=== PATIENT | female | born 1975 | race Caucasian/White ===

== ENCOUNTER 2016-11-05 18:16 | Inpatient (IN) | payer MEDICAID, OTHER ==
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
[2016-11-05 19:51] LABS: Acetaminophen <10.0 ug/mL; Salicylate <1.0 mg/dL
[2016-11-05 23:57] VITALS: BMI 36.9
[2016-11-06] MEDS ORDERED: MAGNESIUM HYDROXIDE 2,400 MG/10 ML CUP PO PRN (01:25)
[2016-11-06] MEDS ORDERED: MAG HYDROX/AL HYDROX/SIMETH 30 ML CUP PO PRN (01:25)
[2016-11-06 09:41] LABS: Basophils % (A) 1 %; CH 31.1; CHCM 33.6; Eosinophils # (A) 0.2 k/uL (0-0.7); Eosinophils % (A) 3 %; HCT 39.1 % (34.0-46.0); HDW 2.81; HGB 12.9 gm/dL (11.4-16.0); Luc # (Auto) 0.29; Luc % (Auto) 4; Lymphocytes # (A) 3.2 k/uL (1.0-4.8); Lymphocytes % (A) 39 %; MCH 30.5 pg (25.0-35.0); MCHC 32.9 g/dL (31.0-37.0); MCV 92.8 fL (80.0-100.0); Mean Platelet Volume 6.7; Monocytes # (A) 0.4 k/uL (0-1.0); Monocytes % (A) 5 %; Neutrophils % (A) 50 %; RBC 4.21 m/uL (3.80-5.40); RDW 12.9 % (11.5-15.5); WBC 8.1 k/uL (3.8-10.6); WBC (Perox) 8.77
[2016-11-06 09:44] LABS: ALT 53 U/L (9-52); AST 35 U/L (14-36); Alkaline Phosphatase 73 U/L (38-126); Anion Gap 12 mmol/L; Blood Urea Nitrogen 9 mg/dL (7-17); Calcium 9.1 mg/dL (8.4-10.2); Carbon Dioxide 31 mmol/L (22-30); Chloride 103 mmol/L (98-107); Glucose 92 mg/dL (74-99); Non-African American GFR(MDRD) >60 (>60 ml/min/1.73 sqM); Potassium 4.2 mmol/L (3.5-5.1); Sodium 146 mmol/L (137-145); Total Bilirubin 0.5 mg/dL (0.2-1.3); Total Protein 7.3 g/dL (6.3-8.2)
--- NOTE | 2016-11-06 10:33 | P.HP ---
Psychiatric H&P - . History & Physical: Allergies Allergy/AdvReac Type Severity Reaction Status Date / Time niacin [From Simcor] Allergy Severe "JUDGE UP" Verified 11/06/16 00:01 peanut Allergy Severe Rash/Hives Verified 11/06/16 00:27 simvastatin [From Simcor] Allergy Severe "JUDGE UP" Verified 11/06/16 00:01 tree nut [Nut] Allergy Severe Unknown Verified 11/06/16 00:27 Vital Signs Temp 97.7 F 11/06/16 07:15 Pulse 83 11/06/16 07:15 Resp 16 11/06/16 07:15 BP 146/89 11/06/16 07:15 Pulse Ox 96 11/05/16 22:39 Intake & Output 11/05/16 11/06/16 11/06/16 18:59 06:59 18:59 Weight 91.654 kg Laboratory Last Values WBC 8.1 k/uL (3.8-10.6) 11/06/16 09:05 RBC 4.21 m/uL (3.80-5.40) 11/06/16 09:05 Hgb 12.9 gm/dL (11.4-16.0) 11/06/16 09:05 Hct 39.1 % (34.0-46.0) 11/06/16 09:05 MCV 92.8 fL (80.0-100.0) 11/06/16 09:05 MCH 30.5 pg (25.0-35.0) 11/06/16 09:05 MCHC 32.9 g/dL (31.0-37.0) 11/06/16 09:05 RDW 12.9 % (11.5-15.5) 11/06/16 09:05 Plt Count 268 k/uL (150-450) 11/06/16 09:05 Neutrophils % 50 % 11/06/16 09:05 Lymphocytes % 39 % 11/06/16 09:05 Monocytes % 5 % 11/06/16 09:05 Eosinophils % 3 % 11/06/16 09:05 Basophils % 1 % 11/06/16 09:05 Neutrophils # 4.0 k/uL (1.3-7.7) 11/06/16 09:05 Lymphocytes # 3.2 k/uL (1.0-4.8) 11/06/16 09:05 Monocytes # 0.4 k/uL (0-1.0) 11/06/16 09:05 Eosinophils # 0.2 k/uL (0-0.7) 11/06/16 09:05 Basophils # 0.0 k/uL (0-0.2) 11/06/16 09:05 Sodium 146 mmol/L (137-145) H 11/06/16 09:05 Potassium 4.2 mmol/L (3.5-5.1) 11/06/16 09:05 Chloride 103 mmol/L (98-107) 11/06/16 09:05 Carbon Dioxide 31 mmol/L (22-30) H 11/06/16 09:05 Anion Gap 12 mmol/L 11/06/16 09:05 BUN 9 mg/dL (7-17) 11/06/16 09:05 Creatinine 0.83 mg/dL (0.52-1.04) 11/06/16 09:05 Est GFR (MDRD) Af Amer >60 (>60 ml/min/1.73 sqM) 11/06/16 09:05 Est GFR (MDRD) Non-Af >60 (>60 ml/min/1.73 sqM) 11/06/16 09:05 Glucose 92 mg/dL (74-99) 11/06/16 09:05 Calcium 9.1 mg/dL (8.4-10.2) 11/06/16 09:05 Total Bilirubin 0.5 mg/dL (0.2-1.3) 11/06/16 09:05 AST 35 U/L (14-36) 11/06/16 09:05 ALT 53 U/L (9-52) H 11/06/16 09:05 Alkaline Phosphatase 73 U/L (38-126) 11/06/16 09:05 Total Protein 7.3 g/dL (6.3-8.2) 11/06/16 09:05 Albumin 4.3 g/dL (3.5-5.0) 11/06/16 09:05 TSH 4.680 mIU/L (0.465-4.680) 11/06/16 09:05 Urine HCG, Qual Not Detected (Not Detectd) 11/05/16 20:00 Salicylates <1.0 mg/dL 11/05/16 19:25 Urine Opiates Screen Not Detected (NotDetected) 11/05/16 20:00 Ur Oxycodone Screen Not Detected (NotDetected) 11/05/16 20:00 Urine Methadone Screen Not Detected (NotDetected) 11/05/16 20:00 Ur Propoxyphene Screen Not Detected (NotDetected) 11/05/16 20:00 Acetaminophen <10.0 ug/mL 11/05/16 19:25 Ur Barbiturates Screen Detected (NotDetected) H 11/05/16 20:00 U Tricyclic Antidepress Not Detected (NotDetected) 11/05/16 20:00 Ur Phencyclidine Scrn Not Detected (NotDetected) 11/05/16 20:00 Ur Amphetamines Screen Not Detected (NotDetected) 11/05/16 20:00 U Methamphetamines Scrn Not Detected (NotDetected) 11/05/16 20:00 U Benzodiazepines Scrn Not Detected (NotDetected) 11/05/16 20:00 Urine Cocaine Screen Not Detected (NotDetected) 11/05/16 20:00 U Marijuana (THC) Screen Not Detected (NotDetected) 11/05/16 20:00 11/06/16 10:29 Psychiatric admission notes. Identification data and reason for hospitalization. Amanda Mesa is a 41-year-old white female who was admitted to mental health unit following her evaluation in the emergency department where she presented with complaints of depression. The ER notes indicate that she had an argument with her 15-year-old daughter. Her daughter wants to go(? Pt.) to a facility to straighten her medications. Patient reports disability because of bipolar disorder and states that she is depressed but denies any specific suicidal thoughts or plans. History of present illness. Information obtainable from the patient is limited and quite confusing as well as patient keeps on talking about previous things that have gone bad in her life , most of them happened 10 or more years ago and claims that they still make her depressed. Patient indicates that she was diagnosed as having ADHD, bipolar disorder and PTSD. On the other hand patient states that she never seen a psychiatrist though she has been going for counseling for the past 7 years. Also indicated that she is not on any psychotropic medication and has not taken any medication for any reason for the past couple of months. On the other hand her home medication list shows that she was on Risperdal, last time field on 10/08/2016. She indicated that she was depressed and that is why she came to the hospital, and did not reveal any issues with her daughter that resulted in her coming here. Patient reported having crying spells thinking about the various relatives, particularly her grandparents and mother who had . Reports having difficulty in sleeping and that she is experiencing difficulty to manage her affairs for example paying the bills and taking care of her finances, all of which she was able to do in the past without difficulty. Past psychiatric history Reports that she was going for counseling 7 years ago and still seeing her counselor but on direct inquiry denies having been under care of a psychiatrist nor having ever seen one. However her treatment providers shows that Dr. Renetta Snow has been prescribing Risperdal for her. Never had any inpatient psychiatric treatment for patient. Substance abuse history. Patient reports that she had used street drugs and marijuana as a teenager but had quit long time ago. She is a regular smoker. Medical history. Reportedly she has history of asthma and seizure disorder though there is no evidence of her being on antiepileptic medications nor having had seizures. Patient has tubal ligation and had right foot surgery 15 years ago. Personal history. Patient is younger of 2 siblings by her biological parents, but has had stepsiblings also. She claims that she raised herself, at another point stated that her grandparents raised her. Did not reveal why her parents did not raise her, and according to her at age 15 she left home and mostly lived on the streets or with friends families. Does not give a reason why she did so. She quit school at 10th grade to take care of herself and at age 17 she became . It appears this ended up in miscarriage and though she claimed that her boyfriend did not care for her again became by him. She has a 16-year-old daughter and they both are living as sub [place] with 2 other families. Her daughter has been getting into trouble at school and was arrested for possession of paraphernalia,caught at school. Patient indicates that her daughter is quite disrespectful of her. Patient has been going for counseling for the past at least 7 years. Family history. Patient's father is alive, and has not much contact with him. Mother moved in with her brother in [place] and had 2 years ago. Grandparents possibly about 10 years ago and there is no family history of psychiatric problem as well as patient knows. ALLERGIES. Niacin. Simvastatin. Current medications. Earliest available she is on Risperdal 1 mg at bedtime, loratadine 10 mg daily, Motrin 600 mg 3 times a day when necessary, Bentyl 10 mg 3 times a day when necessary, cetirizine 10 mg daily and albuterol inhaler every 6 hours when necessary. Mental status examination. Patient is an obese built white single female, dressed in her own clothes comes readily for the evaluation. Does not show any psychomotor disturbance though she appears to be somewhat overactive. Her grooming habits appears to be moderate and patient is cooperative and speaking spontaneously regarding the circumstance of admission, though she is not able to provide a coherent history. Her attention and concentration could be aroused with difficulty but not sustained for any significant length of time on a topic. Speech is quite rapid, and her thought processes quite disturbed due to her significant tangentiality. Patient is quite animated and somewhat euphoric, though she claims she came because she was depressed. On direct inquiry patient denies having any wishes or suicidal thoughts. Also denies any hallucinatory experience or delusional ideations. Inappropriate affect. Patient is oriented to time place and person. Her remote and recent memory functions are disturbed and unable to participate in immediate recall. Patient indicated that she could not do simple arithmetic and problems and was extremely limited in her General Information. Could not name more than Obama and Hernandez as presidents in the past. Appears to be quite limited in her insight and judgment. Intelligence. Below average. Strengths. Patient has Social Security income. And seems to be physically fairly healthy. Has a place to live. Weakness. Possibly limited in intellectual faculties. Questionable history of psychiatric problem. 16-year-old daughter,who has substance abuse and behavioral problems. Formulation. 41-year-old single overweight white female with reported history of past psychiatric problem and under outpatient treatment was depressed due to her conflicts with her daughter and seeking inpatient care stating that she was depressed but not suicidal. Diagnoses. Thornton I. Rule out bipolar disorder. Rule out adjustment disorder with depression. Thornton II. Deferred Thornton III. Obesity. Thornton IV. Moderate Thornton V. 30. Treatment plans. Patient will be on a regular diet and will be on close observation for any unpredictable behavior. Medical evaluation and follow-up as needed requested. Psychosocial history to be obtained particularly regarding details of her psychiatric treatment. She is on Tylenol, Maalox, and milk of magnesia on a when necessary basis and also on albuterol inhalation 4 times a day when necessary. Patient has been complaining about 2 a week for which benzocaine Orajel 4 times a day when necessary ordered as patient seems to be having disorganized thinking and manic features Prolixin 5 mg daily and 10 mg at bedtime ordered and for her nicotine dependency Habitrol transdermal 7 mg every 24 hours also ordered. In view of likelihood of firm extrapyramidal trends Artane 2 mg daily also being started. Patient is encouraged to participate in all milieu based treatment activities and will see patient on a daily basis and reality oriented discussion and once stabilized following post hospital treatment plans in place patient will be scheduled for discharge. Prognosis. Fair with active outpatient treatment. 11/06/16 10:42 11/06/16 11:24 11/07/16 08:35 11/07/16 08:53
[2016-11-06] MEDS: ACETAMINOPHEN TAB 325 MG TAB PO PRN ×3 (10:41→22:11)
[2016-11-06] MEDS: NICOTINE 7MG/24HR PATCH TRANSDERM SCH ×2 (10:42→17:03)
[2016-11-06] MEDS: BENZOCAIN/BENZALKONM ORAL GEL 12 GM TUBE MM PRN ×2 (11:42→22:33)
[2016-11-06] MEDS ORDERED: ALBUTEROL NEBULIZED 2.5 MG/3 ML INHALATION PRN (20:13)
[2016-11-07] MEDS: ACETAMINOPHEN TAB 325 MG TAB PO PRN (03:13)
[2016-11-07] MEDS: TRIHEXYPHENIDYL 2 MG TAB PO SCH (09:13)
[2016-11-07] MEDS: NICOTINE 7MG/24HR PATCH TRANSDERM SCH (09:15)
--- NOTE | 2016-11-07 10:14 | CONS ---
DATE OF CONSULTATION: DATE OF SERVICE: 11/06/2016 REASON FOR CONSULTATION: Advice regarding bronchial asthma and multiple other medical issues requested by Psychiatry. HISTORY OF PRESENT ILLNESS: This 41-year-old woman with a past medical history of multiple medical problems including history of asthma, seizure disorder, history of ADD/ADHD, bipolar, nicotine dependence being followed by in the outpatient setting was admitted for psychiatric evaluation. There is no history of chest pain, no history of palpitation, no history of headache, loss of consciousness, nausea, vomiting, diarrhea, fever, rigors or chills. PAST MEDICAL HISTORY: History of asthma, seizure disorder, orthopedic surgery, ADD/ADHD, bipolar, nicotine dependence. Medications prior to admission include: 1. Risperdal 1 mg p.o. q.h.s. 2. Loratadine 10 mg p.o. daily. 3. Motrin 600 mg t.i.d. p.r.n. 4. Bentyl 10 mg t.i.d. p.r.n. 5. Cetirizine 10 mg daily. 6. Ventolin 2.5 q.6 p.r.n. Allergies are NIACIN, PEANUT, SIMVASTATIN, TREE NUT. FAMILY HISTORY: History of coronary artery disease, diabetes mellitus in the family. SOCIAL HISTORY: History of smoking. No history of alcohol intake. REVIEW OF SYSTEMS: ENT: No diminished hearing or vision. CARDIOVASCULAR: No angina or palpitations. RESPIRATORY: No cough or hemoptysis. GI: No nausea. : No dysuria. NERVOUS SYSTEM: As mentioned earlier. HEMATOLOGY: No history of anemia. ENDOCRINE: No history of diabetes mellitus or hypothyroidism. CONSTITUTIONAL: As mentioned earlier. DERMATOLOGY: Negative. RHEUMATOLOGY: Negative. PSYCHIATRY: As mentioned earlier. PHYSICAL EXAMINATION: The patient is alert and oriented x3. Pulse is 86, blood pressure 143/87, respirations 16, temperature 97.4, pulse ox 96% on room air. HEENT: Conjunctivae normal. NECK: No jugular venous distention. CARDIOVASCULAR: S1 and S2, muffled. RESPIRATORY: Breath sounds diminished at the bases. A few scattered rhonchi, no crackles. ABDOMEN: Soft, nontender. No mass palpable. LEGS: No edema, no swelling. NERVOUS SYSTEM: Higher function as mentioned. Cranial nerves 2 through 12 grossly intact. No facial deviation. Moves all 4 limbs. No weakness. No sensory abnormalities. LYMPHATICS: No lymphadenopathy of neck, axillae or groin. SKIN: No ulcers, rashes or bleeding. LABS: CBC within normal limits. Sodium is 146. ALT is 53. ASSESSMENT: 1. Bronchial asthma. 2. Bipolar. 3. Increased ALT. 4. Increased sodium. 5. History of asthma. 6. History of seizure disorder. 7. History of degenerative joint disease. 8. Attention deficit disorder, attention deficit hyperactivity disorder. 9. Bipolar. 10. History of nicotine dependence. 11. FULL CODE. RECOMMENDATIONS AND DISCUSSION: This 41-year-old woman who presented with multiple complex medical issues. Will recommend to continue the home medications and continue with the bronchodilators nebulizer. Otherwise, recommend close followup with primary physician in the outpatient setting. The minimal abnormalities in the labs may due to dehydration, which may be repeated later in the outpatient setting and continues to follow up with the primary physician. Will follow the patient closely. Thank you Dr. Chambers for letting us participate in the care of this patient. DORIAN
[2016-11-07] MEDS ORDERED: IBUPROFEN 400 MG TAB PO PRN (12:38)
--- NOTE | 2016-11-07 15:31 | P.PN ---
Subjective Psychiatric progress notes. Patient indicates that she is feeling fairly okay, but was not able to attend to the milieu based treatment activities as she was having a severe toothache. Hence Motrin 400 mg 3 times a day when necessary ordered. Patient is indicating that she had problem with ADHD and this had prevented her from being gainfully employed. Reports having depressive feelings but denies any suicidal thoughts. Patient was mostly staying in bed today. She has been compliant with her medications without any adverse effects. Mental status exam. Rather heavy built female dressed in her own clothes with some limitation in her grooming trends. Was staying in bed because of her to take. Patient comes readily for the evaluation and appropriately responding to questions. Her speech and thought process did not show any abnormality traits. Affect appeared to be appropriate. Denied having any suicidal thoughts. No evidence of any delusions or hallucinations continue current treatment plans. Objective - Vital Signs Vital signs: Vital Signs Temp 97.6 F 11/07/16 06:51 Pulse 72 11/07/16 06:51 Resp 14 11/07/16 06:51 BP 115/66 11/07/16 06:51 Pulse Ox 96 11/05/16 22:39 - Labs CBC & Chem 7: 11/06/16 09:05 11/06/16 09:05
[2016-11-08] MEDS: NICOTINE 7MG/24HR PATCH TRANSDERM SCH (08:41)
[2016-11-08] MEDS: TRIHEXYPHENIDYL 2 MG TAB PO SCH (08:41)
--- NOTE | 2016-11-08 16:30 | P.PN ---
Subjective Psychiatric progress notes. Mrs. Mesa, a 41-year-old heavy built white female was seen on psychiatric follow-up, and she was lying down in bed following lunch and she indicated that she overate. Patient sleeps well at night also and states that she has been participating in all treatment activities and had a family session including her boyfriend. Apparently she had met this gentleman only a week ago and states that she is taking it rather slow as well as her relationship with him. She is having problem with her 16-year-old daughter who seems to have lost patient's phone as well as others. Patient also indicates that she has reconciled with the losses of her family members and believes that they are in a better place now. Mental status. Patient is an obese built female dressed in her own clothes and comes readily for the evaluation. Does not show any psychomotor disturbance. Her speech and thought process did not show any abnormal traits. She denies having any significant depression at this time. Her thought process which was somewhat disturbed before seem to be streamlined and without any abnormality. No evidence of any delusions or hallucinations. Possibly having moderate degree of insight and judgment. Continue current treatment plan. Objective - Vital Signs Vital signs: Vital Signs Temp 98.0 F 11/08/16 06:25 Pulse 75 11/08/16 06:25 Resp 16 11/08/16 06:25 BP 161/77 11/08/16 06:25 Pulse Ox 96 11/05/16 22:39 - Labs CBC & Chem 7: 11/06/16 09:05 11/06/16 09:05
[2016-11-09 06:46] VITALS: BP 119/79; PULSE 86; RESP 18; TEMP 98.1
[2016-11-09] MEDS: NICOTINE 7MG/24HR PATCH TRANSDERM SCH (08:57)
[2016-11-09] MEDS: TRIHEXYPHENIDYL 2 MG TAB PO SCH (08:58)
--- NOTE | 2016-11-09 12:48 | P.DS ---
Providers Date of admission: 11/05/16 22:28 Attending physician: Jeanine Chambers MD Psychiatric discharge summary. Identification data and reason for hospitalization Patient is a 41-year-old single white female who was admitted to mental health unit following her evaluation in the emergency department, where she came reporting feeling depressed after having an argument with her 16-year-old daughter. Patient indicated that she is under treatment for bipolar disorder but denied having any suicidal thoughts or plans. History of present illness and mental status at the time of admission please refer to the dictated admission notes. Admitting diagnoses. [place] I. Rule out bipolar disorder. Rule out adjustment disorder with depression. [place] II. Deferred [place] III obesity. [place] IV moderate. [place] V. 30 Course during hospitalization. Patient was on a regular diet and was on close observation for any unpredictable behavior. Patient was seen on medical consultation by Dr. Boudreaux with the following assessment, history of bronchial asthma, increased ALT, history of seizure disorder, history of degenerative joint disease , and history of nicotine dependence. She was on Tylenol, Maalox, and milk of magnesia on a when necessary basis so also albuterol inhalation 4 times a day when necessary. As she had complained of toothache benzocaine Orajel was applied 4 times a day when necessary. Patient had initially evidence of disorganized thinking and possibly some manic trends and hence Prolixin 5 mg IM and 10 mg at bedtime given and nicotine dependency Habitrol transdermal 7 mg every 24 hours also ordered. For her chronic back pain she was on Motrin 400 mg 3 times a day when necessary. Patient was being seen on a daily basis, and she participated in some of the treatment activities. She showed a tendency to be withdrawn and staying in bed giving toothache as her reason. Otherwise during her stay she has not manifested any features of being depressed or having any wishes. Present family session held including her boyfriend, of only 1 week's relationship, and a friend. As patient did not show any evidence of being dangerous to self or others there was no justification for continued hospitalization and hence patient was discharged for outpatient follow -up. Mental status at the time of discharge. Patient is a heavy built 41-year-old white female admitted due to argument with her 16-year-old daughter and resulting depression but without any thoughts of harm to self. Patient is some degree withdrawn however comes readily for the evaluation, dressed in her own clothes, maintaining good eye contact, but overall an attitude of indifference. Attention and concentration intact. Answers to questions relevantly and coherently. Speech and thought process appeared to be fairly intact compared to at the time of admission. No evidence of any active psychotic symptoms at present. Adequate self-care. Appears to have moderate degree of insight and judgment. Discharge diagnoses. [place] I. Depressive disorder. Nicotine dependency. [place] II. Personality disorder NOS. [place] III. Obesity. Degenerative joint disease. History of bronchial asthma. History of seizure disorder. Increased ALT. [place] IV. Moderate. [place] V. 50 Post hospital plan. Patient will be on regular diet and has appointment at [facility] on 11/14/2016 with her family practitioner in couple of days. Her discharge medications are. Albuterol inhaler 4 times a day when necessary Orajel 4 times a day when necessary. Habitrol 7 mg transdermal every 24 hours. Artane 2 mg daily. Prolixin 10 mg at bedtime. Prognosis. Fair with ongoing treatment. Risk assessment. Patient was not taking having any depressive or psychotic symptoms did not appear to be at risk of harm to self or others. Consults: 11/06/16 01:25 Consult Physician Routine Consulting Provider: Rodriguez Boudreaux Consult Reason/Comments: H and P with medical follow up Do you want consulting provider notified?: Already Contacted Primary care physician: Tiny Cornell Patient Condition at Discharge: Stable Plan - Discharge Summary New Discharge Prescriptions: Benzocain/Benzalkonm Oral Gel [Orajel Anesthetic Max Strength] 0.5 gm MM QID PRN #1 tube PRN Reason: Mouth Sore Pain Nicotine 7Mg/24Hr Patch [Habitrol] 1 patch TRANSDERM DAILY #30 patch Trihexyphenidyl [Artane] 2 mg PO DAILY #30 tab fluPHENAZine [Prolixin] 10 mg PO HS #60 tab Discharge Medication List Albuterol Nebulized [Ventolin Nebulized] 2.5 mg INHALATION RT-Q6H PRN 11/05/16 [ History] Dicyclomine [Bentyl] 10 mg PO TID PRN 11/05/16 [History] Ibuprofen [Motrin] 600 mg PO TID PRN 11/05/16 [History] Cetirizine HCl 10 mg PO DAILY 11/06/16 [History] Loratadine 10 mg PO DAILY 11/06/16 [History] Albuterol Nebulized [Ventolin Nebulized] 2.5 mg INHALATION RT-QID PRN #0 nebu [Rx] Benzocain/Benzalkonm Oral Gel [Orajel Anesthetic Max Strength] 0.5 gm MM QID PRN #1 tube 11/09/16 [Rx] Nicotine 7Mg/24Hr Patch [Habitrol] 1 patch TRANSDERM DAILY #30 patch 11/09/16 [ Rx] Trihexyphenidyl [Artane] 2 mg PO DAILY #30 tab 11/09/16 [Rx] fluPHENAZine [Prolixin] 10 mg PO HS #60 tab 11/09/16 [Rx] Follow up Appointment(s)/Referral(s): [facility] [Outside] - 11/14/16 1:00 pm (Amanda Ramirez ) Tiny Cornell MD [Primary Care Provider] - 1-2 days Patient Instructions/Handouts: How to Stop Smoking (DC), Bipolar Disorder (DC) , Suicide Prevention for Adults (DC) Activity/Diet/Wound Care/Special Instructions: No alcohol or street drugs. Call the crisis line or your care provider if symptoms worsen. Crisis line no. . Regular diet. Activity as tolerated.
== END 2016-11-09 13:08 | disposition home or self-care (01) | DRG 881 ==
LOC: EC 18:16 → 3MHU 22:28
PROVIDERS: ADMIT Psychiatry & Neurology Psychiatry; ATTEND Psychiatry & Neurology Psychiatry
DX: F32.9 Major depressive disorder, single episode, unspecified (principal); F17.200 Nicotine dependence, unspecified, uncomplicated; M19.90 Unspecified osteoarthritis, unspecified site; J45.909 Unspecified asthma, uncomplicated; Z79.899 Other long term (current) drug therapy
CPT/HCPCS: 36415; 80053; 80306; 81025; 82075; 83520; 84443; 85025; 94640; 99285

== ENCOUNTER 2016-11-19 14:42 | Emergency (ER) | payer MEDICAID, OTHER ==
[2016-11-19 15:17] VITALS: RESP 18
--- NOTE | 2016-11-19 15:51 | XR ---
EXAMINATION TYPE: XR chest 2V DATE OF EXAM: 11/19/2016 3:26 PM COMPARISON: 10/01/2016 HISTORY: Cough for 2 weeks TECHNIQUE: Frontal and lateral views of the chest are obtained. FINDINGS: Heart and mediastinum are normal. Lungs are clear. There is a mild thoracic dextroscoliosi s. There are no hilar masses. There is no pleural effusion. Bony thorax is intact. IMPRESSION: No cardiopulmonary disease. No change.
--- NOTE | 2016-11-19 15:52 | XR ---
EXAMINATION TYPE: XR knee complete LT DATE OF EXAM: 11/19/2016 3:26 PM COMPARISON: NONE HISTORY: Cough for 2 weeks. Knee pain TECHNIQUE: 3 views FINDINGS: I see no fracture nor dislocation. Joint spaces are normal. There is no sign of knee joint effusion. IMPRESSION: Negative left knee exam.
--- NOTE | 2016-11-19 16:03 | ED ---
URI HPI - General Chief Complaint: Upper Respiratory Infection Stated Complaint: Cough Source: patient Mode of arrival: ambulatory Limitations: no limitations - History of Present Illness Initial Comments: 41-year-old female presented to the ER with complains of a cough lasting for 2 weeks. She states that she has tried lozenges and cough syrups without relief. She is concerned because she is living with a roommate. She also has had some mild upper shortness symptoms including nasal congestion, minor headache, fatigue. She is not a smoker. She also states that she has had chronic knee pain for over the last 20 years and it has been flaring currently. She has not seen her PCP for these problems recently. Patient denies severe headache, nausea, vomiting, diarrhea, abdominal pain, vision change, numbness or tingling in the extremity. MD Complaint: cough - Related Data Home Medications Medication Instructions Recorded Confirmed Albuterol Nebulized [Ventolin 2.5 mg INHALATION RT-Q6H PRN 11/05/16 11/19/16 Nebulized] Dicyclomine [Bentyl] 10 mg PO TID PRN 11/05/16 11/19/16 Ibuprofen [Motrin] 600 mg PO TID PRN 11/05/16 11/19/16 Cetirizine HCl 10 mg PO DAILY 11/06/16 11/19/16 Loratadine 10 mg PO DAILY 11/06/16 11/19/16 Fluphenazine HCl [fluPHENAZine HCL] 10 mg PO HS 11/19/16 11/19/16 Previous Rx's Medication Instructions Recorded Benzocain/Benzalkonm Oral Gel 0.5 gm MM QID PRN #1 tube 11/09/16 [Orajel Anesthetic Max Strength] Nicotine 7Mg/24Hr Patch [Habitrol] 1 patch TRANSDERM DAILY #30 patch 11/09/16 Trihexyphenidyl [Artane] 2 mg PO DAILY #30 tab 11/09/16 Albuterol Sulfate [Proair 1 puff PO Q4-6H #1 inhaler 11/19/16 Respiclick] Benzonatate [Tessalon Perles] 100 mg PO TID #30 cap 11/19/16 Allergies Allergy/AdvReac Type Severity Reaction Status Date / Time niacin [From Simcor] Allergy Severe "JUDGE UP" Verified 11/19/16 15:14 tree nut [Nut] Allergy Severe Unknown Verified 11/19/16 15:14 peanut AdvReac Severe Rash/Hives Verified 11/19/16 15:14 simvastatin [From Simcor] AdvReac Severe "JUDGE UP" Verified 11/19/16 15:14 Review of Systems ROS Statement: Those systems with pertinent positive or pertinent negative responses have been documented in the HPI. ROS Other: All systems not noted in ROS Statement are negative. Past Medical History Past Medical History: Asthma, Seizure Disorder Additional Past Medical History / Comment(s): Patient states that she is currently working with her family doctor to diagnosis if she has seizures. History of Any Multi-Drug Resistant Organisms: None Reported Past Surgical History: Orthopedic Surgery, Tubal Ligation Additional Past Surgical History / Comment(s): RIGHT FOOT SURGERY 15+ YEARS AGO Past Anesthesia/Blood Transfusion Reactions: No Reported Reaction Past Psychological History: ADD/ADHD, Bipolar Smoking Status: Current some day smoker Past Alcohol Use History: None Reported Past Drug Use History: None Reported - Past Family History Mother History Unknown: Yes Additional Family Medical History / Comment(s): Patient states that her mother is from cancer. Father Family Medical History: Coronary Artery Disease (CAD), Diabetes Mellitus Daughter(s) Family Medical History: No Reported History General Exam Limitations: no limitations General appearance: alert, in no apparent distress Head exam: Present: atraumatic, normocephalic Eye exam: Present: normal appearance, PERRL, EOMI Pupils: Present: normal accommodation ENT exam: Present: normal exam, mucous membranes moist, TM's normal bilaterally , other (Mild erythema oropharynx) Neck exam: Present: normal inspection, full ROM Respiratory exam: Present: normal lung sounds bilaterally Cardiovascular Exam: Present: regular rate, normal rhythm Extremities exam: Present: normal inspection, full ROM, tenderness (Left anterior knee), normal capillary refill, other (Left knee: Negative anterior drawer, posterior drawer, Kelley's.) Neurological exam: Present: alert, oriented X3, CN II-XII intact Psychiatric exam: Present: normal affect, normal mood Skin exam: Present: warm, dry, intact Course Vital Signs 11/19/16 11/19/16 11/19/16 14:44 15:15 16:06 Temperature 98.4 F 97.5 F L Pulse Rate 90 77 Respiratory 20 18 18 Rate Blood Pressure 139/85 115/62 O2 Sat by Pulse 98 96 Oximetry Medical Decision Making - Medical Decision Making 41-year-old female presents with multiple complaints of upper respiratory issues with cough lasting greater than 2 weeks and some chronic left knee pain. I recommended a chest x-ray for evaluation of the long-standing cough as well as in the x-ray due to left knee pain. Both x-rays were reviewed and were negative. We'll recommend an inhaler and Tessalon Perles to help so slight cough. Patient can purchase Delsym [id number] for cough suppression. Also recommended to increase fluids and get rest. It was also explained that upper respiratory viruses can last 3 weeks and cough can last longer. Encouraged her to follow up with primary care physician. X-ray was reviewed and this was negative. Due to chronic nature of this problem encouraged follow-up with primary care physician. The area was wrapped with an atif wrap for compression and she was encouraged to elevate and use ice and heat as needed. She can also take oral [id number] pain medication for control. All questions were answered and she was discharged back to the ER if worsening symptoms or concerns. - Radiology Data Radiology results: report reviewed (Chest: Normal chest x-ray with no evidence of effusion or consolidation. Left knee: Negative x-ray with no evidence of joint effusion, fracture, dislocation.) Disposition Clinical Impression: Upper respiratory infection, Left knee pain Disposition: HOME SELF-CARE Condition: Good Instructions: Upper Respiratory Infection (ED), Knee Pain (ED) Prescriptions: Albuterol Sulfate [Proair Respiclick] 1 puff PO Q4-6H #1 inhaler Benzonatate [Tessalon Perles] 100 mg PO TID #30 cap Referrals: Tiny Cornell MD [Primary Care Provider] - 1-2 days Time of Disposition: 18:00
[2016-11-19 16:07] VITALS: BP 115/62; PULSE 77; TEMP 97.5
== END 2016-11-19 16:21 | disposition home or self-care (01) ==
LOC: EC 14:42
DX: J06.9 Acute upper respiratory infection, unspecified (principal); M25.562 Pain in left knee; F31.9 Bipolar disorder, unspecified; Z79.899 Other long term (current) drug therapy; Z88.8 Allergy status to other drugs, medicaments and biological substances
CPT/HCPCS: 71020; 99283

== ENCOUNTER → 2017-03-05 | Outpatient (CLI) | payer OTHER ==
--- NOTE | 2017-03-05 08:30 | US ---
EXAMINATION TYPE: US abdomen complete DATE OF EXAM: 03/05/2017 8:07 AM COMPARISON: CT CLINICAL HISTORY: R10.11 RUQ Pain. Intermittent RUQ pain and nausea, history of cholecystectomy, obes e patient EXAM MEASUREMENTS: Liver Length: 14.4 cm Gallbladder Wall: surgically absent CBD: 0.4 cm Spleen: 10.5 cm Right Kidney: 10.5 x 4.7 x 5.2 cm Left Kidney: 11.1 x 4.7 x 4.8 cm Pancreas: visualized portions wnl, tail obscured by overlying midline bowel gas Liver: slightly heterogeneous, 3.0 x 1.6cm hyperechoic area right lobe Gallbladder: surgically absent Evidence for sonographic Le's sign: no CBD: visualized portions wnl, limited by overlying bowel gas Spleen: visualized portions wnl, limited by rib shadowing and overlying bowel gas Right Kidney: 1.2cm hypoechoic area lateral mid pole, limited by rib shadowing and overlying bowel g as Left Kidney: visualized portions wnl, superior pole partially obscured by overlying bowel gas Upper IVC: wnl Abd Aorta: visualized portions wnl, limited by overlying bowel gas The liver is heterogenous. Hypoechoic area right hepatic lobe. Previous CT suggested hemangioma. The gallbladder surgically absent. The intrahepatic portion of the IVC and proximal abdominal aorta are w ithin normal limits. Common bile duct is unremarkable. The visualized portions of the pancreas are homogenous. The spleen is unremarkable. Kidneys are symmetric and free of hydronephrosis. 1.2 cm hy poechoic lesion right kidney. IMPRESSION: 1. Mild fatty liver. 2. Probable hepatic hemangioma. 3 simple cyst right kidney.
== END | disposition home or self-care (01) ==
LOC: RADUSWWP 07:29
PROVIDERS: ATTEND Family Medicine
DX: N28.1 Cyst of kidney, acquired (principal); K76.0 Fatty (change of) liver, not elsewhere classified
CPT/HCPCS: 76700

== ENCOUNTER 2017-03-19 16:14 | Emergency (ER) | payer OTHER ==
[2017-03-19] MEDS ORDERED: SODIUM CHLORIDE 0.9% 1,000 ML IV ONE (17:02)
[2017-03-19] MEDS ORDERED: ONDANSETRON 4 MG/2 ML VIAL IVP STA (17:02)
[2017-03-19] MEDS ORDERED: KETOROLAC 30 MG/ML 1 ML VIAL IVP STA (17:02)
--- NOTE | 2017-03-19 17:05 | ED ---
General Adult HPI - General Chief complaint: Abdominal Pain Stated complaint: Abd Pain Time Seen by Provider: 03/19/17 16:38 Source: patient, RN notes reviewed, old records reviewed Mode of arrival: ambulatory - History of Present Illness Initial comments: 41-year-old female presenting for abdominal pain. Patient states that she's had persistent pain for the past several weeks. She states she's been seen in the ED recently for this. She had an ultrasound recently as well. She states she was discharged home with GI follow-up. However she states her abdominal pain continues to worsen and she has had associated nausea and vomiting. States she last threw up this morning. She denies any fevers or chills. She denies any diarrhea. She's not currently on any medications for this. She denies any chest pain or shortness breath. She denies any fevers or chills. - Related Data Home Medications Medication Instructions Recorded Confirmed Albuterol Inhaler [Ventolin Hfa 1 - 2 puff INHALATION RT-Q6H PRN 03/19/17 Inhaler] Albuterol Nebulized [Ventolin 2.5 mg INHALATION RT-Q6H PRN 03/19/17 03/19/17 Nebulized] Naproxen 500 mg PO DAILY PRN 03/19/17 03/19/17 Previous Rx's Medication Instructions Recorded HYDROcodone/APAP 5-325MG [[place] 1 tab PO Q6HR PRN #12 tab 03/19/17 5-325] Omeprazole [PriLOSEC] 20 mg PO AC-BRKFST #30 cap 03/19/17 Ondansetron Odt [Zofran Odt] 4 mg PO Q8HR PRN #12 tab 03/19/17 Sucralfate [Carafate] 1 gm PO QID #414 ml 03/19/17 Allergies Allergy/AdvReac Type Severity Reaction Status Date / Time niacin [From Simcor] Allergy Severe "JUDGE UP" Verified 03/19/17 17:43 tree nut [Nut] Allergy Severe Unknown Verified 03/19/17 17:43 peanut AdvReac Severe Rash/Hives Verified 03/19/17 17:43 simvastatin [From Simcor] AdvReac Severe "JUDGE UP" Verified 03/19/17 17:43 Review of Systems ROS Statement: Those systems with pertinent positive or pertinent negative responses have been documented in the HPI. ROS Other: All systems not noted in ROS Statement are negative. Past Medical History Past Medical History: Asthma, Seizure Disorder Additional Past Medical History / Comment(s): Patient states that she is currently working with her family doctor to diagnosis if she has seizures. History of Any Multi-Drug Resistant Organisms: None Reported Past Surgical History: Orthopedic Surgery, Tubal Ligation Additional Past Surgical History / Comment(s): RIGHT FOOT SURGERY 15+ YEARS AGO Past Anesthesia/Blood Transfusion Reactions: No Reported Reaction Past Psychological History: ADD/ADHD, Bipolar Smoking Status: Former smoker Past Alcohol Use History: None Reported Past Drug Use History: None Reported - Past Family History Mother History Unknown: Yes Additional Family Medical History / Comment(s): Patient states that her mother is from cancer. Father Family Medical History: Coronary Artery Disease (CAD), Diabetes Mellitus Daughter(s) Family Medical History: No Reported History General Exam - General Exam Comments Initial Comments: General: Awake and Alert. No acute distress. Does not appear acutely ill. Obese. Eyes: GAL[place], EOM intact. No nystagmus. No scleral icterus. HENT: Atraumatic, normocephalic. Mucous membranes moist. Trachea midline. Neck: The neck is supple, there is no tenderness or JVD. Cardiovascular: Regular rate and rhythm. No murmur, rub, or gallop is appreciated. Distal pulses intact. Respiratory: Lungs are clear to auscultation bilaterally. No wheezes, rales, rhonchi. No respiratory distress. Gastrointestinal: Soft, with right upper quadrant focal tenderness and diffuse general tenderness.. No rebound or guarding. Non-distended. No masses or organomegaly noted. No CVA tenderness. Musculoskeletal: No tenderness. Normal ROM. No gross deformity. No strength deficits. Neurological: A&Ox3. CN II-XII grossly intact, There are no obvious motor or sensory deficits. Coordination appears grossly intact. Speech is normal. Skin: Skin is warm and dry and no rashes or lesions are noted. Psychiatric: Cooperative, appropriate mood & affect, normal judgment. Course Vital Signs 03/19/17 03/19/17 03/19/17 16:30 18:11 18:38 Temperature 98.4 F 98.5 F 98.5 F Pulse Rate 77 80 80 Respiratory 18 16 16 Rate Blood Pressure 136/69 113/57 113/57 O2 Sat by Pulse 100 92 L 92 L Oximetry 03/19/17 19:07 Temperature 98 F Pulse Rate 84 Respiratory 18 Rate Blood Pressure 117/70 O2 Sat by Pulse 98 Oximetry Medical Decision Making - Medical Decision Making 41-year-old female presenting for abdominal pain. Patient with right upper quadrant and diffuse mild abdominal tenderness but no evidence of acute peritonitis. Lab work and IVF, pain, and nausea medication ordered. Previous records reviewed. Lab work was stable CBC, stable BMP. LFTs grossly unremarkable. Lipase negative. Patient reevaluated after medications, states she is feeling improved. Updated on results. Discussed recent ultrasound and no evidence of cholecystitis or cholelithiasis. Discussed other benign-appearing findings. Discussed close follow-up with PCP. Discussed concern for possible gastritis. Discussed PPI therapy. Rx for pain and nausea medications provided for symptomatic management. Patient states she has follow-up with GI on April 05, encouraged to keep this appointment or see if she can move it up. Discussed she will need an EGD for further evaluation. Also discussed talking to her PCP about possible HIDA scan for further gallbladder evaluation. Discussed concerning signs and symptoms for immediate return to the ER. Patient is agreeable with plan a discharge home. - Lab Data Result diagrams: 03/19/17 17:20 03/19/17 17:20 Lab Results 03/19/17 03/19/17 Range/Units 17:20 17:20 WBC 9.3 (3.8-10.6) k/uL RBC 3.97 (3.80-5.40) m/uL Hgb 12.2 (11.4-16.0) gm/dL Hct 36.5 (34.0-46.0) % MCV 91.8 (80.0-100.0) fL MCH 30.8 (25.0-35.0) pg MCHC 33.6 (31.0-37.0) g/dL RDW 13.4 (11.5-15.5) % Plt Count 252 (150-450) k/uL Neutrophils % 77 % Lymphocytes % 14 % Monocytes % 5 % Eosinophils % 1 % Basophils % 0 % Neutrophils # 7.1 (1.3-7.7) k/uL Lymphocytes # 1.3 (1.0-4.8) k/uL Monocytes # 0.5 (0-1.0) k/uL Eosinophils # 0.1 (0-0.7) k/uL Basophils # 0.0 (0-0.2) k/uL Sodium 142 (137-145) mmol/L Potassium 4.0 (3.5-5.1) mmol/L Chloride 106 (98-107) mmol/L Carbon Dioxide 27 (22-30) mmol/L Anion Gap 9 mmol/L BUN 10 (7-17) mg/dL Creatinine 0.62 (0.52-1.04) mg/dL Est GFR (MDRD) Af Amer >60 (>60 ml/min/1.73 sqM) Est GFR (MDRD) Non-Af >60 (>60 ml/min/1.73 sqM) Glucose 92 (74-99) mg/dL Calcium 7.8 L (8.4-10.2) mg/dL Magnesium 2.0 (1.6-2.3) mg/dL Total Bilirubin 0.5 (0.2-1.3) mg/dL AST 42 H (14-36) U/L ALT 42 (9-52) U/L Alkaline Phosphatase 74 (38-126) U/L Total Protein 6.9 (6.3-8.2) g/dL Albumin 3.9 (3.5-5.0) g/dL Lipase 123 (23-300) U/L - Radiology Data Radiology results: report reviewed Disposition Clinical Impression: Nonspecific abdominal pain, Gastritis Disposition: HOME SELF-CARE Condition: Stable Instructions: Abdominal Pain (ED), Gastritis (ED) Prescriptions: HYDROcodone/APAP 5-325MG [[place] 5-325] 1 tab PO Q6HR PRN #12 tab PRN Reason: Pain Omeprazole [PriLOSEC] 20 mg PO AC-BRKFST #30 cap Ondansetron Odt [Zofran Odt] 4 mg PO Q8HR PRN #12 tab PRN Reason: Nausea Sucralfate [Carafate] 1 gm PO QID #414 ml Referrals: Tiny Cornell MD [Primary Care Provider] - 1-2 days Time of Disposition: 18:53
[2017-03-19 17:31] LABS: Basophils % (A) 0 %; CH 30.7; CHCM 33.5; Eosinophils # (A) 0.1 k/uL (0-0.7); Eosinophils % (A) 1 %; HCT 36.5 % (34.0-46.0); HDW 2.64; HGB 12.2 gm/dL (11.4-16.0); Luc % (Auto) 2; Lymphocytes # (A) 1.3 k/uL (1.0-4.8); Lymphocytes % (A) 14 %; MCH 30.8 pg (25.0-35.0); MCHC 33.6 g/dL (31.0-37.0); MCV 91.8 fL (80.0-100.0); Mean Platelet Volume 6.9; Monocytes # (A) 0.5 k/uL (0-1.0); Monocytes % (A) 5 %; Neutrophils # (A) 7.1 k/uL (1.3-7.7); Neutrophils % (A) 77 %; RBC 3.97 m/uL (3.80-5.40); RDW 13.4 % (11.5-15.5); WBC 9.3 k/uL (3.8-10.6); WBC (Perox) 9.58
[2017-03-19 17:42] LABS: ALT 42 U/L (9-52); AST 42 U/L (14-36); Alkaline Phosphatase 74 U/L (38-126); Anion Gap 9 mmol/L; Blood Urea Nitrogen 10 mg/dL (7-17); Calcium 7.8 mg/dL (8.4-10.2); Carbon Dioxide 27 mmol/L (22-30); Chloride 106 mmol/L (98-107); Glucose 92 mg/dL (74-99); Non-African American GFR(MDRD) >60 (>60 ml/min/1.73 sqM); Sodium 142 mmol/L (137-145); Total Bilirubin 0.5 mg/dL (0.2-1.3); Total Protein 6.9 g/dL (6.3-8.2)
[2017-03-19] MEDS ORDERED: MAG HYDROX/AL HYDROX/SIMETH 30 ML CUP PO STA (17:55)
[2017-03-19] MEDS ORDERED: LIDOCAINE VISCOUS 2% 15 ML CUP MUCOUS MEM ONE (17:55)
[2017-03-19 19:08] VITALS: BP 117/70; PULSE 84; RESP 18; TEMP 98
== END 2017-03-19 19:08 | disposition home or self-care (01) ==
LOC: EC 16:14
DX: K29.70 Gastritis, unspecified, without bleeding (principal); R11.2 Nausea with vomiting, unspecified; Z87.891 Personal history of nicotine dependence; Z88.8 Allergy status to other drugs, medicaments and biological substances; Z91.018 Allergy to other foods; Z91.010 Allergy to peanuts
CPT/HCPCS: 36415; 80053; 83690; 83735; 85025; 99284; 96374; 96375; 96361 ×2; J2405; J1885

== ENCOUNTER 2017-03-31 23:51 | Emergency (ER) | payer OTHER ==
[2017-03-31 23:56] VITALS: BP 128/80; PULSE 84; RESP 18; TEMP 98
[2017-04-01] MEDS ORDERED: SODIUM CHLORIDE 0.9% 500 ML IV STA (00:08)
[2017-04-01] MEDS ORDERED: ONDANSETRON 4 MG/2 ML VIAL IVP STA (00:30)
[2017-04-01] MEDS ORDERED: KETOROLAC 30 MG/ML 1 ML VIAL IVP STA (00:30)
--- NOTE | 2017-04-01 00:35 | ED ---
Abdominal Pain HPI - General Chief Complaint: Abdominal Pain Stated Complaint: Abd Pain Time Seen by Provider: 04/01/17 00:07 Source: patient, RN notes reviewed Mode of arrival: ambulatory Limitations: no limitations - History of Present Illness Initial Comments: 41-year-old female presents emergency Department chief complaint abdominal pain. Patient states pain started earlier this evening. Patient states that she has upper abdominal pain that radiates to her lower abdomen. Denies any nausea vomiting diarrhea constipation. Denies any fevers chills. states she's had pain like this in the past which seems to come and go and has seen GI in the past for similar symptoms. Patient has no chest pain or shortness breath no as reflux at this time. - Related Data Home Medications Medication Instructions Recorded Confirmed Albuterol Inhaler [Ventolin Hfa 1 - 2 puff INHALATION RT-Q6H PRN 03/19/17 Inhaler] Albuterol Nebulized [Ventolin 2.5 mg INHALATION RT-Q6H PRN 03/19/17 03/31/17 Nebulized] Naproxen 500 mg PO DAILY PRN 03/19/17 03/31/17 Previous Rx's Medication Instructions Recorded HYDROcodone/APAP 5-325MG [[place] 1 tab PO Q6HR PRN #12 tab 03/19/17 5-325] Omeprazole [PriLOSEC] 20 mg PO AC-BRKFST #30 cap 03/19/17 Ondansetron Odt [Zofran Odt] 4 mg PO Q8HR PRN #12 tab 03/19/17 Sucralfate [Carafate] 1 gm PO QID #414 ml 03/19/17 Allergies Allergy/AdvReac Type Severity Reaction Status Date / Time niacin [From Simcor] Allergy Severe "JUDGE UP" Verified 03/31/17 23:56 tree nut [Nut] Allergy Severe Unknown Verified 03/31/17 23:56 peanut AdvReac Severe Rash/Hives Verified 03/31/17 23:56 simvastatin [From Simcor] AdvReac Severe "JUDGE UP" Verified 03/31/17 23:56 Review of Systems ROS Statement: Those systems with pertinent positive or pertinent negative responses have been documented in the HPI. ROS Other: All systems not noted in ROS Statement are negative. Past Medical History Past Medical History: Asthma, Seizure Disorder Additional Past Medical History / Comment(s): Patient states that she is currently working with her family doctor to diagnosis if she has seizures. History of Any Multi-Drug Resistant Organisms: None Reported Past Surgical History: Orthopedic Surgery, Tubal Ligation Additional Past Surgical History / Comment(s): RIGHT FOOT SURGERY 15+ YEARS AGO Past Anesthesia/Blood Transfusion Reactions: No Reported Reaction Past Psychological History: ADD/ADHD, Bipolar Smoking Status: Former smoker Past Alcohol Use History: None Reported Past Drug Use History: None Reported - Past Family History Mother History Unknown: Yes Additional Family Medical History / Comment(s): Patient states that her mother is from cancer. Father Family Medical History: Coronary Artery Disease (CAD), Diabetes Mellitus Daughter(s) Family Medical History: No Reported History General Exam Limitations: no limitations General appearance: alert, in no apparent distress Respiratory exam: Present: normal lung sounds bilaterally. Absent: respiratory distress, wheezes, rales, rhonchi, stridor Cardiovascular Exam: Present: regular rate, normal rhythm, normal heart sounds. Absent: systolic murmur, diastolic murmur, rubs, gallop, clicks GI/Abdominal exam: Present: soft, tenderness (Mild diffuse), normal bowel sounds. Absent: distended, guarding, rebound, rigid Back exam: Absent: CVA tenderness (R), CVA tenderness (L) Neurological exam: Present: alert, oriented X3, CN II-XII intact Skin exam: Present: warm, dry, intact, normal color. Absent: rash Course Vital Signs 03/31/17 23:54 Temperature 98.0 F Pulse Rate 84 Respiratory 18 Rate Blood Pressure 128/80 O2 Sat by Pulse 96 Oximetry Medical Decision Making - Medical Decision Making 41-year-old female presented emergency from for abdominal pain. Patient's lab work within normal limits. KUB does show moderate amount of stool burden. This may be leading towards her pain at this time. She has had some crampy- type pain. Patient will be discharged advised take some stool softeners or laxatives. Patient will be follow-up with primary care physician return parameters were discussed. - Lab Data Result diagrams: 04/01/17 00:30 04/01/17 00:30 Lab Results 04/01/17 04/01/17 04/01/17 Range/Units 00:30 00:30 01:00 WBC 9.5 (3.8-10.6) k/uL RBC 3.79 L (3.80-5.40) m/uL Hgb 11.6 (11.4-16.0) gm/dL Hct 33.8 L (34.0-46.0) % MCV 89.4 (80.0-100.0) fL MCH 30.7 (25.0-35.0) pg MCHC 34.4 (31.0-37.0) g/dL RDW 13.1 (11.5-15.5) % Plt Count 261 (150-450) k/uL Neutrophils % 61 % Lymphocytes % 28 % Monocytes % 5 % Eosinophils % 3 % Basophils % 0 % Neutrophils # 5.8 (1.3-7.7) k/uL Lymphocytes # 2.7 (1.0-4.8) k/uL Monocytes # 0.5 (0-1.0) k/uL Eosinophils # 0.3 (0-0.7) k/uL Basophils # 0.0 (0-0.2) k/uL Sodium 142 (137-145) mmol/L Potassium 3.9 (3.5-5.1) mmol/L Chloride 106 (98-107) mmol/L Carbon Dioxide 24 (22-30) mmol/L Anion Gap 12 mmol/L BUN 13 (7-17) mg/dL Creatinine 0.60 (0.52-1.04) mg/dL Est GFR (MDRD) Af Amer >60 (>60 ml/min/1.73 sqM) Est GFR (MDRD) Non-Af >60 (>60 ml/min/1.73 sqM) Glucose 92 (74-99) mg/dL Calcium 8.3 L (8.4-10.2) mg/dL Total Bilirubin 0.3 (0.2-1.3) mg/dL AST 34 (14-36) U/L ALT 54 H (9-52) U/L Alkaline Phosphatase 93 (38-126) U/L Total Protein 6.5 (6.3-8.2) g/dL Albumin 3.9 (3.5-5.0) g/dL Amylase 70 (30-110) U/L Lipase 259 (23-300) U/L Urine Color Colorless Urine Appearance Clear (Clear) Urine pH 7.0 (5.0-8.0) Ur Specific [place] 1.005 (1.001-1.035) Urine Protein Negative (Negative) Urine Glucose (UA) Negative (Negative) Urine Ketones Negative (Negative) Urine Blood Negative (Negative) Urine Nitrite Negative (Negative) Urine Bilirubin Negative (Negative) Urine Urobilinogen <2.0 (<2.0) mg/dL Ur Leukocyte Esterase Negative (Negative) Disposition Clinical Impression: Constipation, Abdominal pain Disposition: HOME SELF-CARE Condition: Stable Instructions: Abdominal Pain (ED) Additional Instructions: Please return to the Emergency Department if symptoms worsen or any other concerns. Referrals: Tiny Cornell MD [Primary Care Provider] - 1-2 days Time of Disposition: 01:48
[2017-04-01 00:45] LABS: Basophils % (A) 0 %; CH 30.9; CHCM 34.7; Eosinophils # (A) 0.3 k/uL (0-0.7); Eosinophils % (A) 3 %; HCT 33.8 % (34.0-46.0); HDW 3.07; HGB 11.6 gm/dL (11.4-16.0); Luc # (Auto) 0.27; Luc % (Auto) 3; Lymphocytes # (A) 2.7 k/uL (1.0-4.8); Lymphocytes % (A) 28 %; MCH 30.7 pg (25.0-35.0); MCHC 34.4 g/dL (31.0-37.0); MCV 89.4 fL (80.0-100.0); Mean Platelet Volume 7.1; Monocytes # (A) 0.5 k/uL (0-1.0); Monocytes % (A) 5 %; Neutrophils # (A) 5.8 k/uL (1.3-7.7); Neutrophils % (A) 61 %; RBC 3.79 m/uL (3.80-5.40); RDW 13.1 % (11.5-15.5); WBC 9.5 k/uL (3.8-10.6); WBC (Perox) 10.12
[2017-04-01 00:53] LABS: ALT 54 U/L (9-52); AST 34 U/L (14-36); Alkaline Phosphatase 93 U/L (38-126); Amylase 70 U/L (30-110); Anion Gap 12 mmol/L; Blood Urea Nitrogen 13 mg/dL (7-17); Calcium 8.3 mg/dL (8.4-10.2); Carbon Dioxide 24 mmol/L (22-30); Chloride 106 mmol/L (98-107); Glucose 92 mg/dL (74-99); Non-African American GFR(MDRD) >60 (>60 ml/min/1.73 sqM); Potassium 3.9 mmol/L (3.5-5.1); Sodium 142 mmol/L (137-145); Total Bilirubin 0.3 mg/dL (0.2-1.3); Total Protein 6.5 g/dL (6.3-8.2)
[2017-04-01 01:12] LABS: Appearance,Urine Clear (Clear); Bilirubin,Urine Negative (Negative); Glucose,Urine (UA) Negative (Negative); Ketones,Urine Negative (Negative); Leukocyte Esterase,Urine Negative (Negative); Nitrite,Urine Negative (Negative); Protein,Urine Negative (Negative); Specific Gravity,Urine 1.005 (1.001-1.035); UA Billing (MACRO vs. MICRO) CHEM; Urobilinogen,Urine <2.0 mg/dL (<2.0)
--- NOTE | 2017-04-01 01:48 | XR ---
EXAM: XR Abdomen, 1 View CLINICAL HISTORY: Reason: abdominal pain TECHNIQUE: Frontal upright views of the abdomen/pelvis. COMPARISON: Abdominal x-ray 12 06/14/2016. FINDINGS: Gastrointestinal tract: Nonobstructive bowel gas pattern. Organs: Cholecystectomy clips. Enlarged liver shadow. Bones/joints: Unremarkable. Other findings: New indeterminate 4 mm density/calcification projecting over the left pelvis. IMPRESSION: 1. New indeterminate 4 mm density/calcification projecting over the left pelvis. 2. Nonobstructive bowel gas pattern. 3. Cholecystectomy. 4. Enlarged liver shadow.
== END 2017-04-01 01:57 | disposition home or self-care (01) ==
LOC: EC 23:51
DX: K59.00 Constipation, unspecified (principal); R10.9 Unspecified abdominal pain; Z87.891 Personal history of nicotine dependence; Z91.010 Allergy to peanuts; Z91.018 Allergy to other foods; Z88.8 Allergy status to other drugs, medicaments and biological substances
CPT/HCPCS: 99284; 96374; 96375; 96361; 36415; 80053; 82150; 83690; 85025; 81003; 74000; J2405; J1885

== ENCOUNTER 2017-05-20 17:53 | Emergency (ER) | payer OTHER ==
[2017-05-20 18:04] VITALS: BP 126/77; PULSE 85; RESP 20; TEMP 97.6
[2017-05-20] MEDS ORDERED: IBUPROFEN 600 MG STARTER PACK 4 TAB BTL PO STA (18:19)
--- NOTE | 2017-05-20 18:35 | ED ---
General Adult HPI - General Chief complaint: Extremity Problem,Nontraumatic Stated complaint: both feet in pain Time Seen by Provider: 05/20/17 18:16 Source: patient, RN notes reviewed Mode of arrival: ambulatory Limitations: no limitations - History of Present Illness Initial comments: Patient 41-year-old female who presents emergency room today with a chief complaint of exacerbation of chronic pain to her feet bilaterally. She denies any injury or trauma. She states she has chronic pain to the feet to the ankle. She states that she does have a history of heel spur. She states she's not been taking any pain medicine over this last week and has greatly increased in pain. States she's had walk all over the place currently on her way to try to seek complications and 70 increased pain so stopped at the hospital to be seen. does have an appointment with her family doctor tomorrow. She denies any other complaints or symptoms at this time. - Related Data Home Medications Medication Instructions Recorded Confirmed Albuterol Inhaler [Ventolin Hfa 1 - 2 puff INHALATION RT-Q6H PRN 03/19/17 Inhaler] Albuterol Nebulized [Ventolin 2.5 mg INHALATION RT-Q6H PRN 03/19/17 03/31/17 Nebulized] Naproxen 500 mg PO DAILY PRN 03/19/17 03/31/17 Previous Rx's Medication Instructions Recorded HYDROcodone/APAP 5-325MG [[place] 1 tab PO Q6HR PRN #12 tab 03/19/17 5-325] Omeprazole [PriLOSEC] 20 mg PO AC-BRKFST #30 cap 03/19/17 Ondansetron Odt [Zofran Odt] 4 mg PO Q8HR PRN #12 tab 03/19/17 Sucralfate [Carafate] 1 gm PO QID #414 ml 03/19/17 Ibuprofen [Motrin] 600 mg PO Q6HR PRN #20 day 05/20/17 Allergies Allergy/AdvReac Type Severity Reaction Status Date / Time niacin [From Simcor] Allergy Severe "JUDGE UP" Verified 05/20/17 18:03 tree nut [Nut] Allergy Severe Unknown Verified 05/20/17 18:03 peanut AdvReac Severe Rash/Hives Verified 05/20/17 18:03 simvastatin [From Simcor] AdvReac Severe "JUDGE UP" Verified 05/20/17 18:03 Review of Systems ROS Statement: Those systems with pertinent positive or pertinent negative responses have been documented in the HPI. ROS Other: All systems not noted in ROS Statement are negative. Past Medical History Past Medical History: Asthma, Seizure Disorder Additional Past Medical History / Comment(s): Patient states that she is currently working with her family doctor to diagnosis if she has seizures. History of Any Multi-Drug Resistant Organisms: None Reported Past Surgical History: Orthopedic Surgery, Tubal Ligation Additional Past Surgical History / Comment(s): RIGHT FOOT SURGERY 15+ YEARS AGO Past Anesthesia/Blood Transfusion Reactions: No Reported Reaction Past Psychological History: ADD/ADHD, Bipolar Smoking Status: Former smoker Past Alcohol Use History: None Reported Past Drug Use History: None Reported - Past Family History Mother History Unknown: Yes Additional Family Medical History / Comment(s): Patient states that her mother is from cancer. Father Family Medical History: Coronary Artery Disease (CAD), Diabetes Mellitus Daughter(s) Family Medical History: No Reported History General Exam - General Exam Comments Initial Comments: General: The patient is awake and alert, in no distress, and does not appear acutely ill. Neck: The neck is supple, there is no tenderness or JVD. Cardiovascular: There is a regular rate and rhythm. No murmur, rub or gallop is appreciated. Respiratory: Lungs are clear to auscultation, respirations are non-labored, breath sounds are equal. No wheezes, stridor, rales, or rhonchi. Musculoskeletal: Full range of motion. Sensation intact. Pulses equal bilaterally 2+. Strength 4/5 due to pain. Neurological: A&O x 3. CN II-XII intact, There are no obvious motor or sensory deficits. Coordination appears grossly intact. Speech is normal. Skin: Skin is warm and dry and no rashes or lesions are noted. Psychiatric: Normal mood and affect. Limitations: no limitations Course Vital Signs 05/20/17 18:02 Temperature 97.6 F Pulse Rate 85 Respiratory 20 Rate Blood Pressure 126/77 O2 Sat by Pulse 99 Oximetry Medical Decision Making - Medical Decision Making Patient on anti-inflammatories in the emergency room Disposition Clinical Impression: Bilateral foot pain Disposition: HOME SELF-CARE Condition: Good Instructions: Arthralgia (ED) Additional Instructions: Please use medication as discussed. Please follow-up with family doctor in the next 2 days of symptoms have not improved. Please return to emergency room if the symptoms increase or worsen or for any other concerns. Prescriptions: Ibuprofen [Motrin] 600 mg PO Q6HR PRN #20 day PRN Reason: Pain Referrals: Tiny Cornell MD [Primary Care Provider] - 1-2 days Time of Disposition: 18:25
== END 2017-05-20 18:41 | disposition home or self-care (01) ==
LOC: EC 17:53
DX: G89.29 Other chronic pain (principal); M79.672 Pain in left foot; M79.671 Pain in right foot; Z88.8 Allergy status to other drugs, medicaments and biological substances; Z91.018 Allergy to other foods; Z91.010 Allergy to peanuts; Z87.891 Personal history of nicotine dependence
CPT/HCPCS: 99283

== ENCOUNTER 2017-05-24 14:22 | Emergency (ER) | payer OTHER ==
[2017-05-24] MEDS ORDERED: SODIUM CHLORIDE 0.9% 1,000 ML IV STA (14:24)
[2017-05-24 14:36] LABS: Glucose,Whole Blood 129 mg/dL (75-99)
--- NOTE | 2017-05-24 14:38 | ED ---
General Adult HPI - General Chief complaint: Syncope Stated complaint: syncope Time Seen by Provider: 05/24/17 14:24 Source: patient, EMS Mode of arrival: EMS Limitations: no limitations - Related Data Previous Rx's Medication Instructions Recorded Ibuprofen [Motrin] 600 mg PO Q6HR PRN #20 day 05/20/17 Allergies Allergy/AdvReac Type Severity Reaction Status Date / Time niacin [From Simcor] Allergy Severe "JUDGE UP" Verified 05/24/17 15:09 tree nut [Nut] Allergy Severe Unknown Verified 05/24/17 15:09 peanut AdvReac Severe Rash/Hives Verified 05/24/17 15:09 simvastatin [From Simcor] AdvReac Severe "JUDGE UP" Verified 05/24/17 15:09 Review of Systems ROS Statement: Those systems with pertinent positive or pertinent negative responses have been documented in the HPI. ROS Other: All systems not noted in ROS Statement are negative. Past Medical History Past Medical History: Asthma, Seizure Disorder Additional Past Medical History / Comment(s): Patient states that she is currently working with her family doctor to diagnosis if she has seizures. History of Any Multi-Drug Resistant Organisms: None Reported Past Surgical History: Orthopedic Surgery, Tubal Ligation Additional Past Surgical History / Comment(s): RIGHT FOOT SURGERY 15+ YEARS AGO Past Anesthesia/Blood Transfusion Reactions: No Reported Reaction Past Psychological History: ADD/ADHD, Bipolar Smoking Status: Former smoker Past Alcohol Use History: None Reported Past Drug Use History: None Reported - Past Family History Mother History Unknown: Yes Additional Family Medical History / Comment(s): Patient states that her mother is from cancer. Father Family Medical History: Coronary Artery Disease (CAD), Diabetes Mellitus Daughter(s) Family Medical History: No Reported History General Exam Limitations: no limitations Course Vital Signs 05/24/17 05/24/17 05/24/17 14:25 15:06 15:48 Temperature 98.6 F 99 F Pulse Rate 77 81 80 Respiratory 16 15 18 Rate Blood Pressure 116/52 116/70 107/61 O2 Sat by Pulse 97 95 100 Oximetry EKG Findings - EKG Comments: EKG Findings:: EKG shows normal sinus rhythm rate of 70, [place] 184, QRS 90, QTc 469 Medical Decision Making - Lab Data Result diagrams: 05/24/17 14:30 05/24/17 14:30 Lab Results 05/24/17 05/24/17 05/24/17 Range/Units 14:27 14:30 14:30 WBC 17.0 H (3.8-10.6) k/uL RBC 3.82 (3.80-5.40) m/uL Hgb 12.0 (11.4-16.0) gm/dL Hct 34.9 (34.0-46.0) % MCV 91.2 (80.0-100.0) fL MCH 31.3 (25.0-35.0) pg MCHC 34.3 (31.0-37.0) g/dL RDW 14.1 (11.5-15.5) % Plt Count 271 (150-450) k/uL Neutrophils % 85 % Lymphocytes % 11 % Monocytes % 3 % Eosinophils % 1 % Basophils % 0 % Neutrophils # 14.4 H (1.3-7.7) k/uL Lymphocytes # 1.8 (1.0-4.8) k/uL Monocytes # 0.5 (0-1.0) k/uL Eosinophils # 0.2 (0-0.7) k/uL Basophils # 0.0 (0-0.2) k/uL PT (9.0-12.0) sec INR (<1.2) APTT (22.0-30.0) sec D-Dimer (<0.60) mg/L FEU Sodium (137-145) mmol/L Potassium (3.5-5.1) mmol/L Chloride (98-107) mmol/L Carbon Dioxide (22-30) mmol/L Anion Gap mmol/L BUN (7-17) mg/dL Creatinine (0.52-1.04) mg/dL Est GFR (MDRD) Af Amer (>60 ml/min/1.73 sqM) Est GFR (MDRD) Non-Af (>60 ml/min/1.73 sqM) Glucose (74-99) mg/dL POC Glucose (mg/dL) 129 H (75-99) mg/dL POC Glu Nursing Tech ID Karel eL Calcium (8.4-10.2) mg/dL Phosphorus (2.5-4.5) mg/dL Magnesium (1.6-2.3) mg/dL Total Bilirubin (0.2-1.3) mg/dL AST (14-36) U/L ALT (9-52) U/L Alkaline Phosphatase (38-126) U/L Total Creatine Kinase 413 H (30-135) U/L CK-MB (CK-2) 4.6 H* (0.0-2.4) ng/mL CK-MB (CK-2) Rel Index 1.1 Troponin I <0.012 (0.000-0.034) ng/mL Total Protein (6.3-8.2) g/dL Albumin (3.5-5.0) g/dL 05/24/17 05/24/17 Range/Units 14:30 14:30 WBC (3.8-10.6) k/uL RBC (3.80-5.40) m/uL Hgb (11.4-16.0) gm/dL Hct (34.0-46.0) % MCV (80.0-100.0) fL MCH (25.0-35.0) pg MCHC (31.0-37.0) g/dL RDW (11.5-15.5) % Plt Count (150-450) k/uL Neutrophils % % Lymphocytes % % Monocytes % % Eosinophils % % Basophils % % Neutrophils # (1.3-7.7) k/uL Lymphocytes # (1.0-4.8) k/uL Monocytes # (0-1.0) k/uL Eosinophils # (0-0.7) k/uL Basophils # (0-0.2) k/uL PT 10.2 (9.0-12.0) sec INR 1.0 (<1.2) APTT 22.1 (22.0-30.0) sec D-Dimer 0.34 (<0.60) mg/L FEU Sodium 137 (137-145) mmol/L Potassium 3.9 (3.5-5.1) mmol/L Chloride 101 (98-107) mmol/L Carbon Dioxide 28 (22-30) mmol/L Anion Gap 8 mmol/L BUN 13 (7-17) mg/dL Creatinine 0.60 (0.52-1.04) mg/dL Est GFR (MDRD) Af Amer >60 (>60 ml/min/1.73 sqM) Est GFR (MDRD) Non-Af >60 (>60 ml/min/1.73 sqM) Glucose 118 H (74-99) mg/dL POC Glucose (mg/dL) (75-99) mg/dL POC Glu Nursing Tech ID Calcium 8.8 (8.4-10.2) mg/dL Phosphorus 4.1 (2.5-4.5) mg/dL Magnesium 1.6 (1.6-2.3) mg/dL Total Bilirubin 0.8 (0.2-1.3) mg/dL AST 31 (14-36) U/L ALT 39 (9-52) U/L Alkaline Phosphatase 72 (38-126) U/L Total Creatine Kinase (30-135) U/L CK-MB (CK-2) (0.0-2.4) ng/mL CK-MB (CK-2) Rel Index Troponin I (0.000-0.034) ng/mL Total Protein 6.8 (6.3-8.2) g/dL Albumin 4.1 (3.5-5.0) g/dL Disposition Clinical Impression: Foot pain, Bilateral foot pain Disposition: HOME SELF-CARE Condition: Good Instructions: Arthralgia (ED), Paresthesia (ED) Referrals: Tiny Cornell MD [Primary Care Provider] - 1-2 days
[2017-05-24 14:41] LABS: Basophils % (A) 0 %; CH 31.4; CHCM 34.5; Eosinophils # (A) 0.2 k/uL (0-0.7); Eosinophils % (A) 1 %; HCT 34.9 % (34.0-46.0); HDW 2.74; Luc # (Auto) 0.12; Luc % (Auto) 1; Lymphocytes # (A) 1.8 k/uL (1.0-4.8); Lymphocytes % (A) 11 %; MCH 31.3 pg (25.0-35.0); MCHC 34.3 g/dL (31.0-37.0); MCV 91.2 fL (80.0-100.0); Mean Platelet Volume 7.4; Monocytes # (A) 0.5 k/uL (0-1.0); Monocytes % (A) 3 %; Neutrophils # (A) 14.4 k/uL (1.3-7.7); Neutrophils % (A) 85 %; RBC 3.82 m/uL (3.80-5.40); RDW 14.1 % (11.5-15.5); WBC (Perox) 16.93
[2017-05-24 14:51] LABS: ALT 39 U/L (9-52); AST 31 U/L (14-36); Alkaline Phosphatase 72 U/L (38-126); Anion Gap 8 mmol/L; Blood Urea Nitrogen 13 mg/dL (7-17); Calcium 8.8 mg/dL (8.4-10.2); Carbon Dioxide 28 mmol/L (22-30); Chloride 101 mmol/L (98-107); Glucose 118 mg/dL (74-99); Magnesium 1.6 mg/dL (1.6-2.3); Non-African American GFR(MDRD) >60 (>60 ml/min/1.73 sqM); Phosphorous 4.1 mg/dL (2.5-4.5); Potassium 3.9 mmol/L (3.5-5.1); Sodium 137 mmol/L (137-145); Total Bilirubin 0.8 mg/dL (0.2-1.3); Total Protein 6.8 g/dL (6.3-8.2)
[2017-05-24 14:52] LABS: Partial Thromboplastin Time 22.1 sec (22.0-30.0); Prothrombin Time 10.2 sec (9.0-12.0)
[2017-05-24] MEDS ORDERED: MORPHINE SULFATE 4 MG/ML SYRINGE IVP STA (15:03)
[2017-05-24] MEDS ORDERED: DIAZEPAM 5 MG/ML 2 ML SYRINGE IVP STA (15:05)
[2017-05-24 15:07] VITALS: TEMP 99
[2017-05-24] MEDS ORDERED: GABAPENTIN 100 MG CAP PO STA (15:07)
[2017-05-24 15:09] LABS: Creatine Kinase 413 U/L (30-135)
[2017-05-24 15:20] LABS: Troponin I <0.012 ng/mL (0.000-0.034)
[2017-05-24 15:22] LABS: Creatine Kinase MB 4.6 ng/mL (0.0-2.4)
--- NOTE | 2017-05-24 15:34 | CT ---
EXAMINATION TYPE: CT brain wo con DATE OF EXAM: 05/24/2017 COMPARISON: NONE INDICATION: Syncope today. DLP: 906.8 mGycm, Automated exposure control for dose reduction was used. CONTRAST: None CT of the brain is performed utilizing 3 mm thick sections through the posterior fossa and 3 mm thick sections through the remaining calvarium. Study is performed within 24 hours of arrival to the hosp [facility]. No abnormal hyperdensity is present to suggest an acute intracranial hemorrhage. No mass lesion is evident. No acute infarcts are evident. Ventricles and sulci are appropriate for the patient age. Paranasal sinuses and mastoid air cells within the [id number] are clear. IMPRESSIONS: 1. Normal CT Brain
--- NOTE | 2017-05-24 15:39 | XR ---
EXAMINATION TYPE: XR foot complete bilateral DATE OF EXAM: 05/24/2017 CLINICAL HISTORY: pain TECHNIQUE: Frontal, lateral and oblique images of the right foot are obtained. COMPARISON: None. FINDINGS: There is no acute fracture/dislocation evident. The joint spaces appear within normal ferreira its. The overlying soft tissue appears unremarkable. Mild plantar calcaneal spur formation. IMPRESSION: There is no acute fracture or dislocation. ICD 10 NO FRACTURE, INITIAL EVALUATION EXAMINATION TYPE: XR foot complete bilateral DATE OF EXAM: 05/24/2017 CLINICAL HISTORY: pain TECHNIQUE: Frontal, lateral and oblique images of the left foot are obtained. COMPARISON: None. FINDINGS: There is no acute fracture/dislocation evident. The joint spaces appear within normal ferreira its. The overlying soft tissue appears unremarkable.Mild plantar calcaneal spur formation.
[2017-05-24 15:52] VITALS: BP 107/61; PULSE 80; RESP 18
== END 2017-05-24 16:09 | disposition home or self-care (01) ==
LOC: EC 14:22
DX: M79.671 Pain in right foot (principal); M79.672 Pain in left foot; R55 Syncope and collapse; Z87.891 Personal history of nicotine dependence; Z88.8 Allergy status to other drugs, medicaments and biological substances; Z91.010 Allergy to peanuts; Z91.018 Allergy to other foods
CPT/HCPCS: 99285; 96374; 96375; 96361; 36415; 93005; 85379; 80053; 82550; 82553; 83735; 84100; 84484; 85025; 85610; 85730; 73630; 70450; J2270; J3360

== ENCOUNTER 2017-06-20 12:10 | Emergency (ER) | payer OTHER ==
[2017-06-20 12:28] VITALS: RESP 18
[2017-06-20] MEDS ORDERED: SODIUM CHLORIDE 0.9% 500 ML IV STA (13:50)
[2017-06-20] MEDS ORDERED: SODIUM CHLORIDE 0.9% 1,000 ML IV STA ×2 (13:50)
--- NOTE | 2017-06-20 14:24 | ED ---
General Adult HPI - General Chief complaint: Abdominal Pain Stated complaint: Dizziness Time Seen by Provider: 06/20/17 13:17 Source: patient, RN notes reviewed, old records reviewed Mode of arrival: wheelchair Limitations: no limitations - History of Present Illness Initial comments: This is a 42-year-old female unity for evaluation. Patient presents today for evaluation regarding not feeling well. Patient states she has recurrent syncopal events. Patient does have a lot of increased stress in her life, recently lost her [employer] for foster care, patient states she's been evaluated in the past for syncope, it is her birthday today and she was going to visit her child but states passed out as she was walking out. Otherwise patient has no specific complaints this time, no chest pain or shortness with no bowel pain no change in medications - Related Data Home Medications Medication Instructions Recorded Confirmed Gabapentin [Neurontin] 100 mg PO TID 06/20/17 06/20/17 Naproxen 500 mg PO DAILY 06/20/17 06/20/17 Allergies Allergy/AdvReac Type Severity Reaction Status Date / Time niacin [From Simcor] Allergy Severe "JUDGE UP" Verified 06/20/17 13:52 tree nut [Nut] Allergy Severe Unknown Verified 06/20/17 13:52 peanut AdvReac Severe Rash/Hives Verified 06/20/17 13:52 simvastatin [From Simcor] AdvReac Severe "JUDGE UP" Verified 06/20/17 13:52 Review of Systems ROS Statement: Those systems with pertinent positive or pertinent negative responses have been documented in the HPI. ROS Other: All systems not noted in ROS Statement are negative. Past Medical History Past Medical History: Asthma, Seizure Disorder Additional Past Medical History / Comment(s): Patient states that she is currently working with her family doctor to diagnosis if she has seizures. Sycope episodes History of Any Multi-Drug Resistant Organisms: None Reported Past Surgical History: Orthopedic Surgery, Tubal Ligation Additional Past Surgical History / Comment(s): RIGHT FOOT SURGERY 15+ YEARS AGO Past Anesthesia/Blood Transfusion Reactions: No Reported Reaction Past Psychological History: ADD/ADHD, Bipolar Smoking Status: Former smoker Past Alcohol Use History: None Reported Past Drug Use History: None Reported - Past Family History Mother History Unknown: Yes Additional Family Medical History / Comment(s): Patient states that her mother is from cancer. Father Family Medical History: Coronary Artery Disease (CAD), Diabetes Mellitus Daughter(s) Family Medical History: No Reported History General Exam Limitations: no limitations General appearance: alert, in no apparent distress Head exam: Present: atraumatic, normocephalic, normal inspection Eye exam: Present: normal appearance, PERRL, EOMI. Absent: scleral icterus, conjunctival injection, periorbital swelling ENT exam: Present: normal exam, mucous membranes moist Neck exam: Present: normal inspection. Absent: tenderness, meningismus, lymphadenopathy Respiratory exam: Present: normal lung sounds bilaterally. Absent: respiratory distress, wheezes, rales, rhonchi, stridor Cardiovascular Exam: Present: regular rate, normal rhythm, normal heart sounds. Absent: systolic murmur, diastolic murmur, rubs, gallop, clicks GI/Abdominal exam: Present: soft, normal bowel sounds. Absent: distended, tenderness, guarding, rebound, rigid Extremities exam: Present: normal inspection, full ROM, normal capillary refill. Absent: tenderness, pedal edema, joint swelling, calf tenderness Back exam: Present: normal inspection Neurological exam: Present: alert, oriented X3, CN II-XII intact Psychiatric exam: Present: normal affect, normal mood Skin exam: Present: warm, dry, intact, normal color. Absent: rash Course Vital Signs 06/20/17 06/20/17 12:24 15:05 Temperature 98.2 F 98.6 F Pulse Rate 69 63 Respiratory 18 18 Rate Blood Pressure 133/73 141/69 O2 Sat by Pulse 97 98 Oximetry EKG Findings - EKG Comments: EKG Findings:: EKG shows normal sinus rhythm rate of 60, NJ 180, QRS 80, QTC 454 Medical Decision Making - Medical Decision Making 42 female to the ER arrhythmia, no significant be in ER, patient will be discharged home - Lab Data Result diagrams: 06/20/17 14:04 06/20/17 14:04 Lab Results 06/20/17 06/20/17 06/20/17 Range/Units 14:00 14:04 14:04 WBC 12.5 H (3.8-10.6) k/uL RBC 3.86 (3.80-5.40) m/uL Hgb 11.8 (11.4-16.0) gm/dL Hct 36.3 (34.0-46.0) % MCV 94.0 (80.0-100.0) fL MCH 30.5 (25.0-35.0) pg MCHC 32.4 (31.0-37.0) g/dL RDW 14.8 (11.5-15.5) % Plt Count 281 (150-450) k/uL Neutrophils % 63 % Lymphocytes % 30 % Monocytes % 4 % Eosinophils % 1 % Basophils % 0 % Neutrophils # 7.9 H (1.3-7.7) k/uL Lymphocytes # 3.7 (1.0-4.8) k/uL Monocytes # 0.5 (0-1.0) k/uL Eosinophils # 0.1 (0-0.7) k/uL Basophils # 0.1 (0-0.2) k/uL PT (9.0-12.0) sec INR (<1.2) APTT (22.0-30.0) sec D-Dimer (<0.60) mg/L FEU Sodium (137-145) mmol/L Potassium (3.5-5.1) mmol/L Chloride (98-107) mmol/L Carbon Dioxide (22-30) mmol/L Anion Gap mmol/L BUN (7-17) mg/dL Creatinine (0.52-1.04) mg/dL Est GFR (MDRD) Af Amer (>60 ml/min/1.73 sqM) Est GFR (MDRD) Non-Af (>60 ml/min/1.73 sqM) Glucose (74-99) mg/dL Calcium (8.4-10.2) mg/dL Phosphorus (2.5-4.5) mg/dL Magnesium (1.6-2.3) mg/dL Total Bilirubin (0.2-1.3) mg/dL AST (14-36) U/L ALT (9-52) U/L Alkaline Phosphatase (38-126) U/L Total Creatine Kinase 286 H (30-135) U/L CK-MB (CK-2) 3.7 H* (0.0-2.4) ng/mL CK-MB (CK-2) Rel Index 1.3 Troponin I <0.012 (0.000-0.034) ng/mL Total Protein (6.3-8.2) g/dL Albumin (3.5-5.0) g/dL Urine Color Yellow Urine Appearance Clear (Clear) Urine pH 6.5 (5.0-8.0) Ur Specific [place] 1.023 (1.001-1.035) Urine Protein Negative (Negative) Urine Glucose (UA) Negative (Negative) Urine Ketones Negative (Negative) Urine Blood Negative (Negative) Urine Nitrite Negative (Negative) Urine Bilirubin Negative (Negative) Urine Urobilinogen <2.0 (<2.0) mg/dL Ur Leukocyte Esterase Negative (Negative) 06/20/17 06/20/17 Range/Units 14:04 14:04 WBC (3.8-10.6) k/uL RBC (3.80-5.40) m/uL Hgb (11.4-16.0) gm/dL Hct (34.0-46.0) % MCV (80.0-100.0) fL MCH (25.0-35.0) pg MCHC (31.0-37.0) g/dL RDW (11.5-15.5) % Plt Count (150-450) k/uL Neutrophils % % Lymphocytes % % Monocytes % % Eosinophils % % Basophils % % Neutrophils # (1.3-7.7) k/uL Lymphocytes # (1.0-4.8) k/uL Monocytes # (0-1.0) k/uL Eosinophils # (0-0.7) k/uL Basophils # (0-0.2) k/uL PT 9.9 (9.0-12.0) sec INR 1.0 (<1.2) APTT 25.2 (22.0-30.0) sec D-Dimer 0.35 (<0.60) mg/L FEU Sodium 144 (137-145) mmol/L Potassium 4.3 (3.5-5.1) mmol/L Chloride 109 H (98-107) mmol/L Carbon Dioxide 26 (22-30) mmol/L Anion Gap 9 mmol/L BUN 14 (7-17) mg/dL Creatinine 0.60 (0.52-1.04) mg/dL Est GFR (MDRD) Af Amer >60 (>60 ml/min/1.73 sqM) Est GFR (MDRD) Non-Af >60 (>60 ml/min/1.73 sqM) Glucose 85 (74-99) mg/dL Calcium 8.9 (8.4-10.2) mg/dL Phosphorus 3.3 (2.5-4.5) mg/dL Magnesium 2.2 (1.6-2.3) mg/dL Total Bilirubin 0.3 (0.2-1.3) mg/dL AST 28 (14-36) U/L ALT 51 (9-52) U/L Alkaline Phosphatase 75 (38-126) U/L Total Creatine Kinase (30-135) U/L CK-MB (CK-2) (0.0-2.4) ng/mL CK-MB (CK-2) Rel Index Troponin I (0.000-0.034) ng/mL Total Protein 7.0 (6.3-8.2) g/dL Albumin 4.2 (3.5-5.0) g/dL Urine Color Urine Appearance (Clear) Urine pH (5.0-8.0) Ur Specific [place] (1.001-1.035) Urine Protein (Negative) Urine Glucose (UA) (Negative) Urine Ketones (Negative) Urine Blood (Negative) Urine Nitrite (Negative) Urine Bilirubin (Negative) Urine Urobilinogen (<2.0) mg/dL Ur Leukocyte Esterase (Negative) Disposition Clinical Impression: Bipolar 1 disorder, depressed, Syncope, Near syncope Disposition: HOME SELF-CARE Condition: Good Instructions: Syncope (ED) Referrals: Tiny Cornell MD [Primary Care Provider] - 1-2 days
[2017-06-20 14:25] LABS: Basophils # (A) 0.1 k/uL (0-0.2); Basophils % (A) 0 %; CH 31.4; CHCM 33.5; Eosinophils # (A) 0.1 k/uL (0-0.7); Eosinophils % (A) 1 %; HCT 36.3 % (34.0-46.0); HDW 2.65; HGB 11.8 gm/dL (11.4-16.0); Luc # (Auto) 0.27; Luc % (Auto) 2; Lymphocytes # (A) 3.7 k/uL (1.0-4.8); Lymphocytes % (A) 30 %; MCH 30.5 pg (25.0-35.0); MCHC 32.4 g/dL (31.0-37.0); Mean Platelet Volume 7.6; Monocytes # (A) 0.5 k/uL (0-1.0); Monocytes % (A) 4 %; Neutrophils # (A) 7.9 k/uL (1.3-7.7); Neutrophils % (A) 63 %; RBC 3.86 m/uL (3.80-5.40); RDW 14.8 % (11.5-15.5); WBC 12.5 k/uL (3.8-10.6); WBC (Perox) 12.68
[2017-06-20 14:27] LABS: Appearance,Urine Clear (Clear); Bilirubin,Urine Negative (Negative); Glucose,Urine (UA) Negative (Negative); Ketones,Urine Negative (Negative); Leukocyte Esterase,Urine Negative (Negative); Nitrite,Urine Negative (Negative); PH, Urine 6.5 (5.0-8.0); Protein,Urine Negative (Negative); Specific Gravity,Urine 1.023 (1.001-1.035); UA Billing (MACRO vs. MICRO) CHEM; Urobilinogen,Urine <2.0 mg/dL (<2.0)
[2017-06-20 14:36] LABS: ALT 51 U/L (9-52); AST 28 U/L (14-36); Alkaline Phosphatase 75 U/L (38-126); Anion Gap 9 mmol/L; Blood Urea Nitrogen 14 mg/dL (7-17); Calcium 8.9 mg/dL (8.4-10.2); Carbon Dioxide 26 mmol/L (22-30); Chloride 109 mmol/L (98-107); Glucose 85 mg/dL (74-99); Magnesium 2.2 mg/dL (1.6-2.3); Non-African American GFR(MDRD) >60 (>60 ml/min/1.73 sqM); Partial Thromboplastin Time 25.2 sec (22.0-30.0); Phosphorous 3.3 mg/dL (2.5-4.5); Potassium 4.3 mmol/L (3.5-5.1); Prothrombin Time 9.9 sec (9.0-12.0); Sodium 144 mmol/L (137-145); Total Bilirubin 0.3 mg/dL (0.2-1.3)
[2017-06-20 14:46] LABS: Creatine Kinase 286 U/L (30-135)
[2017-06-20 14:58] LABS: Troponin I <0.012 ng/mL (0.000-0.034)
[2017-06-20 15:04] LABS: Creatine Kinase MB 3.7 ng/mL (0.0-2.4)
[2017-06-20 15:06] VITALS: BP 141/69; PULSE 63; TEMP 98.6
== END 2017-06-20 15:29 | disposition home or self-care (01) ==
LOC: EC 12:10
DX: R55 Syncope and collapse (principal); F31.9 Bipolar disorder, unspecified; Z87.891 Personal history of nicotine dependence; Z79.1 Long term (current) use of non-steroidal anti-inflammatories (NSAID); Z79.899 Other long term (current) drug therapy; Z88.8 Allergy status to other drugs, medicaments and biological substances; Z91.010 Allergy to peanuts; Z91.018 Allergy to other foods
CPT/HCPCS: 36415; 80053; 81003; 82550; 82553; 83735; 84100; 84484; 85025; 85379; 85610; 85730; 93005; 96360; 99284

== ENCOUNTER 2017-07-01 11:02 | Emergency (ER) | payer OTHER ==
[2017-07-01 11:08] VITALS: BP 124/84; PULSE 91; RESP 18; TEMP 97.3
--- NOTE | 2017-07-01 11:34 | ED ---
General Adult HPI - General Chief complaint: Vaginal Bleeding Stated complaint: vaginal bleeding Time Seen by Provider: 07/01/17 11:13 Source: patient, RN notes reviewed, old records reviewed Mode of arrival: ambulatory Limitations: no limitations - History of Present Illness Initial comments: This is a 42-year-old female VNA for evaluation. Patient is here for evaluation of mild anxiety. Multiple apical complaints. Patient's mainly concerned about abnormal periods. Patient states she's had abnormal periods since age of 14. Patient's concerns of continued heavy periods at this point. She cannot get in to see her doctor until Sunday and cannot stop thinking about last night into today. Patient currently passing mild blood clots but that is not abnormal for her. She denies any pain. No any blood thinners. Has no prior history of bleeding issues or disease. Patient does follow-up reviewed Pap smears and has never had an abnormal Pap. Patient denies feelings of lightheadedness dizziness or weakness - Related Data Home Medications Medication Instructions Recorded Confirmed Gabapentin [Neurontin] 100 mg PO TID 06/20/17 06/20/17 Naproxen 500 mg PO DAILY 06/20/17 06/20/17 Allergies Allergy/AdvReac Type Severity Reaction Status Date / Time niacin [From Simcor] Allergy Severe "JUDGE UP" Verified 07/01/17 11:08 tree nut [Nut] Allergy Severe Unknown Verified 07/01/17 11:08 peanut AdvReac Severe Rash/Hives Verified 07/01/17 11:08 simvastatin [From Simcor] AdvReac Severe "JUDGE UP" Verified 07/01/17 11:08 Review of Systems ROS Statement: Those systems with pertinent positive or pertinent negative responses have been documented in the HPI. ROS Other: All systems not noted in ROS Statement are negative. Past Medical History Past Medical History: Asthma, Memory Impairment, Seizure Disorder Additional Past Medical History / Comment(s): Patient states that she is currently working with her family doctor to diagnosis if she has seizures. Syncope episodes, mood disorder History of Any Multi-Drug Resistant Organisms: None Reported Past Surgical History: Section, Cholecystectomy, Orthopedic Surgery, Tubal Ligation Additional Past Surgical History / Comment(s): knee, RIGHT FOOT SURGERY 15+ YEARS AGO Past Anesthesia/Blood Transfusion Reactions: No Reported Reaction Past Psychological History: ADD/ADHD, Bipolar, Depression Smoking Status: Former smoker Past Alcohol Use History: None Reported Past Drug Use History: None Reported - Past Family History Mother History Unknown: Yes Additional Family Medical History / Comment(s): Patient states that her mother is from cancer. Father Family Medical History: Coronary Artery Disease (CAD), Diabetes Mellitus Daughter(s) Family Medical History: No Reported History General Exam Limitations: no limitations General appearance: alert, in no apparent distress Head exam: Present: atraumatic, normocephalic, normal inspection Eye exam: Present: normal appearance, PERRL, EOMI. Absent: scleral icterus, conjunctival injection, periorbital swelling ENT exam: Present: normal exam, mucous membranes moist Neck exam: Present: normal inspection. Absent: tenderness, meningismus, lymphadenopathy Respiratory exam: Present: normal lung sounds bilaterally. Absent: respiratory distress, wheezes, rales, rhonchi, stridor Cardiovascular Exam: Present: regular rate, normal rhythm, normal heart sounds. Absent: systolic murmur, diastolic murmur, rubs, gallop, clicks GI/Abdominal exam: Present: soft, normal bowel sounds. Absent: distended, tenderness, guarding, rebound, rigid Extremities exam: Present: normal inspection, full ROM, normal capillary refill. Absent: tenderness, pedal edema, joint swelling, calf tenderness Back exam: Present: normal inspection Neurological exam: Present: alert, oriented X3, CN II-XII intact Psychiatric exam: Present: normal affect, normal mood Skin exam: Present: warm, dry, intact, normal color. Absent: rash Course Vital Signs 07/01/17 11:03 Temperature 97.3 F L Pulse Rate 91 Respiratory 18 Rate Blood Pressure 124/84 O2 Sat by Pulse 99 Oximetry - Reevaluation(s) Reevaluation #1: 07/01/17 11:33 Discussed at length patient had dysmenorrhea and metromenorrhagia, patient is understanding questions are answered. Will follow-up with family doctor Medical Decision Making - Medical Decision Making 5-year-old female year with abdominal vaginal bleeding. Patient will follow up with primary care for further evaluation and management of dysfunctional uterine bleeding Disposition Clinical Impression: Menorrhagia, Menometrorrhagia, Bipolar 1 disorder, depressed, Dysfunctional uterine bleeding Disposition: HOME SELF-CARE Condition: Good Instructions: Dysfunctional Uterine Bleeding (ED) Referrals: Tiny Cornell MD [Primary Care Provider] - 1-2 days
== END 2017-07-01 11:49 | disposition home or self-care (01) ==
LOC: EC 11:02
DX: N92.1 Excessive and frequent menstruation with irregular cycle (principal); F31.9 Bipolar disorder, unspecified; Z87.891 Personal history of nicotine dependence; Z91.010 Allergy to peanuts; Z91.018 Allergy to other foods; Z79.1 Long term (current) use of non-steroidal anti-inflammatories (NSAID); Z88.8 Allergy status to other drugs, medicaments and biological substances; Z79.899 Other long term (current) drug therapy
CPT/HCPCS: 99284

== ENCOUNTER 2018-09-14 10:31 | Emergency (ER) | payer OTHER ==
[2018-09-14] MEDS ORDERED: SODIUM CHLORIDE 0.9% 1,000 ML IV STA (10:53)
[2018-09-14] MEDS ORDERED: IPRATROPIUM-ALBUTEROL 3 ML NEB INHALATION STA (10:55)
--- NOTE | 2018-09-14 11:22 | ED ---
General Adult HPI - General Chief complaint: Shortness of Breath Stated complaint: RADHA Time Seen by Provider: 09/14/18 10:36 Source: patient, RN notes reviewed Mode of arrival: EMS Limitations: no limitations - History of Present Illness Initial comments: Patient's a 43-year-old female presented to the emergency room today by EMS, with chief complaint of cough congestion over the last 2 weeks. She does admit that symptoms started with a sore throat 2 weeks ago. States they have been increasing. She states she has positive sputum production. Patient does admit to increased congestion she's been trying [id number] medications with little relief the symptoms. She states seems to be increasing. She states she does feel more congested and having difficulty breathing due to mucus. Patient denies any recorded temperatures. She does admit to chest pain. She denies any bites or symptoms. Patient denies any recent fever, chills, back pain, abdominal pain, nausea or vomiting, numbness or tingling, dysuria or hematuria, constipation or diarrhea, headaches or visual changes, or any other complaints. - Related Data Home Medications Medication Instructions Recorded Confirmed Gabapentin [Neurontin] 100 mg PO TID 06/20/17 06/20/17 Naproxen 500 mg PO DAILY 06/20/17 06/20/17 Previous Rx's Medication Instructions Recorded Benzonatate [Tessalon Perles] 100 mg PO TID PRN #20 capsule 09/14/18 methylPREDNISolone Dose Pack 4 mg PO DIRECTED #21 package 09/14/18 [Medrol Dose Pack] Allergies Allergy/AdvReac Type Severity Reaction Status Date / Time niacin [From Simcor] Allergy Severe "JUDGE UP" Verified 07/01/17 11:08 tree nut [Nut] Allergy Severe Unknown Verified 07/01/17 11:08 peanut AdvReac Severe Rash/Hives Verified 07/01/17 11:08 simvastatin [From Simcor] AdvReac Severe "JUDGE UP" Verified 07/01/17 11:08 Review of Systems ROS Statement: Those systems with pertinent positive or pertinent negative responses have been documented in the HPI. ROS Other: All systems not noted in ROS Statement are negative. Past Medical History Past Medical History: Asthma, Hypertension, Memory Impairment, Seizure Disorder Additional Past Medical History / Comment(s): Patient states that she is currently working with her family doctor to diagnosis if she has seizures. Syncope episodes, mood disorder History of Any Multi-Drug Resistant Organisms: None Reported Past Surgical History: Section, Cholecystectomy, Orthopedic Surgery, Tubal Ligation Additional Past Surgical History / Comment(s): knee, RIGHT FOOT SURGERY 15+ YEARS AGO Past Anesthesia/Blood Transfusion Reactions: No Reported Reaction Past Psychological History: ADD/ADHD, Bipolar, Depression Smoking Status: Current some day smoker Past Alcohol Use History: None Reported Past Drug Use History: None Reported - Past Family History Mother History Unknown: Yes Additional Family Medical History / Comment(s): Patient states that her mother is from cancer. Father Family Medical History: Coronary Artery Disease (CAD), Diabetes Mellitus Daughter(s) Family Medical History: No Reported History General Exam - General Exam Comments Initial Comments: General: The patient is awake and alert, in no distress, and does not appear acutely ill. Eye: Pupils are equal, round and reactive to light. Extra-ocular movements are intact. No nystagmus. There is normal conjunctiva bilaterally. No signs of icterus. Ears, nose, mouth and throat: There are moist mucous membranes and no oral lesions. Neck: The neck is supple, there is no tenderness or JVD. Cardiovascular: There is a regular rate and rhythm. No murmur, rub or gallop is appreciated. Respiratory: Lungs are clear to auscultation, respirations are non-labored, breath sounds are equal. No wheezes, stridor, rales, or rhonchi. Gastrointestinal: Soft, non-distended, non-tender abdomen without masses or organomegaly noted. There is no rebound or guarding present. No CVA tenderness. Musculoskeletal: Normal ROM, no tenderness. Sensation intact. Strength 5/5. Pulses equal bilaterally 2+. Neurological: A&O x 3. CN II-XII intact, There are no obvious motor or sensory deficits. Coordination appears grossly intact. Speech is normal. Skin: Skin is warm and dry and no rashes or lesions are noted. Psychiatric: Cooperative, appropriate mood & affect, normal judgment. Limitations: no limitations Course Vital Signs 09/14/18 09/14/18 09/14/18 10:39 11:15 11:30 Temperature 98.3 F Pulse Rate 93 81 Respiratory 16 42 H Rate Blood Pressure 161/90 O2 Sat by Pulse 99 99 99 Oximetry 09/14/18 09/14/18 09/14/18 11:42 11:50 12:00 Temperature Pulse Rate 79 85 84 Respiratory Rate Blood Pressure 139/87 O2 Sat by Pulse 98 Oximetry 09/14/18 09/14/18 12:30 13:00 Temperature Pulse Rate 80 Respiratory 51 H Rate Blood Pressure 128/99 132/122 O2 Sat by Pulse 99 Oximetry EKG Findings - EKG Comments: EKG Findings:: EKG performed at 1110: Shows normal sinus rhythm with prolonged QT. 84 bpm. WI interval 182. QRS 84. QT/QTc is 414/489. Compared previous EKG on 06/20/2017. Medical Decision Making - Medical Decision Making X-rays reviewed are negative for any acute abnormality. EKG shows no acute changes. Patient does have cough congestion over the past 2 weeks. No sign of pneumonia on x-ray. Labs reviewed negative. Negative d-dimer. Patient's will be treated for a bronchitis placed on steroids, cough medication. Advised follow-up family doctor return if symptoms increase or worsen. - Lab Data Result diagrams: 09/14/18 11:26 09/14/18 11:26 Lab Results 09/14/18 09/14/18 09/14/18 Range/Units 11:26 11:26 11:26 WBC 8.8 (3.8-10.6) k/uL RBC 3.94 (3.80-5.40) m/uL Hgb 12.2 (11.4-16.0) gm/dL Hct 36.8 (34.0-46.0) % MCV 93.4 (80.0-100.0) fL MCH 30.9 (25.0-35.0) pg MCHC 33.1 (31.0-37.0) g/dL RDW 12.9 (11.5-15.5) % Plt Count 296 (150-450) k/uL Neutrophils % 72 % Lymphocytes % 20 % Monocytes % 3 % Eosinophils % 2 % Basophils % 0 % Neutrophils # 6.4 (1.3-7.7) k/uL Lymphocytes # 1.8 (1.0-4.8) k/uL Monocytes # 0.3 (0-1.0) k/uL Eosinophils # 0.2 (0-0.7) k/uL Basophils # 0.0 (0-0.2) k/uL PT (9.0-12.0) sec INR (<1.2) APTT (22.0-30.0) sec D-Dimer (<0.60) mg/L FEU Sodium 140 (137-145) mmol/L Potassium 4.1 (3.5-5.1) mmol/L Chloride 107 (98-107) mmol/L Carbon Dioxide 29 (22-30) mmol/L Anion Gap 4 mmol/L BUN 10 (7-17) mg/dL Creatinine 0.56 (0.52-1.04) mg/dL Est GFR (CKD-EPI)AfAm >90 (>60 ml/min/1.73 sqM) Est GFR (CKD-EPI)NonAf >90 (>60 ml/min/1.73 sqM) Glucose 103 H (74-99) mg/dL Calcium 8.4 (8.4-10.2) mg/dL Total Bilirubin 0.2 (0.2-1.3) mg/dL AST 22 (14-36) U/L ALT 31 (9-52) U/L Alkaline Phosphatase 78 (38-126) U/L Total Creatine Kinase 167 H (30-135) U/L CK-MB (CK-2) 1.7 (0.0-2.4) ng/mL CK-MB (CK-2) Rel Index 1.0 Troponin I <0.012 (0.000-0.034) ng/mL Total Protein 6.1 L (6.3-8.2) g/dL Albumin 3.4 L (3.5-5.0) g/dL 09/14/18 09/14/18 Range/Units 11:26 11:26 WBC (3.8-10.6) k/uL RBC (3.80-5.40) m/uL Hgb (11.4-16.0) gm/dL Hct (34.0-46.0) % MCV (80.0-100.0) fL MCH (25.0-35.0) pg MCHC (31.0-37.0) g/dL RDW (11.5-15.5) % Plt Count (150-450) k/uL Neutrophils % % Lymphocytes % % Monocytes % % Eosinophils % % Basophils % % Neutrophils # (1.3-7.7) k/uL Lymphocytes # (1.0-4.8) k/uL Monocytes # (0-1.0) k/uL Eosinophils # (0-0.7) k/uL Basophils # (0-0.2) k/uL PT 9.4 (9.0-12.0) sec INR 0.9 (<1.2) APTT 25.5 (22.0-30.0) sec D-Dimer 0.38 (<0.60) mg/L FEU Sodium (137-145) mmol/L Potassium (3.5-5.1) mmol/L Chloride (98-107) mmol/L Carbon Dioxide (22-30) mmol/L Anion Gap mmol/L BUN (7-17) mg/dL Creatinine (0.52-1.04) mg/dL Est GFR (CKD-EPI)AfAm (>60 ml/min/1.73 sqM) Est GFR (CKD-EPI)NonAf (>60 ml/min/1.73 sqM) Glucose (74-99) mg/dL Calcium (8.4-10.2) mg/dL Total Bilirubin (0.2-1.3) mg/dL AST (14-36) U/L ALT (9-52) U/L Alkaline Phosphatase (38-126) U/L Total Creatine Kinase (30-135) U/L CK-MB (CK-2) (0.0-2.4) ng/mL CK-MB (CK-2) Rel Index Troponin I (0.000-0.034) ng/mL Total Protein (6.3-8.2) g/dL Albumin (3.5-5.0) g/dL Disposition Clinical Impression: Acute bronchitis Disposition: HOME SELF-CARE Condition: Good Instructions: Acute Bronchitis (ED) Additional Instructions: Please use medication as discussed. Please follow-up with family doctor in the next 2 days of symptoms have not improved. Please return to emergency room if the symptoms increase or worsen or for any other concerns. Prescriptions: Benzonatate [Tessalon Perles] 100 mg PO TID PRN #20 capsule PRN Reason: Cough methylPREDNISolone Dose Pack [Medrol Dose Pack] 4 mg PO DIRECTED #21 package Is patient prescribed a controlled substance at d/c from ED?: No Referrals: Tiny Cornell MD [Primary Care Provider] - 1-2 days Time of Disposition: 13:52
[2018-09-14 11:38] LABS: Basophils % (A) 0 %; Eosinophils # (A) 0.2 k/uL (0-0.7); Eosinophils % (A) 2 %; HCT 36.8 % (34.0-46.0); HGB 12.2 gm/dL (11.4-16.0); Lymphocytes # (A) 1.8 k/uL (1.0-4.8); Lymphocytes % (A) 20 %; MCH 30.9 pg (25.0-35.0); MCHC 33.1 g/dL (31.0-37.0); MCV 93.4 fL (80.0-100.0); Mean Platelet Volume 6.5; Monocytes # (A) 0.3 k/uL (0-1.0); Monocytes % (A) 3 %; Neutrophils # (A) 6.4 k/uL (1.3-7.7); Neutrophils % (A) 72 %; Platelet Count 296 k/uL (150-450); RBC 3.94 m/uL (3.80-5.40); RDW 12.9 % (11.5-15.5); WBC 8.8 k/uL (3.8-10.6)
[2018-09-14 11:46] LABS: ALT 31 U/L (9-52); AST 22 U/L (14-36); Albumin 3.4 g/dL (3.5-5.0); Alkaline Phosphatase 78 U/L (38-126); Anion Gap 4 mmol/L; Blood Urea Nitrogen 10 mg/dL (7-17); Calcium 8.4 mg/dL (8.4-10.2); Carbon Dioxide 29 mmol/L (22-30); Chloride 107 mmol/L (98-107); Glucose 103 mg/dL (74-99); Potassium 4.1 mmol/L (3.5-5.1); Sodium 140 mmol/L (137-145); Total Bilirubin 0.2 mg/dL (0.2-1.3); Total Protein 6.1 g/dL (6.3-8.2)
[2018-09-14 11:47] LABS: INR 0.9 (<1.2); Partial Thromboplastin Time 25.5 sec (22.0-30.0); Prothrombin Time 9.4 sec (9.0-12.0)
[2018-09-14 12:00] LABS: Creatine Kinase 167 U/L (30-135)
[2018-09-14 12:14] LABS: Creatine Kinase MB 1.7 ng/mL (0.0-2.4); Troponin I <0.012 ng/mL (0.000-0.034)
--- NOTE | 2018-09-14 13:00 | XR ---
EXAMINATION TYPE: XR chest 2V DATE OF EXAM: 09/14/2018 HISTORY: difficulty breathing. REFERENCE: Previous study dated 01/21/2017. FINDINGS: The lungs are clear. Pleural spaces are clear. The heart is not enlarged. IMPRESSION: NO ACTIVE INTRATHORACIC DISEASE.
[2018-09-14 14:09] VITALS: BP 115/86; PULSE 75; RESP 18; TEMP 98.2
== END 2018-09-14 14:07 | disposition home or self-care (01) ==
LOC: EC 10:31
DX: J20.9 Acute bronchitis, unspecified (principal); G40.909 Epilepsy, unspecified, not intractable, without status epilepticus; F31.9 Bipolar disorder, unspecified; F17.200 Nicotine dependence, unspecified, uncomplicated; Z79.899 Other long term (current) drug therapy; Z88.8 Allergy status to other drugs, medicaments and biological substances; Z91.010 Allergy to peanuts; Z91.018 Allergy to other foods
CPT/HCPCS: 36415; 71046; 80053; 82550; 82553; 84484; 85025; 85379; 85610; 85730; 93005; 94640; 96360; 96361; 99285

== ENCOUNTER 2019-03-13 10:50 | Emergency (ER) | payer OTHER ==
[2019-03-13 10:55] VITALS: TEMP 98.2
[2019-03-13] MEDS ORDERED: SODIUM CHLORIDE 0.9% 1,000 ML IV ONE (11:18)
[2019-03-13] MEDS ORDERED: KETOROLAC 30 MG/ML 1 ML VIAL IVP STA (11:18)
--- NOTE | 2019-03-13 11:22 | ED ---
Female Urogenital HPI - General Chief complaint: Vaginal Bleeding Stated complaint: Vaginal Bleeding Time Seen by Provider: 03/13/19 10:57 Source: patient Mode of arrival: ambulatory - History of Present Illness Initial comments: 43-year-old female patient presents to the emergency department today for evaluation of vaginal bleeding. Patient states her period started 2 weeks ago and has not stopped. Patient states she has been changing her pad every 2-3 hours. Patient states she is passing clots the size of golf balls. Patient states she is having some cramping when she passes a clot but minimal pain otherwise. Patient states she has been feeling weak and dizzy with this. Patient states her periods are usually irregular but has never been this long, states he usually last around 7 days. She denies any use of anticoagulant or antiplatelet medications. Patient states her last gynecologic exam was "a few years ago". Patient states that she has had abnormal cells in the past. Patient denies any recent rash, fever, chills, shortness, chest pain, nausea, vomiting, diarrhea, constipation, back pain, numbness, tingling, dizziness, weakness, hematuria, dysuria, urinary urgency, urinary frequency, headache, visual changes, or any other complaints. - Related Data Home Medications Medication Instructions Recorded Confirmed Latuda (Unknown Dose) 1 tab PO DAILY 03/13/19 03/13/19 Allergies Allergy/AdvReac Type Severity Reaction Status Date / Time niacin [From Simcor] Allergy Severe "JUDGE UP" Verified 03/13/19 11:05 tree nut [Nut] Allergy Severe Unknown Verified 03/13/19 11:05 peanut AdvReac Severe Rash/Hives Verified 03/13/19 11:05 simvastatin [From Simcor] AdvReac Severe "JUDGE UP" Verified 03/13/19 11:05 Review of Systems ROS Statement: Those systems with pertinent positive or pertinent negative responses have been documented in the HPI. ROS Other: All systems not noted in ROS Statement are negative. Past Medical History Past Medical History: Asthma, Hypertension, Memory Impairment, Seizure Disorder Additional Past Medical History / Comment(s): Patient states that she is currently working with her family doctor to diagnosis if she has seizures. Syncope episodes, mood disorder History of Any Multi-Drug Resistant Organisms: None Reported Past Surgical History: Section, Cholecystectomy, Orthopedic Surgery, Tubal Ligation Additional Past Surgical History / Comment(s): knee, RIGHT FOOT SURGERY 15+ YEARS AGO Past Anesthesia/Blood Transfusion Reactions: No Reported Reaction Past Psychological History: ADD/ADHD, Bipolar, Depression Smoking Status: Never smoker Past Alcohol Use History: None Reported Past Drug Use History: None Reported - Past Family History Mother History Unknown: Yes Additional Family Medical History / Comment(s): Patient states that her mother is from cancer. Father Family Medical History: Coronary Artery Disease (CAD), Diabetes Mellitus Daughter(s) Family Medical History: No Reported History General Exam General appearance: alert, in no apparent distress, other (Well-developed, well- nourished female patient in no acute distress. Vital signs upon presentation are temperature 98.2F, pulse 77, respirations 18, blood pressure 152/92, pulse ox 98% on room air.) Eye exam: Present: normal appearance, PERRL, EOMI. Absent: scleral icterus, conjunctival injection, periorbital swelling ENT exam: Present: normal exam, normal oropharynx, mucous membranes moist Respiratory exam: Present: normal lung sounds bilaterally. Absent: respiratory distress, wheezes, rales, rhonchi, stridor Cardiovascular Exam: Present: regular rate, normal rhythm, normal heart sounds. Absent: systolic murmur, diastolic murmur, rubs, gallop, clicks GI/Abdominal exam: Present: soft, normal bowel sounds. Absent: distended, tenderness, guarding, rebound, rigid External exam: Present: normal external exam Speculum exam: Present: vaginal bleeding (Mild, dark red), other (No mass). Absent: cervical discharge By manual exam: Present: normal by manual exam Neurological exam: Present: alert, oriented X3, CN II-XII intact Psychiatric exam: Present: normal affect, normal mood Skin exam: Present: warm, dry, intact, normal color. Absent: rash Course Vital Signs 03/13/19 03/13/19 03/13/19 10:51 13:48 14:00 Temperature 98.2 F Pulse Rate 77 81 82 Respiratory 18 16 18 Rate Blood Pressure 152/92 134/89 136/75 O2 Sat by Pulse 98 97 96 Oximetry Medical Decision Making - Medical Decision Making 43-year-old female patient presents to emergency department today for evaluation of vaginal bleeding 2 weeks. Patient states her period is usually irregular and she felt this was her normal period. Patient states she's been changing her pad every 2-3 hours. States she is passing clots. Physical examination reveals a soft nontender abdomen. Pelvic exam was performed and showed minimal dark red vaginal bleeding, no presence of clots. No abnormalities noted. Ultrasound was obtained and showed no acute findings. I did discuss findings and results with the patient. She is instructed to follow-up with gynecology for further evaluation. Return parameters were discussed in detail. She verbalizes understanding and agrees with this plan. - Lab Data Result diagrams: 03/13/19 11:30 03/13/19 11:30 Lab Results 03/13/19 03/13/19 03/13/19 Range/Units 11:30 11:30 11:30 WBC 6.8 (3.8-10.6) k/uL RBC 3.68 L (3.80-5.40) m/uL Hgb 11.3 L (11.4-16.0) gm/dL Hct 34.6 (34.0-46.0) % MCV 93.9 (80.0-100.0) fL MCH 30.6 (25.0-35.0) pg MCHC 32.6 (31.0-37.0) g/dL RDW 13.8 (11.5-15.5) % Plt Count 290 (150-450) k/uL Neutrophils % 64 % Lymphocytes % 27 % Monocytes % 4 % Eosinophils % 1 % Basophils % 0 % Neutrophils # 4.4 (1.3-7.7) k/uL Lymphocytes # 1.8 (1.0-4.8) k/uL Monocytes # 0.3 (0-1.0) k/uL Eosinophils # 0.1 (0-0.7) k/uL Basophils # 0.0 (0-0.2) k/uL PT 9.9 (9.0-12.0) sec INR 0.9 (<1.2) APTT 26.3 (22.0-30.0) sec Sodium 139 (137-145) mmol/L Potassium 4.2 (3.5-5.1) mmol/L Chloride 103 (98-107) mmol/L Carbon Dioxide 31 H (22-30) mmol/L Anion Gap 5 mmol/L BUN 11 (7-17) mg/dL Creatinine 0.55 (0.52-1.04) mg/dL Est GFR (CKD-EPI)AfAm >90 (>60 ml/min/1.73 sqM) Est GFR (CKD-EPI)NonAf >90 (>60 ml/min/1.73 sqM) Glucose 86 (74-99) mg/dL Calcium 8.6 (8.4-10.2) mg/dL Total Bilirubin 0.5 (0.2-1.3) mg/dL AST 32 (14-36) U/L ALT 38 (9-52) U/L Alkaline Phosphatase 60 (38-126) U/L Total Protein 6.9 (6.3-8.2) g/dL Albumin 4.2 (3.5-5.0) g/dL Urine Color Urine Appearance (Clear) Urine pH (5.0-8.0) Ur Specific [place] (1.001-1.035) Urine Protein (Negative) Urine Glucose (UA) (Negative) Urine Ketones (Negative) Urine Blood (Negative) Urine Nitrite (Negative) Urine Bilirubin (Negative) Urine Urobilinogen (<2.0) mg/dL Ur Leukocyte Esterase (Negative) Urine RBC (0-5) /hpf Urine WBC (0-5) /hpf Ur Squamous Epith Cells (0-4) /hpf Urine HCG, Qual (Not Detectd) 03/13/19 03/13/19 Range/Units 11:30 11:30 WBC (3.8-10.6) k/uL RBC (3.80-5.40) m/uL Hgb (11.4-16.0) gm/dL Hct (34.0-46.0) % MCV (80.0-100.0) fL MCH (25.0-35.0) pg MCHC (31.0-37.0) g/dL RDW (11.5-15.5) % Plt Count (150-450) k/uL Neutrophils % % Lymphocytes % % Monocytes % % Eosinophils % % Basophils % % Neutrophils # (1.3-7.7) k/uL Lymphocytes # (1.0-4.8) k/uL Monocytes # (0-1.0) k/uL Eosinophils # (0-0.7) k/uL Basophils # (0-0.2) k/uL PT (9.0-12.0) sec INR (<1.2) APTT (22.0-30.0) sec Sodium (137-145) mmol/L Potassium (3.5-5.1) mmol/L Chloride (98-107) mmol/L Carbon Dioxide (22-30) mmol/L Anion Gap mmol/L BUN (7-17) mg/dL Creatinine (0.52-1.04) mg/dL Est GFR (CKD-EPI)AfAm (>60 ml/min/1.73 sqM) Est GFR (CKD-EPI)NonAf (>60 ml/min/1.73 sqM) Glucose (74-99) mg/dL Calcium (8.4-10.2) mg/dL Total Bilirubin (0.2-1.3) mg/dL AST (14-36) U/L ALT (9-52) U/L Alkaline Phosphatase (38-126) U/L Total Protein (6.3-8.2) g/dL Albumin (3.5-5.0) g/dL Urine Color Yellow Urine Appearance Clear (Clear) Urine pH 7.5 (5.0-8.0) Ur Specific [place] 1.022 (1.001-1.035) Urine Protein Trace H (Negative) Urine Glucose (UA) Negative (Negative) Urine Ketones Negative (Negative) Urine Blood Moderate H (Negative) Urine Nitrite Negative (Negative) Urine Bilirubin Negative (Negative) Urine Urobilinogen <2.0 (<2.0) mg/dL Ur Leukocyte Esterase Negative (Negative) Urine RBC >182 H (0-5) /hpf Urine WBC 1 (0-5) /hpf Ur Squamous Epith Cells 5 H (0-4) /hpf Urine HCG, Qual Not Detected (Not Detectd) - Radiology Data Radiology results: report reviewed Pelvic ultrasound was obtained. Report is reviewed in its entirety. Impression by Dr. Gutierrez shows suboptimal study without suspicious pelvic mass identified to account for patient's symptoms of pain for Disposition Clinical Impression: Dysfunctional uterine bleeding Disposition: HOME SELF-CARE Condition: Good Instructions (If sedation given, give patient instructions): Dysfunctional Uterine Bleeding (ED) Additional Instructions: Increase fluids. Follow-up with a sewing machine adjuster for further evaluation as soon as possible. Return to the emergency department immediately for any new, worsening, or concerning symptoms. Is patient prescribed a controlled substance at d/c from ED?: No Referrals: Tiny Cornell MD [Primary Care Provider] - 1-2 days Delbert Peterson MD [STAFF PHYSICIAN] - 1-2 days Time of Disposition: 13:29
[2019-03-13 11:55] LABS: Basophils % (A) 0 %; Eosinophils # (A) 0.1 k/uL (0-0.7); Eosinophils % (A) 1 %; HCT 34.6 % (34.0-46.0); HGB 11.3 gm/dL (11.4-16.0); Lymphocytes # (A) 1.8 k/uL (1.0-4.8); Lymphocytes % (A) 27 %; MCH 30.6 pg (25.0-35.0); MCHC 32.6 g/dL (31.0-37.0); MCV 93.9 fL (80.0-100.0); Mean Platelet Volume 7.3; Monocytes # (A) 0.3 k/uL (0-1.0); Monocytes % (A) 4 %; Neutrophils # (A) 4.4 k/uL (1.3-7.7); Neutrophils % (A) 64 %; Platelet Count 290 k/uL (150-450); RBC 3.68 m/uL (3.80-5.40); RDW 13.8 % (11.5-15.5); WBC 6.8 k/uL (3.8-10.6)
[2019-03-13 12:07] LABS: ALT 38 U/L (9-52); AST 32 U/L (14-36); Albumin 4.2 g/dL (3.5-5.0); Alkaline Phosphatase 60 U/L (38-126); Anion Gap 5 mmol/L; Blood Urea Nitrogen 11 mg/dL (7-17); Calcium 8.6 mg/dL (8.4-10.2); Carbon Dioxide 31 mmol/L (22-30); Chloride 103 mmol/L (98-107); Glucose 86 mg/dL (74-99); Potassium 4.2 mmol/L (3.5-5.1); Sodium 139 mmol/L (137-145); Total Bilirubin 0.5 mg/dL (0.2-1.3); Total Protein 6.9 g/dL (6.3-8.2)
[2019-03-13 12:12] LABS: INR 0.9 (<1.2); Partial Thromboplastin Time 26.3 sec (22.0-30.0); Prothrombin Time 9.9 sec (9.0-12.0)
[2019-03-13 12:51] LABS: Appearance,Urine Clear (Clear); Bilirubin,Urine Negative (Negative); Blood,Urine Moderate (Negative); Color,Urine Yellow; Glucose,Urine (UA) Negative (Negative); Ketones,Urine Negative (Negative); Leukocyte Esterase,Urine Negative (Negative); Nitrite,Urine Negative (Negative); PH, Urine 7.5 (5.0-8.0); Protein,Urine Trace (Negative); RBC,Urine >182 /hpf (0-5); Specific Gravity,Urine 1.022 (1.001-1.035); Squamous Epithelial Cell,Urine 5 /hpf (0-4); Urobilinogen,Urine <2.0 mg/dL (<2.0); WBC,Urine 1 /hpf (0-5)
--- NOTE | 2019-03-13 13:18 | US ---
EXAMINATION TYPE: US pelvis complete transvag DATE OF EXAM: 03/13/2019 COMPARISON: CT CLINICAL HISTORY: pain. Pelvic pain x 2 weeks. Vaginal bleeding for 9 days. . . TECHNIQUE: Transvaginal (TV) and Transabdominal (TA) . Date of LMP: 03/05/2019 EXAM MEASUREMENTS: Uterus: 9.6 x 6.9 x 5.5 cm Endometrial Stripe: Not clearly visualized Right Ovary: Not seen Left Ovary: Not seen * Limited due to body habitus. Bladder not fully distended for supplemental transabdominal imaging. 1. Uterus: Anteverted Anechoic area seen in cervix measurin.8 x 0.8 x 0.8 cm. Shadowing seen. Limited. 2. Endometrium: Limited 3. Right Ovary: Not seen 4. Left Ovary: Not seen 5. Bilateral Adnexa: Appears wnl 6. Posterior cul-de-sac: Appears wnl Some nabothian cysts are seen in the cervix. Suboptimal study due to poor distended bladder significa nt shadowing over the uterus. No free fluid in pelvic cul-de-sac. IMPRESSION: Suboptimal study without suspicious pelvic mass identified to account for patient's sympt oms of pain.
[2019-03-13 14:37] VITALS: BP 136/75; PULSE 82; RESP 18
== END 2019-03-13 14:30 | disposition home or self-care (01) ==
LOC: EC 10:50
DX: N93.8 Other specified abnormal uterine and vaginal bleeding (principal); F31.9 Bipolar disorder, unspecified; Z98.51 Tubal ligation status; Z90.49 Acquired absence of other specified parts of digestive tract; Z79.899 Other long term (current) drug therapy; Z88.8 Allergy status to other drugs, medicaments and biological substances; Z91.018 Allergy to other foods; Z91.010 Allergy to peanuts
CPT/HCPCS: 36415; 80053; 85025; 85610; 85730; 81001; 81025; 76856; 76830; 99284; 96374; 96361; J1885

== ENCOUNTER 2019-04-12 15:35 | Emergency (ER) | payer OTHER ==
[2019-04-12] MEDS ORDERED: methylPREDNISolone SOD SUCCI 125 MG/2 ML VIAL IM ONE (16:01)
[2019-04-12] MEDS ORDERED: ALBUTEROL NEBULIZED 2.5 MG/3 ML INHALATION STA (16:01)
[2019-04-12] MEDS ORDERED: ONDANSETRON 4 MG ODT STARTER PACK 2 TAB BTL PO STA (16:02)
--- NOTE | 2019-04-12 16:08 | ED ---
General Adult HPI - General Chief complaint: ENT Stated complaint: Sore throat Time Seen by Provider: 04/12/19 15:41 Source: patient, RN notes reviewed, old records reviewed Mode of arrival: ambulatory Limitations: no limitations - History of Present Illness Initial comments: Patient is a 43-year-old female presents presented today with cough sore throat. She states she's been having vomiting to due to severe coughing. Patient states she has had no change in urination or bowel habits. She reports she's been having symptoms for 3 days. She is a nonsmoker. History of asthma. She reports she is using her inhaler occasionally but not recently has past couple days. - Related Data Home Medications Medication Instructions Recorded Confirmed Latuda (Unknown Dose) 1 tab PO DAILY 03/13/19 03/13/19 Previous Rx's Medication Instructions Recorded Albuterol Inhaler [Ventolin Hfa 1 - 2 puff INHALATION RT-Q6H PRN 04/12/19 Inhaler] #1 inhaler Azithromycin [Zithromax Z-pack] 0 mg PO DIRECTED #6 tab 04/12/19 Promethazine/Dextromethorphan 5 ml PO QID #120 ml 04/12/19 [Phenergan DM Syrup] methylPREDNISolone Dose Pack 4 mg PO DIRECTED #21 package 04/12/19 [Medrol Dose Pack] Allergies Allergy/AdvReac Type Severity Reaction Status Date / Time niacin [From Simcor] Allergy Severe "JUDGE UP" Verified 04/12/19 15:40 tree nut [Nut] Allergy Severe Unknown Verified 04/12/19 15:40 peanut AdvReac Severe Rash/Hives Verified 04/12/19 15:40 simvastatin [From Simcor] AdvReac Severe "JUDGE UP" Verified 04/12/19 15:40 Review of Systems ROS Statement: Those systems with pertinent positive or pertinent negative responses have been documented in the HPI. ROS Other: All systems not noted in ROS Statement are negative. Past Medical History Past Medical History: Asthma, Hypertension, Memory Impairment, Seizure Disorder Additional Past Medical History / Comment(s): Patient states that she is cur rently working with her family doctor to diagnosis if she has seizures. Syncope episodes, mood disorder History of Any Multi-Drug Resistant Organisms: None Reported Past Surgical History: Section, Cholecystectomy, Orthopedic Surgery, Tubal Ligation Additional Past Surgical History / Comment(s): knee, RIGHT FOOT SURGERY 15+ YEARS AGO Past Anesthesia/Blood Transfusion Reactions: No Reported Reaction Past Psychological History: ADD/ADHD, Bipolar, Depression Smoking Status: Never smoker Past Alcohol Use History: None Reported Past Drug Use History: None Reported - Past Family History Mother History Unknown: Yes Additional Family Medical History / Comment(s): Patient states that her mother is from cancer. Father Family Medical History: Coronary Artery Disease (CAD), Diabetes Mellitus Daughter(s) Family Medical History: No Reported History General Exam - General Exam Comments Initial Comments: 3-year-old female. Alert and oriented 3. No distress. Limitations: no limitations General appearance: alert, in no apparent distress Head exam: Present: atraumatic, normocephalic, normal inspection Eye exam: Present: normal appearance, PERRL, EOMI. Absent: scleral icterus, conjunctival injection, periorbital swelling ENT exam: Present: normal exam, mucous membranes moist Neck exam: Present: normal inspection. Absent: tenderness, meningismus, lymphadenopathy Respiratory exam: Present: wheezes. Absent: normal lung sounds bilaterally, respiratory distress, rales, rhonchi, stridor Cardiovascular Exam: Present: regular rate, normal rhythm, normal heart sounds. Absent: systolic murmur, diastolic murmur, rubs, gallop, clicks GI/Abdominal exam: Present: soft, normal bowel sounds. Absent: distended, tenderness, guarding, rebound, rigid Neurological exam: Present: alert, oriented X3, CN II-XII intact Psychiatric exam: Present: normal affect, normal mood Skin exam: Present: warm, dry, intact, normal color. Absent: rash Course Vital Signs 04/12/19 04/12/19 04/12/19 15:38 16:12 16:19 Temperature 98.7 F Pulse Rate 91 101 H 100 Respiratory 16 16 16 Rate Blood Pressure 122/82 O2 Sat by Pulse 97 Oximetry Medical Decision Making - Medical Decision Making 43-year-old female presents emergency department today for evaluation with complaints of cough, sore throat, hips of vomiting past 3 days. Patient is up-to-date on childhood vaccines. Slightly erythematous oropharynx. No significant exudate. Minimal wheezing on exam. Given a liter of treatment. Chest x-ray is negative for any acute process. Patient likely has bronchitis. We'll discharge Patient with steroids, syrup and inhaler. Discussed follow-up with PCP. - Radiology Data Radiology results: report reviewed Chest x-ray is negative for any acute cardiac pulmonary disease. Normal heart. No changes. Disposition Clinical Impression: Bronchitis, Nausea & vomiting Disposition: HOME SELF-CARE Condition: Good Instructions (If sedation given, give patient instructions): Acute Bronchitis (ED) Additional Instructions: As take medications as prescribed. Follow-up with PCP. Return to emergency department if any alarming signs or symptoms occur. Prescriptions: methylPREDNISolone Dose Pack [Medrol Dose Pack] 4 mg PO DIRECTED #21 package Promethazine/Dextromethorphan [Phenergan DM Syrup] 5 ml PO QID #120 ml Albuterol Inhaler [Ventolin Hfa Inhaler] 1 - 2 puff INHALATION RT-Q6H PRN #1 inhaler PRN Reason: Shortness Of Breath Azithromycin [Zithromax Z-pack] 0 mg PO DIRECTED #6 tab Is patient prescribed a controlled substance at d/c from ED?: No Referrals: Tiny Cornell MD [Primary Care Provider] - 1-2 days Time of Disposition: 17:20
--- NOTE | 2019-04-12 16:51 | XR ---
EXAMINATION TYPE: XR chest 2V DATE OF EXAM: 04/12/2019 COMPARISON: 09/14/2018 HISTORY: Cough and sore throat TECHNIQUE: Frontal and lateral views of the chest are obtained. FINDINGS: Heart and mediastinum are normal. Lungs are clear. Costophrenic angles are clear. There is no pleural effusion. Bony thorax is intact. IMPRESSION: No active cardiopulmonary disease. Normal heart. No change.
[2019-04-12 17:33] VITALS: BP 125/98; PULSE 86; RESP 18; TEMP 98.1
== END 2019-04-12 17:25 | disposition home or self-care (01) ==
LOC: EC 15:35
DX: J40 Bronchitis, not specified as acute or chronic (principal); R11.2 Nausea with vomiting, unspecified; F31.9 Bipolar disorder, unspecified; Z79.899 Other long term (current) drug therapy; Z88.8 Allergy status to other drugs, medicaments and biological substances; Z91.010 Allergy to peanuts; Z91.018 Allergy to other foods
CPT/HCPCS: 99284 ×2; 96372 ×2; 94640; 71046; J2930; S0119; 99283

== ENCOUNTER 2019-11-27 17:03 | Emergency (ER) | payer OTHER ==
--- NOTE | 2019-11-27 17:41 | ED ---
General Adult HPI - General Chief complaint: Psychiatric Symptoms Stated complaint: Mental health Time Seen by Provider: 11/27/19 17:22 Source: patient, RN notes reviewed, old records reviewed Mode of arrival: ambulatory Limitations: no limitations - History of Present Illness Initial comments: This is a 44-year-old female DF for psychiatric evaluation. Patient presents with severe depression unable to deal with the stresses of life. No drugs or call. Patient is currently homeless, recently disowned by family members, no prior admission for psychiatric evaluation does not take any psychiatric medications. No other complaints no medical history complaining some right foot pain secondary to foot sprain. -: days(s) Radiation: non-radiation Severity scale (1-10): 3 Quality: aching Consistency: constant Improves with: none Worsens with: none Associated Symptoms: denies other symptoms Treatments Prior to Arrival: none - Related Data Home Medications Medication Instructions Recorded Confirmed Latuda (Unknown Dose) 1 tab PO DAILY 03/13/19 03/13/19 Previous Rx's Medication Instructions Recorded Albuterol Inhaler [Ventolin Hfa 1 - 2 puff INHALATION RT-Q6H PRN 04/12/19 Inhaler] #1 inhaler Azithromycin [Zithromax Z-pack] 0 mg PO DIRECTED #6 tab 04/12/19 Promethazine/Dextromethorphan 5 ml PO QID #120 ml 04/12/19 [Phenergan DM Syrup] methylPREDNISolone Dose Pack 4 mg PO DIRECTED #21 package 04/12/19 [Medrol Dose Pack] Allergies Allergy/AdvReac Type Severity Reaction Status Date / Time niacin [From Simcor] Allergy Severe "JUDGE UP" Verified 04/12/19 15:40 tree nut [Nut] Allergy Severe Unknown Verified 04/12/19 15:40 peanut AdvReac Severe Rash/Hives Verified 04/12/19 15:40 simvastatin [From Simcor] AdvReac Severe "JUDGE UP" Verified 04/12/19 15:40 Review of Systems ROS Statement: Those systems with pertinent positive or pertinent negative responses have been documented in the HPI. ROS Other: All systems not noted in ROS Statement are negative. Past Medical History Past Medical History: Asthma, Hypertension, Memory Impairment, Seizure Disorder Additional Past Medical History / Comment(s): Patient states that she is currently working with her family doctor to diagnosis if she has seizures. Syncope episodes, mood disorder History of Any Multi-Drug Resistant Organisms: None Reported Past Surgical History: Section, Cholecystectomy, Orthopedic Surgery, Tubal Ligation Additional Past Surgical History / Comment(s): knee, RIGHT FOOT SURGERY 15+ YEARS AGO Past Anesthesia/Blood Transfusion Reactions: No Reported Reaction Past Psychological History: ADD/ADHD, Bipolar, Depression Smoking Status: Never smoker Past Alcohol Use History: None Reported Past Drug Use History: None Reported - Past Family History Mother History Unknown: Yes Additional Family Medical History / Comment(s): Patient states that her mother is from cancer. Father Family Medical History: Coronary Artery Disease (CAD), Diabetes Mellitus Daughter(s) Family Medical History: No Reported History General Exam Limitations: no limitations General appearance: alert, in no apparent distress Head exam: Present: atraumatic, normocephalic, normal inspection Eye exam: Present: normal appearance, PERRL, EOMI. Absent: scleral icterus, conjunctival injection, periorbital swelling ENT exam: Present: normal exam, mucous membranes moist Neck exam: Present: normal inspection. Absent: tenderness, meningismus, lymphadenopathy Respiratory exam: Present: normal lung sounds bilaterally. Absent: respiratory distress, wheezes, rales, rhonchi, stridor Cardiovascular Exam: Present: regular rate, normal rhythm, normal heart sounds. Absent: systolic murmur, diastolic murmur, rubs, gallop, clicks GI/Abdominal exam: Present: soft, normal bowel sounds. Absent: distended, tenderness, guarding, rebound, rigid Extremities exam: Present: normal inspection, full ROM, normal capillary refill. Absent: tenderness, pedal edema, joint swelling, calf tenderness Back exam: Present: normal inspection Neurological exam: Present: alert, oriented X3, CN II-XII intact Psychiatric exam: Present: normal affect, normal mood Skin exam: Present: warm, dry, intact, normal color. Absent: rash Course Vital Signs 11/27/19 17:16 Temperature 98.0 F Pulse Rate 80 Respiratory 17 Rate Blood Pressure 131/84 O2 Sat by Pulse 98 Oximetry - Reevaluation(s) Reevaluation #1: 11/27/19 18:39 medically clear for psychiatric evaluation Medical Decision Making - Medical Decision Making 44 female fpr evaluation for depression and psychiatric illines, patient seen and evaluated by psychiatric. Disposition Clinical Impression: Depression, Acute anxiety Disposition: HOME SELF-CARE Condition: Fair Is patient prescribed a controlled substance at d/c from ED?: No Referrals: Tiny Cornell MD [Primary Care Provider] - 1-2 days
[2019-11-27 20:07] VITALS: BP 130/74; PULSE 75; RESP 18; TEMP 98
== END 2019-11-27 20:07 | disposition home or self-care (01) ==
LOC: EC 17:03
DX: F31.9 Bipolar disorder, unspecified (principal); F41.9 Anxiety disorder, unspecified; I10 Essential (primary) hypertension; Z79.899 Other long term (current) drug therapy; Z88.8 Allergy status to other drugs, medicaments and biological substances; Z91.010 Allergy to peanuts; Z91.018 Allergy to other foods
CPT/HCPCS: 82075; 99284

== ENCOUNTER 2019-12-25 09:58 | Emergency (ER) | payer OTHER ==
[2019-12-25 10:09] VITALS: BP 150/93; PULSE 87; RESP 18; TEMP 97.7
[2019-12-25] MEDS ORDERED: ACET/COD 300 MG/30 MG STARTER PACK 6 TAB BTL PO STA (11:16)
--- NOTE | 2019-12-25 11:25 | XR ---
Right ankle HISTORY: Right ankle pain, history multiple injuries 3 views of the right ankle Bone mineralization, joint spaces and alignment are maintained. Mild soft tissue swelling suspected. There is a plantar calcaneal spur. IMPRESSION: No fracture or dislocation. Ankle MRI may be of benefit.
--- NOTE | 2019-12-25 11:29 | ED ---
Lower Extremity Injury HPI - General Chief Complaint: Extremity Injury, Lower Stated Complaint: ankle pain Time Seen by Provider: 12/25/19 10:50 Source: patient Mode of arrival: ambulatory - History of Present Illness Initial Comments: 44-year-old female presented for right ankle nancy x 1 day. Patient states that she twisted her ankle inward yesterday. She states she has had previous right ankle sprains as well as plantar fasciitis of the right foot. Patient denies any injury to head neck or back left leg near her hips bilaterally. Patient denies any other areas of complaints. Patient denies a numbness tingling coolness pallor of the extremity. Denies any dislocation. Patient is no other complains upon arrival she appears well signs of acute distress. patient ambul atory. - Related Data Home Medications Medication Instructions Recorded Confirmed Latuda (Unknown Dose) 1 tab PO DAILY 03/13/19 03/13/19 Previous Rx's Medication Instructions Recorded Albuterol Inhaler [Ventolin Hfa 1 - 2 puff INHALATION RT-Q6H PRN 04/12/19 Inhaler] #1 inhaler Azithromycin [Zithromax Z-pack] 0 mg PO DIRECTED #6 tab 04/12/19 Promethazine/Dextromethorphan 5 ml PO QID #120 ml 04/12/19 [Phenergan DM Syrup] methylPREDNISolone Dose Pack 4 mg PO DIRECTED #21 package 04/12/19 [Medrol Dose Pack] Allergies Allergy/AdvReac Type Severity Reaction Status Date / Time niacin [From Simcor] Allergy Severe "JUDGE UP" Verified 12/25/19 10:09 tree nut [Nut] Allergy Severe Unknown Verified 12/25/19 10:09 peanut AdvReac Severe Rash/Hives Verified 12/25/19 10:09 simvastatin [From Simcor] AdvReac Severe "JUDGE UP" Verified 12/25/19 10:09 Review of Systems ROS Statement: Those systems with pertinent positive or pertinent negative responses have been documented in the HPI. ROS Other: All systems not noted in ROS Statement are negative. Past Medical History Past Medical History: Asthma, Hypertension, Memory Impairment, Seizure Disorder Additional Past Medical History / Comment(s): Patient states that she is currently working with her family doctor to diagnosis if she has seizures. Syncope episodes, mood disorder History of Any Multi-Drug Resistant Organisms: None Reported Past Surgical History: Section, Cholecystectomy, Orthopedic Surgery, Tubal Ligation Additional Past Surgical History / Comment(s): knee, RIGHT FOOT SURGERY 15+ YEARS AGO Past Anesthesia/Blood Transfusion Reactions: No Reported Reaction Past Psychological History: ADD/ADHD, Bipolar, Depression Smoking Status: Never smoker Past Alcohol Use History: None Reported Past Drug Use History: None Reported - Past Family History Mother History Unknown: Yes Additional Family Medical History / Comment(s): Patient states that her mother is from cancer. Father Family Medical History: Coronary Artery Disease (CAD), Diabetes Mellitus Daughter(s) Family Medical History: No Reported History General Exam - General Exam Comments Initial Comments: General: The patient is awake and alert, in no distress, and does not appear acutely ill. Eye: Pupils are equal, round and reactive to light, extra-ocular movements are intact. No nystagmus. There is normal conjunctiva bilaterally. No signs of icterus. Cardiovascular: There is a regular rate and rhythm. No murmur, rub or gallop is appreciated. Respiratory: Lungs are clear to auscultation, respirations are non-labored, breath sounds are equal. No wheezes, stridor, rales, or rhonchi. Musculoskeletal: There is mild soft tissue swelling noted of the right ankle comparison the left. Patient has no evidence of ecchymosis. Full range of motion with full strength of the ankles bilaterally no tenderness with range motion of the knees or hips bilaterally negative logroll. Patient is tenderness over the lateral malleolus and the anterior aspect of the right ankle joint. Otherwise no other areas of point localized tothe lower extremity bilaterally. Patient is +2 dorsalis pedis pulses equal in comparison bilaterally with warm soft compressible compartments. Neurological: A&O x 3. CN II-XII intact grossly, There are no obvious motor or sensory deficits. Coordination appears grossly intact. Speech is normal. Skin: Skin is warm and dry and no rashes or lesions are noted. Psychiatric: Cooperative, appropriate mood & affect, normal judgment. Course Vital Signs 12/25/19 10:05 Temperature 97.7 F Pulse Rate 87 Respiratory 18 Rate Blood Pressure 150/93 O2 Sat by Pulse 97 Oximetry Medical Decision Making - Medical Decision Making 44-year-old female presenting today for chief complaint of right ankle pain after injury. No osseous injury on imaging studies. Suspect right ankle sprain. Patient is placed in a ankle splint and given orthopedic surgery follow-up. Patient was neurovascularly intact both prior to and after splint placement. Patient denies other complaints or areas of injury. Patient is discharged appearing well Disposition Clinical Impression: Ankle sprain, Right ankle pain, Right ankle injury Disposition: HOME SELF-CARE Condition: Good Instructions (If sedation given, give patient instructions): Ankle Sprain (ED), R.I.C.E. Treatment (ED) Additional Instructions: Please use medication as discussed. Please follow-up with family doctor in the next 2 days, and Dr. Cerna as discussed. Please return to emergency room if the symptoms increase or worsen or for any other concerns. Is patient prescribed a controlled substance at d/c from ED?: No Referrals: Tiny Cornell MD [Primary Care Provider] - 1-2 days Jefry Cerna MD [Medical Doctor] - 1-2 days Time of Disposition: 11:29
== END 2019-12-25 11:48 | disposition home or self-care (01) ==
LOC: EC 09:58
DX: S93.401A Sprain of unspecified ligament of right ankle, initial encounter (principal); F31.9 Bipolar disorder, unspecified; Z88.1 Allergy status to other antibiotic agents; Z88.8 Allergy status to other drugs, medicaments and biological substances; Z91.010 Allergy to peanuts; Z91.018 Allergy to other foods; Z79.899 Other long term (current) drug therapy; Z87.828 Personal history of other (healed) physical injury and trauma; Z98.890 Other specified postprocedural states; X50.1XXA Overexertion from prolonged static or awkward postures, initial encounter
CPT/HCPCS: 73610; 99283; 29515; L4350

== ENCOUNTER 2019-12-25 20:01 | Emergency (ER) | payer OTHER ==
--- NOTE | 2019-12-25 20:54 | ED ---
Chest Pain HPI - General Chief Complaint: Chest Pain Stated Complaint: Chest Pain Time Seen by Provider: 12/25/19 20:37 Source: patient, RN notes reviewed, old records reviewed Mode of arrival: ambulatory Limitations: no limitations - History of Present Illness Initial Comments: This is a 44-year-old female DF patient has a for evaluation regards to chest pain left-sided chest pain as well as ankle pain which is here for yesterday. No shortness of breath no change in symptoms of the ankle no repeat injury. Patient has no fevers no cough or congestion no recent travel history or sick contacts. No prior history of chest pain no history of heart disease MD Complaint: chest pain -: days(s) Onset: during rest, during exertion Pain Location: substernal, left chest Pain Radiation: LUE Severity: mild Severity scale (1-10): 3 Quality: aching Consistency: constant Improves With: nothing Worsens With: nothing Context: recent illness Other Symptoms: cough - Related Data Home Medications Medication Instructions Recorded Confirmed Latuda (Unknown Dose) 1 tab PO DAILY 03/13/19 03/13/19 Previous Rx's Medication Instructions Recorded Albuterol Inhaler [Ventolin Hfa 1 - 2 puff INHALATION RT-Q6H PRN 04/12/19 Inhaler] #1 inhaler Azithromycin [Zithromax Z-pack] 0 mg PO DIRECTED #6 tab 04/12/19 Promethazine/Dextromethorphan 5 ml PO QID #120 ml 04/12/19 [Phenergan DM Syrup] methylPREDNISolone Dose Pack 4 mg PO DIRECTED #21 package 04/12/19 [Medrol Dose Pack] Allergies Allergy/AdvReac Type Severity Reaction Status Date / Time niacin [From Simcor] Allergy Severe "JUDGE UP" Verified 12/25/19 20:17 tree nut [Nut] Allergy Severe Unknown Verified 12/25/19 20:17 peanut AdvReac Severe Rash/Hives Verified 12/25/19 20:17 simvastatin [From Simcor] AdvReac Severe "JUDGE UP" Verified 12/25/19 20:17 Review of Systems ROS Statement: Those systems with pertinent positive or pertinent negative responses have been documented in the HPI. ROS Other: All systems not noted in ROS Statement are negative. EKG Findings - EKG Comments: EKG Findings:: EKG shows sinus a rate of 77, CT 182, QRS 92, QTC 450 Past Medical History Past Medical History: Asthma, Hypertension, Memory Impairment, Seizure Disorder Additional Past Medical History / Comment(s): Patient states that she is currently working with her family doctor to diagnosis if she has seizures. Syncope episodes, mood disorder History of Any Multi-Drug Resistant Organisms: None Reported Past Surgical History: Section, Cholecystectomy, Orthopedic Surgery, Tubal Ligation Additional Past Surgical History / Comment(s): knee, RIGHT FOOT SURGERY 15+ YEARS AGO Past Anesthesia/Blood Transfusion Reactions: No Reported Reaction Past Psychological History: ADD/ADHD, Bipolar, Depression Smoking Status: Never smoker Past Alcohol Use History: None Reported Past Drug Use History: None Reported - Past Family History Mother History Unknown: Yes Additional Family Medical History / Comment(s): Patient states that her mother is from cancer. Father Family Medical History: Coronary Artery Disease (CAD), Diabetes Mellitus Daughter(s) Family Medical History: No Reported History General Exam Limitations: no limitations General appearance: alert, in no apparent distress Head exam: Present: atraumatic, normocephalic, normal inspection Eye exam: Present: normal appearance, PERRL, EOMI. Absent: scleral icterus, conjunctival injection, periorbital swelling ENT exam: Present: normal exam, mucous membranes moist Neck exam: Present: normal inspection. Absent: tenderness, meningismus, lymphadenopathy Respiratory exam: Present: normal lung sounds bilaterally. Absent: respiratory distress, wheezes, rales, rhonchi, stridor Cardiovascular Exam: Present: regular rate, normal rhythm, normal heart sounds. Absent: systolic murmur, diastolic murmur, rubs, gallop, clicks GI/Abdominal exam: Present: soft, normal bowel sounds. Absent: distended, tenderness, guarding, rebound, rigid Extremities exam: Present: normal inspection, full ROM, normal capillary refill. Absent: tenderness, pedal edema, joint swelling, calf tenderness Back exam: Present: normal inspection Neurological exam: Present: alert, oriented X3, CN II-XII intact Psychiatric exam: Present: normal affect, normal mood Skin exam: Present: warm, dry, intact, normal color. Absent: rash Course Vital Signs 12/25/19 12/25/19 20:17 23:03 Temperature 98.5 F Pulse Rate 83 86 Respiratory 18 16 Rate Blood Pressure 138/81 124/86 O2 Sat by Pulse 98 100 Oximetry - Reevaluation(s) Reevaluation #1: 12/25/19 21:53 Medical record is reviewed Reevaluation #2: 12/25/19 23:16 Patient has no current chest pain Chest Pain MDM - MDM 44 female here with nonspecific chest pain labwork is normal here in the ER x- ray negative patient can be discharged home Disposition Clinical Impression: Atypical chest pain Disposition: HOME SELF-CARE Condition: Good Instructions (If sedation given, give patient instructions): Chest Pain (ED) Is patient prescribed a controlled substance at d/c from ED?: No Referrals: Tiny Cornell MD [Primary Care Provider] - 1-2 days
[2019-12-25 21:34] LABS: ALT 19 U/L (4-34); AST 26 U/L (14-36); African American GFR (CKD) >90 (>60 ml/min/1.73 sqM); Albumin 4.1 g/dL (3.5-5.0); Alkaline Phosphatase 75 U/L (38-126); Anion Gap 7 mmol/L; Basophils % (A) 0 %; Blood Urea Nitrogen 16 mg/dL (7-17); Calcium 8.9 mg/dL (8.4-10.2); Carbon Dioxide 27 mmol/L (22-30); Chloride 104 mmol/L (98-107); Eosinophils # (A) 0.3 k/uL (0-0.7); Eosinophils % (A) 3 %; Glucose 96 mg/dL (74-99); HCT 35.4 % (34.0-46.0); HGB 12.1 gm/dL (11.4-16.0); Lymphocytes # (A) 2.8 k/uL (1.0-4.8); Lymphocytes % (A) 27 %; MCH 31.6 pg (25.0-35.0); MCHC 34.3 g/dL (31.0-37.0); MCV 92.2 fL (80.0-100.0); Mean Platelet Volume 7.4; Monocytes # (A) 0.4 k/uL (0-1.0); Monocytes % (A) 4 %; Neutrophils # (A) 6.5 k/uL (1.3-7.7); Neutrophils % (A) 64 %; Non-African American GFR(CKD) >90 (>60 ml/min/1.73 sqM); Platelet Count 313 k/uL (150-450); Potassium 3.7 mmol/L (3.5-5.1); RBC 3.84 m/uL (3.80-5.40); RDW 12.4 % (11.5-15.5); Sodium 138 mmol/L (137-145); Total Bilirubin 0.4 mg/dL (0.2-1.3); Total Protein 6.8 g/dL (6.3-8.2); WBC 10.2 k/uL (3.8-10.6)
--- NOTE | 2019-12-25 21:53 | XR ---
EXAMINATION: XR chest 2V DATE AND TIME: 12/25/2019 9:29 PM CLINICAL INDICATION: PHH; Chest Pain TECHNIQUE: Departmental protocol COMPARISON: 04/12/2019 FINDINGS: The lungs are clear. The pleural spaces are negative. The cardiac silhouette is not enlarged. The remainder of the mediastinal silhouette is unremarkable. The skeletal structures and soft tissues are negative for acute findings. IMPRESSION: NO ACUTE PROCESS.
[2019-12-25 21:54] LABS: D-Dimer 0.41 mg/L FEU (<0.60); INR 0.9 (<1.2); Partial Thromboplastin Time 22.4 sec (22.0-30.0); Prothrombin Time 9.6 sec (9.0-12.0)
[2019-12-25 23:39] VITALS: BP 139/84; PULSE 21; RESP 19; TEMP 98.4
== END 2019-12-25 23:40 | disposition home or self-care (01) ==
LOC: EC 20:01
DX: R07.89 Other chest pain (principal); R05 Cough; M79.602 Pain in left arm; F31.9 Bipolar disorder, unspecified; Z88.1 Allergy status to other antibiotic agents; Z88.8 Allergy status to other drugs, medicaments and biological substances; Z91.010 Allergy to peanuts; Z91.018 Allergy to other foods; Z79.899 Other long term (current) drug therapy; Z82.49 Family history of ischemic heart disease and other diseases of the circulatory system
CPT/HCPCS: 36415; 71046; 80053; 83690; 83735; 83880; 84484; 85025; 85379; 85610; 85730; 99285

== ENCOUNTER 2020-02-25 10:01 | Observation (INO) | payer OTHER ==
[2020-02-25] MEDS ORDERED: ASPIRIN 81 MG PO STA (10:08)
[2020-02-25] MEDS ORDERED: NITROGLYCERIN OINT 1 INCH/GM PACKET TOPICAL STA (10:08)
--- NOTE | 2020-02-25 10:12 | ED ---
General Adult HPI - General Stated complaint: Chest pain Time Seen by Provider: 02/25/20 10:04 Source: patient, RN notes reviewed Limitations: no limitations - History of Present Illness Initial comments: Patient is a pleasant 44-year-old female presenting to the emergency department complaints of chest discomfort. Onset of symptoms was around 5 days ago. Symptoms have been waxing and waning but became worse overall. Discomfort is currently 3/10. Discomfort is mid to left chest, above the breast. Discomfort feels somewhat sharp at this time. There is mild associated dyspnea however this is somewhat chronic associate with her asthma. Mild nausea. No diaphoresis. Patient has had similar symptoms previously with negative workup. No leg pain or leg swelling. No cough or fever. - Related Data Home Medications Medication Instructions Recorded Confirmed Latuda (Unknown Dose) 1 tab PO DAILY 03/13/19 03/13/19 Previous Rx's Medication Instructions Recorded Albuterol Inhaler (Bulk) [Ventolin 1 - 2 puff INHALATION RT-Q6H PRN 04/12/19 Hfa Inhaler (Bulk)] #1 inhaler Azithromycin [Zithromax Z-pack] 0 mg PO DIRECTED #6 tab 04/12/19 Promethazine/Dextromethorphan 5 ml PO QID #120 ml 04/12/19 [Phenergan DM Syrup] methylPREDNISolone Dose Pack 4 mg PO DIRECTED #21 package 04/12/19 [Medrol Dose Pack] Allergies Allergy/AdvReac Type Severity Reaction Status Date / Time niacin [From Simcor] Allergy Severe "JUDGE UP" Verified 12/25/19 20:17 tree nut [Nut] Allergy Severe Unknown Verified 12/25/19 20:17 peanut AdvReac Severe Rash/Hives Verified 12/25/19 20:17 simvastatin [From Simcor] AdvReac Severe "JUDGE UP" Verified 12/25/19 20:17 Review of Systems ROS Statement: Those systems with pertinent positive or pertinent negative responses have been documented in the HPI. ROS Other: All systems not noted in ROS Statement are negative. Constitutional: Denies: fever Eyes: Denies: eye pain ENT: Denies: ear pain Respiratory: Reports: as per HPI. Denies: cough Cardiovascular: Reports: chest pain Endocrine: Denies: fatigue Gastrointestinal: Denies: abdominal pain Genitourinary: Denies: dysuria Musculoskeletal: Denies: back pain Skin: Denies: rash Neurological: Denies: weakness Past Medical History Past Medical History: Asthma, Hypertension, Memory Impairment, Seizure Disorder Additional Past Medical History / Comment(s): Patient states that she is currently working with her family doctor to diagnosis if she has seizures. Syncope episodes, mood disorder History of Any Multi-Drug Resistant Organisms: None Reported Past Surgical History: Section, Cholecystectomy, Orthopedic Surgery, Tubal Ligation Additional Past Surgical History / Comment(s): knee, RIGHT FOOT SURGERY 15+ YEARS AGO Past Anesthesia/Blood Transfusion Reactions: No Reported Reaction Past Psychological History: ADD/ADHD, Bipolar, Depression Smoking Status: Never smoker Past Alcohol Use History: None Reported Past Drug Use History: None Reported - Past Family History Mother History Unknown: Yes Additional Family Medical History / Comment(s): Patient states that her mother is from cancer. Father Family Medical History: Coronary Artery Disease (CAD), Diabetes Mellitus Daughter(s) Family Medical History: No Reported History General Exam Limitations: no limitations General appearance: alert, in no apparent distress Head exam: Present: normocephalic Eye exam: Present: normal appearance, PERRL ENT exam: Present: normal oropharynx Neck exam: Present: normal inspection Respiratory exam: Present: normal lung sounds bilaterally. Absent: chest wall tenderness Cardiovascular Exam: Present: regular rate, normal rhythm Expanded Peripheral pulses: 2+: Radial (R), Radial (L), Posterior Tibialis (R), Posterior Tibialis (L), Dorsalis Pedis (R), Dorsalis Pedis (L) GI/Abdominal exam: Present: soft. Absent: tenderness Extremities exam: Present: normal inspection. Absent: pedal edema, calf tenderness Neurological exam: Present: alert Psychiatric exam: Present: normal affect, normal mood Skin exam: Present: normal color Course Vital Signs 02/25/20 10:05 Temperature 98.1 F Pulse Rate 105 H Respiratory 16 Rate Blood Pressure 152/104 O2 Sat by Pulse 96 Oximetry EKG Findings - EKG Comments: EKG Findings:: Sinus rhythm at 99. PA 184. QRS 70. QT 356. QTc 456. Normal axis. Normal QRS. No acute ST change. Medical Decision Making - Medical Decision Making Patient reevaluated and still having some mild symptoms. Patient updated on results and plan. Dr. Boudreaux has been paged for admission, covering for Dr. Vasquez. - Lab Data Result diagrams: 02/25/20 10:12 02/25/20 10:12 Lab Results 02/25/20 02/25/20 02/25/20 Range/Units 10:12 10:12 10:12 WBC 9.9 (3.8-10.6) k/uL RBC 4.08 (3.80-5.40) m/uL Hgb 12.5 (11.4-16.0) gm/dL Hct 37.0 (34.0-46.0) % MCV 90.7 (80.0-100.0) fL MCH 30.5 (25.0-35.0) pg MCHC 33.6 (31.0-37.0) g/dL RDW 12.6 (11.5-15.5) % Plt Count 355 (150-450) k/uL Neutrophils % 67 % Lymphocytes % 25 % Monocytes % 4 % Eosinophils % 2 % Basophils % 0 % Neutrophils # 6.6 (1.3-7.7) k/uL Lymphocytes # 2.5 (1.0-4.8) k/uL Monocytes # 0.4 (0-1.0) k/uL Eosinophils # 0.2 (0-0.7) k/uL Basophils # 0.0 (0-0.2) k/uL PT 9.5 (9.0-12.0) sec INR 0.9 (<1.2) APTT 24.5 (22.0-30.0) sec D-Dimer 0.54 (<0.60) mg/L FEU Sodium 140 (137-145) mmol/L Potassium 4.2 (3.5-5.1) mmol/L Chloride 105 (98-107) mmol/L Carbon Dioxide 25 (22-30) mmol/L Anion Gap 10 mmol/L BUN 18 H (7-17) mg/dL Creatinine 0.70 (0.52-1.04) mg/dL Est GFR (CKD-EPI)AfAm >90 (>60 ml/min/1.73 sqM) Est GFR (CKD-EPI)NonAf >90 (>60 ml/min/1.73 sqM) Glucose 101 H (74-99) mg/dL Calcium 9.0 (8.4-10.2) mg/dL Magnesium 2.2 (1.6-2.3) mg/dL Total Bilirubin 0.4 (0.2-1.3) mg/dL AST 36 (14-36) U/L ALT 34 (4-34) U/L Alkaline Phosphatase 79 (38-126) U/L Troponin I (0.000-0.034) ng/mL Total Protein 7.4 (6.3-8.2) g/dL Albumin 4.2 (3.5-5.0) g/dL Coronavirus (PCR) (Not Detectd) 02/25/20 02/25/20 Range/Units 10:12 10:12 WBC (3.8-10.6) k/uL RBC (3.80-5.40) m/uL Hgb (11.4-16.0) gm/dL Hct (34.0-46.0) % MCV (80.0-100.0) fL MCH (25.0-35.0) pg MCHC (31.0-37.0) g/dL RDW (11.5-15.5) % Plt Count (150-450) k/uL Neutrophils % % Lymphocytes % % Monocytes % % Eosinophils % % Basophils % % Neutrophils # (1.3-7.7) k/uL Lymphocytes # (1.0-4.8) k/uL Monocytes # (0-1.0) k/uL Eosinophils # (0-0.7) k/uL Basophils # (0-0.2) k/uL PT (9.0-12.0) sec INR (<1.2) APTT (22.0-30.0) sec D-Dimer (<0.60) mg/L FEU Sodium (137-145) mmol/L Potassium (3.5-5.1) mmol/L Chloride (98-107) mmol/L Carbon Dioxide (22-30) mmol/L Anion Gap mmol/L BUN (7-17) mg/dL Creatinine (0.52-1.04) mg/dL Est GFR (CKD-EPI)AfAm (>60 ml/min/1.73 sqM) Est GFR (CKD-EPI)NonAf (>60 ml/min/1.73 sqM) Glucose (74-99) mg/dL Calcium (8.4-10.2) mg/dL Magnesium (1.6-2.3) mg/dL Total Bilirubin (0.2-1.3) mg/dL AST (14-36) U/L ALT (4-34) U/L Alkaline Phosphatase (38-126) U/L Troponin I <0.012 (0.000-0.034) ng/mL Total Protein (6.3-8.2) g/dL Albumin (3.5-5.0) g/dL Coronavirus (PCR) Not Detected (Not Detectd) - Radiology Data Radiology results: image reviewed (Chest x-ray shows no acute process) Disposition Clinical Impression: Chest pain Disposition: ADMITTED IP TO THIS HOSP Is patient prescribed a controlled substance at d/c from ED?: No Referrals: Tiny Cornell MD [Primary Care Provider] - 1-2 days Decision Time: 11:15
[2020-02-25 10:26] LABS: Basophils % (A) 0 %; Eosinophils # (A) 0.2 k/uL (0-0.7); Eosinophils % (A) 2 %; HGB 12.5 gm/dL (11.4-16.0); Lymphocytes # (A) 2.5 k/uL (1.0-4.8); Lymphocytes % (A) 25 %; MCH 30.5 pg (25.0-35.0); MCHC 33.6 g/dL (31.0-37.0); MCV 90.7 fL (80.0-100.0); Mean Platelet Volume 7.3; Monocytes # (A) 0.4 k/uL (0-1.0); Monocytes % (A) 4 %; Neutrophils # (A) 6.6 k/uL (1.3-7.7); Neutrophils % (A) 67 %; Platelet Count 355 k/uL (150-450); RBC 4.08 m/uL (3.80-5.40); RDW 12.6 % (11.5-15.5); WBC 9.9 k/uL (3.8-10.6)
--- NOTE | 2020-02-25 10:34 | XR ---
EXAMINATION TYPE: XR chest 2V DATE OF EXAM: 02/25/2020 COMPARISON: 12/25/2019 HISTORY: Chest pain TECHNIQUE: Frontal and lateral views of the chest are obtained. FINDINGS: There is no focal air space opacity, pleural effusion, or pneumothorax seen. The cardiac silhouette size is within normal limits. The osseous structures are intact. Very mild dextroscolios is of the thoracic spine. IMPRESSION: No acute cardiopulmonary process.
[2020-02-25 10:38] LABS: D-Dimer 0.54 mg/L FEU (<0.60); INR 0.9 (<1.2); Partial Thromboplastin Time 24.5 sec (22.0-30.0); Prothrombin Time 9.5 sec (9.0-12.0)
[2020-02-25 10:40] LABS: ALT 34 U/L (4-34); AST 36 U/L (14-36); African American GFR (CKD) >90 (>60 ml/min/1.73 sqM); Albumin 4.2 g/dL (3.5-5.0); Alkaline Phosphatase 79 U/L (38-126); Anion Gap 10 mmol/L; Blood Urea Nitrogen 18 mg/dL (7-17); Carbon Dioxide 25 mmol/L (22-30); Chloride 105 mmol/L (98-107); Glucose 101 mg/dL (74-99); Magnesium 2.2 mg/dL (1.6-2.3); Non-African American GFR(CKD) >90 (>60 ml/min/1.73 sqM); Potassium 4.2 mmol/L (3.5-5.1); Sodium 140 mmol/L (137-145); Total Bilirubin 0.4 mg/dL (0.2-1.3); Total Protein 7.4 g/dL (6.3-8.2)
[2020-02-25] MEDS ORDERED: NITROGLYCERIN SL TABS 0.4 MG TAB SUBLINGUAL PRN (11:15)
[2020-02-25] MEDS: NITROGLYCERIN OINT 1 INCH/GM PACKET TOPICAL SCH ×2 (16:17→18:29)
--- NOTE | 2020-02-25 23:14 | P.HPIM ---
History of Present Illness H&P Date: 02/25/20 Chief Complaint: Chest pain Patient is a 44-year-old female with a history of asthma, hypertension, seizure disorder, memory impairment, ADD/ADHD, bipolar/depression and no prior history of smoking came to ER with complaints of chest discomfort for the past 5 days. Patient says that she developed chest pain mainly retrosternal region and towards the left side of the chest which has been on and off for the past 5 days. Patient felt like sharp tearing pain associated with mild shortness of breath. No nausea vomiting or diaphoresis. Denied any radiation to the left ar m or into the back. No complaints of fever or chills. Denied any cough or sputum production. No leg swelling. Denied any palpitations. EKG showed normal sinus rhythm. Chest x-ray showed no acute cardiopulmonary process. Troponin 1 negative. D-dimer is not elevated. Other laboratory data within normal limits. Review of Systems Constitutional: Patient denies any fever or chills . No generalized weakness or weight loss. Abdomen: Patient denied nausea vomiting and diarrhea and abdominal pain. Cardiovascular: Patient does have chest pain with minimal short of breath no palpitations. Respiratory: patient denied any cough is from production. No shortness of breath Neurologic: Patient denied any numbness or tingling headache. Musculoskeletal: Patient denies any complaints of joint swelling or deformity. Skin: Negative Psychiatric: Negative Endocrine: No heat or cold intolerance. No recent weight gain. Genitourinary: No dysuria or hematuria. All other 14 point ROS negative except the above Past Medical History Past Medical History: Asthma, Hypertension, Memory Impairment, Seizure Disorder Additional Past Medical History / Comment(s): Patient states that she is currently working with her family doctor to diagnosis if she has seizures. Syncope episodes, mood disorder History of Any Multi-Drug Resistant Organisms: None Reported Past Surgical History: Section, Cholecystectomy, Orthopedic Surgery, Tubal Ligation Additional Past Surgical History / Comment(s): knee, RIGHT FOOT SURGERY 15+ YEARS AGO Past Anesthesia/Blood Transfusion Reactions: No Reported Reaction Past Psychological History: ADD/ADHD, Bipolar, Depression Smoking Status: Never smoker Past Alcohol Use History: None Reported Past Drug Use History: None Reported - Past Family History Mother History Unknown: Yes Additional Family Medical History / Comment(s): Patient states that her mother is from cancer. Father Family Medical History: Coronary Artery Disease (CAD), Diabetes Mellitus Daughter(s) Family Medical History: No Reported History Medications and Allergies Home Medications Medication Instructions Recorded Confirmed Type medroxyPROGESTERone [Depo-Provera] 150 mg IM Q84D 02/25/20 02/25/20 History Allergies Allergy/AdvReac Type Severity Reaction Status Date / Time niacin [From Simcor] Allergy Severe "JUDGE UP" Verified 02/25/20 11:18 tree nut [Nut] Allergy Severe Unknown Verified 02/25/20 11:18 peanut AdvReac Severe Rash/Hives Verified 02/25/20 11:18 simvastatin [From Simcor] AdvReac Severe "JUDGE UP" Verified 02/25/20 11:18 Physical Exam Vitals: Vital Signs Temp Pulse Resp BP Pulse Ox 02/25/20 13:50 98.1 F 82 18 135/95 98 02/25/20 11:13 96 16 146/102 99 02/25/20 10:05 98.1 F 105 H 16 152/104 96 Intake and Output 02/24/20 02/25/20 02/25/20 22:59 06:59 14:59 Other: Weight 89.811 kg PHYSICAL EXAMINATION: Patient is lying in the bed comfortably, no acute distress, awake alert and oriented.. HEENT: Normocephalic. Neck is supple. Pupils reactive. Nostrils clear. Oral cavity is moist. Ears reveal no drainage. Neck reveals no JVD, carotid bruits, or thyromegaly. CHEST EXAMINATION: Trachea is central. Symmetrical expansion. Mild expiratory wheeze. Otherwise Lung martínez clear to auscultation and percussion. CARDIAC: Normal S1, S2 with no gallops. No murmurs ABDOMEN: Soft. Bowel sounds normal. No organomegaly. No abdominal bruits. Extremities: reveal no edema. No clubbing or cyanosis Neurologically awake, alert, oriented x3 with well-coordinated movements. No focal deficits noted Skin: No rash or skin lesions. Psychiatric: Coperative. Nonsuicidal Musculoskeletal: No joint swelling or deformity. Normal range of motion. Results CBC & Chem 7: 02/25/20 10:12 02/25/20 10:12 Labs: Abnormal Lab Results - Last 24 Hours (Table) 02/25/20 Range/Units 10:12 BUN 18 H (7-17) mg/dL Glucose 101 H (74-99) mg/dL Thrombosis Risk Factor Assmnt - DVT/VTE Prophylaxis DVT/VTE Prophylaxis: Pharmacologic Prophylaxis ordered Assessment and Plan Assessment: Atypical chest pain. Ruled out ACS. Asthma without exacerbation Hypertension controlled Memory impairment History of seizure disorder ADD/ADHD Bipolar disorder No previous history of smoking DVT prophylaxis Morbid obesity with BMI 36.2 Plan: Patient will be continued on telemetry monitoring. Serial EKGs and troponins. Continue with breathing treatments and home medications. Follow up closely and further recommendations based on the clinical course. Cardiology was consulted. Time with Patient: Greater than 30
[2020-02-26] MEDS: NITROGLYCERIN OINT 1 INCH/GM PACKET TOPICAL SCH ×3 (00:01→12:00)
[2020-02-26 04:26] LABS: Cholesterol 185 mg/dL (<200); HDL Cholesterol 38 mg/dL (40-60); LDL Cholesterol,Calculated 127 mg/dL (0-99); Triglycerides 98 mg/dL (<150)
[2020-02-26] MEDS ORDERED: ASPIRIN 325 MG TAB PO SCH (09:00)
--- NOTE | 2020-02-26 09:00 | P.CRDCN ---
History of Present Illness Consult date: 02/26/20 Consult reason: chest pain Chief complaint: Chest pain History of present illness: This is a 44-year-old female with history of mild hypertension, asthma, ADHD, bipolar depression, no history of smoking, presented to the hospital with symptoms of chest pain which she states have been going off and on for the past 6 days or so. Initially the pain started in the center of her chest, she describes it as a sharp stabbing discomfort, and she noticed it over on the right side of her chest and subsequently when she felt that on the left side of her chest she decided to come to the emergency room for further ev aluation and treatment. Patient does state that the pain worsens with deep breathing. Her EKG on presentation here showed a normal sinus rhythm with no acute changes. Chest x-ray did not reveal any acute abnormality. White blood cell count 9.9, hemoglobin 12.5, hematocrit 37, platelet count 355. D-dimer 0.5. Sodium 140, potassium 4.2, chloride 105, CO2 25, BUN 18, creatinine 0.7. Troponins were negative 3. Cholesterol 185, LDL 127, HDL 38, triglycerides 98. At the time of my examination this morning, patient complains of a headache which she states is somewhat chronic, she denies any chest discomfort. Blood pressure 114/70 with a heart rate of 90, afebrile. Past Medical History Past Medical History: Asthma, Hypertension, Memory Impairment, Seizure Disorder Additional Past Medical History / Comment(s): Patient states that she is currently working with her family doctor to diagnosis if she has seizures. Syncope episodes, mood disorder History of Any Multi-Drug Resistant Organisms: None Reported Past Surgical History: Section, Cholecystectomy, Orthopedic Surgery, Tubal Ligation Additional Past Surgical History / Comment(s): knee, RIGHT FOOT SURGERY 15+ YEARS AGO Past Anesthesia/Blood Transfusion Reactions: No Reported Reaction Past Psychological History: ADD/ADHD, Bipolar, Depression Smoking Status: Never smoker Past Alcohol Use History: None Reported Past Drug Use History: None Reported - Past Family History Mother History Unknown: Yes Additional Family Medical History / Comment(s): Patient states that her mother is from cancer. Father Family Medical History: Coronary Artery Disease (CAD), Diabetes Mellitus Daughter(s) Family Medical History: No Reported History Medications and Allergies Home Medications Medication Instructions Recorded Confirmed Type medroxyPROGESTERone [Depo-Provera] 150 mg IM Q84D 02/25/20 02/25/20 History Allergies Allergy/AdvReac Type Severity Reaction Status Date / Time niacin [From Simcor] Allergy Severe "JUDGE UP" Verified 02/25/20 11:18 tree nut [Nut] Allergy Severe Unknown Verified 02/25/20 11:18 peanut AdvReac Severe Rash/Hives Verified 02/25/20 11:18 simvastatin [From Simcor] AdvReac Severe "JUDGE UP" Verified 02/25/20 11:18 Physical Exam Vitals: Vital Signs Temp Pulse Pulse Resp BP BP Pulse Ox 02/26/20 04:00 98.8 F 93 18 113/76 97 02/26/20 00:00 98.1 F 93 18 114/56 95 02/25/20 20:00 98.5 F 92 18 119/60 97 02/25/20 15:45 98.1 F 98 18 129/72 97 02/25/20 14:45 98.2 F 95 16 123/85 98 02/25/20 13:50 98.1 F 82 18 135/95 98 02/25/20 11:13 96 16 146/102 99 02/25/20 10:05 98.1 F 105 H 16 152/104 96 Intake and Output 02/25/20 02/26/20 02/26/20 22:59 06:59 14:59 Intake Total 630 Balance 630 Intake: Oral 630 Other: Voiding Method Toilet Toilet # Voids 2 2 Weight 88.5 kg PHYSICAL EXAMINATION: GENERAL: 44-year-old female in no acute distress at the time of my examination HEENT: Head is atraumatic, normocephalic. Pupils equal, round. Sclera anicteric. Conjunctiva are clear. Mucous membranes of the mouth are moist. Neck is supple. There is no elevated jugular venous pressure. No carotid bruit is heard. HEART EXAMINATION: Heart S1, S2 normal. No murmur or gallop heard. CHEST EXAMINATION: Lungs are clear to auscultation and precussion. Positive chest wall pain and tenderness noted on deep breathing . ABDOMEN: Soft, nontender. Bowel sounds are heard. No organomegaly noted. EXTREMITIES: 2+ peripheral pulses with no evidence of peripheral edema and no calf tenderness noted. NEUROLOGIC patient is awake, alert and oriented 3 . . Results 02/25/20 10:12 02/25/20 10:12 Cardiac Enzymes 02/25/20 02/25/20 02/25/20 Range/Units 10:12 10:12 16:01 AST 36 (14-36) U/L Troponin I <0.012 <0.012 (0.000-0.034) ng/mL 02/25/20 Range/Units 22:38 AST (14-36) U/L Troponin I <0.012 (0.000-0.034) ng/mL Coagulation 02/25/20 Range/Units 10:12 PT 9.5 (9.0-12.0) sec APTT 24.5 (22.0-30.0) sec Lipids 02/25/20 Range/Units 10:12 Triglycerides 98 (<150) mg/dL Cholesterol 185 (<200) mg/dL HDL Cholesterol 38 L (40-60) mg/dL CBC 02/25/20 Range/Units 10:12 WBC 9.9 (3.8-10.6) k/uL RBC 4.08 (3.80-5.40) m/uL Hgb 12.5 (11.4-16.0) gm/dL Hct 37.0 (34.0-46.0) % Plt Count 355 (150-450) k/uL Comprehensive Metabolic Panel 02/25/20 Range/Units 10:12 Sodium 140 (137-145) mmol/L Potassium 4.2 (3.5-5.1) mmol/L Chloride 105 (98-107) mmol/L Carbon Dioxide 25 (22-30) mmol/L BUN 18 H (7-17) mg/dL Creatinine 0.70 (0.52-1.04) mg/dL Glucose 101 H (74-99) mg/dL Calcium 9.0 (8.4-10.2) mg/dL AST 36 (14-36) U/L ALT 34 (4-34) U/L Alkaline Phosphatase 79 (38-126) U/L Total Protein 7.4 (6.3-8.2) g/dL Albumin 4.2 (3.5-5.0) g/dL Current Medications Generic Name Dose Route Start Last Admin Trade Name Freq PRN Reason Stop Dose Admin Aspirin 325 mg 02/26/20 09:00 Aspirin PO DAILY RAMBO Nitroglycerin 0.4 mg 02/25/20 11:15 Nitrostat SUBLINGUAL Q5M PRN Chest Pain Nitroglycerin 1 inch 02/25/20 14:00 02/26/20 06:07 Nitro-Bid Oint TOPICAL 1 inch Q6HR RAMBO Administration Intake and Output 02/25/20 02/26/20 02/26/20 22:59 06:59 14:59 Intake Total 630 Balance 630 Intake: Oral 630 Other: Voiding Method Toilet Toilet # Voids 2 2 Weight 88.5 kg 02/25/20 10:12 02/25/20 10:12 EKG Interpretations (text) EKG shows a normal sinus rhythm with no acute changes. Assessment and Plan Plan: Assessment and plan #1 chest pain, atypical for acute coronary syndrome. Troponins negative 3. EKG shows normal sinus rhythm with no acute changes. #2 asthma #3 bipolar disorder #4 ADHD #5 history of intermittent headaches Plan We will obtain an echo cardiac gram with Doppler study. Patient has also been recommended to undergo stress echocardiographic study. If these tests are norm al then from cardiology's perspective the patient may be discharged home. Further recommendations to follow. DNP note has been reviewed, I agree with a documented findings and plan of care. Patient was seen and examined.
[2020-02-26 10:12] VITALS: RESP 16
--- NOTE | 2020-02-26 11:13 | ECHOF ---
Referral Reason:chest pain MEASUREMENTS -------- HEIGHT: 157.5 cm WEIGHT: 88.5 kg BP: 113/76 RVIDd: 2.6 cm (< 3.3) IVSd: 1.1 cm (0.6 - 1.1) LVIDd: 5.1 cm (3.9 - 5.3) LVPWd: 1.0 cm (0.6 - 1.1) IVSs: 1.6 cm LVIDs: 3.3 cm LVPWs: 1.5 cm LA Diam: 3.0 cm (2.7 - 3.8) LAESV Index (A-L): 22.39 ml/m Ao Diam: 3.5 cm (2.0 - 3.7) AV Cusp: 2.3 cm (1.5 - 2.6) MV EXCURSION: 19.436 mm (> 18.000) MV EF SLOPE: 141 mm/s (70 - 150) EPSS: 0.3 cm MV E Murray: 0.93 m/s MV DecT: 159 ms MV A Murray: 0.92 m/s MV E/A Ratio: 1.01 FINDINGS -------- Sinus rhythm. This was a technically good study. The left ventricular size is normal. There is borderline concentric left ventricular hypertrophy. Overall left ventricular systolic function is normal with, an EF between 60 - 65 %. The right ventricle is normal in size. Normal LA size by volume 22+/-6 ml/m2. The right atrium is normal in size. Interatrial and interventricular septum intact. The aortic valve is trileaflet and appears structurally normal. The mitral valve is normal. The tricuspid valve appears structurally normal. Trace/mild (physiologic) pulmonic regurgitation. The aortic root size is normal. Normal inferior vena cava with normal inspiratory collapse consistent with estimated right atrial pre ssure of 5 mmHg. There is no pericardial effusion. CONCLUSIONS -------- 1. Sinus rhythm. 2. This was a technically good study. 3. The left ventricular size is normal. 4. There is borderline concentric left ventricular hypertrophy. 5. Overall left ventricular systolic function is normal with, an EF between 60 - 65 %. 6. The right ventricle is normal in size. 7. Normal LA size by volume 22+/-6 ml/m2. 8. The right atrium is normal in size. 9. Interatrial and interventricular septum intact. 10. The aortic valve is trileaflet and appears structurally normal. 11. The mitral valve is normal. 12. The tricuspid valve appears structurally normal. 13. Trace/mild (physiologic) pulmonic regurgitation. 14. The aortic root size is normal. 15. Normal inferior vena cava with normal inspiratory collapse consistent with estimated right atrial pressure of 5 mmHg. 16. There is no pericardial effusion. ORNAMENT MAKER HAND: Lisa Ureña RDCS
--- NOTE | 2020-02-26 12:27 | ECHOS ---
STRESS ECHOCARDIOGRAM INDICATIONS: Chest pain. MEDICATIONS: Depo shot BASELINE HEART RATE: 93 BASELINE BLOOD PRESSURE: 136/58 MAXIMUM HEART RATE: 155 MAXIMUM BLOOD PRESSURE: 192/75 85% MPHR: 150 100% MPHR: 177 METS: 6.5 MAXIMUM STAGE REACHED: @@ TOTAL EXERCISE TIME: 5:30 CLINICAL INFORMATION: Baseline EKG shows sinus rhythm, normal axis, normal intervals. Patient exercised on Mauro protocol for a total of 5:30 minutes achieving 6.5 METS, 85% of predicted maximal heart rate without chest pain or diagnostic ST-segment depression. Baseline echo shows normal left ventricular size, wall motion and systolic function. Postexercise there is normal hyperdynamic response of myocardium noted. CONCLUSIONS: 1. Limited exercise tolerance. 2. Negative stress test by EKG criteria. 3. Negative stress echo. MMODL / IJN: [id number] /
[2020-02-26 15:25] VITALS: BP 114/60; PULSE 96; TEMP 97.6
--- NOTE | 2020-02-27 08:47 | P.DS ---
Providers Date of admission: 02/25/20 11:15 Expected date of discharge: 02/26/20 Attending physician: Rodriguez Boudreaux Consults: 02/25/20 11:15 Consult Physician Urgent Consulting Provider: Colt Law Consult Reason/Comments: cp Do you want consulting provider notified?: Yes Primary care physician: Tiny Cornell [facility] Course: Final diagnosis Atypical chest pain. Ruled out ACS. Asthma without exacerbation Hypertension controlled Memory impairment History of seizure disorder ADD/ADHD Bipolar disorder No previous history of smoking DVT prophylaxis Morbid obesity with BMI 36.2 Discharge disposition Patient is being discharged in a stable condition with guarded prognosis to home and will follow-up with Dr. Cornell upon discharge. Total time taken is 35 minutes. History of present illness This is a 44-year-old female who was recently admitted with chest discomfort that had been ongoing for 5 days and was being closely monitored. Patient was describing the pain as mainly retrosternal and towards the left side of the chest which was intermittent and felt sharp tearing-like pains with mild shortness of breath. Patient does have history of asthma although takes medications for this. Patient's EKG showed normal sinus rhythm and chest x-ray was negative for any cardiopulmonary process. Patient underwent echo and stress test which were negative and echo was reported overall left ventricular systolic function is normal with an EF between 60 and 65%. Serial troponins were negative. Cardiology evaluated the patient recommended outpatient follow up as needed and patient will follow-up with her primary care provider upon discharge. Currently no reports of chest pain or palpitations. Patient has some mild intermittent shortness of breath and states due to her asthma with no exacerbation at this time. Patient states that she is tried multiple medications including inhalers with no relief and states nothing works for this. Discussed with the patient if this continues she should follow up with pulmonary for additional testing and pulmonary function testing in the outpatient setting. Patient verbalized understanding. Patient will be [facility] today. On exam vital signs are stable. Temp is 97.6F, pulse is 96, respirations are 16, blood pressure is 114/60, oxygen saturation is 96% on room air. Cardio S1, S2 are present. Respiratory shows diminished breath sounds bilaterally with no wheezing or rhonchi noted. Abdomen is soft, obese, nontender. Nervous system shows no focal deficits. Please refer to medication reconciliation sheet for a list of medications. Patient Condition at Discharge: Stable Plan - Discharge Summary Discharge Rx Participant: Yes New Discharge Prescriptions: Continue medroxyPROGESTERone [Depo-Provera] 150 mg IM Q84D Discharge Medication List medroxyPROGESTERone [Depo-Provera] 150 mg IM Q84D 02/25/20 [History] Follow up Appointment(s)/Referral(s): Tiny Cornell MD [Primary Care Provider] - 1-2 days Patient Instructions/Handouts: Chest Pain (ED) Activity/Diet/Wound Care/Special Instructions: Activity Limited until follow-up Follow-up with primary care provider upon discharge Continue current diet If asthma persists consider following up with business employment specialist in the outpatient setting and discuss with her primary care provider Discharge Disposition: HOME SELF-CARE
== END 2020-02-26 16:05 | disposition home or self-care (01) ==
LOC: EC 10:01 → 3SCARD 11:15
PROVIDERS: ADMIT Hospitalist; ATTEND Hospitalist
DX: R07.89 Other chest pain (principal); J45.909 Unspecified asthma, uncomplicated; R51 Headache; R11.0 Nausea; I10 Essential (primary) hypertension; F90.9 Attention-deficit hyperactivity disorder, unspecified type; F31.9 Bipolar disorder, unspecified; F39 Unspecified mood [affective] disorder; E66.01 Morbid (severe) obesity due to excess calories; Z68.36 Body mass index [BMI] 36.0-36.9, adult; Z86.69 Personal history of other diseases of the nervous system and sense organs; R41.3 Other amnesia; Z90.49 Acquired absence of other specified parts of digestive tract; Z88.8 Allergy status to other drugs, medicaments and biological substances; Z91.018 Allergy to other foods; Z91.010 Allergy to peanuts; Z79.899 Other long term (current) drug therapy; Z79.3 Long term (current) use of hormonal contraceptives; Z80.9 Family history of malignant neoplasm, unspecified; Z82.49 Family history of ischemic heart disease and other diseases of the circulatory system; Z83.3 Family history of diabetes mellitus; Z03.818 Encounter for observation for suspected exposure to other biological agents ruled out
CPT/HCPCS: 93005 ×2; 99285; 36415; 93351; 85379; 80061; 80053; 83735; 84484; 85025; 85610; 85730; 87635; 71046; G0378 ×2; 93306

== ENCOUNTER 2020-04-01 15:25 | Emergency (ER) | payer OTHER ==
[2020-04-01 15:38] VITALS: RESP 18
--- NOTE | 2020-04-01 16:18 | ED ---
Lower Extremity Injury HPI - General Chief Complaint: Extremity Injury, Lower Stated Complaint: leg & foot swelling Time Seen by Provider: 04/01/20 15:41 Source: patient Mode of arrival: ambulatory Limitations: no limitations - History of Present Illness Initial Comments: 44-year-old female patient presents to the emergency department today for evaluation of right ankle pain and swelling. Patient states that she has had previous sprains in injuries to this ankle. States for the last 3 days the ankle has been swollen and painful. States hurts worse to walk with it. She denies any known injury but states it's possible she twisted it while walking. She denies any other injuries. Denies numbness or tingling to the foot. States she has been taking ibuprofen intermittently for pain control doesn't seem to help much. Denies any fever or chills. Denies any redness to the ankle. Patient denies any headache, neck pain, back pain, chest pain, shortness of breath, dizziness, weakness, abdominal pain, nausea, vomiting, or difficulties with bowel movements or urination. - Related Data Home Medications Medication Instructions Recorded Confirmed medroxyPROGESTERone [Depo-Provera] 150 mg IM Q84D 02/25/20 02/25/20 Allergies Allergy/AdvReac Type Severity Reaction Status Date / Time niacin [From Simcor] Allergy Severe "JUDGE UP" Verified 04/01/20 15:37 tree nut [Nut] Allergy Severe Unknown Verified 04/01/20 15:37 peanut AdvReac Severe Rash/Hives Verified 04/01/20 15:37 simvastatin [From Simcor] AdvReac Severe "JUDGE UP" Verified 04/01/20 15:37 Review of Systems ROS Statement: Those systems with pertinent positive or pertinent negative responses have been documented in the HPI. ROS Other: All systems not noted in ROS Statement are negative. Past Medical History Past Medical History: Asthma, Hypertension, Memory Impairment, Seizure Disorder Additional Past Medical History / Comment(s): Patient states that she is currently working with her family doctor to diagnosis if she has seizures. Syncope episodes, mood disorder History of Any Multi-Drug Resistant Organisms: None Reported Past Surgical History: Section, Cholecystectomy, Orthopedic Surgery, Tubal Ligation Additional Past Surgical History / Comment(s): knee, RIGHT FOOT SURGERY 15+ YEARS AGO Past Anesthesia/Blood Transfusion Reactions: No Reported Reaction Past Psychological History: ADD/ADHD, Bipolar, Depression, PTSD Smoking Status: Never smoker Past Alcohol Use History: None Reported Past Drug Use History: None Reported - Past Family History Mother History Unknown: Yes Additional Family Medical History / Comment(s): Patient states that her mother is from cancer. Father Family Medical History: Coronary Artery Disease (CAD), Diabetes Mellitus Daughter(s) Family Medical History: No Reported History General Exam Limitations: no limitations General appearance: alert, in no apparent distress, other (This is a well- developed, well-nourished adult female patient in no acute distress. Vital signs upon presentation are temperature 99.5F, pulse 110, respirations 18, blood pressure 137/77, pulse ox 97% on room air.) ENT exam: Present: normal exam, normal oropharynx, mucous membranes moist Respiratory exam: Present: normal lung sounds bilaterally. Absent: respiratory distress, wheezes, rales, rhonchi, stridor Cardiovascular Exam: Present: regular rate, normal rhythm, normal heart sounds. Absent: systolic murmur, diastolic murmur, rubs, gallop, clicks Extremities exam: Present: full ROM, tenderness (Surrounding the right ankle), normal capillary refill, other (There is swelling of the right ankle and the right foot. Skin is otherwise pink, warm, dry. Cap refills less than 3 seconds. Pedal and posttibial pulses 2+ and equal bilaterally.). Absent: normal inspection, pedal edema, joint swelling, calf tenderness Neurological exam: Present: alert, oriented X3, CN II-XII intact Psychiatric exam: Present: normal affect, normal mood Skin exam: Present: warm, dry, intact, normal color. Absent: rash Course Vital Signs 04/01/20 04/01/20 15:33 18:16 Temperature 99.5 F 98.4 F Pulse Rate 110 H 97 Respiratory 18 18 Rate Blood Pressure 137/77 142/78 O2 Sat by Pulse 97 97 Oximetry Medical Decision Making - Medical Decision Making 44-year-old female patient presents to the emergency department today for evaluation of right ankle pain and swelling. Patient does not recall an injury. Physical examination did reveal tenderness surrounding the ankle. No erythema, no warmth. She is afebrile with normal vital signs. Neurovascular status is intact. We did obtain an x-ray which showed no acute osseous abnormalities. Since was no injury we did also obtain a ultrasound to rule out DVT which was negative. Patient was placed in an ankle stirrup splint. She'll Be Instructed to Follow-Up with the Primary Care Physician for Recheck in 1-2 Days. Return Parameters Were Discussed in Detail. She Verbalizes Understanding and Agrees with This Plan. - Radiology Data Radiology results: report reviewed, image reviewed X-ray of the right ankle is obtained. Report is reviewed in its entirety. Impression by Dr. Johnson shows some circumferential soft tissue swelling. No acute osseous abnormalities seen. Ultrasound of the right lower extremity was obtained. Report was reviewed in its entirety. Impression by Dr. Martins shows no evidence of DVT in the right leg. Disposition Clinical Impression: Right ankle sprain Disposition: HOME SELF-CARE Condition: Good Instructions (If sedation given, give patient instructions): Ankle Sprain (ED) Additional Instructions: Keep splint in place. Apply ice. Follow-up with the primary care physician for recheck in 1-2 days. Return to the emergency department immediately for any new, worsening, or concerning symptoms. Is patient prescribed a controlled substance at d/c from ED?: No Referrals: Tiny Cornell MD [Primary Care Provider] - 1-2 days Time of Disposition: 18:07
--- NOTE | 2020-04-01 16:54 | XR ---
EXAMINATION TYPE: XR ankle complete RT DATE OF EXAM: 04/01/2020 COMPARISON: NONE HISTORY: 44-year-old female swelling and pain TECHNIQUE: 3 views FINDINGS: Generalized soft tissue swelling. Talar dome is intact. Ankle mortise congruent. No acute f racture, subluxation, dislocation seen. IMPRESSION: Some circumferential soft tissue swelling. No acute osseous abnormality seen.
--- NOTE | 2020-04-01 17:54 | US ---
EXAMINATION TYPE: US venous doppler duplex LE RT DATE OF EXAM: 04/01/2020 5:47 PM COMPARISON: NONE CLINICAL HISTORY: Right leg swelling/pain. Right leg pain and swelling x 3 days. No hx of DVT. Hx rig ht foot surgery. Patient does not take blood thinners. SIDE PERFORMED: Right TECHNIQUE: The lower extremity deep venous system is examined utilizing real time linear array sonog anastacio with graded compression, doppler sonography and color-flow sonography. VESSELS IMAGED: Common Femoral Vein Deep Femoral Vein Greater Saphenous Vein * Femoral Vein Popliteal Vein Small Saphenous Vein * Proximal Calf Veins (* superficial vessels) Right Leg: No evidence of DVT in veins imaged at this time from prox calf veins to CFV/GSV. EIV not visualized due to body habitus. Right calf edema seen. Duplicate femoral vein seen. IMPRESSION: No evidence of deep vein thrombosis in the right leg.
[2020-04-01 18:17] VITALS: BP 142/78; PULSE 97; TEMP 98.4
== END 2020-04-01 18:17 | disposition home or self-care (01) ==
LOC: EC 15:25
DX: S93.401A Sprain of unspecified ligament of right ankle, initial encounter (principal); Z79.3 Long term (current) use of hormonal contraceptives; Z88.1 Allergy status to other antibiotic agents; Z91.010 Allergy to peanuts; Z88.8 Allergy status to other drugs, medicaments and biological substances; Z98.890 Other specified postprocedural states; X58.XXXA Exposure to other specified factors, initial encounter
CPT/HCPCS: 29515; 99284

== ENCOUNTER 2020-07-18 19:41 | Emergency (ER) | payer OTHER ==
[2020-07-18 19:54] VITALS: BP 132/93; RESP 16; TEMP 98.8
[2020-07-18] MEDS ORDERED: SODIUM CHLORIDE 0.9% 500 ML 500 ML IV STA (20:01)
[2020-07-18 20:25] LABS: Basophils % (A) 0 %; Eosinophils # (A) 0.2 k/uL (0-0.7); Eosinophils % (A) 2 %; HCT 39.6 % (34.0-46.0); HGB 12.9 gm/dL (11.4-16.0); Lymphocytes # (A) 1.6 k/uL (1.0-4.8); Lymphocytes % (A) 13 %; MCH 29.1 pg (25.0-35.0); MCHC 32.5 g/dL (31.0-37.0); MCV 89.6 fL (80.0-100.0); Mean Platelet Volume 7.5; Monocytes # (A) 0.5 k/uL (0-1.0); Monocytes % (A) 4 %; Neutrophils # (A) 9.9 k/uL (1.3-7.7); Neutrophils % (A) 80 %; Platelet Count 305 k/uL (150-450); RBC 4.41 m/uL (3.80-5.40); RDW 13.8 % (11.5-15.5); WBC 12.4 k/uL (3.8-10.6)
[2020-07-18 20:29] LABS: Appearance,Urine Cloudy (Clear); Bacteria,Urine Many /hpf; Bilirubin,Urine Negative (Negative); Blood,Urine Negative (Negative); Budding Yeast,Urine Few /hpf; Calcium Oxalate Crystals,Urine Occasional /hpf; Color,Urine Dark Yellow; Glucose,Urine (UA) Negative (Negative); Ketones,Urine Negative (Negative); Leukocyte Esterase,Urine Small (Negative); Mucus,Urine Moderate /hpf; Nitrite,Urine Negative (Negative); Protein,Urine Trace (Negative); RBC,Urine 4 /hpf (0-5); Specific Gravity,Urine 1.024 (1.001-1.035); Squamous Epithelial Cell,Urine 23 /hpf (0-4); WBC,Urine 6 /hpf (0-5)
[2020-07-18 20:33] LABS: Albumin 4.4 g/dL (3.5-5.0); Calcium 8.7 mg/dL (8.4-10.2); Potassium 4.8 mmol/L (3.5-5.1); Total Bilirubin 0.7 mg/dL (0.2-1.3); Total Protein 7.3 g/dL (6.3-8.2)
--- NOTE | 2020-07-18 20:49 | XR ---
EXAMINATION TYPE: XR KUB DATE OF EXAM: 07/18/2020 COMPARISON: NONE HISTORY: Abdominal pain TECHNIQUE: 2 views upright FINDINGS: There is no sign of intestinal obstruction or pneumoperitoneum. Fecal pattern is normal. Th ere are clips from cholecystectomy. IMPRESSION: Nonacute abdomen.
--- NOTE | 2020-07-18 21:15 | US ---
EXAMINATION TYPE: US abdomen limited DATE OF EXAM: 07/18/2020 COMPARISON: NONE CLINICAL HISTORY: RUQ pain. abd pain, h/o pancreatitis, cholecystectomy EXAM MEASUREMENTS: Liver Length: 17.4 cm Gallbladder Wall: Surgically absent CBD: 0.5 cm Right Kidney: 10.3 x 4.6 x 4.7 cm Pancreas: wnl Liver: very difficult to penetrate due to bowel gas, habitus and possible fatty infiltrate Gallbladder: Surgically absent Evidence for sonographic Le's sign: no CBD: wnl Right Kidney: wnl IMPRESSION: Cholecystectomy. No dilated ducts. No focal liver defect.
[2020-07-18] MEDS ORDERED: PANTOPRAZOLE 40 MG/10 ML VIAL IVP STA (21:19)
--- NOTE | 2020-07-18 21:21 | ED ---
Abdominal Pain HPI - General Chief Complaint: Abdominal Pain Stated Complaint: abd pain Time Seen by Provider: 07/18/20 19:44 Source: patient, EMS Mode of arrival: EMS Limitations: no limitations - History of Present Illness Initial Comments: 45-year-old feel present for upper abdominal pain she states she truly has had this upper abdominal pain for 4 years she states has been increasing for the past 23 days occurs about one hour after eating. She states is in the upper abdomen. She denies any bloody or dark tarry stools denies fevers denies lower abdominal pain denies chest pain shortness approach L or arm pain. Patient denies additional complaints she appears well nontoxic on arrival in no acute distress. - Related Data Home Medications Medication Instructions Recorded Confirmed medroxyPROGESTERone [Depo-Provera] 150 mg IM Q84D 02/25/20 02/25/20 Previous Rx's Medication Instructions Recorded Pantoprazole Sodium [Protonix] 40 mg PO DAILY 7 Days #7 tablet. 07/18/20 Allergies Allergy/AdvReac Type Severity Reaction Status Date / Time niacin [From Simcor] Allergy Severe "JUDGE UP" Verified 04/01/20 15:37 tree nut [Nut] Allergy Severe Unknown Verified 04/01/20 15:37 peanut AdvReac Severe Rash/Hives Verified 04/01/20 15:37 simvastatin [From Simcor] AdvReac Severe "JUDGE UP" Verified 04/01/20 15:37 Review of Systems ROS Statement: Those systems with pertinent positive or pertinent negative responses have been documented in the HPI. ROS Other: All systems not noted in ROS Statement are negative. Past Medical History Past Medical History: Asthma, Hypertension, Memory Impairment, Seizure Disorder Additional Past Medical History / Comment(s): Patient states that she is currently working with her family doctor to diagnosis if she has seizures. Syncope episodes, mood disorder History of Any Multi-Drug Resistant Organisms: None Reported Past Surgical History: Section, Cholecystectomy, Orthopedic Surgery, Tubal Ligation Additional Past Surgical History / Comment(s): knee, RIGHT FOOT SURGERY 15+ YEA RS AGO Past Anesthesia/Blood Transfusion Reactions: No Reported Reaction Past Psychological History: ADD/ADHD, Bipolar, Depression, PTSD Smoking Status: Never smoker Past Alcohol Use History: None Reported Past Drug Use History: None Reported - Past Family History Mother History Unknown: Yes Additional Family Medical History / Comment(s): Patient states that her mother is from cancer. Father Family Medical History: Coronary Artery Disease (CAD), Diabetes Mellitus Daughter(s) Family Medical History: No Reported History General Exam - General Exam Comments Initial Comments: General: The patient is awake and alert, in no distress Eye: +3 mm pupils are equal, round and reactive to light, extra-ocular movements are intact. No nystagmus. There is normal conjunctiva bilaterally. No signs of icterus. Ears, nose, mouth and throat: There are moist mucous membranes and no oral lesions. Neck: The neck is supple, there is no tenderness or JVD. Cardiovascular: There is a regular rate and rhythm. No murmur, rub or gallop is appreciated. Respiratory: Lungs are clear to auscultation, respirations are non-labored, christin ath sounds are equal. No wheezes, stridor, rales, or rhonchi. Gastrointestinal: Soft, non-distended, mild epigastric tenderness to palpation of the abdomen, abdomen without masses or organomegaly noted. There is no rebound or guarding present. Musculoskeletal: Normal ROM, no tenderness. Strength 5/5. Sensation intact. Radial pulses equal bilaterally 2+. Neurological: A&O x 3. CN II-XII intact grossly, There are no obvious motor or sensory deficits. Coordination appears grossly intact. Speech is normal. Skin: Skin is warm and dry and no rashes or lesions are noted. Psychiatric: Cooperative, appropriate mood & affect, normal judgment. Limitations: no limitations Course Vital Signs 07/18/20 07/18/20 19:48 21:39 Temperature 98.8 F Pulse Rate 100 101 H Respiratory 16 16 Rate Blood Pressure 132/93 132/93 O2 Sat by Pulse 95 95 Oximetry Medical Decision Making - Medical Decision Making KUB WNL. US (-). Patient appears in no distress. ongoing x 4 years. no chest pain. occurs 1 hour after eating concern for peptic ulcer. Patient will be given protonix discharged on protonix and is to f/u with GI, recommend EGD or return for worsening tenderness or new symptoms.Patient is agreeable to this care plan and discharge at this time. Discussed risk of bleeding/perforation. - Lab Data Result diagrams: 07/18/20 20:15 07/18/20 20:15 Lab Results 07/18/20 07/18/20 07/18/20 Range/Units 20:15 20:15 20:15 WBC 12.4 H (3.8-10.6) k/uL RBC 4.41 (3.80-5.40) m/uL Hgb 12.9 (11.4-16.0) gm/dL Hct 39.6 (34.0-46.0) % MCV 89.6 (80.0-100.0) fL MCH 29.1 (25.0-35.0) pg MCHC 32.5 (31.0-37.0) g/dL RDW 13.8 (11.5-15.5) % Plt Count 305 (150-450) k/uL Neutrophils % 80 % Lymphocytes % 13 % Monocytes % 4 % Eosinophils % 2 % Basophils % 0 % Neutrophils # 9.9 H (1.3-7.7) k/uL Lymphocytes # 1.6 (1.0-4.8) k/uL Monocytes # 0.5 (0-1.0) k/uL Eosinophils # 0.2 (0-0.7) k/uL Basophils # 0.0 (0-0.2) k/uL Sodium 141 (137-145) mmol/L Potassium 4.8 (3.5-5.1) mmol/L Chloride 109 H (98-107) mmol/L Carbon Dioxide 22 (22-30) mmol/L Anion Gap 10 mmol/L BUN 10 (7-17) mg/dL Creatinine 0.94 (0.52-1.04) mg/dL Est GFR (CKD-EPI)AfAm 86 (>60 ml/min/1.73 sqM) Est GFR (CKD-EPI)NonAf 74 (>60 ml/min/1.73 sqM) Glucose 108 H (74-99) mg/dL Calcium 8.7 (8.4-10.2) mg/dL Total Bilirubin 0.7 (0.2-1.3) mg/dL AST 49 H (14-36) U/L ALT 54 H (4-34) U/L Alkaline Phosphatase 64 (38-126) U/L Total Protein 7.3 (6.3-8.2) g/dL Albumin 4.4 (3.5-5.0) g/dL Amylase 72 (30-110) U/L Lipase 171 (23-300) U/L Urine Color Dark Yellow Urine Appearance Cloudy H (Clear) Urine pH 6.0 (5.0-8.0) Ur Specific [place] 1.024 (1.001-1.035) Urine Protein Trace H (Negative) Urine Glucose (UA) Negative (Negative) Urine Ketones Negative (Negative) Urine Blood Negative (Negative) Urine Nitrite Negative (Negative) Urine Bilirubin Negative (Negative) Urine Urobilinogen 8.0 (<2.0) mg/dL Ur Leukocyte Esterase Small H (Negative) Urine RBC 4 (0-5) /hpf Urine WBC 6 H (0-5) /hpf Ur Squamous Epith Cells 23 H (0-4) /hpf Calcium Oxalate Crystal Occasional H (None) /hpf Urine Bacteria Many H (None) /hpf Urine Mucus Moderate H (None) /hpf Urine Yeast (Budding) Few H (None) /hpf Disposition Clinical Impression: Upper abdominal pain Disposition: HOME SELF-CARE Condition: Good Instructions (If sedation given, give patient instructions): Peptic Ulcer (ED) Additional Instructions: Please use medication as discussed. Please follow-up with family doctor in the next 2 days, recommend GI follow-up. Please return to emergency room if the symptoms increase or worsen or for any other concerns. Prescriptions: Pantoprazole Sodium [Protonix] 40 mg PO DAILY 7 Days #7 tablet.dr Is patient prescribed a controlled substance at d/c from ED?: No Referrals: Tiny Cornell MD [Primary Care Provider] - 1-2 days Abhijeet Zamorano MD [STAFF PHYSICIAN] - 1-2 days Time of Disposition: 21:21
[2020-07-18 21:40] VITALS: PULSE 101
== END 2020-07-18 21:30 | disposition home or self-care (01) ==
LOC: EC 19:41
DX: R10.10 Upper abdominal pain, unspecified (principal); Z88.8 Allergy status to other drugs, medicaments and biological substances; Z91.010 Allergy to peanuts; Z91.018 Allergy to other foods; Z90.49 Acquired absence of other specified parts of digestive tract
CPT/HCPCS: 36415; 80053; 82150; 83690; 85025; 81001; 74018; 76705; 99284; 96374; 96361; C9113

== ENCOUNTER 2020-07-26 22:16 | Emergency (ER) | payer OTHER ==
[2020-07-26 22:30] VITALS: RESP 18
[2020-07-26] MEDS ORDERED: SODIUM CHLORIDE 0.9% 1,000 ML IV STA (22:54)
[2020-07-27 00:08] LABS: Basophils % (A) 0 %; Eosinophils # (A) 0.3 k/uL (0-0.7); Eosinophils % (A) 2 %; HGB 12.1 gm/dL (11.4-16.0); Lymphocytes # (A) 2.3 k/uL (1.0-4.8); Lymphocytes % (A) 19 %; MCH 29.9 pg (25.0-35.0); MCHC 33.5 g/dL (31.0-37.0); Mean Platelet Volume 7.9; Monocytes # (A) 0.5 k/uL (0-1.0); Monocytes % (A) 4 %; Neutrophils % (A) 73 %; Platelet Count 300 k/uL (150-450); RBC 4.05 m/uL (3.80-5.40); RDW 14.1 % (11.5-15.5); WBC 12.2 k/uL (3.8-10.6)
[2020-07-27 00:09] LABS: ALT 69 U/L (4-34); AST 69 U/L (14-36); African American GFR (CKD) >90 (>60 ml/min/1.73 sqM); Albumin 4.2 g/dL (3.5-5.0); Alkaline Phosphatase 59 U/L (38-126); Anion Gap 8 mmol/L; Blood Urea Nitrogen 10 mg/dL (7-17); Calcium 8.8 mg/dL (8.4-10.2); Carbon Dioxide 26 mmol/L (22-30); Chloride 104 mmol/L (98-107); Glucose 119 mg/dL (74-99); Non-African American GFR(CKD) 82 (>60 ml/min/1.73 sqM); Sodium 138 mmol/L (137-145); Total Bilirubin 0.7 mg/dL (0.2-1.3); Total Protein 6.9 g/dL (6.3-8.2)
[2020-07-27 00:14] LABS: Appearance,Urine Cloudy (Clear); Bacteria,Urine Few /hpf; Bilirubin,Urine Negative (Negative); Blood,Urine Moderate (Negative); Calcium Oxalate Crystals,Urine Few /hpf; Color,Urine Yellow; Glucose,Urine (UA) Negative (Negative); Ketones,Urine Trace (Negative); Leukocyte Esterase,Urine Moderate (Negative); Mucus,Urine Many /hpf; Nitrite,Urine Negative (Negative); Protein,Urine 1+ (Negative); RBC,Urine 10 /hpf (0-5); Specific Gravity,Urine 1.032 (1.001-1.035); Squamous Epithelial Cell,Urine 9 /hpf (0-4); WBC,Urine 20 /hpf (0-5)
--- NOTE | 2020-07-27 00:20 | ED ---
General Adult HPI - General Chief complaint: Abdominal Pain Stated complaint: abd pain Time Seen by Provider: 07/26/20 23:09 Source: patient, EMS, RN notes reviewed, old records reviewed Mode of arrival: ambulatory Limitations: no limitations - History of Present Illness Initial comments: 45-year-old female patient presented to ED for evaluation of abdominal pain. Patient reports that she has been having abdominal pain in the upper quadrant of her abdomen for the last 3 weeks. Describes as a burning pains has right upper quadrant epigastric left upper quadrant. Patient was that she was on Protonix which has helped a little bit however the pain is persistent. Reports nausea without emesis. Patient reports that she has had multiple evaluations for this including ultrasound and x-rays but has never had a computed tomography scan. Denies any other acute complaints at this time. Systemic: Pt denies fatigue, fever/chills, rash. Pt denies weakness, night sweats, weight loss. Neuro: Pt denies headache, visual disturbances, syncope or pre-syncope. HEENT: Pt denies ocular discharge or irritation, otalgia, rhinorrhea, pharyngitis or notable lymphadenopathy. Cardiopulmonary: Pt denies chest pain, SOB, heart palpitations, dyspnea on exertion. Abdominal/GI: Pt denies diarrhea. : Pt denies dysuria, burning w/ urination, frequency/urgency. Denies new onset urinary or bowel incontinence. MSK: Pt denies myalgia, loss of strength or function in extremities. Neuro: Pt denies new onset weakness, paresthesias. - Related Data Home Medications Medication Instructions Recorded Confirmed medroxyPROGESTERone [Depo-Provera] 150 mg IM Q84D 02/25/20 02/25/20 Previous Rx's Medication Instructions Recorded Pantoprazole Sodium [Protonix] 40 mg PO DAILY 7 Days #7 tablet. 07/18/20 Allergies Allergy/AdvReac Type Severity Reaction Status Date / Time niacin [From Simcor] Allergy Severe "JUDGE UP" Verified 04/01/20 15:37 tree nut [Nut] Allergy Severe Unknown Verified 04/01/20 15:37 peanut AdvReac Severe Rash/Hives Verified 04/01/20 15:37 simvastatin [From Simcor] AdvReac Severe "JUDGE UP" Verified 04/01/20 15:37 Review of Systems ROS Statement: Those systems with pertinent positive or pertinent negative responses have been documented in the HPI. ROS Other: All systems not noted in ROS Statement are negative. Past Medical History Past Medical History: Asthma, Hypertension, Memory Impairment, Seizure Disorder Additional Past Medical History / Comment(s): Patient states that she is currently working with her family doctor to diagnosis if she has seizures. Sync ope episodes, mood disorder History of Any Multi-Drug Resistant Organisms: None Reported Past Surgical History: Section, Cholecystectomy, Orthopedic Surgery, Tubal Ligation Additional Past Surgical History / Comment(s): knee, RIGHT FOOT SURGERY 15+ YEARS AGO Past Anesthesia/Blood Transfusion Reactions: No Reported Reaction Past Psychological History: ADD/ADHD, Bipolar, Depression, PTSD Smoking Status: Never smoker Past Alcohol Use History: None Reported Past Drug Use History: None Reported - Past Family History Mother History Unknown: Yes Additional Family Medical History / Comment(s): Patient states that her mother is from cancer. Father Family Medical History: Coronary Artery Disease (CAD), Diabetes Mellitus Daughter(s) Family Medical History: No Reported History General Exam - General Exam Comments Initial Comments: Constitutional: NAD, AOX3, Pt has pleasant affect. HEENT: NC/AT, trachea midline, neck supple, no lymphadenopathy. Posterior pharynx non erythematous, without exudates. External ears appear normal, without discharge. Mucous membranes moist. Eyes PERRLA, EOM intact. There is no scleral icterus. No pallor noted. Cardiopulmonary: RRR, no murmurs, rubs or gallops, no JVD noted. Lungs CTAB in anterior and posterior martínez. No peripheral edema. Abdominal exam: Abdomen soft and non-distended. Abdomen mildly tender to palpation in LUQ, RUQ, epigastric region. Bowel sounds active in LLQ. No hepatosplenomegaly. No ecchymosis Neuro: CN II-XII grossly intact. No nuchal rigidity. No raccon eyes, no jackson sign, no hemotympanum. No cervical spinal tenderness. MSK: Full active ROM in upper and lower extremities, 5/5 stregnth. Limitations: no limitations Course Vital Signs 07/26/20 22:25 Temperature 98.5 F Pulse Rate 104 H Respiratory 18 Rate Blood Pressure 140/107 O2 Sat by Pulse 96 Oximetry Medical Decision Making - Medical Decision Making 45 old female patient to emergency department for evaluation of abdominal pain. Patient vital signs are stable, afebrile. Physical exam displayed mild leukocytosis at 12.2. AST ALT mildly elevated. Troponin negative. UA does display some signs of potential infection. Patient initiated on antibiotics. CT abdomen and pelvis displayed no signs acute abdomen pelvis mild L4-L5 spinal listhesis of moderately severe lumbar spinal stenosis.EKG performed at negative for acute ischemia. She'll be discharged with outpatient primary care follow-up as well as follow-up. Will be last CT the Protonix. Case discussed with Dr. Clemons. - Lab Data Result diagrams: 07/27/20 23:52 07/26/20 23:35 Lab Results 07/26/20 07/26/20 07/26/20 Range/Units 23:35 23:35 23:35 WBC (3.8-10.6) k/uL RBC (3.80-5.40) m/uL Hgb (11.4-16.0) gm/dL Hct (34.0-46.0) % MCV (80.0-100.0) fL MCH (25.0-35.0) pg MCHC (31.0-37.0) g/dL RDW (11.5-15.5) % Plt Count (150-450) k/uL Neutrophils % % Lymphocytes % % Monocytes % % Eosinophils % % Basophils % % Neutrophils # (1.3-7.7) k/uL Lymphocytes # (1.0-4.8) k/uL Monocytes # (0-1.0) k/uL Eosinophils # (0-0.7) k/uL Basophils # (0-0.2) k/uL Sodium 138 (137-145) mmol/L Potassium 4.0 (3.5-5.1) mmol/L Chloride 104 (98-107) mmol/L Carbon Dioxide 26 (22-30) mmol/L Anion Gap 8 mmol/L BUN 10 (7-17) mg/dL Creatinine 0.87 (0.52-1.04) mg/dL Est GFR (CKD-EPI)AfAm >90 (>60 ml/min/1.73 sqM) Est GFR (CKD-EPI)NonAf 82 (>60 ml/min/1.73 sqM) Glucose 119 H (74-99) mg/dL Plasma Lactic Acid Eduardo (0.7-2.0) mmol/L Calcium 8.8 (8.4-10.2) mg/dL Total Bilirubin 0.7 (0.2-1.3) mg/dL AST 69 H (14-36) U/L ALT 69 H (4-34) U/L Alkaline Phosphatase 59 (38-126) U/L Troponin I (0.000-0.034) ng/mL Total Protein 6.9 (6.3-8.2) g/dL Albumin 4.2 (3.5-5.0) g/dL Lipase 191 (23-300) U/L Urine Color Yellow Urine Appearance Cloudy H (Clear) Urine pH 6.0 (5.0-8.0) Ur Specific [place] 1.032 (1.001-1.035) Urine Protein 1+ H (Negative) Urine Glucose (UA) Negative (Negative) Urine Ketones Trace H (Negative) Urine Blood Moderate H (Negative) Urine Nitrite Negative (Negative) Urine Bilirubin Negative (Negative) Urine Urobilinogen 6.0 (<2.0) mg/dL Ur Leukocyte Esterase Moderate H (Negative) Urine RBC 10 H (0-5) /hpf Urine WBC 20 H (0-5) /hpf Urine WBC Clumps Few H (None) /hpf Ur Squamous Epith Cells 9 H (0-4) /hpf Calcium Oxalate Crystal Few H (None) /hpf Urine Bacteria Few H (None) /hpf Urine Mucus Many H (None) /hpf Urine HCG, Qual Not Detected (Not Detectd) 07/26/20 07/26/20 07/27/20 Range/Units 23:35 23:35 23:52 WBC 12.2 H (3.8-10.6) k/uL RBC 4.05 (3.80-5.40) m/uL Hgb 12.1 (11.4-16.0) gm/dL Hct 36.0 (34.0-46.0) % MCV 89.0 (80.0-100.0) fL MCH 29.9 (25.0-35.0) pg MCHC 33.5 (31.0-37.0) g/dL RDW 14.1 (11.5-15.5) % Plt Count 300 (150-450) k/uL Neutrophils % 73 % Lymphocytes % 19 % Monocytes % 4 % Eosinophils % 2 % Basophils % 0 % Neutrophils # 9.0 H (1.3-7.7) k/uL Lymphocytes # 2.3 (1.0-4.8) k/uL Monocytes # 0.5 (0-1.0) k/uL Eosinophils # 0.3 (0-0.7) k/uL Basophils # 0.0 (0-0.2) k/uL Sodium (137-145) mmol/L Potassium (3.5-5.1) mmol/L Chloride (98-107) mmol/L Carbon Dioxide (22-30) mmol/L Anion Gap mmol/L BUN (7-17) mg/dL Creatinine (0.52-1.04) mg/dL Est GFR (CKD-EPI)AfAm (>60 ml/min/1.73 sqM) Est GFR (CKD-EPI)NonAf (>60 ml/min/1.73 sqM) Glucose (74-99) mg/dL Plasma Lactic Acid Eduardo 0.9 (0.7-2.0) mmol/L Calcium (8.4-10.2) mg/dL Total Bilirubin (0.2-1.3) mg/dL AST (14-36) U/L ALT (4-34) U/L Alkaline Phosphatase (38-126) U/L Troponin I <0.012 (0.000-0.034) ng/mL Total Protein (6.3-8.2) g/dL Albumin (3.5-5.0) g/dL Lipase (23-300) U/L Urine Color Urine Appearance (Clear) Urine pH (5.0-8.0) Ur Specific [place] (1.001-1.035) Urine Protein (Negative) Urine Glucose (UA) (Negative) Urine Ketones (Negative) Urine Blood (Negative) Urine Nitrite (Negative) Urine Bilirubin (Negative) Urine Urobilinogen (<2.0) mg/dL Ur Leukocyte Esterase (Negative) Urine RBC (0-5) /hpf Urine WBC (0-5) /hpf Urine WBC Clumps (None) /hpf Ur Squamous Epith Cells (0-4) /hpf Calcium Oxalate Crystal (None) /hpf Urine Bacteria (None) /hpf Urine Mucus (None) /hpf Urine HCG, Qual (Not Detectd) - EKG Data -: EKG Interpreted by Me (and Dr. Clemons ) EKG Comments: Ventricular rate 98, [place] inerval 190, QRS 76, QT/QTC 356 is 454. Normal sinus rhythm, septal infarct indeterminate. Abnormal EKG. No concern for acute ischemia at this time. Disposition Clinical Impression: Abdominal pain Disposition: HOME SELF-CARE Condition: Stable Instructions (If sedation given, give patient instructions): Abdominal Pain (ED) Additional Instructions: Follow-up with primary care provider and GI tomorrow. Continue take Protonix. Continue dietary modifications. Return to ER with any worsening symptoms. Is patient prescribed a controlled substance at d/c from ED?: No Referrals: Tiny Cornell MD [Primary Care Provider] - 1-2 days Abhijeet Zamorano MD [STAFF PHYSICIAN] - 1-2 days
--- NOTE | 2020-07-27 00:59 | CT ---
EXAMINATION TYPE: CT abdomen pelvis w con DATE OF EXAM: 07/27/2020 COMPARISON: 10/22/2016 HISTORY: ABD PAIN WITH BURNING SENSATION [id number] CT DLP: 2300.4 mGycm Automated exposure control for dose reduction was used. CONTRAST: Performed with IV Contrast, patient injected with 100 mL of Isovue 300. Images were obtained from the diaphragm to the floor the pelvis with IV contrast. Lung bases are clear. There is no pleural effusion. Heart size is normal. There is no pericardial eff usion. There is 2 cm hypodensity in the anterior right lobe of the liver that could be a hemangioma. The bile ducts are not dilated. There are clips from cholecystectomy. Spleen stomach pancreas appear normal. There is no adrenal mass. Kidneys show satisfactory contrast opacification. There is no hydronephrosi s. There are bilateral renal cortical cysts that measure up to 2.2 cm. The ureters are not dilated. T here is no retroperitoneal adenopathy. Appendix is posterior and appears normal. The bladder distends smoothly. Uterus is anteverted. There is no inguinal hernia. There is no free fluid in the pelvis. T here is no sign of a pelvic mass. There is a few millimeter anterior subluxation of L4 in relation L5 . There is no spondylolysis. There is moderate spinal stenosis at L4-5. There is no lumbar compressio n fracture. The bony pelvis is intact. The hip joints are intact. There is no mesenteric edema. There is no ascites or free air. There is no bowel obstruction. IMPRESSION: Hypodense lesion in the liver is probably a hemangioma and unchanged compared to old exam. Normal jeannie endix. Small renal cortical cysts. No sign of acute abdomen and pelvis. Mild L4-5 spondylolisthesis with moderately severe lumbar spinal stenosis. This appears worse than ol d CT scan.
[2020-07-27 01:27] VITALS: BP 115/75; PULSE 87; TEMP 98.1
== END 2020-07-27 01:33 | disposition home or self-care (01) ==
LOC: EC 22:16
DX: M48.061 Spinal stenosis, lumbar region without neurogenic claudication (principal); M43.16 Spondylolisthesis, lumbar region; R10.13 Epigastric pain; R10.11 Right upper quadrant pain; R10.12 Left upper quadrant pain; N39.0 Urinary tract infection, site not specified; R74.0 Nonspecific elevation of levels of transaminase and lactic acid dehydrogenase [LDH]; D72.829 Elevated white blood cell count, unspecified; Z79.890 Hormone replacement therapy; Z88.8 Allergy status to other drugs, medicaments and biological substances; Z91.018 Allergy to other foods; Z91.010 Allergy to peanuts; Z90.49 Acquired absence of other specified parts of digestive tract; Z98.51 Tubal ligation status
CPT/HCPCS: 36415 ×2; 93005; 80053; 83605; 83690; 84484; 85025; 81001; 81025; 74177; 99285; 96365; 96361; J0696; Q9967

== ENCOUNTER 2020-08-01 14:15 | Emergency (ER) | payer OTHER ==
[2020-08-01] MEDS ORDERED: ONDANSETRON 4 MG/2 ML VIAL IVP STA (14:35)
[2020-08-01] MEDS ORDERED: SODIUM CHLORIDE 0.9% 500 ML 500 ML IV STA (14:35)
[2020-08-01] MEDS ORDERED: SODIUM CHLORIDE 0.9% 1,000 ML IV STA (14:35)
[2020-08-01 15:09] LABS: Basophils % (A) 0 %; Eosinophils # (A) 0.2 k/uL (0-0.7); Eosinophils % (A) 1 %; HCT 40.5 % (34.0-46.0); HGB 13.6 gm/dL (11.4-16.0); Lymphocytes # (A) 2.5 k/uL (1.0-4.8); Lymphocytes % (A) 20 %; MCH 29.8 pg (25.0-35.0); MCHC 33.5 g/dL (31.0-37.0); Mean Platelet Volume 7.3; Monocytes # (A) 0.6 k/uL (0-1.0); Monocytes % (A) 5 %; Neutrophils # (A) 9.4 k/uL (1.3-7.7); Neutrophils % (A) 73 %; Platelet Count 337 k/uL (150-450); RBC 4.56 m/uL (3.80-5.40); RDW 14.1 % (11.5-15.5); WBC 12.9 k/uL (3.8-10.6)
[2020-08-01 15:21] LABS: ALT 45 U/L (4-34); AST 43 U/L (14-36); African American GFR (CKD) >90 (>60 ml/min/1.73 sqM); Albumin 4.5 g/dL (3.5-5.0); Alkaline Phosphatase 60 U/L (38-126); Amylase 51 U/L (30-110); Anion Gap 6 mmol/L; Blood Urea Nitrogen 8 mg/dL (7-17); Carbon Dioxide 25 mmol/L (22-30); Chloride 106 mmol/L (98-107); Glucose 108 mg/dL (74-99); Lipase 166 U/L (23-300); Non-African American GFR(CKD) 85 (>60 ml/min/1.73 sqM); Potassium 3.8 mmol/L (3.5-5.1); Sodium 137 mmol/L (137-145); Total Bilirubin 0.8 mg/dL (0.2-1.3); Total Protein 7.3 g/dL (6.3-8.2)
--- NOTE | 2020-08-01 16:57 | CT ---
EXAMINATION TYPE: CT abdomen pelvis w con DATE OF EXAM: 08/01/2020 COMPARISON: 07/27/2020 HISTORY: diffuse nonlocalized pain CT DLP: 2383.8 mGycm Automated exposure control for dose reduction was used. CONTRAST: Performed with IV Contrast, patient injected with 100 mL of Isovue 300. Lung bases are clear. There is no pleural effusion. Heart size is normal. There is no pericardial eff usion. There is 2 cm hypodense area in the anterior right lobe of the liver that is probably a tiffany ioma. This appears to have some delayed enhancement. There are clips from cholecystectomy. Spleen is intact. Stomach is intact. There is no pancreatic mass. There is no adrenal mass. Kidneys show satisfactory contrast opacification. There is no hydronephrosi s. There are bilateral renal cortical cysts. There is 2.5 cm cyst medial left kidney. There is no hyd ronephrosis. Delayed images show normal renal excretion. Ureters are not dilated. There is no retrope ritoneal adenopathy. Bladder distends smoothly. There is no inguinal hernia. There is no free fluid i n the pelvis. Uterus is anteverted. There is no pelvic mass. There is no free fluid in the pelvis. Lumbar vertebra have fairly normal alignment. There is a few millimeter anterior subluxation of L4 in relation L5. There is L4-5 bony spinal stenosis. Bony pelvis is intact. Hip joints are intact. There is no lumbar compression fracture. There is no mesenteric edema. There is no ascites or free air. There is no bowel obstruction. Appendi x is small and appears normal. There is broad-based umbilical hernia that contains fat. IMPRESSION: No sign of acute abdomen and pelvis. Hemangioma in the right lobe of the liver. There is moderate L4-5 bony spinal stenosis. Normal appendix. No significant change compared to recent exam.
--- NOTE | 2020-08-01 17:06 | ED ---
Abdominal Pain HPI - General Chief Complaint: Abdominal Pain Stated Complaint: abd pain Time Seen by Provider: 08/01/20 14:33 Source: EMS Mode of arrival: EMS Limitations: no limitations - History of Present Illness Initial Comments: 45-year-old female presenting today for chief complaint of abdominal pain she states has been ongoing for months and only has been able to figure out what's going on she states she has had multiple imaging studies she states that she is upcoming appointment GI this week. Patient states she has had chronic diarrhea. She denies any loose watery stools are foul-smelling she states is just runny. Patient denies a bloody or melanotic stools denied hematemesis. Eyes nausea vomiting denies any chest pain shortness of breath patient denies any fevers patient is no additional complaints - Related Data Home Medications Medication Instructions Recorded Confirmed medroxyPROGESTERone [Depo-Provera] 150 mg IM Q84D 02/25/20 02/25/20 Previous Rx's Medication Instructions Recorded Pantoprazole Sodium [Protonix] 40 mg PO DAILY 7 Days #7 tablet. 07/18/20 Cephalexin [Keflex] 500 mg PO Q12HR 10 Days #20 cap 07/27/20 Allergies Allergy/AdvReac Type Severity Reaction Status Date / Time niacin [From Simcor] Allergy Severe "JUDGE UP" Verified 04/01/20 15:37 tree nut [Nut] Allergy Severe Unknown Verified 04/01/20 15:37 peanut AdvReac Severe Rash/Hives Verified 04/01/20 15:37 simvastatin [From Simcor] AdvReac Severe "JUDGE UP" Verified 04/01/20 15:37 Review of Systems ROS Statement: Those systems with pertinent positive or pertinent negative responses have been documented in the HPI. ROS Other: All systems not noted in ROS Statement are negative. Past Medical History Past Medical History: Asthma, Hypertension, Memory Impairment, Seizure Disorder Additional Past Medical History / Comment(s): Patient states that she is currently working with her family doctor to diagnosis if she has seizures. Syncope episodes, mood disorder History of Any Multi-Drug Resistant Organisms: None Reported Past Surgical History: Section, Cholecystectomy, Orthopedic Surgery, Tubal Ligation Additional Past Surgical History / Comment(s): knee, RIGHT FOOT SURGERY 15+ YEARS AGO Past Anesthesia/Blood Transfusion Reactions: No Reported Reaction Past Psychological History: ADD/ADHD, Bipolar, Depression, PTSD Smoking Status: Never smoker Past Alcohol Use History: None Reported Past Drug Use History: None Reported - Past Family History Mother History Unknown: Yes Additional Family Medical History / Comment(s): Patient states that her mother is from cancer. Father Family Medical History: Coronary Artery Disease (CAD), Diabetes Mellitus Daughter(s) Family Medical History: No Reported History General Exam - General Exam Comments Initial Comments: General: The patient is awake and alert, in no distress Eye: +3 mm pupils are equal, round and reactive to light, extra-ocular movements are intact. No nystagmus. There is normal conjunctiva bilaterally. No signs of icterus. Cardiovascular: There is a regular rate and rhythm. No murmur, rub or gallop is appreciated. Respiratory: Lungs are clear to auscultation, respirations are non-labored, breath sounds are equal. No wheezes, stridor, rales, or rhonchi. Gastrointestinal: Soft, non-distended, diffuse abdominal tenderness to palpation of the abdomen, abdomen without masses or organomegaly noted. There is no rebound or guarding present. (-) murphys s ign Musculoskeletal: Normal ROM, no tenderness. Strength 5/5. Sensation intact. Radial pulses equal bilaterally 2+. Neurological: A&O x 3. CN II-XII intact grossly, There are no obvious motor or sensory deficits. Coordination appears grossly intact. Speech is normal. Skin: Skin is warm and dry and no rashes or lesions are noted. Psychiatric: Cooperative, appropriate mood & affect, normal judgment. Limitations: no limitations Course Vital Signs 08/01/20 08/01/20 08/01/20 14:29 15:33 16:33 Temperature 98.6 F Pulse Rate 116 H 90 92 Respiratory 19 20 20 Rate Blood Pressure 136/89 114/84 114/79 O2 Sat by Pulse 97 96 96 Oximetry 08/01/20 08/01/20 17:00 17:40 Temperature 98.3 F Pulse Rate 92 89 Respiratory 20 18 Rate Blood Pressure 110/84 124/97 O2 Sat by Pulse 96 97 Oximetry Medical Decision Making - Medical Decision Making Leukocytosis unable to give us a stool sample did not have diarrhea in the ER she denies any nausea vomiting. Patient's abdominal pain was vague negative Le sign no right upper quadrant tenderness. CT no acute findings. No pneumoperitoneum. Patient will be discharged with GI follow-up as she has a scheduled appointment this week. I recommend patient providing stool sample to her primary care provider or at the GI appointment patient verbalized understanding was discharged appearing well. Discussed case with Dr. Bacon - Lab Data Result diagrams: 08/01/20 14:50 08/01/20 14:50 Lab Results 08/01/20 08/01/20 08/01/20 Range/Units 14:50 14:50 17:13 WBC 12.9 H (3.8-10.6) k/uL RBC 4.56 (3.80-5.40) m/uL Hgb 13.6 (11.4-16.0) gm/dL Hct 40.5 (34.0-46.0) % MCV 89.0 (80.0-100.0) fL MCH 29.8 (25.0-35.0) pg MCHC 33.5 (31.0-37.0) g/dL RDW 14.1 (11.5-15.5) % Plt Count 337 (150-450) k/uL Neutrophils % 73 % Lymphocytes % 20 % Monocytes % 5 % Eosinophils % 1 % Basophils % 0 % Neutrophils # 9.4 H (1.3-7.7) k/uL Lymphocytes # 2.5 (1.0-4.8) k/uL Monocytes # 0.6 (0-1.0) k/uL Eosinophils # 0.2 (0-0.7) k/uL Basophils # 0.0 (0-0.2) k/uL Sodium 137 (137-145) mmol/L Potassium 3.8 (3.5-5.1) mmol/L Chloride 106 (98-107) mmol/L Carbon Dioxide 25 (22-30) mmol/L Anion Gap 6 mmol/L BUN 8 (7-17) mg/dL Creatinine 0.84 (0.52-1.04) mg/dL Est GFR (CKD-EPI)AfAm >90 (>60 ml/min/1.73 sqM) Est GFR (CKD-EPI)NonAf 85 (>60 ml/min/1.73 sqM) Glucose 108 H (74-99) mg/dL Calcium 9.0 (8.4-10.2) mg/dL Total Bilirubin 0.8 (0.2-1.3) mg/dL AST 43 H (14-36) U/L ALT 45 H (4-34) U/L Alkaline Phosphatase 60 (38-126) U/L Total Protein 7.3 (6.3-8.2) g/dL Albumin 4.5 (3.5-5.0) g/dL Amylase 51 (30-110) U/L Lipase 166 (23-300) U/L Urine Color Light Yellow Urine Appearance Clear (Clear) Urine pH 7.5 (5.0-8.0) Ur Specific [place] >1.050 H (1.001-1.035) Urine Protein Trace H (Negative) Urine Glucose (UA) Negative (Negative) Urine Ketones Negative (Negative) Urine Blood Trace H (Negative) Urine Nitrite Negative (Negative) Urine Bilirubin Negative (Negative) Urine Urobilinogen <2.0 (<2.0) mg/dL Ur Leukocyte Esterase Small H (Negative) Urine RBC 3 (0-5) /hpf Urine WBC 1 (0-5) /hpf Ur Squamous Epith Cells 5 H (0-4) /hpf Disposition Clinical Impression: Chronic abdominal pain, Diarrhea, Liver hemangioma Disposition: HOME SELF-CARE Condition: Good Instructions (If sedation given, give patient instructions): Abdominal Pain (ED) Additional Instructions: Please use medication as discussed. Please follow-up with family doctor in the next 2 days of symptoms have not improved. Please return to emergency room if the symptoms increase or worsen or for any other concerns. Is patient prescribed a controlled substance at d/c from ED?: No Referrals: Tiny Cornell MD [Primary Care Provider] - 1-2 days Bridget Villaseñor MD [STAFF PHYSICIAN] - 1-2 days Time of Disposition: 17:13
[2020-08-01 17:28] LABS: Appearance,Urine Clear (Clear); Bilirubin,Urine Negative (Negative); Blood,Urine Trace (Negative); Color,Urine Light Yellow; Glucose,Urine (UA) Negative (Negative); Ketones,Urine Negative (Negative); Leukocyte Esterase,Urine Small (Negative); Nitrite,Urine Negative (Negative); PH, Urine 7.5 (5.0-8.0); Protein,Urine Trace (Negative); RBC,Urine 3 /hpf (0-5); Specific Gravity,Urine >1.050 (1.001-1.035); Squamous Epithelial Cell,Urine 5 /hpf (0-4); Urobilinogen,Urine <2.0 mg/dL (<2.0); WBC,Urine 1 /hpf (0-5)
[2020-08-01 17:41] VITALS: BP 124/97; PULSE 89; RESP 18; TEMP 98.3
== END 2020-08-01 17:42 | disposition home or self-care (01) ==
LOC: EC 14:15
DX: D18.03 Hemangioma of intra-abdominal structures (principal); G89.29 Other chronic pain; R10.9 Unspecified abdominal pain; D72.829 Elevated white blood cell count, unspecified; R19.7 Diarrhea, unspecified; Z79.3 Long term (current) use of hormonal contraceptives; Z88.1 Allergy status to other antibiotic agents; Z91.018 Allergy to other foods; Z88.8 Allergy status to other drugs, medicaments and biological substances; Z90.49 Acquired absence of other specified parts of digestive tract; Z98.51 Tubal ligation status
CPT/HCPCS: 99284; 96374; 96361 ×2; 36415; 80053; 82150; 83690; 85025; 81001; 74177; J2405; Q9967

== ENCOUNTER 2020-08-29 17:03 | Emergency (ER) | payer OTHER ==
[2020-08-29 17:10] VITALS: RESP 18
--- NOTE | 2020-08-29 17:15 | ED ---
General Adult HPI - General Chief complaint: Abdominal Pain Stated complaint: Abd Pain Time Seen by Provider: 08/29/20 17:12 Source: patient, EMS, RN notes reviewed Mode of arrival: EMS Limitations: no limitations - History of Present Illness Initial comments: 45-year-old female presents to the emergency room for a chief complaint of chronic abdominal pain. Patient reports she has had abdominal pain for 3 years on and off. States she has seen her primary care and GI specialists several times. She reports that she was told she has IBS. Patient states that today she was having diarrhea and vomiting. Patient reports that she vomited once. Patient has had diarrhea for months now. She denies fevers or chills. She reports that she was going to wait until Sunday to follow-up with her doctor but her wanted her to be evaluated she came to the ER. She denies fevers or chills.Patient has no other complaints at this time including shortness of breath, chest pain, nausea or vomiting, headache, or visual changes. - Related Data Home Medications Medication Instructions Recorded Confirmed medroxyPROGESTERone [Depo-Provera] 150 mg IM Q84D 02/25/20 02/25/20 Previous Rx's Medication Instructions Recorded Pantoprazole Sodium [Protonix] 40 mg PO DAILY 7 Days #7 tablet. 07/18/20 Cephalexin [Keflex] 500 mg PO Q12HR 10 Days #20 cap 07/27/20 Allergies Allergy/AdvReac Type Severity Reaction Status Date / Time niacin [From Simcor] Allergy Severe "JUDGE UP" Verified 08/29/20 17:10 tree nut [Nut] Allergy Severe Unknown Verified 08/29/20 17:10 peanut AdvReac Severe Rash/Hives Verified 08/29/20 17:10 simvastatin [From Simcor] AdvReac Severe "JUDGE UP" Verified 08/29/20 17:10 Review of Systems ROS Statement: Those systems with pertinent positive or pertinent negative responses have been documented in the HPI. ROS Other: All systems not noted in ROS Statement are negative. Past Medical History Past Medical History: Asthma, Hypertension, Memory Impairment, Seizure Disorder Additional Past Medical History / Comment(s): mood disorder, IBS History of Any Multi-Drug Resistant Organisms: None Reported Past Surgical History: Section, Cholecystectomy, Orthopedic Surgery, Tubal Ligation Additional Past Surgical History / Comment(s): knee, RIGHT FOOT SURGERY 15+ YEARS AGO Past Anesthesia/Blood Transfusion Reactions: No Reported Reaction Past Psychological History: ADD/ADHD, Bipolar, Depression, PTSD Smoking Status: Never smoker Past Alcohol Use History: None Reported Past Drug Use History: None Reported - Past Family History Mother History Unknown: Yes Additional Family Medical History / Comment(s): Patient states that her mother is from cancer. Father Family Medical History: Coronary Artery Disease (CAD), Diabetes Mellitus Daughter(s) Family Medical History: No Reported History General Exam Limitations: no limitations General appearance: alert, in no apparent distress Head exam: Present: atraumatic, normocephalic, normal inspection Eye exam: Present: normal appearance, PERRL, EOMI. Absent: scleral icterus, conjunctival injection, periorbital swelling ENT exam: Present: normal exam, mucous membranes moist Neck exam: Present: normal inspection, full ROM. Absent: tenderness, meningismus, lymphadenopathy Respiratory exam: Present: normal lung sounds bilaterally. Absent: respiratory distress, wheezes, rales, rhonchi, stridor Cardiovascular Exam: Present: regular rate, normal rhythm, normal heart sounds. Absent: systolic murmur, diastolic murmur, rubs, gallop, clicks GI/Abdominal exam: Present: soft, tenderness (Minimal generalized nonspecific abdominal tenderness.), normal bowel sounds. Absent: distended, guarding, rebound, rigid Course Vital Signs 08/29/20 08/29/20 17:06 18:19 Temperature 97.8 F Pulse Rate 105 H 95 Respiratory 18 18 Rate Blood Pressure 173/110 158/102 O2 Sat by Pulse 97 100 Oximetry Medical Decision Making - Medical Decision Making Patient had 2 CAT scans with contrast in July about one month ago. This showed a hypodense lesion of the liver which is probably a hemangioma. Patient does have mild spondylolisthesis with spinal stenosis patient also had an ultrasound of the right upper quadrant which showed a cholecystectomy without dilated ducts. CBD was within normal limits. Vitals are stable. . Patient reports that the symptoms have been ongoing for 3 years. She has seen the GI specialists several times and diagnosed with IBS. Minimal abdominal tenderness noted on exam. CBC is unremarkable. CMP does show mild hyperglycemia. Patient will follow up for this for a fasting glucose as she does not have a history of diabetes. Urinalysis does show 13 white blood cells however this is contaminated with squamous cells. Patient does not have any urinary symptoms. Urine culture pending at this time. At this time patient is feeling better after Toradol. Repeat abdominal exam revealed a nontender abdomen. Soft, nondistended. Recommended that patient follow up with her GI doctor tomorrow and she is agreeable to this. if she has any worsening symptoms she will return to the emergency room. - Lab Data Result diagrams: 08/29/20 17:36 08/29/20 17:38 Lab Results 08/29/20 08/29/20 08/29/20 Range/Units 16:24 16:24 17:36 WBC 9.2 (3.8-10.6) k/uL RBC 4.24 (3.80-5.40) m/uL Hgb 13.0 (11.4-16.0) gm/dL Hct 39.2 (34.0-46.0) % MCV 92.6 (80.0-100.0) fL MCH 30.6 (25.0-35.0) pg MCHC 33.1 (31.0-37.0) g/dL RDW 13.3 (11.5-15.5) % Plt Count 268 (150-450) k/uL Neutrophils % 75 % Lymphocytes % 18 % Monocytes % 4 % Eosinophils % 1 % Basophils % 0 % Neutrophils # 6.9 (1.3-7.7) k/uL Lymphocytes # 1.6 (1.0-4.8) k/uL Monocytes # 0.4 (0-1.0) k/uL Eosinophils # 0.1 (0-0.7) k/uL Basophils # 0.0 (0-0.2) k/uL Sodium (137-145) mmol/L Potassium (3.5-5.1) mmol/L Chloride (98-107) mmol/L Carbon Dioxide (22-30) mmol/L Anion Gap mmol/L BUN (7-17) mg/dL Creatinine (0.52-1.04) mg/dL Est GFR (CKD-EPI)AfAm (>60 ml/min/1.73 sqM) Est GFR (CKD-EPI)NonAf (>60 ml/min/1.73 sqM) Glucose (74-99) mg/dL Calcium (8.4-10.2) mg/dL Total Bilirubin (0.2-1.3) mg/dL AST (14-36) U/L ALT (4-34) U/L Alkaline Phosphatase (38-126) U/L Total Protein (6.3-8.2) g/dL Albumin (3.5-5.0) g/dL Amylase (30-110) U/L Lipase (23-300) U/L Urine Color Yellow Urine Appearance Cloudy H (Clear) Urine pH 7.0 (5.0-8.0) Ur Specific [place] 1.017 (1.001-1.035) Urine Protein Negative (Negative) Urine Glucose (UA) Negative (Negative) Urine Ketones Negative (Negative) Urine Blood Small H (Negative) Urine Nitrite Negative (Negative) Urine Bilirubin Negative (Negative) Urine Urobilinogen 3.0 (<2.0) mg/dL Ur Leukocyte Esterase Small H (Negative) Urine RBC 5 (0-5) /hpf Urine WBC 13 H (0-5) /hpf Ur Squamous Epith Cells 16 H (0-4) /hpf Amorphous Sediment Rare H (None) /hpf Urine Bacteria Rare H (None) /hpf Urine Mucus Moderate H (None) /hpf Urine HCG, Qual Not Detected (Not Detectd) 08/29/20 Range/Units 17:38 WBC (3.8-10.6) k/uL RBC (3.80-5.40) m/uL Hgb (11.4-16.0) gm/dL Hct (34.0-46.0) % MCV (80.0-100.0) fL MCH (25.0-35.0) pg MCHC (31.0-37.0) g/dL RDW (11.5-15.5) % Plt Count (150-450) k/uL Neutrophils % % Lymphocytes % % Monocytes % % Eosinophils % % Basophils % % Neutrophils # (1.3-7.7) k/uL Lymphocytes # (1.0-4.8) k/uL Monocytes # (0-1.0) k/uL Eosinophils # (0-0.7) k/uL Basophils # (0-0.2) k/uL Sodium 140 (137-145) mmol/L Potassium 3.7 (3.5-5.1) mmol/L Chloride 108 H (98-107) mmol/L Carbon Dioxide 25 (22-30) mmol/L Anion Gap 7 mmol/L BUN 6 L (7-17) mg/dL Creatinine 0.68 (0.52-1.04) mg/dL Est GFR (CKD-EPI)AfAm >90 (>60 ml/min/1.73 sqM) Est GFR (CKD-EPI)NonAf >90 (>60 ml/min/1.73 sqM) Glucose 178 H (74-99) mg/dL Calcium 8.1 L (8.4-10.2) mg/dL Total Bilirubin 0.6 (0.2-1.3) mg/dL AST 33 (14-36) U/L ALT 34 (4-34) U/L Alkaline Phosphatase 59 (38-126) U/L Total Protein 6.6 (6.3-8.2) g/dL Albumin 3.9 (3.5-5.0) g/dL Amylase 44 (30-110) U/L Lipase 112 (23-300) U/L Urine Color Urine Appearance (Clear) Urine pH (5.0-8.0) Ur Specific [place] (1.001-1.035) Urine Protein (Negative) Urine Glucose (UA) (Negative) Urine Ketones (Negative) Urine Blood (Negative) Urine Nitrite (Negative) Urine Bilirubin (Negative) Urine Urobilinogen (<2.0) mg/dL Ur Leukocyte Esterase (Negative) Urine RBC (0-5) /hpf Urine WBC (0-5) /hpf Ur Squamous Epith Cells (0-4) /hpf Amorphous Sediment (None) /hpf Urine Bacteria (None) /hpf Urine Mucus (None) /hpf Urine HCG, Qual (Not Detectd) Disposition Clinical Impression: Abdominal pain Disposition: HOME SELF-CARE Condition: Good Instructions (If sedation given, give patient instructions): Abdominal Pain (ED) Additional Instructions: Please follow-up with your GI doctor and primary care by calling tomorrow for an appointment. If you have any worsening symptoms or fevers prior to that time return to the emergency room. Is patient prescribed a controlled substance at d/c from ED?: No Referrals: Tiny Cornell MD [Primary Care Provider] - 1-2 days Bridget Villaseñor MD [STAFF PHYSICIAN] - 1-2 days Time of Disposition: 19:00
[2020-08-29] MEDS ORDERED: ONDANSETRON 4 MG/2 ML VIAL IVP STA (17:30)
[2020-08-29] MEDS ORDERED: SODIUM CHLORIDE 0.9% 1,000 ML IV STA (17:30)
[2020-08-29] MEDS ORDERED: KETOROLAC 15 MG/ML 1 ML VIAL IVP STA (17:30)
[2020-08-29 17:57] LABS: Basophils % (A) 0 %; Eosinophils # (A) 0.1 k/uL (0-0.7); Eosinophils % (A) 1 %; HCT 39.2 % (34.0-46.0); Lymphocytes # (A) 1.6 k/uL (1.0-4.8); Lymphocytes % (A) 18 %; MCH 30.6 pg (25.0-35.0); MCHC 33.1 g/dL (31.0-37.0); MCV 92.6 fL (80.0-100.0); Mean Platelet Volume 7.2; Monocytes # (A) 0.4 k/uL (0-1.0); Monocytes % (A) 4 %; Neutrophils # (A) 6.9 k/uL (1.3-7.7); Neutrophils % (A) 75 %; Platelet Count 268 k/uL (150-450); RBC 4.24 m/uL (3.80-5.40); RDW 13.3 % (11.5-15.5); WBC 9.2 k/uL (3.8-10.6)
[2020-08-29 18:00] LABS: Potassium 3.7 mmol/L (3.5-5.1)
[2020-08-29 18:01] LABS: ALT 34 U/L (4-34); AST 33 U/L (14-36); African American GFR (CKD) >90 (>60 ml/min/1.73 sqM); Albumin 3.9 g/dL (3.5-5.0); Alkaline Phosphatase 59 U/L (38-126); Amylase 44 U/L (30-110); Anion Gap 7 mmol/L; Blood Urea Nitrogen 6 mg/dL (7-17); Calcium 8.1 mg/dL (8.4-10.2); Carbon Dioxide 25 mmol/L (22-30); Chloride 108 mmol/L (98-107); Glucose 178 mg/dL (74-99); Non-African American GFR(CKD) >90 (>60 ml/min/1.73 sqM); Sodium 140 mmol/L (137-145); Total Bilirubin 0.6 mg/dL (0.2-1.3); Total Protein 6.6 g/dL (6.3-8.2)
[2020-08-29 18:36] LABS: Amorphous Sediment,Urine Rare /hpf; Appearance,Urine Cloudy (Clear); Bacteria,Urine Rare /hpf; Bilirubin,Urine Negative (Negative); Blood,Urine Small (Negative); Color,Urine Yellow; Glucose,Urine (UA) Negative (Negative); Ketones,Urine Negative (Negative); Leukocyte Esterase,Urine Small (Negative); Mucus,Urine Moderate /hpf; Nitrite,Urine Negative (Negative); Protein,Urine Negative (Negative); RBC,Urine 5 /hpf (0-5); Specific Gravity,Urine 1.017 (1.001-1.035); Squamous Epithelial Cell,Urine 16 /hpf (0-4); WBC,Urine 13 /hpf (0-5)
[2020-08-29 19:07] VITALS: BP 142/89; PULSE 92; TEMP 98
== END 2020-08-29 19:03 | disposition home or self-care (01) ==
LOC: EC 17:03
DX: R10.9 Unspecified abdominal pain (principal); G89.29 Other chronic pain; R19.7 Diarrhea, unspecified; R11.10 Vomiting, unspecified; I10 Essential (primary) hypertension; Z88.8 Allergy status to other drugs, medicaments and biological substances; Z91.010 Allergy to peanuts; Z91.018 Allergy to other foods; Z90.49 Acquired absence of other specified parts of digestive tract
CPT/HCPCS: 36415; 80053; 82150; 83690; 85025; 81001; 81025; 87086; 99284; 96374; 96375; 96361; J2405; J1885

== ENCOUNTER 2020-09-25 10:58 | Emergency (ER) | payer OTHER ==
[2020-09-25 11:19] VITALS: TEMP 98.4
[2020-09-25] MEDS ORDERED: METOCLOPRAMIDE 5 MG/ML 2 ML VIAL IM STA (11:44)
[2020-09-25] MEDS ORDERED: HYDROmorphone 1 MG/ML 1 ML SYRINGE IM STA (11:44)
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
[2020-09-25 12:44] VITALS: BP 120/74; PULSE 83; RESP 16
== END 2020-09-25 12:44 | disposition home or self-care (01) ==
LOC: EC 10:58
DX: R51.9 Headache, unspecified (principal); R11.0 Nausea; I10 Essential (primary) hypertension; J45.909 Unspecified asthma, uncomplicated; G40.909 Epilepsy, unspecified, not intractable, without status epilepticus; Z79.899 Other long term (current) drug therapy; Z88.8 Allergy status to other drugs, medicaments and biological substances; Z91.030 Bee allergy status; Z91.010 Allergy to peanuts
CPT/HCPCS: 99284; 96372 ×2; J2765; J1170

== ENCOUNTER → 2020-10-12 | Outpatient (CLI) | payer OTHER ==
--- NOTE | 2020-10-12 13:50 | MM ---
Reason for exam: screening (asymptomatic). Baseline mammogram. Physical Findings: Nurse did not find any significant physical abnormalities on exam. MG Screening Mammo w CAD Bilateral CC and MLO view(s) were taken. There are scattered fibroglandular densities. There is no discrete abnormality. These results were verbally communicated with the patient and result sheet given to the patient on 10/12/20. ASSESSMENT: Negative, BI-RAD 1 RECOMMENDATION: Routine screening mammogram of both breasts in 1 year.
== END | disposition home or self-care (01) ==
LOC: RADMAMWWP 13:02
PROVIDERS: ATTEND Family Medicine
DX: Z12.31 Encounter for screening mammogram for malignant neoplasm of breast (principal)
CPT/HCPCS: 77067

== ENCOUNTER 2020-10-28 15:02 | Emergency (ER) | payer OTHER ==
[2020-10-28] MEDS ORDERED: SODIUM CHLORIDE 0.9% 1,000 ML IV STA (15:16)
--- NOTE | 2020-10-28 15:17 | ED ---
General Adult HPI - General Stated complaint: ABD pain Time Seen by Provider: 10/28/20 15:09 - History of Present Illness Initial comments: 45-year-old male presenting to the emergency department with a chief complaint of abdominal pain. Patient states she has been dealing with abdominal pain for the past several years. Patient reports she has been evaluated multiple times at emergency department with no significant findings. 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 Patient states she was prescribed medication but she is unable to afford the medication due to insurance and financial reasons. Patient states now she continues to have lower abdominal pain along with nausea and multiple episodes of nonbilious and nonbloody vomiting. She reports that she has some diarrhea today and noticed some blood. States it is not typical for her to have hematochezia or melena. Denies history of fibroids. Denies chest pain or shortness of breath. Patient has history of cholecystectomy. - Related Data Home Medications Medication Instructions Recorded Confirmed medroxyPROGESTERone [Depo-Provera] 150 mg IM Q84D 02/25/20 10/28/20 Loperamide [Imodium] 4 mg PO QID PRN 09/25/20 10/28/20 Previous Rx's Medication Instructions Recorded Ondansetron Odt [Zofran Odt] 4 mg PO Q8HR PRN #14 tab 10/28/20 Allergies Allergy/AdvReac Type Severity Reaction Status Date / Time niacin [From Simcor] Allergy Severe "JUDGE UP" Verified 10/28/20 17:45 tree nut [Nut] Allergy Severe Unknown Verified 10/28/20 17:45 peanut AdvReac Severe Rash/Hives Verified 10/28/20 17:45 simvastatin [From Simcor] AdvReac Severe "JUDGE UP" Verified 10/28/20 17:45 Review of Systems ROS Statement: Those systems with pertinent positive or pertinent negative responses have been documented in the HPI. ROS Other: All systems not noted in ROS Statement are negative. Past Medical History Past Medical History: Asthma, Hypertension, Memory Impairment, Seizure Disorder Additional Past Medical History / Comment(s): mood disorder, IBS, TBI History of Any Multi-Drug Resistant Organisms: None Reported Past Surgical History: Section, Cholecystectomy, Orthopedic Surgery, Tubal Ligation Additional Past Surgical History / Comment(s): knee, RIGHT FOOT SURGERY 15+ YEARS AGO Past Anesthesia/Blood Transfusion Reactions: No Reported Reaction Past Psychological History: ADD/ADHD, Bipolar, Depression, PTSD Smoking Status: Never smoker Past Alcohol Use History: None Reported Past Drug Use History: None Reported - Past Family History Mother History Unknown: Yes Additional Family Medical History / Comment(s): Patient states that her mother is from cancer. Father Family Medical History: Coronary Artery Disease (CAD), Diabetes Mellitus Daughter(s) Family Medical History: No Reported History General Exam Limitations: no limitations General appearance: alert, in no apparent distress, obese Head exam: Present: atraumatic, normocephalic, normal inspection Eye exam: Present: normal appearance, PERRL, EOMI Pupils: Present: normal accommodation ENT exam: Present: normal exam, normal oropharynx, mucous membranes moist, TM's normal bilaterally, normal external ear exam Neck exam: Present: normal inspection, full ROM. Absent: tenderness Respiratory exam: Present: normal lung sounds bilaterally. Absent: respiratory distress, wheezes, rales Cardiovascular Exam: Present: regular rate, normal rhythm, normal heart sounds. Absent: systolic murmur, diastolic murmur GI/Abdominal exam: Present: soft, tenderness (Nonlocalized Lower abdominal tenderness). Absent: distended, guarding, rebound, rigid Rectal exam: Present: normal inspection, normal rectal tone. Absent: black stool, bloody stool, hemorrhoids Extremities exam: Present: normal inspection, full ROM, normal capillary refill, other (+2 dorsalis pedis and posterior tibials bilaterally.). Absent: tenderness, pedal edema, joint swelling, calf tenderness Back exam: Present: normal inspection, full ROM. Absent: tenderness, CVA tenderness (R), CVA tenderness (L), muscle spasm, paraspinal tenderness, vertebral tenderness Neurological exam: Present: alert, oriented X3 Psychiatric exam: Present: normal affect, normal mood. Absent: depressed, agitated Skin exam: Present: warm, dry, intact, normal color Course Vital Signs 10/28/20 10/28/20 10/28/20 15:22 17:16 19:10 Temperature 98.0 F 98.3 F Pulse Rate 95 82 82 Respiratory 18 18 18 Rate Blood Pressure 183/112 156/97 149/89 O2 Sat by Pulse 98 98 97 Oximetry - Reevaluation(s) Reevaluation #1: 10/29/20 14:18 Medical records reviewed Medical Decision Making - Medical Decision Making 45-year-old female presenting to emergency Department with a chief complaint abdominal pain. On physical examination, patient has diffuse lower abdominal pain. Patient had 2 CTs of the abdomen and pelvis performed 2 months ago with no definitive findings. CBC and CMP is unremarkable. Patient did complain of having some hematochezia. Rectal examination was unremarkable. Stool occult was negative. No signs of anemia. Patient was given IV fluids, analgesia and antiemetics. Patient was not able to give a urine sample. On reevaluation, patient reports improving the symptoms and would like to be discharged home. KUB was obtained showing no acute findings with some moderate stool. Strict return parameters were thoroughly discussed with patient was understanding and agreeable. Discharged with Tylenol 3 and Zofran. Case discussed with physician. - Lab Data Result diagrams: 10/28/20 16:07 10/28/20 16:07 Lab Results 10/28/20 10/28/20 10/28/20 Range/Units 16:07 16:07 16:07 WBC 11.0 H (3.8-10.6) k/uL RBC 4.21 (3.80-5.40) m/uL Hgb 13.1 (11.4-16.0) gm/dL Hct 37.7 (34.0-46.0) % MCV 89.4 (80.0-100.0) fL MCH 31.2 (25.0-35.0) pg MCHC 34.8 (31.0-37.0) g/dL RDW 12.8 (11.5-15.5) % Plt Count 306 (150-450) k/uL MPV 6.9 Neutrophils % 71 % Lymphocytes % 21 % Monocytes % 4 % Eosinophils % 1 % Basophils % 1 % Neutrophils # 7.7 (1.3-7.7) k/uL Lymphocytes # 2.3 (1.0-4.8) k/uL Monocytes # 0.5 (0-1.0) k/uL Eosinophils # 0.1 (0-0.7) k/uL Basophils # 0.1 (0-0.2) k/uL Sodium 138 (137-145) mmol/L Potassium 3.8 (3.5-5.1) mmol/L Chloride 105 (98-107) mmol/L Carbon Dioxide 24 (22-30) mmol/L Anion Gap 9 mmol/L BUN 12 (7-17) mg/dL Creatinine 0.74 (0.52-1.04) mg/dL Est GFR (CKD-EPI)AfAm >90 (>60 ml/min/1.73 sqM) Est GFR (CKD-EPI)NonAf >90 (>60 ml/min/1.73 sqM) Glucose 128 H (74-99) mg/dL Calcium 9.2 (8.4-10.2) mg/dL Total Bilirubin 0.8 (0.2-1.3) mg/dL AST 34 (14-36) U/L ALT 31 (4-34) U/L Alkaline Phosphatase 74 (38-126) U/L Total Protein 7.4 (6.3-8.2) g/dL Albumin 4.4 (3.5-5.0) g/dL Lipase 119 (23-300) U/L Stool Occult Blood Negative (Negative) Disposition Clinical Impression: Abdominal pain Disposition: HOME SELF-CARE Condition: Stable Instructions (If sedation given, give patient instructions): Abdominal Pain (ED) Additional Instructions: Follow-up with your GI specialist. Return to emergency department if symptoms worsen. Prescriptions: Ondansetron Odt [Zofran Odt] 4 mg PO Q8HR PRN #14 tab PRN Reason: Nausea Is patient prescribed a controlled substance at d/c from ED?: No Referrals: Tiny Cornell MD [Primary Care Provider] - 1-2 days Time of Disposition: 18:19
[2020-10-28 15:26] VITALS: RESP 18
[2020-10-28] MEDS ORDERED: ONDANSETRON 4 MG/2 ML VIAL IVP STA (15:26)
[2020-10-28 16:11] LABS: Basophils # (A) 0.1 k/uL (0-0.2); Basophils % (A) 1 %; Eosinophils # (A) 0.1 k/uL (0-0.7); Eosinophils % (A) 1 %; HCT 37.7 % (34.0-46.0); HGB 13.1 gm/dL (11.4-16.0); Lymphocytes # (A) 2.3 k/uL (1.0-4.8); Lymphocytes % (A) 21 %; MCH 31.2 pg (25.0-35.0); MCHC 34.8 g/dL (31.0-37.0); MCV 89.4 fL (80.0-100.0); Mean Platelet Volume 6.9; Monocytes # (A) 0.5 k/uL (0-1.0); Monocytes % (A) 4 %; Neutrophils # (A) 7.7 k/uL (1.3-7.7); Neutrophils % (A) 71 %; Platelet Count 306 k/uL (150-450); RBC 4.21 m/uL (3.80-5.40); RDW 12.8 % (11.5-15.5)
[2020-10-28 16:20] LABS: ALT 31 U/L (4-34); AST 34 U/L (14-36); African American GFR (CKD) >90 (>60 ml/min/1.73 sqM); Albumin 4.4 g/dL (3.5-5.0); Alkaline Phosphatase 74 U/L (38-126); Anion Gap 9 mmol/L; Blood Urea Nitrogen 12 mg/dL (7-17); Calcium 9.2 mg/dL (8.4-10.2); Carbon Dioxide 24 mmol/L (22-30); Chloride 105 mmol/L (98-107); Glucose 128 mg/dL (74-99); Lipase 119 U/L (23-300); Non-African American GFR(CKD) >90 (>60 ml/min/1.73 sqM); Potassium 3.8 mmol/L (3.5-5.1); Sodium 138 mmol/L (137-145); Total Bilirubin 0.8 mg/dL (0.2-1.3); Total Protein 7.4 g/dL (6.3-8.2)
[2020-10-28] MEDS ORDERED: HYDROmorphone 1 MG/ML 1 ML SYRINGE IVP STA (16:28)
[2020-10-28 17:17] VITALS: PULSE 82
--- NOTE | 2020-10-28 18:11 | XR ---
EXAM: XR Abdomen, 1 View CLINICAL HISTORY: ITS.REASON XR Reason: lower abd pain TECHNIQUE: Frontal supine view of the abdomen/pelvis. COMPARISON: None FINDINGS: Hardware: None. Abdomen: Nonobstructive bowel gas pattern. Moderate amount of stool. No free air. Cholecystectomy clips in the right upper quadrant. Bones: Normal. Soft tissues: Normal. Lower chest: Left lower lung opacity. IMPRESSION: Nonobstructive bowel gas pattern. Moderate amount of stool.
[2020-10-28] MEDS ORDERED: ACET/COD 300 MG/30 MG STARTER PACK 6 TAB BTL PO STA (18:19)
[2020-10-28 19:11] VITALS: BP 149/89; TEMP 98.3
== END 2020-10-28 19:10 | disposition home or self-care (01) ==
LOC: EC 15:02
DX: R10.30 Lower abdominal pain, unspecified (principal); K92.1 Melena; R11.2 Nausea with vomiting, unspecified; Z88.1 Allergy status to other antibiotic agents; Z91.010 Allergy to peanuts; Z88.8 Allergy status to other drugs, medicaments and biological substances; Z79.3 Long term (current) use of hormonal contraceptives; Z79.899 Other long term (current) drug therapy; Z90.49 Acquired absence of other specified parts of digestive tract; Z98.51 Tubal ligation status
CPT/HCPCS: 36415; 80053; 83690; 85025; 82272; 74018; 99284; 96374; 96375; 96361; J2405; J1170

== ENCOUNTER 2020-11-06 06:40 | Inpatient (IN) | payer MEDICAID, OTHER ==
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
[2020-11-06 09:20] LABS: Amphetamine Screen,Urine Not Detected (NotDetected); Barbiturate Screen,Urine Not Detected (NotDetected); Benzodiazepines Screen,Urine Not Detected (NotDetected); Cocaine Screen,Urine Not Detected (NotDetected); Methadone Screen, Urine Not Detected (NotDetected); Opiate Screen,Urine Not Detected (NotDetected); Oxycodone Screen, Urine Not Detected (NotDetected); Phencyclidine Screen,Urine Not Detected (NotDetected); Tricyclic Antidepressant,Urine Not Detected (NotDetected); Urn Cannabinoid Scrn Not Detected (NotDetected)
[2020-11-06] MEDS ORDERED: MAGNESIUM HYDROXIDE 2,400 MG/10 ML CUP PO PRN (09:54)
[2020-11-06] MEDS ORDERED: LORazepam 1 MG TAB PO PRN (09:54)
[2020-11-06] MEDS ORDERED: LOPERAMIDE 2 MG CAP PO PRN (09:57)
[2020-11-06] MEDS ORDERED: HALOPERIDOL LACTATE 5 MG/ML 1 ML VIAL IM PRN (11:25)
[2020-11-06] MEDS ORDERED: LORazepam 2 MG/ML INJ IM PRN (11:25)
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
--- NOTE | 2020-11-06 19:58 | P.MDCNMH ---
History of Present Illness H&P Date: 11/06/20 Chief Complaint: Severe depression Patient is a 45-year-old female with a known history of hypertension, asthma, seizure disorder and mood disorder, IBS and history of traumatic brain injury and bipolar disorder PTSD presents to ER due to depression and suicidal ideation. Patient was sent out of her boyfriend's house today and she felt suicidal and thought of jumping from the top of the bridge. Patient felt very depressed and presents to ER. Patient states that she has been having issues with sucrose digestion and other medical problems. Patient follows with renal social worker and following strict dietary recommendations. Patient states that she is upset with her medical condition and other issues and became very depressed. Otherwise denied any complaints of abdominal pain. No nausea vomiting or diarrhea. No dysuria or hematuria. No cough is productive. No fever no chills. Denies any recent illnesses. Patient is currently homeless and was staying at her boyfriend's house. Review of Systems Constitutional: Patient denies any fever or chills . No generalized weakness or weight loss. Abdomen: Patient denied nausea vomiting and diarrhea and abdominal pain. Cardiovascular: Patient denies any chest pain or short of breath no palpitations. Respiratory: patient denied any cough or sputum production. No shortness of breath Neurologic: Patient denied any numbness or tingling headache. Musculoskeletal: Patient denies any complaints of joint swelling or deformity. Skin: Negative Psychiatric:Depression. No suicidal ideation currently. Endocrine: No heat or cold intolerance. No recent weight gain. Genitourinary: No dysuria or hematuria. All other 14 point ROS negative except the above Past Medical History Past Medical History: Asthma, Hypertension, Memory Impairment, Seizure Disorder Additional Past Medical History / Comment(s): mood disorder, IBS, TBI History of Any Multi-Drug Resistant Organisms: None Reported Past Surgical History: Section, Cholecystectomy, Orthopedic Surgery, Tubal Ligation Additional Past Surgical History / Comment(s): knee, RIGHT FOOT SURGERY 15+ YEARS AGO Past Anesthesia/Blood Transfusion Reactions: No Reported Reaction Past Psychological History: ADD/ADHD, Bipolar, Depression, PTSD Smoking Status: Never smoker Past Alcohol Use History: None Reported Past Drug Use History: None Reported - Past Family History Mother History Unknown: Yes Additional Family Medical History / Comment(s): Patient states that her mother is from cancer. Father Family Medical History: Coronary Artery Disease (CAD), Diabetes Mellitus Daughter(s) Family Medical History: No Reported History Medications and Allergies Home Medications Medication Instructions Recorded Confirmed Type medroxyPROGESTERone [Depo-Provera] 150 mg IM Q84D 02/25/20 11/06/20 History Loperamide [Imodium] 2 mg PO QID PRN 09/25/20 11/06/20 History Allergies Allergy/AdvReac Type Severity Reaction Status Date / Time niacin [From Simcor] Allergy Severe "JUDGE UP" Verified 11/06/20 10:21 tree nut [Nut] Allergy Severe Unknown Verified 11/06/20 10:21 peanut AdvReac Severe Rash/Hives Verified 11/06/20 10:21 simvastatin [From Simcor] AdvReac Severe "JUDGE UP" Verified 11/06/20 10:21 Physical Exam Vitals: Vital Signs Temp Pulse Pulse Resp BP BP Pulse Ox 11/06/20 10:18 97.9 F 101 H 18 118/71 100 11/06/20 09:53 97 16 106/70 96 11/06/20 06:40 98 F 102 H 18 181/86 94 L Intake and Output 11/05/20 11/06/20 11/06/20 22:59 06:59 14:59 Other: Weight 102.058 kg 107.955 kg PHYSICAL EXAMINATION: Patient is lying in the bed comfortably, no acute distress, awake alert and oriented.. HEENT: Normocephalic. Neck is supple. Pupils reactive. Nostrils clear. Oral cavity is moist. Ears reveal no drainage. Neck reveals no JVD, carotid bruits, or thyromegaly. CHEST EXAMINATION: Trachea is central. Symmetrical expansion. Lung martínez clear to auscultation and percussion. CARDIAC: Normal S1, S2 with no gallops. No murmurs ABDOMEN: Soft. Bowel sounds normal. No organomegaly. No abdominal bruits. Extremities: reveal no edema. No clubbing or cyanosis Neurologically awake, alert, oriented x3 with well-coordinated movements. No focal deficits noted Skin: No rash or skin lesions. Psychiatric: Coperative. Nonsuicidal Musculoskeletal: No joint swelling or deformity. Normal range of motion. Cranial Nerve Examination - Cranial Nerves Cranial Nerve I- Olfactory: Intact Cranial Nerve II- Optic: Intact Cranial Nerve III- Oculomotor: Intact Cranial Nerve IV- Trochlear: Intact Cranial Nerve V- Trigeminal: Intact Cranial Nerve - Abducens: Intact Cranial Nerve VII- Facial: Intact Cranial Nerve VIII- Auditory: Intact Cranial Nerve IX- Glossopharyngeal: Intact Cranial Nerve X- Vagus: Intact Cranial Nerve XI- Accessory: Intact Cranial Nerve XII- Hypoglossal: Intact Assessment and Plan Assessment: Severe depression with suicidal ideation Hypertension currently not on any medications and blood pressure is not elevated. Irritable bowel syndrome History of traumatic brain injury Mood disorder Asthma not in exacerbation ADD/ADHD, bipolar, depression and PTSD Morbid obesity with BMI 43.5 DVT prophylaxis with early ambulation Plan: Patient will be continued on current psychiatric medications and management. Blood pressure is not elevated currently does not need any medications. No recent seizures. Continue with her dietary restrictions and follow-up closely. Further recommendations based on the clinical course. Follow-up CBC and CMP and TSH levels. Thank you for your consult.
[2020-11-07 08:23] LABS: Basophils # (A) 0.1 k/uL (0-0.2); Basophils % (A) 1 %; Eosinophils # (A) 0.3 k/uL (0-0.7); Eosinophils % (A) 3 %; HCT 39.2 % (34.0-46.0); Lymphocytes # (A) 2.7 k/uL (1.0-4.8); Lymphocytes % (A) 26 %; MCH 30.5 pg (25.0-35.0); MCHC 33.3 g/dL (31.0-37.0); MCV 91.6 fL (80.0-100.0); Mean Platelet Volume 6.7; Monocytes # (A) 0.5 k/uL (0-1.0); Monocytes % (A) 4 %; Neutrophils # (A) 6.7 k/uL (1.3-7.7); Neutrophils % (A) 65 %; Platelet Count 348 k/uL (150-450); RBC 4.28 m/uL (3.80-5.40); RDW 12.6 % (11.5-15.5); WBC 10.3 k/uL (3.8-10.6)
[2020-11-07 08:41] LABS: ALT 29 U/L (4-34); AST 25 U/L (14-36); African American GFR (CKD) >90 (>60 ml/min/1.73 sqM); Albumin 4.2 g/dL (3.5-5.0); Alkaline Phosphatase 59 U/L (38-126); Anion Gap 6 mmol/L; Blood Urea Nitrogen 9 mg/dL (7-17); Calcium 9.1 mg/dL (8.4-10.2); Carbon Dioxide 31 mmol/L (22-30); Chloride 104 mmol/L (98-107); Cholesterol 188 mg/dL (<200); Glucose 106 mg/dL (74-99); HDL Cholesterol 30 mg/dL (40-60); LDL Cholesterol,Calculated 120 mg/dL (0-99); Non-African American GFR(CKD) 87 (>60 ml/min/1.73 sqM); Potassium 4.5 mmol/L (3.5-5.1); Sodium 141 mmol/L (137-145); Total Bilirubin 0.7 mg/dL (0.2-1.3); Total Protein 7.1 g/dL (6.3-8.2); Triglycerides 191 mg/dL (<150)
[2020-11-07] MEDS: ACETAMINOPHEN TAB 325 MG TAB PO PRN ×2 (09:45→20:35)
[2020-11-07 14:23] LABS: Hemoglobin A1C 5.9 % (4.0-6.0)
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
--- NOTE | 2020-11-08 12:13 | P.PN ---
Progress Note - Text Progress Note Date: 11/08/20 Interval History: Patient was seen wandering the hallways and was directable and agreeable to garrick wallace with assembly instructions writer in the office. Patient was describing the events that occurred prior to her coming to the hospital. She states that today she is feeling a little bit better however admitted to ongoing depression and anxiety. She states that she does have PTSD and has been having nightmares at times however did not want to share much about the trauma. She was attempting to cooperate during the interview. She was agreeable to start medications today including Zoloft and trazodone. Side effects and benefits were discussed with patient and she agreed. She states that she only slept approximately 3-4 hours last night. She states that she is trying to go to groups and work on her coping skills. She claims that she is still having minor suicidal thoughts however no intent or plan today. At this time patient denies any homical ideations, intent or plan. Patient denies any auditory, visual hallucinations and denies any paranoia or delusions. Mental Status Exam: General Appearance: [Patient appears to be obese, stated age is alert, directable, and cooperative.] Has short hair. Fair hygiene and grooming. Behavior: [Patient is calmly seated without any agitated behavior.] Attempts to cooperate. Speech: Patient's speech is fluent and nonpressured. Mood/Affect: Mood is depressed and anxious, improving mildly, affect is congruent and constricted. Suicidality/Homicidality: Patient denies having any homicidal ideation intent or plan. She is admitting to ongoing suicidal thoughts however they have been mildly improving no intent or plan today. Perceptions: Patient denies any visual hallucinations [and denies any auditory hallucinations] Though content/process: [There is no evidence of any delusional thought content and thought process is goal oriented for the most part however rambles at times. Focused on her symptoms and her circumstances.] Memory and concentration: AOX3, grossly intact for the purposes of this session Judgment and insight: Improving mildly Assessment Major depressive disorder History of PTSD r/o developmental disability Plan: -Patient continues to meet criteria for inpatient psychiatric admission for symptom stabilization and safety. Patient has signed [adult voluntary form and] medication consent and was placed in patient's chart. -Medications: Patient was agreeable to start Zoloft 25 mg daily today for mood/anxiety. Patient is agreeable to start trazodone 25 mg daily at bedtime for insomnia/mood. -When necessary Ativan and Haldol for agitation/aggression. -NRT -not needed as patient does not smoke. -SW on board for discharge planning. Encouraged the patient to participate in milieu. Likely discharge in 2-3 days.
[2020-11-08] MEDS ORDERED: SERTRALINE 50 MG TAB PO SCH (12:15)
[2020-11-08] MEDS: SERTRALINE 25 MG TAB PO SCH (12:19)
[2020-11-08] MEDS: MAG HYDROX/AL HYDROX/SIMETH 30 ML CUP PO PRN (13:40)
[2020-11-08] MEDS: traZODone HCL 50 MG TAB PO SCH (22:18)
[2020-11-09] MEDS: SERTRALINE 25 MG TAB PO SCH (08:08)
[2020-11-09] MEDS: MAG HYDROX/AL HYDROX/SIMETH 30 ML CUP PO PRN (08:57)
--- NOTE | 2020-11-09 09:45 | P.PN ---
Progress Note - Text Progress Note Date: 11/09/20 Interval History: Patient was seen lying in her bed today and was directable and agreeable to garrick wallace with typewriters functional tester in the office. Patient was doing a crossword puzzle and appeared to have a improvement in her affect. She states that she has taken 2 doses of the Zoloft so far and feels that it has been helping her with her anxiety and also her mood. She continues to state that she does still have thoughts of suicide during the day and has been attempting to use her coping skills and has been trying to go to groups as much as she can. She claims that she will be homeless once she leaves the unit and was asking about different housing options. She claims that she was able to sleep fairly last night however did not take her trazodone. She states that she will be taking her trazodone tonight. At this time patient denies any homical ideations, intent or plan. Patient denies any auditory, visual hallucinations and denies any paranoia or delusions. Mental Status Exam: General Appearance: Patient appears to be obese, stated age is alert, directable, and attempts to be cooperative. Has short hair. Fair hygiene and grooming. Behavior: Patient is calmly seated without any agitated behavior. Attempts to be cooperate. Speech: Patient's speech is fluent and nonpressured. Mood/Affect: Mood is depressed and anxious, improving mildly, affect is congruent and constricted. Suicidality/Homicidality: Patient denies having any homicidal ideation intent or plan. She is admitting to ongoing suicidal thoughts however they have been mildly improving no intent or plan today. Perceptions: Patient denies any visual hallucinations and denies any auditory hallucinations Though content/process: There is no evidence of any delusional thought content and thought process is goal oriented. Focused on her symptoms and her circumstances. Memory and concentration: AOX3, grossly intact for the purposes of this session Judgment and insight: Improving mildly Assessment Major depressive disorder History of PTSD r/o developmental disability Plan: -Patient continues to meet criteria for inpatient psychiatric admission for symptom stabilization and safety. Patient has signed adult voluntary form and medication consent and was placed in patient's chart. -Medications: Increased Zoloft 50 mg daily today for mood/anxiety. Continue with trazodone 25 mg daily at bedtime for insomnia/mood. -When necessary Ativan and Haldol for agitation/aggression. -NRT -not needed as patient does not smoke. -SW on board for discharge planning. Encouraged the patient to participate in milieu. Likely discharge tomorrow. Patient is interested in possibly going to [facility].
[2020-11-09] MEDS: ACETAMINOPHEN TAB 325 MG TAB PO PRN (16:29)
[2020-11-09] MEDS: traZODone HCL 50 MG TAB PO SCH (20:47)
[2020-11-10] MEDS: SERTRALINE 50 MG TAB PO SCH (08:09)
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
[2020-11-10] MEDS: MAG HYDROX/AL HYDROX/SIMETH 30 ML CUP PO PRN (20:32)
[2020-11-10] MEDS: traZODone HCL 50 MG TAB PO SCH (22:23)
[2020-11-11] MEDS: SERTRALINE 50 MG TAB PO SCH (08:16)
[2020-11-11] MEDS: MAG HYDROX/AL HYDROX/SIMETH 30 ML CUP PO PRN ×3 (08:17→21:25)
[2020-11-11 12:34] LABS: Appearance,Urine Cloudy (Clear); Bacteria,Urine Rare /hpf; Bilirubin,Urine Negative (Negative); Blood,Urine Moderate (Negative); Color,Urine Yellow; Glucose,Urine (UA) Negative (Negative); Hyaline Casts,Urine 2 /lpf (0-2); Ketones,Urine Negative (Negative); Leukocyte Esterase,Urine Large (Negative); Mucus,Urine Moderate /hpf; Nitrite,Urine Negative (Negative); PH, Urine 6.5 (5.0-8.0); Protein,Urine 1+ (Negative); RBC,Urine 3 /hpf (0-5); Squamous Epithelial Cell,Urine 43 /hpf (0-4); Urobilinogen,Urine <2.0 mg/dL (<2.0); WBC,Urine 17 /hpf (0-5)
[2020-11-11] MEDS ORDERED: SERTRALINE 50 MG TAB PO ONE (16:15)
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
[2020-11-11] MEDS: traZODone HCL 50 MG TAB PO SCH (21:24)
[2020-11-12 06:16] VITALS: BP 130/73; PULSE 77; RESP 16; TEMP 97.4
[2020-11-12] MEDS: MAG HYDROX/AL HYDROX/SIMETH 30 ML CUP PO PRN ×2 (08:33→12:22)
[2020-11-12] MEDS ORDERED: SERTRALINE 100 MG TAB PO SCH (09:00)
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
== END 2020-11-12 13:02 | disposition home or self-care (01) | DRG 882 ==
LOC: EC 06:40 → 3MHU 09:44
PROVIDERS: ADMIT Psychiatry & Neurology Psychiatry; ATTEND Psychiatry & Neurology Psychiatry
DX: F43.25 Adjustment disorder with mixed disturbance of emotions and conduct (principal); R45.851 Suicidal ideations; F31.9 Bipolar disorder, unspecified; F43.10 Post-traumatic stress disorder, unspecified; G40.909 Epilepsy, unspecified, not intractable, without status epilepticus; I10 Essential (primary) hypertension; J45.909 Unspecified asthma, uncomplicated; Z59.0 Homelessness; Z79.899 Other long term (current) drug therapy; Z82.49 Family history of ischemic heart disease and other diseases of the circulatory system; Z83.3 Family history of diabetes mellitus; S06.9X0S Unspecified intracranial injury without loss of consciousness, sequela
CPT/HCPCS: 80053; 80061; 80306; 81001; 81025; 82075; 83036; 84443; 85025; 87635; 99285

== ENCOUNTER 2020-12-04 07:42 | Emergency (ER) | payer OTHER ==
[2020-12-04 07:59] VITALS: RESP 16
[2020-12-04] MEDS ORDERED: ORPHENADRINE 30 MG/ML 2 ML VIAL IVP STA (08:23)
[2020-12-04] MEDS ORDERED: KETOROLAC 15 MG/ML 1 ML VIAL IVP STA (08:23)
[2020-12-04] MEDS ORDERED: SODIUM CHLORIDE 0.9% 1,000 ML IV STA (08:24)
[2020-12-04] MEDS ORDERED: SODIUM CHLORIDE 0.9% 500 ML 500 ML IV STA (08:24)
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
[2020-12-04 08:37] LABS: Basophils # (A) 0.1 k/uL (0-0.2); Basophils % (A) 1 %; Eosinophils # (A) 0.2 k/uL (0-0.7); Eosinophils % (A) 2 %; HCT 39.9 % (34.0-46.0); HGB 13.7 gm/dL (11.4-16.0); Lymphocytes # (A) 2.1 k/uL (1.0-4.8); Lymphocytes % (A) 20 %; MCHC 34.3 g/dL (31.0-37.0); MCV 90.2 fL (80.0-100.0); Monocytes # (A) 0.4 k/uL (0-1.0); Monocytes % (A) 4 %; Neutrophils # (A) 7.5 k/uL (1.3-7.7); Neutrophils % (A) 72 %; Platelet Count 303 k/uL (150-450); RBC 4.43 m/uL (3.80-5.40); RDW 13.1 % (11.5-15.5); WBC 10.5 k/uL (3.8-10.6)
[2020-12-04 08:42] LABS: ALT 32 U/L (4-34); AST 31 U/L (14-36); African American GFR (CKD) >90 (>60 ml/min/1.73 sqM); Albumin 4.8 g/dL (3.5-5.0); Alkaline Phosphatase 78 U/L (38-126); Anion Gap 9 mmol/L; Blood Urea Nitrogen 16 mg/dL (7-17); Calcium 9.8 mg/dL (8.4-10.2); Carbon Dioxide 27 mmol/L (22-30); Chloride 102 mmol/L (98-107); Glucose 121 mg/dL (74-99); Magnesium 1.9 mg/dL (1.6-2.3); Non-African American GFR(CKD) >90 (>60 ml/min/1.73 sqM); Potassium 4.1 mmol/L (3.5-5.1); Sodium 138 mmol/L (137-145); Total Bilirubin 0.7 mg/dL (0.2-1.3)
[2020-12-04 08:59] LABS: Appearance,Urine Cloudy (Clear); Bilirubin,Urine Negative (Negative); Blood,Urine Small (Negative); Color,Urine Yellow; Glucose,Urine (UA) Negative (Negative); Hyaline Casts,Urine 1 /lpf (0-2); Ketones,Urine Negative (Negative); Leukocyte Esterase,Urine Negative (Negative); Mucus,Urine Many /hpf; Nitrite,Urine Negative (Negative); Protein,Urine Trace (Negative); RBC,Urine 2 /hpf (0-5); Specific Gravity,Urine 1.026 (1.001-1.035); Squamous Epithelial Cell,Urine 38 /hpf (0-4); Urobilinogen,Urine <2.0 mg/dL (<2.0); WBC,Urine 3 /hpf (0-5)
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
--- NOTE | 2020-12-04 09:13 | XR ---
EXAMINATION TYPE: XR chest 2V DATE OF EXAM: 12/04/2020 COMPARISON: 02/25/2020 INDICATION: Chills TECHNIQUE: Frontal and lateral views of the chest are obtained. FINDINGS: The heart size is normal. The pulmonary vasculature is normal. The lungs are clear. IMPRESSION: 1. No acute pulmonary process.
[2020-12-04 09:45] VITALS: TEMP 98.6
[2020-12-04] MEDS ORDERED: HYDROmorphone 1 MG/ML 1 ML SYRINGE IVP STA (10:01)
[2020-12-04 10:50] VITALS: BP 150/72; PULSE 78
== END 2020-12-04 10:50 | disposition home or self-care (01) ==
LOC: EC 07:42
DX: R51.9 Headache, unspecified (principal); M79.18 Myalgia, other site; F32.9 Major depressive disorder, single episode, unspecified; Z79.3 Long term (current) use of hormonal contraceptives; Z87.820 Personal history of traumatic brain injury; Z88.8 Allergy status to other drugs, medicaments and biological substances; Z91.018 Allergy to other foods; Z91.010 Allergy to peanuts
CPT/HCPCS: 36415; 93005; 80053; 83735; 85025; 81001; 71046; 70450; 99285; 96374; 96375; 96361 ×2; J2360; J1885

== ENCOUNTER 2021-01-01 13:10 | Inpatient (IN) | payer MEDICAID, OTHER ==
[2021-01-01 14:01] LABS: Amphetamine Screen,Urine Not Detected (NotDetected); Barbiturate Screen,Urine Not Detected (NotDetected); Benzodiazepines Screen,Urine Not Detected (NotDetected); Cocaine Screen,Urine Not Detected (NotDetected); Methadone Screen, Urine Not Detected (NotDetected); Opiate Screen,Urine Not Detected (NotDetected); Oxycodone Screen, Urine Not Detected (NotDetected); Phencyclidine Screen,Urine Not Detected (NotDetected); Tricyclic Antidepressant,Urine Not Detected (NotDetected); Urn Cannabinoid Scrn Not Detected (NotDetected)
--- NOTE | 2021-01-01 15:18 | ED ---
Psych HPI - General Chief Complaint: Psychiatric Symptoms Stated Complaint: Mental Health Time Seen by Provider: 01/01/21 13:14 Source: patient Mode of arrival: EMS - History of Present Illness Initial Comments: 45-year-old female past history of mood disorder, TBI, hypertension who presents emergency Department with reported suicidal ideations. Patient was found walking on the street by the police department. States that she had just broken up with her boyfriend because she found out that he was cheating on her. She was very distraught therefore packed up all of her stuff and left. Patient states that she is feeling suicidal and hopeless. Has plans of jumping into the river to hurt herself she states that she can't swim. Denies attempting any harm today. She denies any homicidal ideations. No drug or alcohol use. No concern for . She has been taking her Zoloft as directed without improvement in her symptoms. She has been hospitalized twice before for similar symptoms. No other alleviating, precipitating modifying factors - Related Data Home Medications Medication Instructions Recorded Confirmed medroxyPROGESTERone [Depo-Provera] 150 mg IM Q84D 02/25/20 12/04/20 traZODone HCL [Desyrel] 25 mg PO HS PRN 12/04/20 12/04/20 Previous Rx's Medication Instructions Recorded Sertraline [Zoloft] 100 mg PO DAILY #30 tab 11/12/20 Cyclobenzaprine [Flexeril] 10 mg PO TID #14 tab 12/04/20 Ibuprofen 800 mg PO Q6HR PRN #20 tablet 12/04/20 Allergies Allergy/AdvReac Type Severity Reaction Status Date / Time niacin [From Simcor] Allergy Severe "JUDGE UP" Verified 01/01/21 13:20 tree nut [Nut] Allergy Severe Unknown Verified 01/01/21 13:20 peanut AdvReac Severe Rash/Hives Verified 01/01/21 17:16 simvastatin [From Simcor] AdvReac Severe "JUDGE UP" Verified 01/01/21 13:20 Review of Systems ROS Statement: Those systems with pertinent positive or pertinent negative responses have been documented in the HPI. ROS Other: All systems not noted in ROS Statement are negative. Past Medical History Past Medical History: Asthma, Hypertension, Memory Impairment, Seizure Disorder Additional Past Medical History / Comment(s): mood disorder, IBS, TBI History of Any Multi-Drug Resistant Organisms: None Reported Past Surgical History: Section, Cholecystectomy, Orthopedic Surgery, Tubal Ligation Additional Past Surgical History / Comment(s): knee, RIGHT FOOT SURGERY 15+ YEARS AGO Past Anesthesia/Blood Transfusion Reactions: No Reported Reaction Past Psychological History: ADD/ADHD, Bipolar, Depression, PTSD Smoking Status: Never smoker Past Alcohol Use History: None Reported Past Drug Use History: None Reported - Past Family History Mother History Unknown: Yes Additional Family Medical History / Comment(s): Patient states that her mother is from cancer. Father Family Medical History: Coronary Artery Disease (CAD), Diabetes Mellitus Daughter(s) Family Medical History: No Reported History General Exam Limitations: no limitations General appearance: alert, in no apparent distress Head exam: Present: atraumatic, normocephalic, normal inspection Eye exam: Present: normal appearance, PERRL, EOMI. Absent: scleral icterus, conjunctival injection, periorbital swelling ENT exam: Present: normal exam, mucous membranes moist Neck exam: Present: normal inspection. Absent: tenderness, meningismus, lymphadenopathy Respiratory exam: Present: normal lung sounds bilaterally. Absent: respiratory distress, wheezes, rales, rhonchi, stridor Cardiovascular Exam: Present: regular rate, normal rhythm, normal heart sounds. Absent: systolic murmur, diastolic murmur, rubs, gallop, clicks GI/Abdominal exam: Present: soft, normal bowel sounds. Absent: distended, tenderness, guarding, rebound, rigid Extremities exam: Present: normal inspection, full ROM, normal capillary refill. Absent: tenderness, pedal edema, joint swelling, calf tenderness Back exam: Present: normal inspection Neurological exam: Present: alert, oriented X3, CN II-XII intact Psychiatric exam: Present: depressed, anxious, suicidal ideation Skin exam: Present: warm, dry, intact, normal color. Absent: rash Course Vital Signs 01/01/21 01/01/21 01/01/21 13:15 15:30 16:54 Temperature 98.4 F 97.9 F Pulse Rate 79 70 99 Respiratory 18 18 20 Rate Blood Pressure 172/99 168/70 134/88 O2 Sat by Pulse 94 L 95 96 Oximetry Medical Decision Making - Medical Decision Making Upon arrival patient was placed into room 9. A thorough history and physical exam was performed. The patient does provide a urine sample. EPS does evaluate the patient. Patient will be voluntarily admitted. She remained in stable condition awaiting a bed - Lab Data Result diagrams: 01/02/21 07:40 01/02/21 07:40 Lab Results 01/01/21 01/01/21 01/01/21 Range/Units 13:29 13:29 15:41 Urine HCG, Qual Not Detected (Not Detectd) Urine Opiates Screen Not Detected (NotDetected) Ur Oxycodone Screen Not Detected (NotDetected) Urine Methadone Screen Not Detected (NotDetected) Ur Propoxyphene Screen Not Detected (NotDetected) Ur Barbiturates Screen Not Detected (NotDetected) U Tricyclic Antidepress Not Detected (NotDetected) Ur Phencyclidine Scrn Not Detected (NotDetected) Ur Amphetamines Screen Not Detected (NotDetected) U Methamphetamines Scrn Not Detected (NotDetected) U Benzodiazepines Scrn Not Detected (NotDetected) Urine Cocaine Screen Not Detected (NotDetected) U Marijuana (THC) Screen Not Detected (NotDetected) Coronavirus (PCR) Not Detected (Not Detectd) Disposition Clinical Impression: Suicidal ideation, Depression Disposition: TRANSFER TO PSYCH HOSP/UNIT Condition: Stable Is patient prescribed a controlled substance at d/c from ED?: No
[2021-01-01] MEDS ORDERED: OLANZapine 2.5 MG TAB PO ONE (16:00)
[2021-01-01] MEDS ORDERED: FLUoxetine HCL 20 MG CAP PO ONE (16:00)
[2021-01-01] MEDS ORDERED: LORazepam 1 MG TAB PO PRN (16:46)
[2021-01-01] MEDS ORDERED: ACETAMINOPHEN TAB 325 MG TAB PO PRN (16:46)
[2021-01-01] MEDS ORDERED: MAGNESIUM HYDROXIDE 2,400 MG/10 ML CUP PO PRN (16:46)
[2021-01-01] MEDS ORDERED: LORazepam 2 MG/ML INJ IM PRN (16:50)
[2021-01-01] MEDS ORDERED: HALOPERIDOL LACTATE 5 MG/ML 1 ML VIAL IM PRN (16:51)
[2021-01-01] MEDS ORDERED: haloperidoL 5 MG TAB PO PRN (16:53)
[2021-01-01] MEDS ORDERED: OLANZapine 7.5 MG TAB PO SCH (21:00)
[2021-01-02 08:02] LABS: Basophils % (A) 0 %; Eosinophils # (A) 0.3 k/uL (0-0.7); Eosinophils % (A) 3 %; HCT 39.1 % (34.0-46.0); HGB 13.4 gm/dL (11.4-16.0); Lymphocytes % (A) 32 %; MCHC 34.2 g/dL (31.0-37.0); MCV 90.7 fL (80.0-100.0); Monocytes # (A) 0.4 k/uL (0-1.0); Monocytes % (A) 5 %; Neutrophils # (A) 5.4 k/uL (1.3-7.7); Neutrophils % (A) 59 %; Platelet Count 289 k/uL (150-450); RBC 4.31 m/uL (3.80-5.40); RDW 13.3 % (11.5-15.5); WBC 9.3 k/uL (3.8-10.6)
[2021-01-02 08:14] LABS: ALT 39 U/L (4-34); AST 35 U/L (14-36); African American GFR (CKD) >90 (>60 ml/min/1.73 sqM); Albumin 4.2 g/dL (3.5-5.0); Alkaline Phosphatase 63 U/L (38-126); Anion Gap 9 mmol/L; Blood Urea Nitrogen 10 mg/dL (7-17); Calcium 8.9 mg/dL (8.4-10.2); Carbon Dioxide 29 mmol/L (22-30); Chloride 102 mmol/L (98-107); Cholesterol 189 mg/dL (<200); Glucose 114 mg/dL (74-99); HDL Cholesterol 35 mg/dL (40-60); LDL Cholesterol,Calculated 117 mg/dL (0-99); Non-African American GFR(CKD) >90 (>60 ml/min/1.73 sqM); Potassium 4.1 mmol/L (3.5-5.1); Sodium 140 mmol/L (137-145); Total Bilirubin 0.8 mg/dL (0.2-1.3); Total Protein 7.1 g/dL (6.3-8.2); Triglycerides 185 mg/dL (<150)
[2021-01-02] MEDS ORDERED: NICOTINE 14MG/24HR PATCH TRANSDERM SCH (09:00)
[2021-01-02] MEDS: MAG HYDROX/AL HYDROX/SIMETH 30 ML CUP PO PRN ×3 (09:19→21:32)
[2021-01-02] MEDS: SERTRALINE 100 MG TAB PO SCH (09:58)
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
[2021-01-02 13:49] LABS: Hemoglobin A1C 5.7 % (4.0-6.0)
--- NOTE | 2021-01-02 19:09 | P.CONS ---
History of Present Illness - History of Present Illness With past medical history of asthma, hypertension, seizure disorder, irritable bowel syndrome and traumatic brain injury. She has psych history of bipolar depression and PTSD. She was admitted to the mental health unit with signs symptoms of major depression and PTSD. Medical consult has been requested for routine medical management Patient seen with the bedside nurse in a private room. Patient states that she has chest pain on and off for many years now and is related to stress and began with her PTSD, she is complaining of from headache at time related to her traum atic brain injury. She treats her asthma with metered dose inhaler, she doesn't follow up with toolsmith and currently she is breathing quietly normal with no signs of asthma and lung exam is benign. She denies coughing. No change in urine or bowel habits. No fever. Occasional she has some bowel symptoms and pain is related to her IBS She denies smoking, alcohol or illicit drugs. I offered for the patient to do serial troponins test, she declined stating that she has depot injection, risks and benefits were explained Past Medical History Past Medical History: Asthma, Hypertension, Memory Impairment, Seizure Disorder Additional Past Medical History / Comment(s): mood disorder, IBS, TBI History of Any Multi-Drug Resistant Organisms: None Reported Past Surgical History: Section, Cholecystectomy, Orthopedic Surgery, Tubal Ligation Additional Past Surgical History / Comment(s): knee, RIGHT FOOT SURGERY 15+ YEARS AGO Past Anesthesia/Blood Transfusion Reactions: No Reported Reaction Smoking Status: Never smoker - Past Family History Mother History Unknown: Yes Additional Family Medical History / Comment(s): Patient states that her mother is from cancer. Father Family Medical History: Coronary Artery Disease (CAD), Diabetes Mellitus Daughter(s) Family Medical History: No Reported History Medications and Allergies Home Medications Medication Instructions Recorded Confirmed Type medroxyPROGESTERone [Depo-Provera] 150 mg IM Q84D 02/25/20 12/04/20 History Sertraline [Zoloft] 100 mg PO DAILY #30 tab 11/12/20 12/04/20 Rx Cyclobenzaprine [Flexeril] 10 mg PO TID #14 tab 12/04/20 Rx Ibuprofen 800 mg PO Q6HR PRN #20 tablet 12/04/20 Rx traZODone HCL [Desyrel] 25 mg PO HS PRN 12/04/20 12/04/20 History Allergies Allergy/AdvReac Type Severity Reaction Status Date / Time niacin [From Simcor] Allergy Severe "JUDGE UP" Verified 01/01/21 13:20 tree nut [Nut] Allergy Severe Unknown Verified 01/01/21 13:20 peanut AdvReac Severe Rash/Hives Verified 01/01/21 17:16 simvastatin [From Simcor] AdvReac Severe "JUDGE UP" Verified 01/01/21 13:20 Physical Exam Vitals: Vital Signs Temp Pulse Pulse Resp BP BP Pulse Ox 01/01/21 17:23 97.8 F 110 H 16 130/93 96 01/01/21 16:54 97.9 F 99 20 134/88 96 01/01/21 15:30 70 18 168/70 95 Intake and Output 01/01/21 01/02/21 01/02/21 22:59 06:59 14:59 Other: Weight 105.687 kg Results CBC & Chem 7: 01/02/21 07:40 01/02/21 07:40 Labs: Abnormal Lab Results - Last 24 Hours (Table) 01/02/21 Range/Units 07:40 Glucose 114 H (74-99) mg/dL ALT 39 H (4-34) U/L Triglycerides 185 H (<150) mg/dL LDL Cholesterol, Calc 117 H (0-99) mg/dL HDL Cholesterol 35 L (40-60) mg/dL TSH 5.290 H (0.465-4.680) mIU/L Assessment and Plan Assessment: Depression and other psychiatric illnesses, management as per psych primary team -Hypertension, continue same medication -History of traumatic brain injury with occasional headache. Continue same management -History of asthma, not in active tissue continue with MDI as needed -Obesity -Irritable bowel syndrome -Questionable history of seizure: Nonicteric not to be on seizure medication kunal william is mobile and low risk for DVT We recommend patient follow up with her PCP Dr. allison/Nellie Huang in 1 week after discharge and patient was instructed with the same Thank you for consulting us, we will see the patient on as-needed basis. Please feel free to contact us for any further questions
[2021-01-02] MEDS: traZODone HCL 50 MG TAB PO SCH (21:32)
[2021-01-03] MEDS: SERTRALINE 100 MG TAB PO SCH (08:05)
[2021-01-03] MEDS: MAG HYDROX/AL HYDROX/SIMETH 30 ML CUP PO PRN (08:06)
--- NOTE | 2021-01-03 09:47 | P.PN ---
Progress Note - Text Progress Note Date: 01/03/21 Interval History: Patient was seen lying in bed and was directable and agreeable to speak with odell robison in the office. Patient signed AMA form yesterday as she was upset that to her roommates were complaining about her snoring and she also states that she has been feeling and doing better while on the unit. She states that "I needed to get away from everybody". She claims that her mood and anxiety have been gradually improving on the medications. She states that she would like to go to [facility] for a "fresh start". She states that she has been sleeping fairly well at night however when asked how long she is sleeping she states 2-3 hours. Patient wants to stay on the same dose of trazodone at this time. She claims that she's been eating her meals and showering. She also states that she has been going to groups and finding it helpful. At this time patient denies any suicidal or homical ideations, intent or plan. Patient denies any auditory, visual hallucinations and denies any paranoia or delusions. Patient denies any side effects from the medications and has been compliant with meds. Mental Status Exam: General Appearance: Patient appears to be overweight, short hair, stated age is alert, directable, and attempts to cooperate. Appears to be less anxious and depressed. Patient appears to have improving hygiene and grooming. Behavior: Patient is seated without any agitated behavior. Attempts to be cooperative. Speech: Patient's speech is fluent and nonpressured. Fairly talkative. Mood/Affect: Patient reports their mood is improving mildly, affect is congruent Suicidality/Homicidality: Patient denies having any homicidal ideation intent or plan. Denies any suicidal ideations intent or plan Perceptions: Patient denies any visual hallucinations and denies any auditory hallucinations Though content/process: Rambles, tangential/circumstantial. Logical. Focused on her stressors and discharge. Denies any paranoia. 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 Patient has initially signed adult voluntary form and medication consent and was placed in patient's chart. Patient also has signed AMA form on 01/02/2021 -Medications: Continue with Zoloft 100mg daily for mood/anxiety, Trazodone 25mg qhs for mood/insomnia -When necessary Ativan and Haldol for agitation/aggression. -NRT - not needed as patient does not smoke -SW on board for discharge planning. Encouraged the patient to participate in milieu. Patient is currently homeless, she will likely either go to residential vs. friends house. likely d/c in 1-2 days
[2021-01-03] MEDS ORDERED: INFLUENZA VACCINE (6 MOS+) 60 MCG/0.5 ML SYRINGE IM ONE (09:51)
[2021-01-03 16:44] LABS: Appearance,Urine Cloudy (Clear); Bacteria,Urine Rare /hpf; Bilirubin,Urine Negative (Negative); Blood,Urine Negative (Negative); Color,Urine Yellow; Glucose,Urine (UA) Negative (Negative); Ketones,Urine Negative (Negative); Leukocyte Esterase,Urine Trace (Negative); Mucus,Urine Occasional /hpf; Nitrite,Urine Negative (Negative); PH, Urine 6.5 (5.0-8.0); Protein,Urine Negative (Negative); RBC,Urine 2 /hpf (0-5); Specific Gravity,Urine 1.022 (1.001-1.035); Squamous Epithelial Cell,Urine 15 /hpf (0-4); Urobilinogen,Urine <2.0 mg/dL (<2.0); WBC,Urine 3 /hpf (0-5)
[2021-01-03] MEDS: traZODone HCL 50 MG TAB PO SCH (20:25)
[2021-01-04 00:53] LABS: Urine Alcohol Negative (Negative); Urine Barbiturate Negative (Negative); Urine Cocaine Negative (Negative); Urine Methadone Negative (Negative); Urine Opiates Negative (Negative); Urine Phencyclidine Negative (Negative)
[2021-01-04] MEDS: SERTRALINE 100 MG TAB PO SCH (08:16)
[2021-01-04] MEDS: MAG HYDROX/AL HYDROX/SIMETH 30 ML CUP PO PRN ×3 (08:16→20:41)
--- NOTE | 2021-01-04 09:33 | P.PN ---
Progress Note - Text Progress Note Date: 01/04/21 Interval History: Patient was seen lying in bed and was directable and agreeable to speak with odell robison in the office. Patient appears to have mild improvement in her hygiene and grooming today. She states that she had mild upset stomach this morning and need to lay down again after breakfast. She claims that she usually has "stomach issues in the morning". She claims that her mood has been gradually improving along with her anxiety. She continues to be somatically preoccupied at times. She spoke about possibly either going to the residential or her friends house upon discharge. She continues to state that she wants to go to [facility] and is going to be buying her train ticket soon. She offered no overnight complaints states that she slept fairly. Patient wants to stay on the same dose of trazodone at this time. She claims that she's been eating her meals and showering. She also states that she has been going to groups and finding it helpful. At this time patient denies any suicidal or homical ideations, intent or plan. Patient denies any auditory, visual hallucinations and denies any paranoia or delusions. Patient denies any side effects from the medications and has been compliant with meds. Mental Status Exam: General Appearance: Patient appears to be overweight, short hair, stated age is alert, directable, and attempts to cooperate. Appears to be less anxious and depressed today. Patient appears to have improving hygiene and grooming. Behavior: Patient is seated without any agitated behavior. Attempts to be cooperative. Speech: Patient's speech is fluent and nonpressured. Mood/Affect: Patient reports their mood is improving mildly, affect is congruent Suicidality/Homicidality: Patient denies having any homicidal ideation intent or plan. Denies any suicidal ideations intent or plan Perceptions: Patient denies any visual hallucinations and denies any auditory hallucinations Though content/process: Rambles. Logical. Focused on her stressors. Denies any paranoia. 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 Patient has initially signed adult voluntary form and medication consent and was placed in patient's chart. Patient also has signed AMA form on 01/02/2021 -Medications: Continue with Zoloft 100mg daily for mood/anxiety, Trazodone 25mg qhs for mood/insomnia -When necessary Ativan and Haldol for agitation/aggression. -NRT - not needed as patient does not smoke -SW on board for discharge planning. Encouraged the patient to participate in milieu. Patient is currently homeless, she will likely either go to residential vs. friends house. likely d/c tomorrow.
[2021-01-04] MEDS: traZODone HCL 50 MG TAB PO SCH (20:40)
[2021-01-05 07:08] VITALS: BP 117/62; PULSE 61; RESP 16; TEMP 98.1
[2021-01-05] MEDS: SERTRALINE 100 MG TAB PO SCH (08:11)
[2021-01-05] MEDS: MAG HYDROX/AL HYDROX/SIMETH 30 ML CUP PO PRN (08:55)
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
== END 2021-01-05 10:11 | disposition home or self-care (01) | DRG 885 ==
LOC: EC 13:10 → 3MHU 16:42
PROVIDERS: ADMIT Psychiatry & Neurology Psychiatry; ATTEND Psychiatry & Neurology Psychiatry
DX: F33.2 Major depressive disorder, recurrent severe without psychotic features (principal); Z68.41 Body mass index [BMI] 40.0-44.9, adult; R45.851 Suicidal ideations; E66.9 Obesity, unspecified; F43.10 Post-traumatic stress disorder, unspecified; F60.89 Other specific personality disorders; G40.909 Epilepsy, unspecified, not intractable, without status epilepticus; G47.00 Insomnia, unspecified; I10 Essential (primary) hypertension; J45.909 Unspecified asthma, uncomplicated; K58.9 Irritable bowel syndrome, unspecified; Z87.820 Personal history of traumatic brain injury; Z20.822 Contact with and (suspected) exposure to COVID-19; Z90.49 Acquired absence of other specified parts of digestive tract; G44.89 Other headache syndrome; Z79.899 Other long term (current) drug therapy; Z82.49 Family history of ischemic heart disease and other diseases of the circulatory system; Z83.3 Family history of diabetes mellitus; Z91.83 Wandering in diseases classified elsewhere; Z98.51 Tubal ligation status
CPT/HCPCS: 80053; 80061; 80306; 81001; 81025; 82075; 83036; 84443; 85025; 87635; 90686; 99285

== ENCOUNTER 2021-01-20 09:28 | Emergency (ER) | payer OTHER ==
[2021-01-20 09:39] VITALS: BP 141/78; PULSE 105; RESP 18; TEMP 98.1
--- NOTE | 2021-01-20 10:41 | XR ---
EXAMINATION TYPE: XR ankle complete RT DATE OF EXAM: 01/20/2021 COMPARISON: None HISTORY: Twisted ankle TECHNIQUE: 3 view right ankle FINDINGS: No acute fracture or dislocation is evident. The ankle mortise is intact. Soft tissues appe ar unremarkable. Follow up exams can be performed 7-10 days in acute trauma for continued pain. IMPRESSION: 1. Normal three-view right ankle
--- NOTE | 2021-01-20 10:45 | ED ---
General Adult HPI - General Chief complaint: Extremity Injury, Lower Stated complaint: right ankle pain Time Seen by Provider: 01/20/21 09:35 Source: patient, RN notes reviewed, old records reviewed Mode of arrival: ambulatory Limitations: no limitations - History of Present Illness Initial comments: This 45-year-old female presents emergency Department complaining of right lateral ankle pain. Patient states she twisted yesterday while cleaning dishes. Patient states she is a little bit of swelling in the area. Patient denies any upper leg pain. Patient denies any foot pain. - Related Data Home Medications Medication Instructions Recorded Confirmed medroxyPROGESTERone [Depo-Provera] 150 mg IM Q84D 02/25/20 01/20/21 Previous Rx's Medication Instructions Recorded Acetaminophen Tab [Tylenol] 650 mg PO Q4HR PRN tab 01/05/21 Sertraline [Zoloft] 100 mg PO DAILY 30 Days tab 01/05/21 traZODone HCL [Desyrel] 25 mg PO HS 30 Days tab 01/05/21 Allergies Allergy/AdvReac Type Severity Reaction Status Date / Time niacin [From Simcor] Allergy Severe "JUDGE UP" Verified 01/20/21 09:39 tree nut [Nut] Allergy Severe Unknown Verified 01/20/21 09:39 peanut AdvReac Severe Rash/Hives Verified 01/20/21 09:39 simvastatin [From Simcor] AdvReac Severe "JUDGE UP" Verified 01/20/21 09:39 Review of Systems ROS Statement: Those systems with pertinent positive or pertinent negative responses have been documented in the HPI. ROS Other: All systems not noted in ROS Statement are negative. Past Medical History Past Medical History: Asthma, Hypertension, Memory Impairment, Seizure Disorder Additional Past Medical History / Comment(s): mood disorder, IBS, TBI History of Any Multi-Drug Resistant Organisms: None Reported Past Surgical History: Section, Cholecystectomy, Orthopedic Surgery, Tubal Ligation Additional Past Surgical History / Comment(s): knee, RIGHT FOOT SURGERY 15+ YEARS AGO Past Anesthesia/Blood Transfusion Reactions: No Reported Reaction Past Psychological History: ADD/ADHD, Bipolar, Depression, PTSD Smoking Status: Never smoker Past Alcohol Use History: None Reported Past Drug Use History: None Reported - Past Family History Mother History Unknown: Yes Additional Family Medical History / Comment(s): Patient states that her mother is from cancer. Father Family Medical History: Coronary Artery Disease (CAD), Diabetes Mellitus Daughter(s) Family Medical History: No Reported History General Exam - General Exam Comments Initial Comments: GENERAL Patient is well-developed and well-nourished. Patient is in mild distress. EYES Patient's pupils are equal and round. Extraocular motion is intact SKIN Unremarkable NEURO The patient is alert and oriented 3 PYSCH Patient has normal interpersonal interactions. MUSCULOSKELETAL Patient has some tenderness over the lateral malleolus and there is some minimal swelling. Limitations: no limitations Course Vital Signs 01/20/21 09:36 Temperature 98.1 F Pulse Rate 105 H Respiratory 18 Rate Blood Pressure 141/78 O2 Sat by Pulse 95 Oximetry Disposition Clinical Impression: Ankle sprain Disposition: HOME SELF-CARE Condition: Good Instructions (If sedation given, give patient instructions): Ankle Sprain (ED) Is patient prescribed a controlled substance at d/c from ED?: No Referrals: Tiny Cornell MD [Primary Care Provider] - 1-2 days Time of Disposition: 10:45
== END 2021-01-20 10:58 | disposition home or self-care (01) ==
LOC: EC 09:28
DX: S93.401A Sprain of unspecified ligament of right ankle, initial encounter (principal); J45.909 Unspecified asthma, uncomplicated; F32.9 Major depressive disorder, single episode, unspecified; Z90.49 Acquired absence of other specified parts of digestive tract; Z98.51 Tubal ligation status; X50.1XXA Overexertion from prolonged static or awkward postures, initial encounter
CPT/HCPCS: 99283

== ENCOUNTER 2021-05-14 06:56 | Emergency (ER) | payer OTHER ==
[2021-05-14 06:59] VITALS: TEMP 98.6
[2021-05-14] MEDS ORDERED: ONDANSETRON 4 MG/2 ML VIAL IVP STA (07:11)
[2021-05-14] MEDS ORDERED: MORPHINE SULFATE 2 MG/ML SYRINGE IVP STA (07:11)
[2021-05-14] MEDS ORDERED: SODIUM CHLORIDE 0.9% 1,000 ML IV STA (07:11)
--- NOTE | 2021-05-14 07:26 | ED ---
General Adult HPI - General Chief complaint: Vaginal Bleeding Stated complaint: Vaginal Bleeding Time Seen by Provider: 05/14/21 07:01 Source: patient Mode of arrival: ambulatory - History of Present Illness Initial comments: 45 year-old female patient presents to the emergency department for evaluation of abdominal pain. Patient states she has had the pain on and off for the last two weeks. States it starts in the upper abdomen and radiates to the left flank and the left lower quadrant. Denies any nausea or vomiting. Denies any fever or chills. Denies hematuria, dysuria, urinary urgency, and urinary frequency. Denies constipation or diarrhea. States she did try to get a sooner appointment with her GI specialist but they couldn't get her in. She states she is on the Depo shot for heavy periods, states she has had some spotting recently which is unusual. She has been taking it for the last week. She has had cholecystectomy and in the past. Patient denies any recent rash, cough, shortness of breath, chest pain, back pain, numbness, tingling, dizziness, weakness, headache, visual changes, or any other complaints. - Related Data Home Medications Medication Instructions Recorded Confirmed medroxyPROGESTERone [Depo-Provera] 150 mg IM Q84D 02/25/20 01/20/21 Previous Rx's Medication Instructions Recorded Acetaminophen Tab [Tylenol] 650 mg PO Q4HR PRN tab 01/05/21 Sertraline [Zoloft] 100 mg PO DAILY 30 Days tab 01/05/21 traZODone HCL [Desyrel] 25 mg PO HS 30 Days tab 01/05/21 Allergies Allergy/AdvReac Type Severity Reaction Status Date / Time niacin [From Simcor] Allergy Severe "JUDGE UP" Verified 05/14/21 07:00 tree nut [Nut] Allergy Severe Unknown Verified 05/14/21 07:00 peanut AdvReac Severe Rash/Hives Verified 05/14/21 07:00 simvastatin [From Simcor] AdvReac Severe "JUDGE UP" Verified 05/14/21 07:00 Review of Systems ROS Statement: Those systems with pertinent positive or pertinent negative responses have been documented in the HPI. ROS Other: All systems not noted in ROS Statement are negative. Past Medical History Past Medical History: Asthma, Hypertension, Memory Impairment, Seizure Disorder Additional Past Medical History / Comment(s): mood disorder, IBS, TBI History of Any Multi-Drug Resistant Organisms: None Reported Past Surgical History: Section, Cholecystectomy, Orthopedic Surgery, Tubal Ligation Additional Past Surgical History / Comment(s): knee, RIGHT FOOT SURGERY 15+ YEARS AGO Past Anesthesia/Blood Transfusion Reactions: No Reported Reaction Past Psychological History: ADD/ADHD, Bipolar, Depression, PTSD Smoking Status: Never smoker Past Alcohol Use History: None Reported Past Drug Use History: None Reported - Past Family History Mother History Unknown: Yes Additional Family Medical History / Comment(s): Patient states that her mother is from cancer. Father Family Medical History: Coronary Artery Disease (CAD), Diabetes Mellitus Daughter(s) Family Medical History: No Reported History General Exam General appearance: alert, in no apparent distress, other (Physical well- developed, well-nourished adult female patient in no acute distress. Vital signs upon presentation are temperature 98.6F, pulse 110, respirations 17, blood pressure 162/99, pulse ox 97% on room air.) Eye exam: Present: normal appearance, PERRL, EOMI. Absent: scleral icterus, conjunctival injection, periorbital swelling ENT exam: Present: normal exam, normal oropharynx, mucous membranes moist Respiratory exam: Present: normal lung sounds bilaterally. Absent: respiratory distress, wheezes, rales, rhonchi, stridor Cardiovascular Exam: Present: regular rate, normal rhythm, normal heart sounds. Absent: systolic murmur, diastolic murmur, rubs, gallop, clicks GI/Abdominal exam: Present: soft, tenderness (Midepigastric, LLQ), normal bowel sounds. Absent: distended, guarding, rebound, rigid Back exam: Present: normal inspection. Absent: CVA tenderness (R), CVA tenderness (L) Neurological exam: Present: alert, oriented X3, CN II-XII intact Psychiatric exam: Present: normal affect, normal mood Skin exam: Present: warm, dry, intact, normal color. Absent: rash Course Vital Signs 05/14/21 05/14/21 05/14/21 06:57 08:20 09:16 Temperature 98.6 F Pulse Rate 110 H 100 92 Respiratory 17 18 18 Rate Blood Pressure 162/99 175/100 152/96 O2 Sat by Pulse 97 97 98 Oximetry Medical Decision Making - Medical Decision Making 45 year-old female patient presents to the emergency department for evaluation of upper abdominal pain. Also concerned with vaginal spotting. Physical exam reveals generalized tenderness. Labs show mildly elevated white blood cell count. Mildly elevated Lipase at 322. Urinalysis has presence of blood, no clear evidence for infection. CT abd/pelvis negative. Labs discussed with the patient. She'll be discharged to follow-up with the primary care physician for recheck in 1-2 days. Does have an appointment with gastroenterology on the . Return parameters were discussed in detail. She verbalizes understanding and agrees with this plan. - Lab Data Result diagrams: 05/14/21 07:17 07 07:17 Lab Results 05/14/21 05/14/21 05/14/21 Range/Units 07:17 07:17 07:17 WBC 11.2 H (3.8-10.6) k/uL RBC 4.15 (3.80-5.40) m/uL Hgb 12.6 (11.4-16.0) gm/dL Hct 36.4 (34.0-46.0) % MCV 87.7 (80.0-100.0) fL MCH 30.4 (25.0-35.0) pg MCHC 34.7 (31.0-37.0) g/dL RDW 12.8 (11.5-15.5) % Plt Count 305 (150-450) k/uL MPV 6.9 Neutrophils % 67 % Lymphocytes % 24 % Monocytes % 5 % Eosinophils % 2 % Basophils % 0 % Neutrophils # 7.5 (1.3-7.7) k/uL Lymphocytes # 2.7 (1.0-4.8) k/uL Monocytes # 0.5 (0-1.0) k/uL Eosinophils # 0.2 (0-0.7) k/uL Basophils # 0.1 (0-0.2) k/uL Sodium (137-145) mmol/L Potassium (3.5-5.1) mmol/L Chloride (98-107) mmol/L Carbon Dioxide (22-30) mmol/L Anion Gap mmol/L BUN (7-17) mg/dL Creatinine (0.52-1.04) mg/dL Est GFR (CKD-EPI)AfAm (>60 ml/min/1.73 sqM) Est GFR (CKD-EPI)NonAf (>60 ml/min/1.73 sqM) Glucose (74-99) mg/dL Plasma Lactic Acid Eduardo (0.7-2.0) mmol/L Calcium (8.4-10.2) mg/dL Total Bilirubin (0.2-1.3) mg/dL AST (14-36) U/L ALT (4-34) U/L Alkaline Phosphatase (38-126) U/L Total Protein (6.3-8.2) g/dL Albumin (3.5-5.0) g/dL Lipase (23-300) U/L Urine Color Yellow Urine Appearance Clear (Clear) Urine pH 6.0 (5.0-8.0) Ur Specific Sycamore >1.050 H (1.001-1.035) Urine Protein Trace H (Negative) Urine Glucose (UA) Negative (Negative) Urine Ketones Negative (Negative) Urine Blood Large H (Negative) Urine Nitrite Negative (Negative) Urine Bilirubin Negative (Negative) Urine Urobilinogen <2.0 (<2.0) mg/dL Ur Leukocyte Esterase Negative (Negative) Urine RBC >182 H (0-5) /hpf Urine WBC 12 H (0-5) /hpf Ur Squamous Epith Cells 14 H (0-4) /hpf Urine Mucus Rare H (None) /hpf Urine HCG, Qual Not Detected (Not Detectd) 05/14/21 05/14/21 Range/Units 07:17 07:17 WBC (3.8-10.6) k/uL RBC (3.80-5.40) m/uL Hgb (11.4-16.0) gm/dL Hct (34.0-46.0) % MCV (80.0-100.0) fL MCH (25.0-35.0) pg MCHC (31.0-37.0) g/dL RDW (11.5-15.5) % Plt Count (150-450) k/uL MPV Neutrophils % % Lymphocytes % % Monocytes % % Eosinophils % % Basophils % % Neutrophils # (1.3-7.7) k/uL Lymphocytes # (1.0-4.8) k/uL Monocytes # (0-1.0) k/uL Eosinophils # (0-0.7) k/uL Basophils # (0-0.2) k/uL Sodium 138 (137-145) mmol/L Potassium 3.9 (3.5-5.1) mmol/L Chloride 103 (98-107) mmol/L Carbon Dioxide 27 (22-30) mmol/L Anion Gap 8 mmol/L BUN 14 (7-17) mg/dL Creatinine 0.61 (0.52-1.04) mg/dL Est GFR (CKD-EPI)AfAm >90 (>60 ml/min/1.73 sqM) Est GFR (CKD-EPI)NonAf >90 (>60 ml/min/1.73 sqM) Glucose 151 H (74-99) mg/dL Plasma Lactic Acid Eduardo 1.0 (0.7-2.0) mmol/L Calcium 9.6 (8.4-10.2) mg/dL Total Bilirubin 0.4 (0.2-1.3) mg/dL AST 28 (14-36) U/L ALT 23 (4-34) U/L Alkaline Phosphatase 86 (38-126) U/L Total Protein 6.9 (6.3-8.2) g/dL Albumin 4.2 (3.5-5.0) g/dL Lipase 322 H (23-300) U/L Urine Color Urine Appearance (Clear) Urine pH (5.0-8.0) Ur Specific Sycamore (1.001-1.035) Urine Protein (Negative) Urine Glucose (UA) (Negative) Urine Ketones (Negative) Urine Blood (Negative) Urine Nitrite (Negative) Urine Bilirubin (Negative) Urine Urobilinogen (<2.0) mg/dL Ur Leukocyte Esterase (Negative) Urine RBC (0-5) /hpf Urine WBC (0-5) /hpf Ur Squamous Epith Cells (0-4) /hpf Urine Mucus (None) /hpf Urine HCG, Qual (Not Detectd) - Radiology Data Radiology results: report reviewed, image reviewed CT abdomen pelvis shows NO CT evidence of acute abdominal or pelvic process. Disposition Clinical Impression: Abdominal pain Disposition: HOME SELF-CARE Condition: Good Instructions (If sedation given, give patient instructions): Abdominal Pain (ED) Additional Instructions: Follow-up with the GI specialist for further evaluation as soon as possible. During her visit with them know you had elevated Lipase in the ER. Continue clear liquids and bland diet. Follow-up with the primary care physician for r echeck in 1-2 days. Return for any new, worsening, or concerning symptoms. Is patient prescribed a controlled substance at d/c from ED?: No Referrals: Tiny Cornell MD [Primary Care Provider] - 1-2 days Time of Disposition: 09:40
[2021-05-14 07:59] LABS: Basophils # (A) 0.1 k/uL (0-0.2); Basophils % (A) 0 %; Eosinophils # (A) 0.2 k/uL (0-0.7); Eosinophils % (A) 2 %; HCT 36.4 % (34.0-46.0); HGB 12.6 gm/dL (11.4-16.0); Lymphocytes # (A) 2.7 k/uL (1.0-4.8); Lymphocytes % (A) 24 %; MCH 30.4 pg (25.0-35.0); MCHC 34.7 g/dL (31.0-37.0); MCV 87.7 fL (80.0-100.0); Mean Platelet Volume 6.9; Monocytes # (A) 0.5 k/uL (0-1.0); Monocytes % (A) 5 %; Neutrophils # (A) 7.5 k/uL (1.3-7.7); Neutrophils % (A) 67 %; Platelet Count 305 k/uL (150-450); RBC 4.15 m/uL (3.80-5.40); RDW 12.8 % (11.5-15.5); WBC 11.2 k/uL (3.8-10.6)
[2021-05-14 08:09] LABS: ALT 23 U/L (4-34); AST 28 U/L (14-36); African American GFR (CKD) >90 (>60 ml/min/1.73 sqM); Albumin 4.2 g/dL (3.5-5.0); Alkaline Phosphatase 86 U/L (38-126); Anion Gap 8 mmol/L; Blood Urea Nitrogen 14 mg/dL (7-17); Calcium 9.6 mg/dL (8.4-10.2); Carbon Dioxide 27 mmol/L (22-30); Chloride 103 mmol/L (98-107); Glucose 151 mg/dL (74-99); Lipase 322 U/L (23-300); Non-African American GFR(CKD) >90 (>60 ml/min/1.73 sqM); Potassium 3.9 mmol/L (3.5-5.1); Sodium 138 mmol/L (137-145); Total Bilirubin 0.4 mg/dL (0.2-1.3); Total Protein 6.9 g/dL (6.3-8.2)
[2021-05-14 08:22] VITALS: RESP 18
[2021-05-14 09:08] LABS: Appearance,Urine Clear (Clear); Bilirubin,Urine Negative (Negative); Blood,Urine Large (Negative); Color,Urine Yellow; Glucose,Urine (UA) Negative (Negative); Ketones,Urine Negative (Negative); Leukocyte Esterase,Urine Negative (Negative); Mucus,Urine Rare /hpf; Nitrite,Urine Negative (Negative); Protein,Urine Trace (Negative); RBC,Urine >182 /hpf (0-5); Squamous Epithelial Cell,Urine 14 /hpf (0-4); Urobilinogen,Urine <2.0 mg/dL (<2.0); WBC,Urine 12 /hpf (0-5)
[2021-05-14 09:09] LABS: Specific Gravity,Urine >1.050 (1.001-1.035)
--- NOTE | 2021-05-14 09:16 | CT ---
EXAMINATION TYPE: CT abdomen pelvis w con DATE OF EXAM: 05/14/2021 HISTORY: vaginal bleeding, lt side lump in abd CT DLP: 2359.3mGycm Automated Exposure Control for Dose Reduction was Utilized. CONTRAST: CT scan of the abdomen and pelvis is performed with IV Contrast, patient injected with 100 mL of Isov ue 300. COMPARISON: 08/01/2020 FINDINGS: LUNG BASES: No significant abnormality is appreciated. INCLUDED CARDIAC STRUCTURES: Unremarkable LIVER: Scattered subcentimeter hypoattenuating lesions too small to visualize, likely on the basis of cysts. GALLBLADDER : Cholecystectomy BILIARY TREE: No abnormal biliary tree dilation. PANCREAS: Stable calcification the region of the pancreatic body. SPLEEN: No significant abnormality is seen. ADRENALS: No significant abnormality is seen. KIDNEYS AND URETERS: Bilateral renal cortical cysts are again identified. The largest in the left kid anthony measures up to 2.8 cm and appears stable since prior. The largest in the left kidney measures 1.9 cm and is slightly enlarged compared to prior. The renal parenchymal attenuation is normal. There is no hydronephrosis. There is no evidence of renal calculi. URINARY BLADDER: Suboptimal evaluation due to under distention. ESOPHAGUS: No significant abnormality is seen. STOMACH: No significant abnormality is seen. SMALL BOWEL: No significant abnormality is seen. LARGE BOWEL: No significant abnormality is seen. APPENDIX: No significant abnormality is seen. HERNIAS: No hernia seen. UTERUS/ADNEXA: The uterus is anteverted and normal in size. Small amount of hypoattenuating fluid is seen in the endometrial cavity. No abnormal adnexal lesion seen. PERITONEUM/MESENTRY: No pneumoperitoneum or ascites. LYMPH NODES: No enlarged retroperitoneal or pelvic lymph nodes are appreciated. MAJOR VASCULAR STRUCTURES: Nonaneurysmal aorta. Unremarkable inferior vena cava. OSSEOUS STRUCTURES: Slight anterior translation of L4 over L5. Facet joint arthropathy extends from L 2 through S1. No aggressive or acute osseous abnormality seen. Mild bony spinal canal stenosis at L4- 5 again seen. SOFT TISSUE: No significant soft tissue abnormality. IMPRESSION: No CT evidence of acute abdominal or pelvic process.
[2021-05-14 09:17] VITALS: BP 152/96; PULSE 92
[2021-05-14] MEDS ORDERED: ACET/COD 300 MG/30 MG STARTER PACK 6 TAB BTL PO STA (09:40)
== END 2021-05-14 10:24 | disposition home or self-care (01) ==
LOC: EC 06:56
DX: R10.32 Left lower quadrant pain (principal); R10.13 Epigastric pain; J45.909 Unspecified asthma, uncomplicated; I10 Essential (primary) hypertension; G40.909 Epilepsy, unspecified, not intractable, without status epilepticus; F31.9 Bipolar disorder, unspecified; F90.9 Attention-deficit hyperactivity disorder, unspecified type
CPT/HCPCS: 36415; 80053; 83605; 83690; 85025; 81001; 81025; 87086; 74177; 99284; 96374; 96361; J2405; Q9967

== ENCOUNTER 2021-10-29 13:36 | Inpatient (IN) | payer MEDICAID, OTHER ==
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
[2021-10-29 16:18] LABS: Amphetamine Screen,Urine Not Detected (NotDetected); Barbiturate Screen,Urine Not Detected (NotDetected); Benzodiazepines Screen,Urine Not Detected (NotDetected); Cocaine Screen,Urine Not Detected (NotDetected); Methadone Screen, Urine Not Detected (NotDetected); Opiate Screen,Urine Not Detected (NotDetected); Oxycodone Screen, Urine Not Detected (NotDetected); Phencyclidine Screen,Urine Not Detected (NotDetected); Tricyclic Antidepressant,Urine Not Detected (NotDetected); Urn Cannabinoid Scrn Not Detected (NotDetected)
[2021-10-29] MEDS ORDERED: MAGNESIUM HYDROXIDE 2,400 MG/10 ML CUP PO PRN (18:21)
[2021-10-29] MEDS ORDERED: LORazepam 1 MG TAB PO PRN (18:21)
[2021-10-29] MEDS ORDERED: MAG HYDROX/AL HYDROX/SIMETH 30 ML CUP PO PRN (18:21)
[2021-10-29] MEDS ORDERED: ACETAMINOPHEN TAB 325 MG TAB PO PRN (18:21)
[2021-10-29] MEDS ORDERED: HALOPERIDOL LACTATE 5 MG/ML 1 ML VIAL IM PRN (18:32)
[2021-10-29] MEDS ORDERED: LORazepam 2 MG/ML INJ IM PRN (18:32)
[2021-10-29 19:17] VITALS: RESP 16
[2021-10-30] MEDS: NICOTINE 14MG/24HR PATCH TRANSDERM SCH (07:44)
[2021-10-30 07:49] LABS: Glucose,Whole Blood 134 mg/dL (75-99)
[2021-10-30 09:18] LABS: Basophils # (A) 0.1 k/uL (0-0.2); Basophils % (A) 0 %; Eosinophils # (A) 0.2 k/uL (0-0.7); Eosinophils % (A) 1 %; HCT 41.5 % (34.0-46.0); HGB 13.1 gm/dL (11.4-16.0); Lymphocytes # (A) 2.8 k/uL (1.0-4.8); Lymphocytes % (A) 23 %; MCH 29.6 pg (25.0-35.0); MCHC 31.4 g/dL (31.0-37.0); MCV 94.1 fL (80.0-100.0); Mean Platelet Volume 7.2; Monocytes # (A) 0.5 k/uL (0-1.0); Monocytes % (A) 4 %; Neutrophils # (A) 8.8 k/uL (1.3-7.7); Neutrophils % (A) 70 %; Platelet Count 363 k/uL (150-450); RBC 4.41 m/uL (3.80-5.40); RDW 13.3 % (11.5-15.5); WBC 12.5 k/uL (3.8-10.6)
[2021-10-30 09:58] LABS: ALT 37 U/L (4-34); AST 34 U/L (14-36); African American GFR (CKD) >90 (>60 ml/min/1.73 sqM); Alkaline Phosphatase 74 U/L (38-126); Anion Gap 8 mmol/L; Blood Urea Nitrogen 11 mg/dL (7-17); Calcium 8.5 mg/dL (8.4-10.2); Carbon Dioxide 27 mmol/L (22-30); Chloride 102 mmol/L (98-107); Glucose 198 mg/dL (74-99); Non-African American GFR(CKD) 87 (>60 ml/min/1.73 sqM); Potassium 4.1 mmol/L (3.5-5.1); Sodium 137 mmol/L (137-145); Total Bilirubin 0.8 mg/dL (0.2-1.3); Total Protein 7.2 g/dL (6.3-8.2)
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
[2021-10-30] MEDS: SERTRALINE 100 MG TAB PO SCH (11:51)
[2021-10-30 12:53] LABS: Glucose,Whole Blood 126 mg/dL (75-99)
[2021-10-30 13:21] LABS: HGB 13.9 gm/dL (11.4-16.0); MCH 30.3 pg (25.0-35.0); MCHC 32.3 g/dL (31.0-37.0); MCV 93.8 fL (80.0-100.0); Mean Platelet Volume 7.2; Platelet Count 381 k/uL (150-450); RBC 4.59 m/uL (3.80-5.40); RDW 13.2 % (11.5-15.5); WBC 15.2 k/uL (3.8-10.6)
[2021-10-30 13:26] LABS: HCG,Qualitative Serum Not Detected
[2021-10-30 13:39] LABS: T4, Free (Free Thyroxine) 0.74 ng/dL (0.78-2.19)
[2021-10-30 15:59] LABS: Chol/HDL Ratio 5.99 Ratio; LDL Cholesterol,Calculated 115.1 mg/dL (0.0-131.0)
--- NOTE | 2021-10-30 16:32 | XR ---
EXAMINATION TYPE: XR chest 1V DATE OF EXAM: 10/30/2021 COMPARISON: Chest radiograph 12/04/2020 HISTORY: Abnormal labs TECHNIQUE: Single frontal view of the chest is obtained. FINDINGS: There is no focal air space opacity, pleural effusion, or pneumothorax seen. The cardiac silhouette size is within normal limits. The osseous structures are intact. IMPRESSION: No acute process.
[2021-10-30 20:20] LABS: Glucose,Whole Blood 141 mg/dL (75-99)
--- NOTE | 2021-10-30 20:20 | P.CONS ---
History of Present Illness - History of Present Illness This is a pleasant 46 years old female with multiple medical problems including Asthma, Hypertension, Memory Impairment, Seizure Disorder,mood disorder, IBS, TBI, Bipolar, Depression, PTSD She has been admitted to the mental health unit for signs symptoms of major depression and suicidal thoughts. Medical consult has been requested for 10 medical management also for her history of diabetes, abnormal thyroid and Depo Provera medication. Patient is a pleasant 46 years old female she was walking the hallway with mild limping but with no assistance. Fully awake and oriented, calm, appropriate. Answer questions appropriately as well. Patient has been complaining of from chronic headache and she is passing out frequently, last time was 5 months ago and she passed out yesterday, she states each time it was 15 minutes, and witnessed. However she denies currently weakne ss or numbness. She denies chest pain or dyspnea. However patient complained from chronic stomach pain and she is following up with Dr. Villaseñor as an outpatient. Her PCP is [employer] PRODU[employer] TEACHER Yoselyn Huang with Dr. allison and should have a follow-up appointment with her tomorrow. She denies diarrhea, dysuria or urgency. No nausea vomiting. She had a negative stress test about one year ago. She denies smoking or alcohol or illicit drugs when I asked her. Review of Systems CONSTITUTIONAL: No fever, no malaise, no fatigue. HEENT: No recent visual problems or hearing problems. Denied any sore throat. CARDIOVASCULAR: No orthopnea, PND, no palpitations, no syncope. PULMONARY: No shortness of breath, no cough, no hemoptysis. GASTROINTESTINAL: No diarrhea, no nausea, no vomiting, no abdominal pain. Normoactive bowel sounds. NEUROLOGICAL: No headaches, no weakness, no numbness. HEMATOLOGICAL: Denies any bleeding or petechiae. GENITOURINARY: Denies any burning micturition, frequency, or urgency. MUSCULOSKELETAL/RHEUMATOLOGICAL: Denies any joint pain, swelling, or any muscle pain. ENDOCRINE: Denies any polyuria or polydipsia. Past Medical History Past Medical History: Asthma, Hypertension, Memory Impairment, Seizure Disorder Additional Past Medical History / Comment(s): mood disorder, IBS, TBI History of Any Multi-Drug Resistant Organisms: None Reported Past Surgical History: Section, Cholecystectomy, Orthopedic Surgery, Tubal Ligation Additional Past Surgical History / Comment(s): knee, RIGHT FOOT SURGERY 15+ YEARS AGO Past Anesthesia/Blood Transfusion Reactions: No Reported Reaction Past Psychological History: ADD/ADHD, Bipolar, Depression, PTSD Smoking Status: Never smoker Past Alcohol Use History: None Reported Past Drug Use History: None Reported - Past Family History Mother History Unknown: Yes Additional Family Medical History / Comment(s): Patient states that her mother is from cancer. Father Family Medical History: Coronary Artery Disease (CAD), Diabetes Mellitus Daughter(s) Family Medical History: No Reported History Medications and Allergies Home Medications Medication Instructions Recorded Confirmed Type RX: medroxyPROGESTERone 150 mg IM Q84D 02/25/20 10/29/21 History [Depo-Provera] Allergies Allergy/AdvReac Type Severity Reaction Status Date / Time niacin [From Simcor] Allergy Severe "JUDGE UP" Verified 10/29/21 15:16 tree nut [Nut] Allergy Severe Unknown Verified 10/29/21 15:16 peanut AdvReac Severe Rash/Hives Verified 10/29/21 15:16 simvastatin [From Simcor] AdvReac Severe "JUDGE UP" Verified 10/29/21 15:16 Physical Exam Vitals: Vital Signs Temp Pulse Pulse Resp BP BP Pulse Ox 10/29/21 19:14 97.9 F 107 H 16 139/95 10/29/21 16:50 98 18 136/76 99 10/29/21 14:12 99 F 119 H 18 143/94 96 -GENERAL: The patient is alert and oriented x3, not in any acute distress. Obese HEENT: Pupils are round and equally reacting to light. EOMI. No scleral icterus. No conjunctival pallor. Normocephalic, atraumatic. No pharyngeal erythema. No thyromegaly. CARDIOVASCULAR: S1 and S2 present. No murmurs, rubs, or gallops. PULMONARY: Chest is clear to auscultation, no wheezing or crackles. ABDOMEN: Soft, nontender, nondistended, normoactive bowel sounds. No palpable organomegaly. MUSCULOSKELETAL: No joint swelling or deformity. EXTREMITIES: No cyanosis, clubbing, or pedal edema. NEUROLOGICAL: Gross neurological examination did not reveal any focal deficits. SKIN: No rashes. No petechiae Results CBC & Chem 7: 10/30/21 12:48 10/30/21 08:51 Labs: Abnormal Lab Results - Last 24 Hours (Table) 10/29/21 10/30/21 10/30/21 Range/Units 15:58 07:47 08:51 WBC 12.5 H (3.8-10.6) k/uL Neutrophils # 8.8 H (1.3-7.7) k/uL Glucose (74-99) mg/dL POC Glucose (mg/dL) 134 H (75-99) mg/dL ALT (4-34) U/L TSH (0.465-4.680) mIU/L U Methamphetamines Scrn Detected H (NotDetected) 10/30/21 Range/Units 08:51 WBC (3.8-10.6) k/uL Neutrophils # (1.3-7.7) k/uL Glucose 198 H (74-99) mg/dL POC Glucose (mg/dL) (75-99) mg/dL ALT 37 H (4-34) U/L TSH 6.400 H (0.465-4.680) mIU/L U Methamphetamines Scrn (NotDetected) Assessment and Plan Assessment: -Recurrent and recent syncope one day prior to admission to the hospital. Maddi villagran has history of seizure, not on seizure medication with chronic headache therefore we'll ask for neurology consult. Given patient is obese and diabetic and she has many risk factor therefore we recommend also cardiology consult. The EKG is ordered -Major depression, bipolar, PTSD and other psychiatric illnesses, management as per sec primary team -History of menorrhagia start using depr-provera by her PCP and currently she is with amenorrhea, consult PLANT SUPERVISOR service -Leukocytosis, it looks she has previous episodes of leukocytosis, repeat leukocytosis today still 15 K, we ordered workup chest x-ray which was negative. Urine analysis is pending, if worsening leukocytosis, fever or abnormal urinalysis then we will recommend infectious disease consult. Currently there is no strong evidence for need for antibiotics, keep monitoring. -Hypothyroidism, patient started on levothyroxine 75 g by primary psych illness, follow-up outpatient -History of diabetes, currently she is not on any medication. We'll check hemoglobin A1c. We ordered Accu-Chek, we will treat with diet alone currently and patient can follow up as an outpatient with her PCP in one week -Morbid Obesity, BMI is 46.3 patient was counseled about losing weight -History of Asthma, not in active tissue we recommend patient to follow-up with her PCP Dr. allison/[employer] TEACHER Yoselyn Huang in 1 week after discharge, patient was instructed with the same. Discussed with the bedside nurse to try to get her a follow-up appointment upon discharge Thank you for consulting us, we will see the patient on an as-needed basis. Th [place] feel free to contact us for any further question
[2021-10-31] MEDS: LEVOTHYROXINE 75 MCG TAB PO SCH (06:12)
[2021-10-31 07:22] LABS: Basophils # (A) 0.1 k/uL (0-0.2); Basophils % (A) 1 %; Eosinophils # (A) 0.2 k/uL (0-0.7); Eosinophils % (A) 2 %; HCT 40.3 % (34.0-46.0); HGB 12.9 gm/dL (11.4-16.0); Lymphocytes # (A) 2.5 k/uL (1.0-4.8); Lymphocytes % (A) 23 %; MCV 93.8 fL (80.0-100.0); Mean Platelet Volume 7.1; Monocytes # (A) 0.5 k/uL (0-1.0); Monocytes % (A) 5 %; Neutrophils # (A) 7.5 k/uL (1.3-7.7); Neutrophils % (A) 69 %; Platelet Count 336 k/uL (150-450); RBC 4.29 m/uL (3.80-5.40); RDW 13.1 % (11.5-15.5); WBC 10.9 k/uL (3.8-10.6)
[2021-10-31 07:47] LABS: Glucose,Whole Blood 132 mg/dL (75-99)
[2021-10-31] MEDS: NICOTINE 14MG/24HR PATCH TRANSDERM SCH (09:39)
[2021-10-31] MEDS: SERTRALINE 100 MG TAB PO SCH ×2 (09:39→15:10)
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
[2021-10-31 17:51] LABS: Glucose,Whole Blood 131 mg/dL (75-99)
--- NOTE | 2021-10-31 18:18 | P.CNNES ---
History of Present Illness Consult date: 10/31/21 Requesting physician: Garfield E Ana Luisa Reason for Consult: Syncope, headache, history of seizure History of Present Illness: Patient is a 46-year-old female came to the hospital for 10/29/2021 and 1:36 PM for psychiatric condition. Neurology consulted for her history of headaches and some shaking spells. Patient states that she had significantly degenerative disc disease at C5 and C6. She gets sharp pain in the neck or the back of head, that shifts at different parts. When it occurs, it hits hard and goes to behind her eyes. It may involve the right occipital region or the left, and then shifts to the top. Sometimes starts in the neck. These are occurring about twice a month, lasting about 1-2 hours. Sometimes it's all global. She has not tried any medications. Patient claims that she had TBI 12 years ago, and the headaches started after that TBI. The headaches were very infrequent in the beginning, but in the last 1 year they are more frequent as mentioned above. It appears patient has been on Depo Shot for the last 1 year, which may be the cause of increasing frequency of headaches. She has tried Aleve and Tylenol. She has not seen a neurologist for these headaches. Patient states that epilepsy runs in her family. In the last 4-5 months, she has been having spells, in which she gets shaking spells. Her body arches backward. She crosses her arms on the chest so "her arms would not hit anyone". Her jaw locks up, and she grinds her teeth. At that time she covers herself with a blanket and the spell passes in 5-10 minutes. Occasionally may last up to 20 minutes. She states that it feels like a cold chill, but she is not cold. She never passes out, or has no alteration of consciousness. She can communicate during these spells, except when her jaw locks up. These spells w here he is in frequency, but believes may be occurring about 3-4 times a month and does not know what triggers it. She states she has not been able to see a neurologist because of pandemic. Patient's vital signs include blood pressure 143/94, pulse rate 119, temperature 99.0. Chest x-ray showed no acute process. Patient had last computed tomography scan of head on 12/04/2020 which was normal. Patient had a normal computed tomography scan of abdomen and pelvis previously on 05/14/2021. Blood test shows WBC 15.2 hemoglobin 13.9 and platelets 381. White cells and improved to 10.9. TSH 7.9, free T4 0.74. Patient's hemoglobin A1c 8.0 on 10/30/2021. Lipid panel with cholesterol 179, LDL 115, HDL 29 and triglycerides 170. Urine hCG negative. Sood virus PCR negative. Urine drug screen positive for methamphetamines. Patient's last hemoglobin A1c was normal 5.7 on 01/02/2021. Patient takes Depo- Provera shots 150 mg IM every 84 days. Patient has been diagnosed with type 2 diabetes about couple weeks ago. Her blood pressure was 80s. Denies any tobacco alcohol or drugs. She claims she has PTSD. Review of Systems As above in detail. All other review of systems unremarkable. Patient uses glasses. No numbness or tingling. No chest pain, abdominal pain, nausea vomiting diarrhea. Denies any fever. Past Medical History Past Medical History: Asthma, Hypertension, Memory Impairment, Seizure Disorder Additional Past Medical History / Comment(s): mood disorder, IBS, TBI History of Any Multi-Drug Resistant Organisms: None Reported Past Surgical History: Section, Cholecystectomy, Orthopedic Surgery, Tubal Ligation Additional Past Surgical History / Comment(s): knee, RIGHT FOOT SURGERY 15+ YEAR S AGO Past Anesthesia/Blood Transfusion Reactions: No Reported Reaction Past Psychological History: ADD/ADHD, Bipolar, Depression, PTSD Smoking Status: Never smoker Past Alcohol Use History: None Reported Past Drug Use History: None Reported - Past Family History Mother History Unknown: Yes Additional Family Medical History / Comment(s): Patient states that her mother is from cancer. Father Family Medical History: Coronary Artery Disease (CAD), Diabetes Mellitus Daughter(s) Family Medical History: No Reported History Medications and Allergies Home Medications Medication Instructions Recorded Confirmed Type medroxyPROGESTERone [Depo-Provera] 150 mg IM Q84D 02/25/20 10/29/21 History Allergies Allergy/AdvReac Type Severity Reaction Status Date / Time niacin [From Simcor] Allergy Severe "JUDGE UP" Verified 10/29/21 15:16 tree nut [Nut] Allergy Severe Unknown Verified 10/29/21 15:16 peanut AdvReac Severe Rash/Hives Verified 10/29/21 15:16 simvastatin [From Simcor] AdvReac Severe "JUDGE UP" Verified 10/29/21 15:16 Physical Examination - Vital Signs Vital Signs: Vital Signs Temp Pulse BP 10/31/21 06:44 97.4 F L 116 H 146/75 Patient is a middle aged female, in no acute distress. Patient is moderately overweight. Patient is alert, awake oriented to time place and person. Speech and language functions are normal. Attention, concentration and fund of knowledge is adequate. On cranial examination, pupils are round and reacting to light, visual martínez are full on confrontation, extraocular muscles are intact with no nystagmus. Face is symmetric, tongue protrudes to the midline. Palatal elevation and sensation normal, hearing and shoulder shrug normal, facial sensation normal. Shoulder shrug normal. On muscle strength testing, there is no pronator drift and the strength is normal in arms and legs distally and proximally. Deep tendon reflexes are 1+ and plantars downgoing bilaterally. Sensory to touch is equal with no neglect. Cerebellar function showed no ataxia for [id number] testing. No dysdiadocho kinesia. Tone and bulk of muscles normal. Gait normal. On general examination, there is no carotid bruit or murmur, S1-S2 audible. Abdomen is soft nontender. Chest is clear. Peripheral pulses are present. No edema. Results - Laboratory Findings CBC and BMP: 10/31/21 06:30 10/30/21 08:51 Abnormal Lab Findings: Abnormal Labs 10/29/21 10/30/21 10/30/21 15:58 07:47 08:51 WBC Neutrophils # Glucose POC Glucose (mg/dL) 134 H Hemoglobin A1c 8.0 H ALT Triglycerides HDL Cholesterol TSH Free T4 U Methamphetamines Scrn Detected H 10/30/21 10/30/21 10/30/21 08:51 08:51 12:41 WBC 12.5 H Neutrophils # 8.8 H Glucose 198 H POC Glucose (mg/dL) 126 H Hemoglobin A1c ALT 37 H Triglycerides 170.00 H HDL Cholesterol 29.90 L TSH 6.400 H Free T4 U Methamphetamines Scrn 10/30/21 10/30/21 10/30/21 12:48 12:48 20:15 WBC 15.2 H Neutrophils # Glucose POC Glucose (mg/dL) 141 H Hemoglobin A1c ALT Triglycerides HDL Cholesterol TSH 7.920 H Free T4 0.74 L U Methamphetamines Scrn 10/31/21 10/31/21 06:30 07:45 WBC 10.9 H Neutrophils # Glucose POC Glucose (mg/dL) 132 H Hemoglobin A1c ALT Triglycerides HDL Cholesterol TSH Free T4 U Methamphetamines Scrn Assessment and Plan Assessment: * Intermittent transient cervicogenic headaches, occurring off and on about few times a month lasting for a couple hours, unclear etiology. Headaches does not fit any typical diagnostic criteria. Some component of occipital neuralgia, but are very sporadic. Possible atypical migraine. These headaches are worse since she started Depo-Provera shots the year ago. * Shaking spells, which are not seizures, probably nonepileptic events. Patient does not lose consciousness or develop not develop any alteration in level of consciousness. * PTSD Plan: * Consider trial of Neurontin, which may help with these tremors, and possible migraine/occipital neuralgic headaches. We will start Neurontin 100 mg twice a day. May increase the dose as needed. * Patient recommended to keep a log of these shaking spells, and headaches on a calendar, and follow-up with a neurologist as an outpatient. * These episodes are most likely psychogenic, but EEG can be considered as an outpatient. No indication as an inpatient. * Neurologically clear. We will sign off. Please reconsult if any concerns.
[2021-11-01] MEDS: LEVOTHYROXINE 75 MCG TAB PO SCH (06:56)
[2021-11-01 08:01] LABS: Glucose,Whole Blood 125 mg/dL (75-99)
[2021-11-01] MEDS: NICOTINE 14MG/24HR PATCH TRANSDERM SCH (09:25)
[2021-11-01] MEDS: SERTRALINE 100 MG TAB PO SCH (09:26)
--- NOTE | 2021-11-01 11:52 | P.PN ---
Progress Note - Text Progress Note Date: 11/01/21 Interval History: Patient was seen resting in bed and was directable and agreeable to speak with jingle writer in her room. The patient is currently endorsing mild suicidal ideation but denies any homicidal ideation, intention, and/or plan. She expresses that she had a desire to jump off a bridge because of all the trauma she has gone through in her life and how people have been treating her. She states that she is constantly not appreciated and is always kicked out of the home that she is currently staying in. The patient reports that "nothing has helped me. I have seen 6 different counselors." The patient does state that she has been taking her Zoloft notices a significant improvement in her mood. She is currently not reporting any auditory or visual hallucinations. She denies any paranoia or other delusions. The patient does express that she has constant issues with her posttraumatic stress disorder including reexperiencing flashbacks and nightmares. She does report that many things "trigger" her. The patient's primary stressor at this time is her homelessness. The patient reports that she has some difficulty with sleeping and denies any issues with her appetite. Mental Status Exam: General Appearance: Patient appears to be stated age is alert, directable, and cooperative. Behavior: Patient is calmly seated without any agitated behavior. Speech: Patient's speech is fluent and nonpressured. Mood/Affect: Mood is improving mildly, affect is congruent and constricted. Suicidality/Homicidality: Patient reports suicidal ideation but no intention or plan at this time. The patient denies any homicidal ideation, intention, and/or plan Perceptions: Patient denies any visual hallucinations and denies any auditory hallucinations Though content/process: There is no evidence of any delusional thought content and thought process is linear and goal-directed. Memory and concentration: AOX3, grossly intact for the purposes of this session Judgment and insight: Improving mildly Vital Signs Temp 96.9 F L 11/01/21 00:41 Pulse 110 H 11/01/21 00:41 Resp 16 10/29/21 19:14 BP 132/90 11/01/21 00:41 Pulse Ox 99 10/29/21 16:50 Laboratory Results - Last 24 Hours 10/31/21 11/01/21 17:49 07:59 POC Glucose (mg/dL) 131 H 125 H POC Glu Export Fre[employer] Clerk ID Herny Cuevas Roxanne Mena Assessment Major depressive disorder, recurrent, severe Posttraumatic stress disorder Borderline personality disorder Plan: -Patient continues to meet criteria for inpatient psychiatric admission for symptom stabilization and safety. Patient has signed adult voluntary form and medication consent and was placed in patient's chart. -Medications: Continue Synthroid for hypothyroidism Continue Zoloft 100 mg by mouth daily for depression/anxiety/PTSD Start Trazodone 50 mg by mouth at bedtime for insomnia -When necessary Ativan and Haldol for agitation/aggression. -NRT - nicotine patch -SW on board for discharge planning. Encouraged the patient to participate in milieu.
[2021-11-01 12:59] LABS: Glucose,Whole Blood 118 mg/dL (75-99)
[2021-11-01] MEDS: GABAPENTIN 100 MG CAP PO SCH ×2 (14:36→20:45)
[2021-11-01 17:32] LABS: Glucose,Whole Blood 130 mg/dL (75-99)
[2021-11-01 20:09] LABS: Glucose,Whole Blood 185 mg/dL (75-99)
[2021-11-01] MEDS ORDERED: traZODone HCL 50 MG TAB PO SCH (21:00)
[2021-11-02] MEDS: LEVOTHYROXINE 75 MCG TAB PO SCH ×2 (06:35→06:55)
[2021-11-02 08:13] LABS: Glucose,Whole Blood 158 mg/dL (75-99)
[2021-11-02] MEDS: GABAPENTIN 100 MG CAP PO SCH (08:20)
[2021-11-02] MEDS: SERTRALINE 100 MG TAB PO SCH (08:21)
[2021-11-02] MEDS: NICOTINE 14MG/24HR PATCH TRANSDERM SCH (08:22)
[2021-11-02] MEDS ORDERED: METOPROLOL TARTRATE 25 MG TAB PO SCH (09:30)
[2021-11-02 09:41] VITALS: BP 150/85; PULSE 62; TEMP 98.5
--- NOTE | 2021-11-02 10:14 | P.CRDCN ---
History of Present Illness History of present illness: HISTORY OF PRESENTING ILLNESS This is a pleasant 46-year-old female with past medical history of Asthma and traumatic brain injury and near syncope. She does not follow with a bleacher [employer]. We have been asked to see in consultation for near syncope. Patient is seen and examined in mental health unit. She presents to the hospital on 10/29/21 with suicidal ideation. She states that yesterday she was taking a shower and felt lightheaded and dizzy. She did not lose consciousness. She states she has been having this for years now. She cannot describe anything that brings it on. When she sits down she usually feels better, waits for it to pass and can continue on. She states it comes on randomly, nothing specific makes it worse. EKG not completed yet. She denies history of CAD, [place], stroke, diabetes or hypertension. She has a history of near syncope, Saw Dr. Son in 2014, for similar complaints. She underwent went Stress echo testing which was negative for reversible ischemia. Her echocardiogram revealed normal ejection fraction and event monitor with no significant findings. She also had a stress echo and 2D echocardiogram in 02/2020. DIAGNOSTICS Chest xray no acute process . Laboratory reviewed, WBC 10 Hgb 12, Plt 336, Sodium 137, K 4.1, BUN 11, sCr 0.82, glucose 198, troponin negative x 1, TSH 7.9, Free T4 0.74. Current home medications include Depo-Provera injection 02/2020 Stress echo test negative for reversible ischemia Echocardiogram 02/2020 60-65%, no significant wall motion abnormalities REVIEW OF SYSTEMS At the time of my exam: CONSTITUTIONAL: Denies fever or chills. CARDIOVASCULAR: Denies chest pain, shortness of breath, orthopnea, PND or pal pitations. RESPIRATORY: Denies cough. GASTROINTESTINAL: Denies abdominal pain, diarrhea, constipation, nausea or vomiting. MUSCULOSKELETAL: Denies myalgias. NEUROLOGIC: Denies numbness, tingling, headacbe or weakness. ENDOCRINE: Denies fatigue, weight change, polydipsia or polyurina. GENITOURINARY: Denies burning, hematuria or urgency with micturation. HEMATOLOGIC: Denies history of anemia or bleeding. PHYSICAL EXAMINATION Blood pressure 150/85 HR 110, afebrile 99% on room air CONSTITUTIONAL: No apparent distress. HEENT: Head is normocephalic. Pupils are equal, round. Sclerae anicteric. Mucous membranes of the mouth are moist. No JVD. No carotid bruit. CHEST EXAMINATION: Lungs are clear to auscultation. No chest wall tenderness is noted on palpation or with deep breathing. HEART EXAMINATION: Regular, tachycardic rate and rhythm. S1, S2 heard. No murmurs, gallops or rub. ABDOMEN: Soft, nontender. Positive bowel sounds. EXTREMITIES: 2+ peripheral pulses, no lower extremity edema and no calf tenderness. NEUROLOGIC EXAMINATION: Patient is awake, alert and oriented x3. ASSESSMENT Near Syncope Dizziness Palpitations Major Depressive Disorder History of traumatic brain injury History of asthma PLAN Perform EKG Start metoprolol tartrate 25mg BID Rest of management per psychiatry and primary Further management can be addressed as an outpatient Nurse Practitioner note has been reviewed, I agree with a documented findings and plan of care. Patient was seen and examined. Past Medical History Past Medical History: Asthma, Hypertension, Memory Impairment, Seizure Disorder Additional Past Medical History / Comment(s): mood disorder, IBS, TBI History of Any Multi-Drug Resistant Organisms: None Reported Past Surgical History: Section, Cholecystectomy, Orthopedic Surgery, Tubal Ligation Additional Past Surgical History / Comment(s): knee, RIGHT FOOT SURGERY 15+ YEARS AGO Past Anesthesia/Blood Transfusion Reactions: No Reported Reaction Past Psychological History: ADD/ADHD, Bipolar, Depression, PTSD Smoking Status: Never smoker Past Alcohol Use History: None Reported Past Drug Use History: None Reported - Past Family History Mother History Unknown: Yes Additional Family Medical History / Comment(s): Patient states that her mother is from cancer. Father Family Medical History: Coronary Artery Disease (CAD), Diabetes Mellitus Daughter(s) Family Medical History: No Reported History Medications and Allergies Home Medications Medication Instructions Recorded Confirmed Type medroxyPROGESTERone [Depo-Provera] 150 mg IM Q84D 02/25/20 10/29/21 History Allergies Allergy/AdvReac Type Severity Reaction Status Date / Time niacin [From Simcor] Allergy Severe "JUDGE UP" Verified 10/29/21 15:16 tree nut [Nut] Allergy Severe Unknown Verified 10/29/21 15:16 peanut AdvReac Severe Rash/Hives Verified 10/29/21 15:16 simvastatin [From Simcor] AdvReac Severe "JUDGE UP" Verified 10/29/21 15:16 Physical Exam Vitals: Vital Signs Temp Pulse BP 11/02/21 09:40 98.5 F 62 150/85 Results 10/31/21 06:30 10/30/21 08:51 Current Medications Generic Name Dose Route Start Last Admin Trade Name Freq PRN Reason Stop Dose Admin Acetaminophen 650 mg 10/29/21 18:21 10/30/21 20:17 Acetaminophen Tab 325 Mg Tab PO 650 mg Q4HR PRN Administration Pain/Discomfort Al Hydroxide/Mg Hydroxide 30 ml 10/29/21 18:21 Mag Hydrox/Al Hydrox/Simeth 30 Ml Cup PO Q4HR PRN GI Upset Gabapentin 100 mg 11/01/21 13:00 11/02/21 08:20 Gabapentin 100 Mg Cap PO Not Given BID RAMBO Haloperidol 4 mg 10/29/21 18:33 Haloperidol 2 Mg Tab PO TID PRN Agitation or Acute Anxiety Haloperidol Lactate 4 mg 10/29/21 18:32 Haloperidol Lactate 5 Mg/Ml 1 Ml Vial IM Q6HR PRN Agitation or Acute Psychosis Levothyroxine Sodium 75 mcg 10/31/21 06:30 11/02/21 06:55 Levothyroxine 75 Mcg Tab PO Not Given DAILY@0630 [facility] Lorazepam 1 mg 10/29/21 18:21 Lorazepam 1 Mg Tab PO TID PRN Anxiety, Agitation Lorazepam 1 mg 10/29/21 18:32 Lorazepam 2 Mg/Ml Inj IM Q6HR PRN Agitation or Acute Anxiety Magnesium Hydroxide 2,400 mg 10/29/21 18:21 Magnesium Hydroxide 2,400 Mg/10 Ml Cup PO DAILY PRN Constipation Metoprolol Tartrate 25 mg 11/02/21 09:30 Metoprolol Tartrate 25 Mg Tab PO TID RAMBO Sertraline HCl 100 mg 10/30/21 11:15 11/02/21 08:21 Sertraline 100 Mg Tab PO 100 mg DAILY RAMBO Administration Trazodone HCl 50 mg 11/01/21 21:00 11/01/21 20:46 Trazodone Hcl 50 Mg Tab PO Not Given HS RAMBO 10/31/21 06:30 10/30/21 08:51
--- NOTE | 2021-11-02 11:21 | P.DS ---
Providers Date of admission: 10/29/21 18:19 Expected date of discharge: 11/02/21 Attending physician: Jordi Serrano MD Consults: 10/29/21 18:21 Consult Physician Routine Consulting Provider: Rodriguez Boudreaux Consult Reason/Comments: medical management Do you want consulting provider notified?: Yes 10/30/21 14:25 Consult Physician Urgent Consulting Provider: Shelly Son Consult Reason/Comments: syncope Do you want consulting provider notified?: Yes 10/30/21 20:21 Consult Physician Routine Consulting Provider: Nils Mejia Consult Reason/Comments: syncope, ROBINS , h/o seizure Do you want consulting provider notified?: Yes, Notify in am Primary care physician: Tiny Cornell - Discharge Diagnosis(es) (1) Major depressive disorder without psychotic features Current Visit: Yes Status: Acute Priority: High (2) Cluster B personality disorder Current Visit: Yes Status: Chronic Priority: Medium (3) PTSD (post-traumatic stress disorder) Current Visit: Yes Status: Chronic Priority: Medium Hospital Course: Admission HPI: Initial psychiatric evaluation was completed by Dr. Lemus on 10/30/2021 who wrote: "The patient is a 46-year-old female. She is presently homeless. She presented to the ED for evaluation. The patient was depressed. She had suicidal thinking. She had just been evicted from her boyfriend's home. She had thoughts of jumping off a bridge. The patient has had long-term psychiatric issues. She has had previous psych iatric hospitalizations here. Her last hospital stay was in 01/30/2021. At that time, she was diagnosed depression and PTSD. The patient was discharged on Zoloft 100 mg a day. She said that she had been taking the Zoloft through 3 or 4 months ago she went off Zoloft. She said it was due to her singing neurologist was giving her injections in her neck. She has not been on any psychotropic medications recently. She has not had mental health follow-up. She said that she was doing reasonably well up until just recently. She has had an on and off relationship with the boyfriend. She said everything came to ahead on when he told her to leave. She then felt very distressed and suicidal. She talked her parents encouraged her to come to the hospital. She said her parents are her only support. She does not been sleeping well of late. She has had hopeless and helpless feelings relating to the stress in her relationship. She denies having any hallucinations or delusional thinking. She does report posttraumatic issues including flashbacks and trigger episodes. She was vague about what the traumatic issues in her past work. She says that she has been struggling with some health issues of late which also have gotten her down in her mood. She does get significant anxiety and panic symptoms. She is admitted for further evaluation. Urine drug screen was positive for methamphetamines. She says that she does not knowingly do any drugs, though wondered if her now ex-boyfriend and on some methamphetamines in her. She denies use of other abuse of substances. Hospital course: Upon admission to the unit patient was initially noted to be restless and was very brief in her responses. She presented with an anxious affect. The patient was restarted on her home medication of Zoloft and Synthroid. The patient had elevated TSH on admission. When evaluated by this provider, the patient initially reported that she was doing much better. She did not endorse any suicidal or homicidal ideation, intention, and/or plan. Her primary concern when evaluated by this provider was her issues with sleep. She stated that her depression was getting better. Her also big concerns was her inability to trust others and her homelessness. The patient was continued on her medications and trazodone was added to her regimen to aid with insomnia. The patient presented with a bright affect on the unit and was appropriate with staff and peers. It is noted that she was often demanding with staff and was asking for financial examiner to get her to where she needs to go upon discharge. On the day of discharge, the patient expressed that she was upset that she was being discharged. She reported that she has seen multiple counselors and therapists and no one seemed to help. When asked about what her definition of help entails, the patient is unable to provide any adequate response. The patient is not endorsing any suicidal or homicidal ideation, intention, and/or plan. She is not reporting any auditory or visual hallucinations. She reports no paranoia or other delusions. The patient has been adherent with her medications but states that the Synthroid is causing her to feel somewhat drowsy. She was informed that this is not likely the case is Synthroid increases metabolism and is more activating. The patient does express a strong desire to live and has displayed future orientation. She reports that she plans to leave the state so that she may start a new as she has been "constantly screwed over" by people in [place]. This provider discussed at length with the patient the diagnosis of borderline personality disorder as the patient provided a significant history of unstable relationships, fear of abandonment, process artist trauma, mood d ysregulation, and impulsivity. We discussed at length the importance of therapy and dialectical behavioral therapy. The patient appears to be pre-contemplative at this time. She is annoyed with this provider for discharging her. The patient was counseled at length on the importance of medication adherence and appropriate follow-up. She denied any access to firearms or other weapons. The patient does not report any significant history of substance abuse however was counseled on abstaining from substances including alcohol and marijuana. As the patient displayed no significant criteria for continued inpatient psych at hospitalization, she was subsequently discharged. The patient was also seen by the medical team and an EKG is pending as per cardiology recommendations. This is to assess for presyncopal episode that the patient experienced prior to coming to the hospital. Mental status exam: General Appearance: Patient appears to be stated age is alert, somewhat irritable but cooperative. Patient is in no acute distress and has fair hygiene and grooming Behavior: Patient is calmly seated without any agitated behavior. Eye contact is appropriate. Speech: Patient's speech is fluent and nonpressured. Mood/Affect: Patient reports their mood is "annoyed with everyone", affect is congruent and irritable. Suicidality/Homicidality: Patient denies having any suicidal or homicidal ideation intent or plan. Perceptions: Patient denies any auditory or visual hallucinations. Though content/process: There is no evidence of any delusional thought content and thought process is linear and goal-directed. The patient appears to be future oriented. Memory and concentration: AOX3, grossly intact for the purposes of this session. Can spell "WORLD" backwards correctly. Judgment and insight: Improved with guarded prognosis Vital Signs Temp 98.5 F 11/02/21 09:40 Pulse 62 11/02/21 09:40 Resp 16 10/29/21 19:14 BP 150/85 11/02/21 09:40 Pulse Ox 99 10/29/21 16:50 Impression: Major depressive disorder, recurrent, severe Posttraumatic stress disorder Borderline personality disorder Plan: -Continue with discharge today as patient has improved and stabilized psychiatrically and is not currently an imminent threat to herself and/or others. Patient will remain at chronically elevated risk for harm to self and/or others due to her numerous psychosocial stressors, impulsivity, and limited insight. -Continue medications: Trazodone 50 mg by mouth at bedtime for insomnia Zoloft 100 mg by mouth daily for depression/PTSD Gabapentin 100 mg by mouth twice a day for neuropathy and off label use for anxiety Synthroid 75 g by mouth daily at 6:30 AM for hypothyroidism -Patient was counseled on the need for medication compliance and appropriate follow-up at mental health and also primary care for medical issues. Patient verbalized understanding and agreed. -Social work to arrange for and conduct family meeting to ensure safety upon discharge and answer any questions/concerns. Social work also to arrange for patients follow up appointments with CM for psychiatric care along with follow up with primary care provider. -Patient counseled on abstaining from recreational drugs and marijuana and alcohol. Was informed/educated on the adverse effects on their physical and mental health. Patient verbally agreed and understood. -Patient was instructed to return to the hospital or seek immediate medical care if their psychiatric or medical symptoms do worsen or reoccur. -Psychoeducation and supportive therapy provided to patient. Risks and benefits of pharmacological treatment versus the risks and benefits of nontreatment weight and discussed. Informed consent discussion held. Common side effects of psychotropics discussed such as, but not limited to headache, GI disturbance, sexual dysfunction, movement disorders, sedation, and orthostatic hypotension. Life threatening and blackbox warnings of prescribed medications also discussed. Potential risks of operating a vehicle or heavy machinery discussed with patient at length. Advised on importance of compliance and a reliable and responsible manner. Patient advised to review FDA consumer labeling of all medications prior to taking. Patient verbalized understanding of potential risks, and agrees with current treatment plan. Patient advised to medically contact physician/emergency personnel if any acute changes in condition occur. Laboratory Results WBC 10.9 k/uL (3.8-10.6) H 10/31/21 06:30 RBC 4.29 m/uL (3.80-5.40) 10/31/21 06:30 Hgb 12.9 gm/dL (11.4-16.0) 10/31/21 06:30 Hct 40.3 % (34.0-46.0) 10/31/21 06:30 MCV 93.8 fL (80.0-100.0) 10/31/21 06:30 MCH 30.0 pg (25.0-35.0) 10/31/21 06:30 MCHC 32.0 g/dL (31.0-37.0) 10/31/21 06:30 RDW 13.1 % (11.5-15.5) 10/31/21 06:30 Plt Count 336 k/uL (150-450) 10/31/21 06:30 MPV 7.1 10/31/21 06:30 Neutrophils % 69 % 10/31/21 06:30 Lymphocytes % 23 % 10/31/21 06:30 Monocytes % 5 % 10/31/21 06:30 Eosinophils % 2 % 10/31/21 06:30 Basophils % 1 % 10/31/21 06:30 Neutrophils # 7.5 k/uL (1.3-7.7) 10/31/21 06:30 Lymphocytes # 2.5 k/uL (1.0-4.8) 10/31/21 06:30 Monocytes # 0.5 k/uL (0-1.0) 10/31/21 06:30 Eosinophils # 0.2 k/uL (0-0.7) 10/31/21 06:30 Basophils # 0.1 k/uL (0-0.2) 10/31/21 06:30 Sodium 137 mmol/L (137-145) 10/30/21 08:51 Potassium 4.1 mmol/L (3.5-5.1) 10/30/21 08:51 Chloride 102 mmol/L (98-107) 10/30/21 08:51 Carbon Dioxide 27 mmol/L (22-30) 10/30/21 08:51 Anion Gap 8 mmol/L 10/30/21 08:51 BUN 11 mg/dL (7-17) 10/30/21 08:51 Creatinine 0.82 mg/dL (0.52-1.04) 10/30/21 08:51 Est GFR (CKD-EPI)AfAm >90 (>60 ml/min/1.73 sqM) 10/30/21 08:51 Est GFR (CKD-EPI)NonAf 87 (>60 ml/min/1.73 sqM) 10/30/21 08:51 Glucose 198 mg/dL (74-99) H 10/30/21 08:51 POC Glucose (mg/dL) 158 mg/dL (75-99) H 11/02/21 08:00 POC Glu [employer] Technician ID Marino Jaimes 11/02/21 08:[address] Glu mg/dL 183 10/30/21 08:51 Hemoglobin A1c 8.0 % (4.0-6.0) H 10/30/21 08:51 Calcium 8.5 mg/dL (8.4-10.2) 10/30/21 08:51 Total Bilirubin 0.8 mg/dL (0.2-1.3) 10/30/21 08:51 AST 34 U/L (14-36) 10/30/21 08:51 ALT 37 U/L (4-34) H 10/30/21 08:51 Alkaline Phosphatase 74 U/L (38-126) 10/30/21 08:51 Troponin I <0.012 ng/mL (0.000-0.034) 10/30/21 12:48 Total Protein 7.2 g/dL (6.3-8.2) 10/30/21 08:51 Albumin 4.0 g/dL (3.5-5.0) 10/30/21 08:51 Triglycerides 170.00 mg/dL (0.00-149.00) H 10/30/21 08:51 Cholesterol 179.00 mg/dL (0.00-200.00) 10/30/21 08:51 LDL Cholesterol, Calc 115.1 mg/dL (0.0-131.0) 10/30/21 08:51 VLDL Cholesterol, Calc 34.00 mg/dL (5.00-40.00) 10/30/21 08:51 HDL Cholesterol 29.90 mg/dL (40.00-60.00) L 10/30/21 08:51 Cholesterol/HDL Ratio 5.99 Ratio 10/30/21 08:51 TSH 7.920 mIU/L (0.465-4.680) H 10/30/21 12:48 Free T4 0.74 ng/dL (0.78-2.19) L 10/30/21 12:48 HCG, Qual Not Detected 10/30/21 12:48 Urine HCG, Qual Not Detected (Not Detectd) 10/29/21 15:58 Urine Opiates Screen Not Detected (NotDetected) 10/29/21 15:58 Ur Oxycodone Screen Not Detected (NotDetected) 10/29/21 15:58 Urine Methadone Screen Not Detected (NotDetected) 10/29/21 15:58 Ur Propoxyphene Screen Not Detected (NotDetected) 10/29/21 15:58 Ur Barbiturates Screen Not Detected (NotDetected) 10/29/21 15:58 U Tricyclic Antidepress Not Detected (NotDetected) 10/29/21 15:58 Ur Phencyclidine Scrn Not Detected (NotDetected) 10/29/21 15:58 Ur Amphetamines Screen Not Detected (NotDetected) 10/29/21 15:58 U Methamphetamines Scrn Detected (NotDetected) H 10/29/21 15:58 U Benzodiazepines Scrn Not Detected (NotDetected) 10/29/21 15:58 Urine Cocaine Screen Not Detected (NotDetected) 10/29/21 15:58 U Marijuana (THC) Screen Not Detected (NotDetected) 10/29/21 15:58 Coronavirus (PCR) Not Detected (Not Detectd) 10/29/21 15:18 Allergies Allergy/AdvReac Type Severity Reaction Status Date / Time niacin [From Simcor] Allergy Severe "JUDGE UP" Verified 10/29/21 15:16 tree nut [Nut] Allergy Severe Unknown Verified 10/29/21 15:16 peanut AdvReac Severe Rash/Hives Verified 10/29/21 15:16 simvastatin [From Simcor] AdvReac Severe "JUDGE UP" Verified 10/29/21 15:16 Patient Condition at Discharge: Stable Plan - Discharge Summary Discharge Rx Participant: No New Discharge Prescriptions: New traZODone HCL [Desyrel] 50 mg PO HS 30 Days tab Sertraline [Zoloft] 100 mg PO DAILY 30 Days tab Metoprolol Tartrate [Lopressor] 25 mg PO TID 30 Days tab Gabapentin [Neurontin] 100 mg PO BID 30 Days cap Levothyroxine Sodium [Synthroid] 75 mcg PO DAILY@0630 30 Days tab Continue medroxyPROGESTERone [Depo-Provera] 150 mg IM Q84D Discharge Medication List medroxyPROGESTERone [Depo-Provera] 150 mg IM Q84D 02/25/20 [History] Gabapentin [Neurontin] 100 mg PO BID 30 Days cap 11/02/21 [Rx] Levothyroxine Sodium [Synthroid] 75 mcg PO DAILY@0630 30 Days tab 11/02/21 [Rx] Metoprolol Tartrate [Lopressor] 25 mg PO TID 30 Days tab 11/02/21 [Rx] Sertraline [Zoloft] 100 mg PO DAILY 30 Days tab 11/02/21 [Rx] traZODone HCL [Desyrel] 50 mg PO HS 30 Days tab 11/02/21 [Rx] Follow up Appointment(s)/Referral(s): [facility] [Outside] - 11/09/21 11:30 am (With Soumya) Eli Palmer MD [STAFF PHYSICIAN] - 3 Weeks Tiny Cornell MD [Primary Care Provider] - 1 Week (f/u with margo treviño) Activity/Diet/Wound Care/Special Instructions: Activity and diet as tolerated. Avoid the use of street drugs and alcohol. Take all medications as prescribed. When you are in need of refills on your medications please contact your medical provider and/or outpatient psychiatrist to have this done. Please go to scheduled outpatient appointment for aftercare treatment. If symptoms return or become worse, call the crisis line at and/or go to the nearest emergency room for evaluation Patient to follow up outpatient with OBGYN regarding Amenorrhea. Patient to follow up with Neurology regarding patient reporting seizure history. Discharge Disposition: HOME SELF-CARE
[2021-11-03] MEDS ORDERED: METOPROLOL TARTRATE 25 MG TAB PO SCH (09:00)
== END 2021-11-02 14:15 | disposition home or self-care (01) | DRG 885 ==
LOC: EC 13:36 → 3MHU 18:19
PROVIDERS: ADMIT Psychiatry & Neurology Psychiatry; ATTEND Psychiatry & Neurology Psychiatry
DX: F31.30 Bipolar disorder, current episode depressed, mild or moderate severity, unspecified (principal); R45.851 Suicidal ideations; Z68.42 Body mass index [BMI] 45.0-49.9, adult; E03.9 Hypothyroidism, unspecified; E11.9 Type 2 diabetes mellitus without complications; E66.01 Morbid (severe) obesity due to excess calories; F43.10 Post-traumatic stress disorder, unspecified; F60.3 Borderline personality disorder; F60.89 Other specific personality disorders; G40.909 Epilepsy, unspecified, not intractable, without status epilepticus; G47.00 Insomnia, unspecified; G62.9 Polyneuropathy, unspecified; I10 Essential (primary) hypertension; J45.909 Unspecified asthma, uncomplicated; K58.9 Irritable bowel syndrome, unspecified; M54.81 Occipital neuralgia; Z20.822 Contact with and (suspected) exposure to COVID-19; Z59.00 Homelessness unspecified; Z79.890 Hormone replacement therapy; Z79.899 Other long term (current) drug therapy; Z82.0 Family history of epilepsy and other diseases of the nervous system; Z82.49 Family history of ischemic heart disease and other diseases of the circulatory system; Z83.3 Family history of diabetes mellitus; Z87.820 Personal history of traumatic brain injury
CPT/HCPCS: 71045; 80053; 80061; 80306; 81025; 82075; 83036; 84439; 84443; 84484; 84703; 85025; 85027; 87635; 93005; 99285

== ENCOUNTER 2022-04-15 09:38 | Emergency (ER) | payer OTHER ==
[2022-04-15 09:56] VITALS: BP 131/81; PULSE 97; RESP 18; TEMP 98.7
[2022-04-15] MEDS ORDERED: SODIUM CHLORIDE 0.9% 1,000 ML IV STA (10:28)
[2022-04-15] MEDS ORDERED: METOCLOPRAMIDE 5 MG/ML 2 ML VIAL IVP STA (10:28)
[2022-04-15] MEDS ORDERED: MORPHINE SULFATE 2 MG/ML SYRINGE IVP STA (10:28)
[2022-04-15] MEDS ORDERED: FAMOTIDINE 20 MG/2 ML VIAL IV STA (10:29)
--- NOTE | 2022-04-15 10:44 | ED ---
Abdominal Pain HPI - General Chief Complaint: Abdominal Pain Stated Complaint: Spotting,Abdominal pain and side pain Time Seen by Provider: 04/15/22 10:00 Source: patient, RN notes reviewed Mode of arrival: ambulatory Limitations: no limitations - History of Present Illness Initial Comments: This is a 46-year-old female who presents to the emergency department for upper abdominal pain, nausea, vomiting, and vaginal spotting for 2 weeks. She tried taking Zofran at home for the nausea, and this has not improved her symptoms. She also reports a decreased appetite. She has been on the Depakote shot for approximately one year and is not due for the next one until 04/18. However, her physician is out of the office until 04/27, and she is unable to receive the shot until then. Additionally, she reports on and off chest pain with left arm numbness. Also states that she has shortness of breath, however she has asthma and there are not any medications that work for her. States that this has been a long-standing problem for several months. Gastrointestinal problems are also a chronic issue for her. She had a colonoscopy and EGD in 2018. She follows with Dr. Villaseñor for this. Denies any fevers, chills, sore throat, cough, palpitations, diarrhea, back pain, or headaches. MD Complaint: abdominal pain Onset/Timin -: week(s) Location: epigastric Radiation: LLQ Associated Symptoms: nausea, vomiting - Related Data Home Medications Medication Instructions Recorded Confirmed medroxyPROGESTERone [Depo-Provera] 150 mg IM Q84D 02/25/20 10/29/21 Previous Rx's Medication Instructions Recorded Gabapentin [Neurontin] 100 mg PO BID 30 Days cap 11/02/21 Levothyroxine Sodium [Synthroid] 75 mcg PO DAILY@0630 30 Days tab 11/02/21 Metoprolol Tartrate [Lopressor] 25 mg PO DAILY 30 Days #30 tab 11/02/21 Sertraline [Zoloft] 100 mg PO DAILY 30 Days tab 11/02/21 traZODone HCL [Desyrel] 50 mg PO HS 30 Days tab 11/02/21 Allergies Allergy/AdvReac Type Severity Reaction Status Date / Time niacin [From Simcor] Allergy Severe "JUDGE UP" Verified 04/15/22 09:56 tree nut [Nut] Allergy Severe Unknown Verified 04/15/22 09:56 peanut AdvReac Severe Rash/Hives Verified 04/15/22 09:56 simvastatin [From Simcor] AdvReac Severe "JUDGE UP" Verified 04/15/22 09:56 Review of Systems ROS Statement: Those systems with pertinent positive or pertinent negative responses have been documented in the HPI. ROS Other: All systems not noted in ROS Statement are negative. Past Medical History Past Medical History: Asthma, Hypertension, Memory Impairment, Seizure Disorder Additional Past Medical History / Comment(s): mood disorder, IBS, TBI History of Any Multi-Drug Resistant Organisms: None Reported Past Surgical History: Section, Cholecystectomy, Orthopedic Surgery, Tubal Ligation Additional Past Surgical History / Comment(s): knee, RIGHT FOOT SURGERY 15+ YEARS AGO Past Anesthesia/Blood Transfusion Reactions: No Reported Reaction Past Psychological History: ADD/ADHD, Bipolar, Depression, PTSD Smoking Status: Never smoker Past Alcohol Use History: None Reported Past Drug Use History: None Reported - Past Family History Mother History Unknown: Yes Additional Family Medical History / Comment(s): Patient states that her mother is from cancer. Father Family Medical History: Coronary Artery Disease (CAD), Diabetes Mellitus Daughter(s) Family Medical History: No Reported History General Exam Limitations: no limitations General appearance: alert, in distress Head exam: Present: atraumatic, normocephalic, normal inspection Respiratory exam: Present: normal lung sounds bilaterally. Absent: respiratory distress, wheezes, rales, rhonchi, stridor Cardiovascular Exam: Present: regular rate, normal rhythm, normal heart sounds. Absent: systolic murmur, diastolic murmur, rubs, gallop, clicks GI/Abdominal exam: Present: soft, tenderness (epigastric and LLQ), normal bowel sounds. Absent: distended, guarding, rebound, rigid Neurological exam: Present: alert, oriented X3, CN II-XII intact Psychiatric exam: Present: normal affect, normal mood Skin exam: Present: warm, dry, intact, normal color. Absent: rash Course Vital Signs 04/15/22 09:52 Temperature 98.7 F Pulse Rate 97 Respiratory 18 Rate Blood Pressure 131/81 O2 Sat by Pulse 95 Oximetry Medical Decision Making - Medical Decision Making This is a 46-year-old female who presents to the emergency department for multiple complaints. Patient was given IV fluids, Reglan, Morphine, and Pepcid. Patient states that after receiving 2 mg of morphine, she became very shaky and anxious. She did not like the way she felt. We advised the patient that this can sometimes occur with morphine. Patient requests discharge, stating she is too anxious and worked up to stay here. We advised that if she was not feeling well, it would be best to stay here, and advised that the feeling should pass and there are other interventions we can do to help her. Patient declined and requested to sign out against medical advice. AMA forms were signed and the patient left. - Lab Data Result diagrams: 04/15/22 10:57 04/15/22 10:57 Lab Results 04/15/22 04/15/22 04/15/22 Range/Units 10:48 10:57 10:57 WBC 10.0 (3.8-10.6) k/uL RBC 4.24 (3.80-5.40) m/uL Hgb 12.5 (11.4-16.0) gm/dL Hct 38.4 (34.0-46.0) % MCV 90.6 (80.0-100.0) fL MCH 29.4 (25.0-35.0) pg MCHC 32.5 (31.0-37.0) g/dL RDW 13.6 (11.5-15.5) % Plt Count 352 (150-450) k/uL MPV 7.1 Neutrophils % 67 % Lymphocytes % 24 % Monocytes % 4 % Eosinophils % 2 % Basophils % 0 % Neutrophils # 6.7 (1.3-7.7) k/uL Lymphocytes # 2.4 (1.0-4.8) k/uL Monocytes # 0.4 (0-1.0) k/uL Eosinophils # 0.2 (0-0.7) k/uL Basophils # 0.0 (0-0.2) k/uL Sodium 142 (137-145) mmol/L Potassium 4.0 (3.5-5.1) mmol/L Chloride 104 (98-107) mmol/L Carbon Dioxide 30 (22-30) mmol/L Anion Gap 8 mmol/L BUN 6 L (7-17) mg/dL Creatinine 0.77 (0.52-1.04) mg/dL Est GFR (CKD-EPI)AfAm >90 (>60 ml/min/1.73 sqM) Est GFR (CKD-EPI)NonAf >90 (>60 ml/min/1.73 sqM) Glucose 114 H (74-99) mg/dL Calcium 8.7 (8.4-10.2) mg/dL Magnesium 2.1 (1.6-2.3) mg/dL Total Bilirubin 0.4 (0.2-1.3) mg/dL AST 29 (14-36) U/L ALT 30 (4-34) U/L Alkaline Phosphatase 65 (38-126) U/L Troponin I (0.000-0.034) ng/mL Total Protein 7.1 (6.3-8.2) g/dL Albumin 4.3 (3.5-5.0) g/dL Amylase 66 (30-110) U/L Lipase 170 (23-300) U/L HCG, Qual Not Detected Urine Color Yellow Urine Appearance Cloudy H (Clear) Urine pH 6.0 (5.0-8.0) Ur Specific [place] 1.017 (1.001-1.035) Urine Protein 1+ H (Negative) Urine Glucose (UA) Negative (Negative) Urine Ketones Negative (Negative) Urine Blood Large H (Negative) Urine Nitrite Negative (Negative) Urine Bilirubin Negative (Negative) Urine Urobilinogen <2.0 (<2.0) mg/dL Ur Leukocyte Esterase Small H (Negative) Urine RBC >182 H (0-5) /hpf Urine WBC 11 H (0-5) /hpf Ur Squamous Epith Cells 16 H (0-4) /hpf Urine Mucus Moderate H (None) /hpf 04/15/22 Range/Units 10:57 WBC (3.8-10.6) k/uL RBC (3.80-5.40) m/uL Hgb (11.4-16.0) gm/dL Hct (34.0-46.0) % MCV (80.0-100.0) fL MCH (25.0-35.0) pg MCHC (31.0-37.0) g/dL RDW (11.5-15.5) % Plt Count (150-450) k/uL MPV Neutrophils % % Lymphocytes % % Monocytes % % Eosinophils % % Basophils % % Neutrophils # (1.3-7.7) k/uL Lymphocytes # (1.0-4.8) k/uL Monocytes # (0-1.0) k/uL Eosinophils # (0-0.7) k/uL Basophils # (0-0.2) k/uL Sodium (137-145) mmol/L Potassium (3.5-5.1) mmol/L Chloride (98-107) mmol/L Carbon Dioxide (22-30) mmol/L Anion Gap mmol/L BUN (7-17) mg/dL Creatinine (0.52-1.04) mg/dL Est GFR (CKD-EPI)AfAm (>60 ml/min/1.73 sqM) Est GFR (CKD-EPI)NonAf (>60 ml/min/1.73 sqM) Glucose (74-99) mg/dL Calcium (8.4-10.2) mg/dL Magnesium (1.6-2.3) mg/dL Total Bilirubin (0.2-1.3) mg/dL AST (14-36) U/L ALT (4-34) U/L Alkaline Phosphatase (38-126) U/L Troponin I <0.012 (0.000-0.034) ng/mL Total Protein (6.3-8.2) g/dL Albumin (3.5-5.0) g/dL Amylase (30-110) U/L Lipase (23-300) U/L HCG, Qual Urine Color Urine Appearance (Clear) Urine pH (5.0-8.0) Ur Specific [place] (1.001-1.035) Urine Protein (Negative) Urine Glucose (UA) (Negative) Urine Ketones (Negative) Urine Blood (Negative) Urine Nitrite (Negative) Urine Bilirubin (Negative) Urine Urobilinogen (<2.0) mg/dL Ur Leukocyte Esterase (Negative) Urine RBC (0-5) /hpf Urine WBC (0-5) /hpf Ur Squamous Epith Cells (0-4) /hpf Urine Mucus (None) /hpf - EKG Data EKG Comments: Sinus rhythm with occasional ventricular premature complexes. Ventricular rate 89 bpm, AL interval 203 ms, QRS duration 88 ms, QTC 414 ms. Disposition Clinical Impression: Nausea and vomiting Disposition: Left Against Medical Advice Referrals: Tiny Cornell MD [Primary Care Provider] - 1-2 days
[2022-04-15 11:16] LABS: Appearance,Urine Cloudy (Clear); Bilirubin,Urine Negative (Negative); Blood,Urine Large (Negative); Color,Urine Yellow; Glucose,Urine (UA) Negative (Negative); Ketones,Urine Negative (Negative); Leukocyte Esterase,Urine Small (Negative); Mucus,Urine Moderate /hpf; Nitrite,Urine Negative (Negative); Protein,Urine 1+ (Negative); RBC,Urine >182 /hpf (0-5); Specific Gravity,Urine 1.017 (1.001-1.035); Squamous Epithelial Cell,Urine 16 /hpf (0-4); Urobilinogen,Urine <2.0 mg/dL (<2.0); WBC,Urine 11 /hpf (0-5)
[2022-04-15 11:19] LABS: Basophils % (A) 0 %; Eosinophils # (A) 0.2 k/uL (0-0.7); Eosinophils % (A) 2 %; HCT 38.4 % (34.0-46.0); HGB 12.5 gm/dL (11.4-16.0); Lymphocytes # (A) 2.4 k/uL (1.0-4.8); Lymphocytes % (A) 24 %; MCH 29.4 pg (25.0-35.0); MCHC 32.5 g/dL (31.0-37.0); MCV 90.6 fL (80.0-100.0); Mean Platelet Volume 7.1; Monocytes # (A) 0.4 k/uL (0-1.0); Monocytes % (A) 4 %; Neutrophils # (A) 6.7 k/uL (1.3-7.7); Neutrophils % (A) 67 %; Platelet Count 352 k/uL (150-450); RBC 4.24 m/uL (3.80-5.40); RDW 13.6 % (11.5-15.5)
[2022-04-15 11:27] LABS: HCG,Qualitative Serum Not Detected
[2022-04-15 11:29] LABS: ALT 30 U/L (4-34); AST 29 U/L (14-36); African American GFR (CKD) >90 (>60 ml/min/1.73 sqM); Albumin 4.3 g/dL (3.5-5.0); Alkaline Phosphatase 65 U/L (38-126); Amylase 66 U/L (30-110); Anion Gap 8 mmol/L; Blood Urea Nitrogen 6 mg/dL (7-17); Calcium 8.7 mg/dL (8.4-10.2); Carbon Dioxide 30 mmol/L (22-30); Chloride 104 mmol/L (98-107); Glucose 114 mg/dL (74-99); Lipase 170 U/L (23-300); Magnesium 2.1 mg/dL (1.6-2.3); Non-African American GFR(CKD) >90 (>60 ml/min/1.73 sqM); Sodium 142 mmol/L (137-145); Total Bilirubin 0.4 mg/dL (0.2-1.3); Total Protein 7.1 g/dL (6.3-8.2)
== END 2022-04-15 11:30 | disposition left against medical advice (07) ==
LOC: EC 09:38
DX: R11.2 Nausea with vomiting, unspecified (principal); R10.13 Epigastric pain; R10.32 Left lower quadrant pain; I10 Essential (primary) hypertension; J45.909 Unspecified asthma, uncomplicated; G40.909 Epilepsy, unspecified, not intractable, without status epilepticus; F31.9 Bipolar disorder, unspecified; F90.9 Attention-deficit hyperactivity disorder, unspecified type; Z79.890 Hormone replacement therapy; Z79.899 Other long term (current) drug therapy
CPT/HCPCS: 36415; 93005; 80053; 82150; 83690; 83735; 84484; 85025; 81001; 84703; 87086; 99285; 96374; 96375 ×2; 96361; J2765; J2270

== ENCOUNTER 2022-04-29 23:42 | Emergency (ER) | payer OTHER ==
[2022-04-30 00:01] VITALS: TEMP 99
--- NOTE | 2022-04-30 01:00 | ED ---
Psych HPI - General Chief Complaint: Psychiatric Symptoms Stated Complaint: Anxiety Time Seen by Provider: 04/30/22 00:02 Source: patient, EMS Mode of arrival: EMS - History of Present Illness MD Complaint: feels depressed -: days(s) Associated Psychiatric Symptoms: depression History of same: Yes Quality: getting worse Improves With: none Worsens With: none Context: significant life stressor - Related Data Home Medications Medication Instructions Recorded Confirmed medroxyPROGESTERone [Depo-Provera] 150 mg IM Q84D 02/25/20 10/29/21 Previous Rx's Medication Instructions Recorded Gabapentin [Neurontin] 100 mg PO BID 30 Days cap 11/02/21 Levothyroxine Sodium [Synthroid] 75 mcg PO DAILY@0630 30 Days tab 11/02/21 Metoprolol Tartrate [Lopressor] 25 mg PO DAILY 30 Days #30 tab 11/02/21 Sertraline [Zoloft] 100 mg PO DAILY 30 Days tab 11/02/21 traZODone HCL [Desyrel] 50 mg PO HS 30 Days tab 11/02/21 Allergies Allergy/AdvReac Type Severity Reaction Status Date / Time niacin [From Simcor] Allergy Severe "JUDGE UP" Verified 04/15/22 09:56 tree nut [Nut] Allergy Severe Unknown Verified 04/15/22 09:56 peanut AdvReac Severe Rash/Hives Verified 04/15/22 09:56 simvastatin [From Simcor] AdvReac Severe "JUDGE UP" Verified 04/15/22 09:56 Review of Systems ROS Statement: Those systems with pertinent positive or pertinent negative responses have been documented in the HPI. ROS Other: All systems not noted in ROS Statement are negative. Constitutional: Denies: fever Respiratory: Denies: cough, dyspnea Cardiovascular: Denies: chest pain, palpitations, edema Gastrointestinal: Denies: abdominal pain, vomiting, diarrhea Genitourinary: Denies: dysuria, hematuria Musculoskeletal: Denies: back pain Skin: Denies: rash Neurological: Denies: headache Psychiatric: Reports: anxiety, depression. Denies: auditory hallucinations, visual hallucinations, homicidal thoughts Past Medical History Past Medical History: Asthma, Hypertension, Memory Impairment, Seizure Disorder Additional Past Medical History / Comment(s): mood disorder, IBS, TBI History of Any Multi-Drug Resistant Organisms: None Reported Past Surgical History: Section, Cholecystectomy, Orthopedic Surgery, Tubal Ligation Additional Past Surgical History / Comment(s): knee, RIGHT FOOT SURGERY 15+ YEARS AGO Past Anesthesia/Blood Transfusion Reactions: No Reported Reaction Past Psychological History: ADD/ADHD, Bipolar, Depression, PTSD Smoking Status: Never smoker Past Alcohol Use History: None Reported Past Drug Use History: None Reported - Past Family History Mother History Unknown: Yes Additional Family Medical History / Comment(s): Patient states that her mother is from cancer. Father Family Medical History: Coronary Artery Disease (CAD), Diabetes Mellitus Daughter(s) Family Medical History: No Reported History General Exam Limitations: no limitations General appearance: alert, in no apparent distress Head exam: Present: atraumatic, normocephalic Eye exam: Present: normal appearance. Absent: scleral icterus, conjunctival injection Neck exam: Present: normal inspection Respiratory exam: Present: normal lung sounds bilaterally. Absent: respiratory distress, wheezes, rales, rhonchi, stridor Cardiovascular Exam: Present: regular rate, normal rhythm, normal heart sounds. Absent: systolic murmur, diastolic murmur, rubs, gallop GI/Abdominal exam: Present: soft. Absent: distended, tenderness, guarding, rebound, rigid, mass Extremities exam: Present: normal inspection, normal capillary refill. Absent: pedal edema, calf tenderness Back exam: Present: normal inspection. Absent: CVA tenderness (R), CVA tenderness (L) Neurological exam: Present: alert Skin exam: Present: warm, dry, intact, normal color. Absent: rash Course Vital Signs 04/29/22 23:55 Temperature 99 F Pulse Rate 91 Respiratory 16 Rate O2 Sat by Pulse 96 Oximetry Disposition Clinical Impression: Mood disorder Disposition: HOME SELF-CARE Condition: Good Instructions (If sedation given, give patient instructions): Mood Disorders (ED) Is patient prescribed a controlled substance at d/c from ED?: No Referrals: Tiny Cornell MD [Primary Care Provider] - 1-2 days
[2022-04-30 07:45] VITALS: BP 132/78; PULSE 90; RESP 18
== END 2022-04-30 07:45 | disposition home or self-care (01) ==
LOC: EC 23:42
DX: F39 Unspecified mood [affective] disorder (principal); I10 Essential (primary) hypertension; J45.909 Unspecified asthma, uncomplicated; G40.909 Epilepsy, unspecified, not intractable, without status epilepticus; F31.9 Bipolar disorder, unspecified; Z79.890 Hormone replacement therapy; Z79.899 Other long term (current) drug therapy
CPT/HCPCS: 99284

== ENCOUNTER 2022-05-25 10:08 | Emergency (ER) | payer OTHER ==
[2022-05-25 10:24] VITALS: TEMP 97.8
[2022-05-25] MEDS ORDERED: SODIUM CHLORIDE 0.9% 1,000 ML IV STA (10:41)
[2022-05-25] MEDS ORDERED: FAMOTIDINE 20 MG/2 ML VIAL IV STA (10:42)
[2022-05-25] MEDS ORDERED: DICYCLOMINE 20 MG TAB PO STA (10:42)
--- NOTE | 2022-05-25 10:47 | ED ---
General Adult HPI - General Chief complaint: Abdominal Pain Stated complaint: ABD pain, black feces Time Seen by Provider: 05/25/22 10:38 Source: patient, RN notes reviewed, old records reviewed Mode of arrival: ambulatory Limitations: no limitations - History of Present Illness Initial comments: 46-year-old female presents to the emergency room with complaints of abdominal bloating, cramping and frequent stools. Patient states that her stools have b een changing colors, dark almost black, then green and then light brown. She does have a history of irritable bowel syndrome and has been seen by Dr. Park in the past. She denies any vomiting. No fevers, no chest pain or difficulty breathing. Patient was seen last month for similar symptoms. She states there is no chance of and is on Depo shot. She does have a history of asthma, hypertension, diabetes, anxiety and seizure disorder. States that she is homeless at this time. -: month(s) Location: abdomen Radiation: non-radiation Severity scale (1-10): 5 Quality: other (cramping) Consistency: intermittent Improves with: none Associated Symptoms: other (diarrhea, bloating) Treatments Prior to Arrival: none - Related Data Previous Rx's Medication Instructions Recorded Dicyclomine [Bentyl] 20 mg PO QID #60 tablet 05/25/22 Allergies Allergy/AdvReac Type Severity Reaction Status Date / Time niacin [From Simcor] Allergy Severe "JUDGE UP" Verified 05/25/22 11:05 tree nut [Nut] Allergy Severe Unknown Verified 05/25/22 11:05 peanut AdvReac Severe Rash/Hives Verified 05/25/22 11:05 simvastatin [From Simcor] AdvReac Severe "JUDGE UP" Verified 05/25/22 11:05 ibuprofen AdvReac Hallucinati Verified 05/25/22 11:05 ons Review of Systems ROS Statement: Those systems with pertinent positive or pertinent negative responses have been documented in the HPI. ROS Other: All systems not noted in ROS Statement are negative. Past Medical History Past Medical History: Asthma, Diabetes Mellitus, Hypertension, Memory Impairment, Seizure Disorder Additional Past Medical History / Comment(s): mood disorder, IBS, TBI History of Any Multi-Drug Resistant Organisms: None Reported Past Surgical History: Section, Cholecystectomy, Orthopedic Surgery, Tubal Ligation Additional Past Surgical History / Comment(s): knee, RIGHT FOOT SURGERY 15+ YEARS AGO Past Anesthesia/Blood Transfusion Reactions: No Reported Reaction Past Psychological History: ADD/ADHD, Bipolar, Depression, PTSD Smoking Status: Never smoker Past Alcohol Use History: None Reported Past Drug Use History: None Reported - Past Family History Mother History Unknown: Yes Additional Family Medical History / Comment(s): Patient states that her mother is from cancer. Father Family Medical History: Coronary Artery Disease (CAD), Diabetes Mellitus Daughter(s) Family Medical History: No Reported History General Exam Limitations: no limitations General appearance: alert, in no apparent distress Head exam: Present: atraumatic Eye exam: Absent: scleral icterus, conjunctival injection, periorbital swelling ENT exam: Present: mucous membranes moist Neck exam: Absent: meningismus Respiratory exam: Present: normal lung sounds bilaterally. Absent: respiratory distress, accessory muscle use Cardiovascular Exam: Present: regular rate GI/Abdominal exam: Present: soft, tenderness (diffuse). Absent: rigid Extremities exam: Present: full ROM, normal capillary refill Back exam: Absent: tenderness, CVA tenderness (R), CVA tenderness (L) Neurological exam: Present: alert, oriented X3 Psychiatric exam: Present: anxious Skin exam: Present: warm, dry, normal color. Absent: cyanosis, diaphoretic, pallor Course Vital Signs 05/25/22 10:19 Temperature 97.8 F Pulse Rate 94 Respiratory 20 Rate Blood Pressure 137/72 O2 Sat by Pulse 96 Oximetry Medical Decision Making - Medical Decision Making There is no evidence of leukocytosis, hemoglobin and hematocrit are stable. Electrolytes are unremarkable. There is no evidence of urinary tract infection. X-ray shows a nonspecific bowel gas pattern with no evidence of acute process. Cholecystectomy clips are present. Patient has been afebrile. Vital signs are stable. No right lower quadrant pain. No vomiting or diarrhea in the emergency room. This is likely the patient's irritable bowel syndrome. She'll be prescribed Bentyl. Directed to follow up with Dr. Villaseñor and her primary care doctor next week. Patient is agreeable to this plan of care. Case discussed with Dr. Rodriguez. - Lab Data Result diagrams: 05/25/22 10:58 05/25/22 10:58 Lab Results 05/25/22 05/25/22 05/25/22 Range/Units 10:58 10:58 10:58 WBC 9.0 (3.8-10.6) k/uL RBC 4.56 (3.80-5.40) m/uL Hgb 13.5 (11.4-16.0) gm/dL Hct 41.6 (34.0-46.0) % MCV 91.2 (80.0-100.0) fL MCH 29.5 (25.0-35.0) pg MCHC 32.4 (31.0-37.0) g/dL RDW 13.2 (11.5-15.5) % Plt Count 335 (150-450) k/uL MPV 7.3 Neutrophils % 67 % Lymphocytes % 25 % Monocytes % 4 % Eosinophils % 2 % Basophils % 0 % Neutrophils # 6.0 (1.3-7.7) k/uL Lymphocytes # 2.3 (1.0-4.8) k/uL Monocytes # 0.3 (0-1.0) k/uL Eosinophils # 0.2 (0-0.7) k/uL Basophils # 0.0 (0-0.2) k/uL Sodium 139 (137-145) mmol/L Potassium 4.2 (3.5-5.1) mmol/L Chloride 105 (98-107) mmol/L Carbon Dioxide 25 (22-30) mmol/L Anion Gap 9 mmol/L BUN 9 (7-17) mg/dL Creatinine 0.90 (0.52-1.04) mg/dL Est GFR (CKD-EPI)AfAm 90 (>60 ml/min/1.73 sqM) Est GFR (CKD-EPI)NonAf 78 (>60 ml/min/1.73 sqM) Glucose 108 H (74-99) mg/dL Plasma Lactic Acid Eduardo (0.7-2.0) mmol/L Calcium 9.0 (8.4-10.2) mg/dL Total Bilirubin 1.0 (0.2-1.3) mg/dL AST 40 H (14-36) U/L ALT 53 H (4-34) U/L Alkaline Phosphatase 70 (38-126) U/L Total Protein 7.6 (6.3-8.2) g/dL Albumin 4.6 (3.5-5.0) g/dL Amylase 53 (30-110) U/L Lipase 150 (23-300) U/L Urine Color Yellow Urine Appearance Cloudy H (Clear) Urine pH 6.5 (5.0-8.0) Ur Specific [place] 1.022 (1.001-1.035) Urine Protein 1+ H (Negative) Urine Glucose (UA) Negative (Negative) Urine Ketones 2+ H (Negative) Urine Blood Trace H (Negative) Urine Nitrite Negative (Negative) Urine Bilirubin Negative (Negative) Urine Urobilinogen 2.0 (<2.0) mg/dL Ur Leukocyte Esterase Small H (Negative) Urine RBC 3 (0-5) /hpf Urine WBC 5 (0-5) /hpf Ur Squamous Epith Cells 28 H (0-4) /hpf Calcium Oxalate Crystal Rare H (None) /hpf Amorphous Sediment Rare H (None) /hpf Urine Bacteria Rare H (None) /hpf Urine Mucus Occasional H (None) /hpf 05/25/22 Range/Units 10:58 WBC (3.8-10.6) k/uL RBC (3.80-5.40) m/uL Hgb (11.4-16.0) gm/dL Hct (34.0-46.0) % MCV (80.0-100.0) fL MCH (25.0-35.0) pg MCHC (31.0-37.0) g/dL RDW (11.5-15.5) % Plt Count (150-450) k/uL MPV Neutrophils % % Lymphocytes % % Monocytes % % Eosinophils % % Basophils % % Neutrophils # (1.3-7.7) k/uL Lymphocytes # (1.0-4.8) k/uL Monocytes # (0-1.0) k/uL Eosinophils # (0-0.7) k/uL Basophils # (0-0.2) k/uL Sodium (137-145) mmol/L Potassium (3.5-5.1) mmol/L Chloride (98-107) mmol/L Carbon Dioxide (22-30) mmol/L Anion Gap mmol/L BUN (7-17) mg/dL Creatinine (0.52-1.04) mg/dL Est GFR (CKD-EPI)AfAm (>60 ml/min/1.73 sqM) Est GFR (CKD-EPI)NonAf (>60 ml/min/1.73 sqM) Glucose (74-99) mg/dL Plasma Lactic Acid Eduardo 0.8 (0.7-2.0) mmol/L Calcium (8.4-10.2) mg/dL Total Bilirubin (0.2-1.3) mg/dL AST (14-36) U/L ALT (4-34) U/L Alkaline Phosphatase (38-126) U/L Total Protein (6.3-8.2) g/dL Albumin (3.5-5.0) g/dL Amylase (30-110) U/L Lipase (23-300) U/L Urine Color Urine Appearance (Clear) Urine pH (5.0-8.0) Ur Specific [place] (1.001-1.035) Urine Protein (Negative) Urine Glucose (UA) (Negative) Urine Ketones (Negative) Urine Blood (Negative) Urine Nitrite (Negative) Urine Bilirubin (Negative) Urine Urobilinogen (<2.0) mg/dL Ur Leukocyte Esterase (Negative) Urine RBC (0-5) /hpf Urine WBC (0-5) /hpf Ur Squamous Epith Cells (0-4) /hpf Calcium Oxalate Crystal (None) /hpf Amorphous Sediment (None) /hpf Urine Bacteria (None) /hpf Urine Mucus (None) /hpf Disposition Clinical Impression: Diarrhea, IBS (irritable bowel syndrome) Disposition: HOME SELF-CARE Condition: Good Instructions (If sedation given, give patient instructions): Irritable Bowel Syndrome (ED) Additional Instructions: Increase your fluid intake. Take Bentyl as prescribed. Follow-up with Dr. Villaseñor and your primary care doctor next week. Return to the emergency room with any new or concerning symptoms. Prescriptions: Dicyclomine [Bentyl] 20 mg PO QID #60 tablet Is patient prescribed a controlled substance at d/c from ED?: No Referrals: Tiny Cornell MD [Primary Care Provider] - 1-2 days Time of Disposition: 11:53
[2022-05-25 11:11] LABS: Basophils % (A) 0 %; Eosinophils # (A) 0.2 k/uL (0-0.7); Eosinophils % (A) 2 %; HCT 41.6 % (34.0-46.0); HGB 13.5 gm/dL (11.4-16.0); Lymphocytes # (A) 2.3 k/uL (1.0-4.8); Lymphocytes % (A) 25 %; MCH 29.5 pg (25.0-35.0); MCHC 32.4 g/dL (31.0-37.0); MCV 91.2 fL (80.0-100.0); Mean Platelet Volume 7.3; Monocytes # (A) 0.3 k/uL (0-1.0); Monocytes % (A) 4 %; Neutrophils % (A) 67 %; Platelet Count 335 k/uL (150-450); RBC 4.56 m/uL (3.80-5.40); RDW 13.2 % (11.5-15.5)
[2022-05-25 11:21] LABS: Amorphous Sediment,Urine Rare /hpf; Appearance,Urine Cloudy (Clear); Bacteria,Urine Rare /hpf; Bilirubin,Urine Negative (Negative); Blood,Urine Trace (Negative); Calcium Oxalate Crystals,Urine Rare /hpf; Color,Urine Yellow; Glucose,Urine (UA) Negative (Negative); Ketones,Urine 2+ (Negative); Leukocyte Esterase,Urine Small (Negative); Mucus,Urine Occasional /hpf; Nitrite,Urine Negative (Negative); PH, Urine 6.5 (5.0-8.0); Protein,Urine 1+ (Negative); RBC,Urine 3 /hpf (0-5); Specific Gravity,Urine 1.022 (1.001-1.035); Squamous Epithelial Cell,Urine 28 /hpf (0-4); WBC,Urine 5 /hpf (0-5)
[2022-05-25 11:24] LABS: Albumin 4.6 g/dL (3.5-5.0); Potassium 4.2 mmol/L (3.5-5.1); Total Protein 7.6 g/dL (6.3-8.2)
--- NOTE | 2022-05-25 11:38 | XR ---
EXAMINATION TYPE: XR KUB DATE OF EXAM: 05/25/2022 11:12 AM INDICATION: Patient age:Female; 46 years old; Reason for study: abdominal pain; abdominal radiograph 10/28/2020 COMPARISON: None. TECHNIQUE: One radiographic view of the abdomen was obtained. FINDINGS: The bowel gas pattern is nonspecific without dilated loops of small or large bowel. There i s no evidence for organomegaly or pneumoperitoneum. The osseous structures are intact. No abnormal calcifications are present. Fecal material and gas are demonstrated throughout the colon and rectum. Cholecystectomy clips are present. IMPRESSION: Nonspecific bowel gas pattern without radiographic evidence for acute process.
[2022-05-25 12:58] VITALS: BP 136/96; PULSE 93; RESP 18
== END 2022-05-25 12:56 | disposition home or self-care (01) ==
LOC: EC 10:08
DX: K58.0 Irritable bowel syndrome with diarrhea (principal); I10 Essential (primary) hypertension; E11.9 Type 2 diabetes mellitus without complications; J45.909 Unspecified asthma, uncomplicated; Z88.8 Allergy status to other drugs, medicaments and biological substances; Z91.018 Allergy to other foods; Z91.010 Allergy to peanuts; Z88.6 Allergy status to analgesic agent
CPT/HCPCS: 36415; 74018; 80053; 81001; 82150; 83605; 83690; 85025; 96361; 96374; 99284

== ENCOUNTER 2022-07-06 08:18 | Inpatient (IN) | payer MEDICAID, OTHER ==
--- NOTE | 2022-07-06 09:33 | ED ---
Psych HPI - General Chief Complaint: Psychiatric Symptoms Stated Complaint: Mental health Time Seen by Provider: 07/06/22 08:39 Source: patient, RN notes reviewed Mode of arrival: ambulatory Limitations: no limitations - History of Present Illness Initial Comments: This a 47-year-old male presents emergency Department with chief complaint of depression, suicidal ideation. Patient states she is currently homeless, states that she's having increase in stress with multiple drug use around her. Patient states that she started about harming herself. Patient states that she's had depression in the past. Patient denies any drug or alcohol abuse no fevers or chills she does complain right ankle pain which is chronic in nature. - Related Data Previous Rx's Medication Instructions Recorded Dicyclomine [Bentyl] 20 mg PO QID #60 tablet 05/25/22 Allergies Allergy/AdvReac Type Severity Reaction Status Date / Time niacin [From Simcor] Allergy Severe "JUDGE UP" Verified 07/06/22 09:50 tree nut [Nut] Allergy Severe Unknown Verified 07/06/22 09:50 peanut AdvReac Severe Rash/Hives Verified 07/06/22 09:50 simvastatin [From Simcor] AdvReac Severe "JUDGE UP" Verified 07/06/22 09:50 ibuprofen AdvReac Hallucinati Verified 07/06/22 09:50 ons Review of Systems ROS Statement: Those systems with pertinent positive or pertinent negative responses have been documented in the HPI. ROS Other: All systems not noted in ROS Statement are negative. Past Medical History Past Medical History: Asthma, Diabetes Mellitus, Hypertension, Memory Impairment, Seizure Disorder Additional Past Medical History / Comment(s): mood disorder, IBS, TBI History of Any Multi-Drug Resistant Organisms: None Reported Past Surgical History: Section, Cholecystectomy, Orthopedic Surgery, Tubal Ligation Additional Past Surgical History / Comment(s): knee, RIGHT FOOT SURGERY 15+ YEARS AGO Past Anesthesia/Blood Transfusion Reactions: No Reported Reaction Past Psychological History: ADD/ADHD, Bipolar, Depression, PTSD Smoking Status: Never smoker Past Alcohol Use History: None Reported Past Drug Use History: None Reported - Past Family History Mother History Unknown: Yes Additional Family Medical History / Comment(s): Patient states that her mother is from cancer. Father Family Medical History: Coronary Artery Disease (CAD), Diabetes Mellitus Daughter(s) Family Medical History: No Reported History General Exam Limitations: no limitations General appearance: alert, in no apparent distress Head exam: Present: atraumatic, normocephalic, normal inspection Eye exam: Present: normal appearance, PERRL, EOMI. Absent: scleral icterus, conjunctival injection, periorbital swelling ENT exam: Present: normal exam, mucous membranes moist Neck exam: Present: normal inspection, full ROM. Absent: tenderness, meningismus, lymphadenopathy Respiratory exam: Present: normal lung sounds bilaterally. Absent: respiratory distress, wheezes, rales, rhonchi, stridor Cardiovascular Exam: Present: regular rate, normal rhythm, normal heart sounds. Absent: systolic murmur, diastolic murmur, rubs, gallop, clicks GI/Abdominal exam: Present: soft, normal bowel sounds. Absent: distended, tenderness, guarding, rebound, rigid Extremities exam: Present: other (Right ankle tenderness lateral portion, neurovascular intact.) Neurological exam: Present: alert, oriented X3, CN II-XII intact Skin exam: Present: warm, dry, intact, normal color. Absent: rash Course Vital Signs 07/06/22 08:28 Temperature 98 F Pulse Rate 94 Respiratory 18 Rate Blood Pressure 150/89 O2 Sat by Pulse 94 L Oximetry Medical Decision Making - Medical Decision Making 47-year-old female present for EPS evaluation patient be made for psychiatric treatment. - Lab Data Lab Results 07/06/22 07/06/22 Range/Units 12:36 12:55 POC Glucose (mg/dL) 121 H (70-110) mg/dL POC Glu Chefs ID [email or web address] Urine Opiates Screen Not Detected (NotDetected) Ur Oxycodone Screen Not Detected (NotDetected) Urine Methadone Screen Not Detected (NotDetected) Ur Propoxyphene Screen Not Detected (NotDetected) Ur Barbiturates Screen Not Detected (NotDetected) U Tricyclic Antidepress Not Detected (NotDetected) Ur Phencyclidine Scrn Not Detected (NotDetected) Ur Amphetamines Screen Not Detected (NotDetected) U Methamphetamines Scrn Not Detected (NotDetected) U Benzodiazepines Scrn Not Detected (NotDetected) Urine Cocaine Screen Not Detected (NotDetected) U Marijuana (THC) Screen Not Detected (NotDetected) Disposition Clinical Impression: Depression, Suicidal ideation Disposition: TRANSFER TO PSYCH HOSP/UNIT Condition: Fair Referrals: Tiny Cornell MD [Primary Care Provider] - 1-2 days Time of Disposition: 13:26
--- NOTE | 2022-07-06 10:23 | XR ---
EXAMINATION TYPE: XR ankle complete RT DATE OF EXAM: 07/06/2022 CLINICAL HISTORY: Pain. TECHNIQUE: Frontal, lateral and oblique images of the right ankle are obtained. COMPARISON: Right ankle x-ray January 20, 2021 FINDINGS: There is no acute fracture/dislocation evident in the right ankle. The ankle mortise latricia ins within normal limits. The overlying soft tissue remains unremarkable. IMPRESSION: Unremarkable study. No significant change from prior.
[2022-07-06 12:58] LABS: Amphetamine Screen,Urine Not Detected (NotDetected); Barbiturate Screen,Urine Not Detected (NotDetected); Benzodiazepines Screen,Urine Not Detected (NotDetected); Cocaine Screen,Urine Not Detected (NotDetected); Methadone Screen, Urine Not Detected (NotDetected); Opiate Screen,Urine Not Detected (NotDetected); Oxycodone Screen, Urine Not Detected (NotDetected); Phencyclidine Screen,Urine Not Detected (NotDetected); Tricyclic Antidepressant,Urine Not Detected (NotDetected); Urn Cannabinoid Scrn Not Detected (NotDetected)
[2022-07-06 12:59] LABS: Glucose,Whole Blood 121 mg/dL (70-110)
[2022-07-06] MEDS ORDERED: MAGNESIUM HYDROXIDE 2,400 MG/10 ML CUP PO PRN (15:41)
[2022-07-06] MEDS ORDERED: LORazepam 1 MG TAB PO PRN (15:45)
[2022-07-06] MEDS ORDERED: HALOPERIDOL LACTATE 5 MG/ML 1 ML VIAL IM PRN (15:45)
[2022-07-06] MEDS ORDERED: traZODone HCL 50 MG TAB PO PRN (15:45)
[2022-07-06] MEDS ORDERED: LORazepam 2 MG/ML INJ IM PRN (15:45)
[2022-07-06] MEDS ORDERED: haloperidoL 5 MG TAB PO PRN (15:45)
[2022-07-06 17:44] LABS: Glucose,Whole Blood 99 mg/dL (70-110)
[2022-07-06] MEDS: ACETAMINOPHEN TAB 325 MG TAB PO PRN (19:27)
[2022-07-06] MEDS: MAG HYDROX/AL HYDROX/SIMETH 30 ML CUP PO PRN (19:29)
[2022-07-06 19:58] LABS: Glucose,Whole Blood 99 mg/dL (70-110)
[2022-07-07 01:41] LABS: Appearance,Urine Cloudy (Clear); Bacteria,Urine Rare /hpf; Bilirubin,Urine Negative (Negative); Blood,Urine Negative (Negative); Color,Urine Light Yellow; Glucose,Urine (UA) Negative (Negative); Ketones,Urine Negative (Negative); Leukocyte Esterase,Urine Negative (Negative); Mucus,Urine Rare /hpf; Nitrite,Urine Negative (Negative); Protein,Urine Negative (Negative); RBC,Urine <1 /hpf (0-5); Specific Gravity,Urine 1.007 (1.001-1.035); Squamous Epithelial Cell,Urine 9 /hpf (0-4); Urobilinogen,Urine <2.0 mg/dL (<2.0); WBC,Urine 1 /hpf (0-5)
[2022-07-07 07:56] LABS: Glucose,Whole Blood 98 mg/dL (70-110)
[2022-07-07] MEDS: MAG HYDROX/AL HYDROX/SIMETH 30 ML CUP PO PRN ×2 (08:31→18:30)
[2022-07-07] MEDS ORDERED: NICOTINE 14MG/24HR PATCH TRANSDERM SCH (09:00)
[2022-07-07 09:42] LABS: Basophils % (A) 0 %; Eosinophils # (A) 0.1 k/uL (0-0.7); Eosinophils % (A) 2 %; HCT 38.2 % (34.0-46.0); HGB 12.3 gm/dL (11.4-16.0); Lymphocytes # (A) 2.1 k/uL (1.0-4.8); Lymphocytes % (A) 27 %; MCH 29.8 pg (25.0-35.0); MCHC 32.1 g/dL (31.0-37.0); MCV 92.6 fL (80.0-100.0); Mean Platelet Volume 7.4; Monocytes # (A) 0.3 k/uL (0-1.0); Monocytes % (A) 4 %; Neutrophils # (A) 4.9 k/uL (1.3-7.7); Neutrophils % (A) 65 %; Platelet Count 289 k/uL (150-450); RBC 4.13 m/uL (3.80-5.40); RDW 13.6 % (11.5-15.5); WBC 7.5 k/uL (3.8-10.6)
[2022-07-07 09:57] LABS: ALT 32 U/L (4-34); AST 31 U/L (14-36); African American GFR (CKD) 81 (>60 ml/min/1.73 sqM); Albumin 4.2 g/dL (3.5-5.0); Alkaline Phosphatase 62 U/L (38-126); Anion Gap 10 mmol/L; Bilirubin,Unconjugated 0.6 mg/dL (0.0-1.1); Blood Urea Nitrogen 9 mg/dL (7-17); Calcium 8.7 mg/dL (8.4-10.2); Carbon Dioxide 29 mmol/L (22-30); Chloride 102 mmol/L (98-107); Glucose 117 mg/dL (74-99); Non-African American GFR(CKD) 71 (>60 ml/min/1.73 sqM); Potassium 4.4 mmol/L (3.5-5.1); Sodium 141 mmol/L (137-145); Total Bilirubin 0.6 mg/dL (0.2-1.3); Total Protein 6.8 g/dL (6.3-8.2)
[2022-07-07] MEDS ORDERED: NAPROXEN 250 MG TAB PO PRN (11:00)
[2022-07-07] MEDS ORDERED: SERTRALINE 50 MG TAB PO STA (11:28)
[2022-07-07 12:57] LABS: Glucose,Whole Blood 96 mg/dL (70-110)
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
[2022-07-07 15:53] LABS: Chol/HDL Ratio 6.03 Ratio; LDL Cholesterol,Calculated 117.1 mg/dL (0.0-131.0)
[2022-07-07 17:43] LABS: Glucose,Whole Blood 101 mg/dL (70-110)
[2022-07-07] MEDS: ACETAMINOPHEN TAB 325 MG TAB PO PRN (18:30)
[2022-07-07] MEDS: METOPROLOL TARTRATE 25 MG TAB PO SCH (21:13)
[2022-07-08 08:15] LABS: Glucose,Whole Blood 93 mg/dL (70-110)
[2022-07-08] MEDS: LORATADINE 10 MG TAB PO SCH (08:45)
[2022-07-08] MEDS: METOPROLOL TARTRATE 25 MG TAB PO SCH ×2 (08:45→20:44)
[2022-07-08] MEDS: LEVOTHYROXINE 75 MCG TAB PO SCH (08:46)
[2022-07-08] MEDS: SERTRALINE 100 MG TAB PO SCH (08:46)
[2022-07-08] MEDS: MAG HYDROX/AL HYDROX/SIMETH 30 ML CUP PO PRN ×3 (08:47→22:14)
--- NOTE | 2022-07-08 10:13 | P.HPIM ---
History of Present Illness H&P Date: 07/07/22 Chief Complaint: Depression/suicidal ideation 47-year-old male presents emergency Department with chief complaint of depression, suicidal ideation. Patient states she is currently homeless, states that she's having increase in stress with multiple drug use around her. Patient states that she started about harming herself. Patient states that she's had depression in the past. Patient denies any drug or alcohol abuse no fevers or chills she does complain right ankle pain which is chronic in nature. Patient is seen and evaluated on the psych unit; denies any complaint of chest pain or shortness of breath; reports that she has never been diagnosed with diabetes and not on any treatment; hasn't been taking thyroid replacement states that it is perfectly normal Review of Systems REVIEW OF SYSTEMS: CONSTITUTIONAL: No fever, no malaise, no fatigue. HEENT: No recent visual problems or hearing problems. Denied any sore throat. CARDIOVASCULAR: No chest pain, orthopnea, PND, no palpitations, no syncope. PULMONARY: No shortness of breath, no cough, no hemoptysis. GASTROINTESTINAL: No diarrhea, no nausea, no vomiting, no abdominal pain. NEUROLOGICAL: No headaches, no weakness, no numbness. HEMATOLOGICAL: Denies any bleeding or petechiae. GENITOURINARY: Denies any burning micturition, frequency, or urgency. MUSCULOSKELETAL/RHEUMATOLOGICAL: Denies any joint pain, swelling, or any muscle pain. ENDOCRINE: Denies any polyuria or polydipsia. The rest of the 14-point review of systems is negative. Past Medical History Past Medical History: Asthma, Diabetes Mellitus, Hypertension, Memory Impairment, Seizure Disorder Additional Past Medical History / Comment(s): mood disorder, IBS, TBI History of Any Multi-Drug Resistant Organisms: None Reported Past Surgical History: Section, Cholecystectomy, Orthopedic Surgery, Tubal Ligation Additional Past Surgical History / Comment(s): knee, RIGHT FOOT SURGERY 15+ YEARS AGO Past Anesthesia/Blood Transfusion Reactions: No Reported Reaction Past Psychological History: ADD/ADHD, Bipolar, Depression, PTSD Smoking Status: Never smoker Past Alcohol Use History: None Reported Past Drug Use History: None Reported - Past Family History Mother History Unknown: Yes Additional Family Medical History / Comment(s): Patient states that her mother is from cancer. Father Family Medical History: Coronary Artery Disease (CAD), Diabetes Mellitus Daughter(s) Family Medical History: No Reported History Medications and Allergies Home Medications Medication Instructions Recorded Confirmed Type Levothyroxine Sodium [Synthroid] 75 mcg PO DAILY 07/06/22 07/06/22 History Loratadine [Claritin] 10 mg PO DAILY 07/06/22 07/06/22 History Metoprolol Tartrate [Lopressor] 25 mg PO BID 07/06/22 07/06/22 History Naproxen [Naprosyn] 500 mg PO BID PRN 07/06/22 07/06/22 History Ondansetron [Zofran] 4 mg PO Q12HR PRN 07/06/22 07/06/22 History medroxyPROGESTERone [Depo-Provera] 150 mg IM Q84D 07/06/22 07/06/22 History Allergies Allergy/AdvReac Type Severity Reaction Status Date / Time niacin [From Simcor] Allergy Severe "JUDGE UP" Verified 07/06/22 13:43 tree nut [Nut] Allergy Severe Unknown Verified 07/06/22 09:50 peanut AdvReac Severe Rash/Hives Verified 07/06/22 09:50 simvastatin [From Simcor] AdvReac Severe "JUDGE UP" Verified 07/06/22 09:50 ibuprofen AdvReac Hallucinati Verified 07/06/22 09:50 ons Physical Exam Vitals: Vital Signs Temp Pulse Pulse Resp BP BP Pulse Ox 07/07/22 07:06 98.1 F 84 18 120/65 99 07/06/22 17:17 97.1 F L 83 20 134/77 95 07/06/22 16:19 97.9 F 78 18 126/80 98 Intake and Output 07/06/22 07/07/22 07/07/22 22:59 06:59 14:59 Other: Weight 104.054 kg - Constitutional General appearance: Present: average body habitus, cooperative, no acute distress - EENT Eyes: Present: anicteric sclerae, EOMI, PERRLA, normal appearance ENT: Present: hearing grossly normal, normal oropharynx Ears: bilateral: normal - Neck Neck: Present: normal ROM. Absent: lymphadenopathy, rigidity, thyromegaly Carotids: negative: bruit present Thyroid: bilateral: normal size, negative: enlarged, nodule - Respiratory Respiratory: bilateral: CTA, negative: rales, rhonchi, wheezing - Cardiovascular Rhythm: regular Heart sounds: normal: S1, S2 Abnormal Heart Sounds: Absent: systolic murmur, diastolic murmur - Gastrointestinal General gastrointestinal: Present: normal bowel sounds, soft. Absent: distended, organomegaly, tenderness - Genitourinary Genitourinary Comment(s): deferred - Integumentary Integumentary: Present: normal turgor. Absent: jaundiced, rash, ulcer - Neurologic Neurologic: Present: CNII-XII intact. Absent: focal deficits - Musculoskeletal Musculoskeletal: Present: gait normal, strength equal bilaterally - Psychiatric Psychiatric: Present: A&O x's 3, appropriate affect, intact judgment & insight Results CBC & Chem 7: 07/07/22 09:01 07/07/22 09:01 Labs: Abnormal Lab Results - Last 24 Hours (Table) 07/06/22 07/06/22 07/07/22 Range/Units 12:36 12:55 09:01 Glucose 117 H (74-99) mg/dL POC Glucose (mg/dL) 121 H (70-110) mg/dL TSH 8.540 H (0.465-4.680) mIU/L Urine Appearance Cloudy H (Clear) Ur Squamous Epith Cells 9 H (0-4) /hpf Urine Bacteria Rare H (None) /hpf Urine Mucus Rare H (None) /hpf Thrombosis Risk Factor Assmnt - Choose All That Apply Any of the Below Risk Factors Present?: Yes Each Factor Represents 1 point: Age 41-60 years, Obesity (BMI >25) Other Risk Factors: No Other congenital or acquired thrombophilia - If yes, enter type in comment: No Thrombosis Risk Factor Assessment Total Risk Factor Score: 2 Thrombosis Risk Factor Assessment Level: Low Risk Assessment and Plan Assessment: 1. Depression/suicidal ideation; your management 2. Hypothyroidism; TSH is elevated; patient is supposed to be taking levothyroxine 75 MCG daily; patient initially reported that she's been taking levothyroxine and run out of prescription which is called in and [facility] at outpatient pharmacy; she later indicated that thyroid level has been normal and fails to agree that she needs to take medication despite detailed counseling regarding TSH levels; 3 TSH has been ordered 3. Hypertension; metoprolol 25 mg twice a day 4. History of diabetes mellitus per patient's records; patient denies any history of diabetes; HbA1c drawn is 6.1 with blood glucose of 96; we will monitor Accu-Cheks with insulin sliding scale as needed 5. Seasonal ALLERGIES; continue with Claritin 10 mg daily 6. DJD/chronic pain; resume home dose of Naprosyn 500 mg twice a day when necessary
[2022-07-08 13:00] LABS: Glucose,Whole Blood 84 mg/dL (70-110)
[2022-07-08 17:49] LABS: Glucose,Whole Blood 93 mg/dL (70-110)
--- NOTE | 2022-07-08 19:29 | P.PN ---
Progress Note - Text Progress Note Date: 07/08/22 Interval history: Patient was seen resting in her bed and was directable and agreeable to speak with underwriter mortgage loan. Her thought process is tangential and she talks about having inherited the ability to hear and see things from her family, but states she is not crazy or psychotic. She has been refusing her medical medications she does not believe she needs them. She has been compliant with her Zoloft which was increased to 100 mg this morning. She is refusing all other medications and only wants to take the Zoloft. At this time patient denies any suicidal or homicidal ideations intent or plan. Patient denies any side effects from the Zoloft. Mental status exam: General Appearance: Patient appears to be stated age, obese, multiple tattoos, dressed in leopard print top and leggings. Behavior: No agitated behavior. Patient is directable. Speech: Patient's speech is fluent and non-pressured. Mood/Affect: Mood is improving mildly, affect is congruent and constricted. Suicidality/Homicidality: Patient denies having any suicidal or homicidal ideation intent or plan. Perceptions: Patient endorses hearing and seeing things, but does not appear to be attending to internal stimuli. Though content/process: There is some evidence of paranoid delusions and odd beliefs. Thought process is tangential. Memory and concentration: AOX3, grossly intact for the purposes of this session Judgment and insight: fair to poor Assessment/Plan: Continue with current diagnosis. Patient continues to meet criteria for inpatient psychiatric admission for symptom stabilization and safety. Patient will be maintained on current psychotropic medication regimen. I offered her Seroquel which she declined. Zoloft was increased to 100 mg daily starting today. Monitor for medication compliance and for any psychotropic medication side effects. Will continue to monitor ongoing response to treatment. Encouraged participation in milieu.
[2022-07-08] MEDS: ACETAMINOPHEN TAB 325 MG TAB PO PRN (20:39)
[2022-07-09] MEDS: LEVOTHYROXINE 75 MCG TAB PO SCH (07:02)
[2022-07-09 07:58] LABS: Glucose,Whole Blood 97 mg/dL (70-110)
[2022-07-09] MEDS: MAG HYDROX/AL HYDROX/SIMETH 30 ML CUP PO PRN ×2 (08:10→17:41)
[2022-07-09] MEDS: SERTRALINE 100 MG TAB PO SCH (08:10)
[2022-07-09] MEDS: LORATADINE 10 MG TAB PO SCH (08:10)
[2022-07-09] MEDS: METOPROLOL TARTRATE 25 MG TAB PO SCH ×2 (08:10→22:47)
[2022-07-09] MEDS: ACETAMINOPHEN TAB 325 MG TAB PO PRN (17:42)
--- NOTE | 2022-07-09 19:24 | P.PN ---
Progress Note - Text Progress Note Date: 07/09/22 Interval history: Patient was seen resting in her bed and was directable and agreeable to speak with rfp writer. She has been isolating to her room for most of the day. Insight appears limited. She continues to refuse her medical medications (Synthroid, Metoprolol, Loratidine). TSH on admission was elevated at 8.540. Vitals reviewed and are stable. medical medications she does not believe she needs them. She has been compliant with her Zoloft. She endorses auditory hallucinations. She denies auditory hallucinations today. Her thought process is circumstantial/tangential, and somewhat pressured. We discussed Abilify today and she refuses it. She prefers to keep her medications the same. At this time patient denies any suicidal or homicidal ideations, intent or plan. Patient denies any side effects from the Zoloft. Mental status exam: General Appearance: Patient appears to be stated age, obese, multiple tattoos, laying in bed with covers on. Behavior: No agitated behavior. Patient is directable. Speech: Patient's speech is fluent and somewhat pressured. Mood/Affect: Mood is improving mildly, affect is congruent and constricted. Suicidality/Homicidality: Patient denies having any suicidal or homicidal ideation intent or plan. Perceptions: Patient endorses hearing and seeing things, but does not appear to be attending to internal stimuli. Though content/process: There is some evidence of paranoid delusions and odd beliefs. Thought process is tangential/circumstantial. Memory and concentration: AOX3, grossly intact for the purposes of this session Judgment and insight: poor Vital Signs (72 hours) 07/07/22 07/08/22 07/08/22 07:06 08:25 20:44 Temperature 98.1 F 97.4 F L Pulse Rate [ 84 98 92 Right] Respiratory 18 Rate Blood Pressure 120/65 119/81 122/74 [Right Arm] O2 Sat by Pulse 99 Oximetry 07/09/22 07:05 Temperature 97.3 F L Pulse Rate [ 75 Right] Respiratory 16 Rate Blood Pressure 119/68 [Right Arm] O2 Sat by Pulse Oximetry Assessment/Plan: Continue with current diagnosis. Patient continues to meet criteria for inpatient psychiatric admission for symptom stabilization and safety. Patient will be maintained on current psychotropic medication regimen. She declines Abilify today and declined Seroquel today. She would benefit from a mood stabilizer or antipsychotic, but prefers to keep her medications the same at this time. Encourage compliance with Synthroid. Medical doctor to review need for metoprolol since blood pressure appears stable without it. Monitor for medication compliance and for any psychotropic medication side e ffects. Will continue to monitor ongoing response to treatment. Encouraged participation in milieu.
[2022-07-10] MEDS: LEVOTHYROXINE 75 MCG TAB PO SCH (06:03)
[2022-07-10 06:54] VITALS: RESP 18
[2022-07-10] MEDS: MAG HYDROX/AL HYDROX/SIMETH 30 ML CUP PO PRN ×2 (08:11→20:37)
[2022-07-10] MEDS: METOPROLOL TARTRATE 25 MG TAB PO SCH ×2 (08:21→20:50)
[2022-07-10] MEDS: LORATADINE 10 MG TAB PO SCH (08:21)
[2022-07-10] MEDS: SERTRALINE 100 MG TAB PO SCH (08:21)
--- NOTE | 2022-07-10 13:42 | P.PN ---
Progress Note - Text Progress Note Date: 07/10/22 Interval History: Patient was seen wandering the hallways and was agreeable to speak with caption writer in the office. Currently, the patient is not reporting any suicidal or homicidal ideation, intention, and/or plan. The patient does report that she does express auditory hallucinations however that she comes from a line of witches and this is normal for her. She is not reporting any delusional thought content. She is not reporting any visual hallucinations. She denies any side effects of medications and has been adherent. She does not wish to start any antipsychotic medications. She reports no issues regarding her sleep or her appetite. Mental Status Exam: General Appearance: Patient appears to be stated age is alert, directable, and cooperative. Obese body habitus. Behavior: Patient is calmly seated without any agitated behavior. Speech: Patient's speech is fluent and nonpressured. Mood/Affect: Mood is improving mildly, affect is congruent and constricted. Suicidality/Homicidality: Patient denies having any suicidal or homicidal ideation intent or plan. Perceptions: Patient denies any visual hallucinations and denies any auditory hallucinations Though content/process: There is no evidence of any delusional thought content and thought process is linear and goal-directed. Cultural beliefs that she is a witch. Memory and concentration: AOX3, grossly intact for the purposes of this session Judgment and insight: Improving mildly Vital Signs Temp 97.6 F 07/10/22 06:53 Pulse 70 07/10/22 06:53 Resp 18 07/10/22 06:53 BP 120/61 07/10/22 06:53 Pulse Ox 99 07/10/22 06:53 FiO2 Intake & Output 07/09/22 07/10/22 07/10/22 18:59 06:59 18:59 Weight 103.1 kg Assessment Major depressive disorder, recurrent, severe PTSD Borderline personality disorder Plan: -Patient continues to meet criteria for inpatient psychiatric admission for symptom stabilization and safety. Patient has signed adult voluntary form and medication consent and was placed in patient's chart. -Medications: Continue Zoloft 100 mg by mouth daily for depression/anxiety/PTSD -When necessary Ativan and Haldol for agitation/aggression. -NRT - nicotine patch -SW on board for discharge planning. Encouraged the patient to participate in milieu.
[2022-07-10] MEDS: ACETAMINOPHEN TAB 325 MG TAB PO PRN (20:36)
[2022-07-11] MEDS: LEVOTHYROXINE 75 MCG TAB PO SCH ×2 (06:02→06:05)
[2022-07-11 06:49] VITALS: BP 118/72; PULSE 74; TEMP 97.9
[2022-07-11] MEDS: METOPROLOL TARTRATE 25 MG TAB PO SCH (09:49)
[2022-07-11] MEDS: LORATADINE 10 MG TAB PO SCH (09:49)
[2022-07-11] MEDS: SERTRALINE 100 MG TAB PO SCH (09:50)
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
== END 2022-07-11 14:29 | disposition home or self-care (01) | DRG 885 ==
LOC: EC 08:18 → 3MHU 15:34
PROVIDERS: ADMIT Psychiatry & Neurology Psychiatry; ATTEND Psychiatry & Neurology Psychiatry
DX: F31.4 Bipolar disorder, current episode depressed, severe, without psychotic features (principal); R45.851 Suicidal ideations; Z68.41 Body mass index [BMI] 40.0-44.9, adult; E11.9 Type 2 diabetes mellitus without complications; F60.89 Other specific personality disorders; F60.3 Borderline personality disorder; Z20.822 Contact with and (suspected) exposure to COVID-19; E66.9 Obesity, unspecified; J45.909 Unspecified asthma, uncomplicated; I10 Essential (primary) hypertension; F90.9 Attention-deficit hyperactivity disorder, unspecified type; E03.9 Hypothyroidism, unspecified; G47.00 Insomnia, unspecified; G89.29 Other chronic pain; M19.90 Unspecified osteoarthritis, unspecified site; K58.9 Irritable bowel syndrome, unspecified; F43.10 Post-traumatic stress disorder, unspecified; Z59.00 Homelessness unspecified; Z79.890 Hormone replacement therapy; Z79.3 Long term (current) use of hormonal contraceptives; Z79.899 Other long term (current) drug therapy; Z87.820 Personal history of traumatic brain injury; Z86.69 Personal history of other diseases of the nervous system and sense organs; Z56.0 Unemployment, unspecified; Z71.41 Alcohol abuse counseling and surveillance of alcoholic; Z71.51 Drug abuse counseling and surveillance of drug abuser; Z88.6 Allergy status to analgesic agent; Z91.018 Allergy to other foods; Z91.010 Allergy to peanuts; Z88.8 Allergy status to other drugs, medicaments and biological substances; Z91.048 Other nonmedicinal substance allergy status
CPT/HCPCS: 36415; 80053; 80061; 80306; 81001; 81025; 82075; 82248; 83036; 84439; 84443; 85025; 87635; 99285

== ENCOUNTER 2022-08-01 22:57 | Emergency (ER) | payer OTHER ==
--- NOTE | 2022-08-01 23:59 | XR ---
EXAMINATION TYPE: XR KUB DATE OF EXAM: 08/01/2022 COMPARISON: 05/25/2022 HISTORY: Abdominal pain TECHNIQUE: 2 views upright FINDINGS: There is no sign of intestinal obstruction or pneumoperitoneum. There are clips from cholec ystectomy. Lung bases are clear. Bony structures are intact. IMPRESSION: Nonacute abdomen. No adverse change.
[2022-08-02 00:12] LABS: Appearance,Urine Cloudy (Clear); Bacteria,Urine Occasional /hpf; Bilirubin,Urine Negative (Negative); Blood,Urine Negative (Negative); Color,Urine Yellow; Glucose,Urine (UA) Negative (Negative); Hyaline Casts,Urine 1 /lpf (0-2); Ketones,Urine Negative (Negative); Leukocyte Esterase,Urine Small (Negative); Mucus,Urine Occasional /hpf; Nitrite,Urine Negative (Negative); Protein,Urine Trace (Negative); RBC,Urine 1 /hpf (0-5); Specific Gravity,Urine 1.025 (1.001-1.035); Squamous Epithelial Cell,Urine 13 /hpf (0-4); Urobilinogen,Urine <2.0 mg/dL (<2.0); WBC,Urine 6 /hpf (0-5)
[2022-08-02] MEDS ORDERED: SODIUM CHLORIDE 0.9% 1,000 ML IV ONE (00:48)
[2022-08-02] MEDS ORDERED: HYDROmorphone 1 MG/ML 1 ML SYRINGE IVP STA (00:53)
[2022-08-02] MEDS ORDERED: diphenhydrAMINE 50 MG/ML 1 ML VIAL IVP STA (00:53)
[2022-08-02 00:55] LABS: Basophils % (A) 0 %; Eosinophils # (A) 0.3 k/uL (0-0.7); Eosinophils % (A) 2 %; HCT 35.7 % (34.0-46.0); HGB 11.8 gm/dL (11.4-16.0); Lymphocytes # (A) 2.3 k/uL (1.0-4.8); Lymphocytes % (A) 16 %; MCH 29.9 pg (25.0-35.0); MCHC 33.1 g/dL (31.0-37.0); MCV 90.1 fL (80.0-100.0); Monocytes # (A) 0.4 k/uL (0-1.0); Monocytes % (A) 3 %; Neutrophils # (A) 11.4 k/uL (1.3-7.7); Neutrophils % (A) 78 %; Platelet Count 308 k/uL (150-450); RBC 3.96 m/uL (3.80-5.40); RDW 13.3 % (11.5-15.5); WBC 14.6 k/uL (3.8-10.6)
[2022-08-02 01:03] LABS: ALT 33 U/L (4-34); AST 30 U/L (14-36); African American GFR (CKD) >90 (>60 ml/min/1.73 sqM); Albumin 4.2 g/dL (3.5-5.0); Alkaline Phosphatase 76 U/L (38-126); Amylase 55 U/L (30-110); Anion Gap 12 mmol/L; Blood Urea Nitrogen 16 mg/dL (7-17); Calcium 8.8 mg/dL (8.4-10.2); Carbon Dioxide 23 mmol/L (22-30); Chloride 105 mmol/L (98-107); Glucose 102 mg/dL (74-99); Lipase 106 U/L (23-300); Non-African American GFR(CKD) >90 (>60 ml/min/1.73 sqM); Potassium 3.9 mmol/L (3.5-5.1); Sodium 140 mmol/L (137-145); Total Bilirubin 0.5 mg/dL (0.2-1.3); Total Protein 6.8 g/dL (6.3-8.2)
--- NOTE | 2022-08-02 01:12 | ED ---
Abdominal Pain HPI - General Chief Complaint: Abdominal Pain Stated Complaint: Vomiting, Abd Pain Time Seen by Provider: 08/02/22 00:33 Source: patient, RN notes reviewed Mode of arrival: ambulatory Limitations: no limitations - History of Present Illness Initial Comments: patient presents with upper abdominal pain, nausea, vomiting which has been noreen g for quite some time. Patient believes she ascertains a lump in her abdominal wall across her abdomen. Patient has seen gastroenterology previously for similar symptoms. No headache, no fever or chills, no changes in vision or hearing, no sore throat or difficulty with speech, no neck pain, no chest pain or shortness of breath, , no changes in urination or bowel movements, no numbness or tingling, no extremity pain, no skin rashes or lesions. Past medical, surgical, social, and family history reviewed. MD Complaint: abdominal pain - Related Data Home Medications Medication Instructions Recorded Confirmed Loratadine [Claritin] 10 mg PO DAILY 07/06/22 07/06/22 Metoprolol Tartrate [Lopressor] 25 mg PO BID 07/06/22 07/06/22 Ondansetron [Zofran] 4 mg PO Q12HR PRN 07/06/22 07/06/22 medroxyPROGESTERone [Depo-Provera] 150 mg IM Q84D 07/06/22 07/06/22 Previous Rx's Medication Instructions Recorded Levothyroxine Sodium [Synthroid] 75 mcg PO DAILY@0630 30 Days tab 07/11/22 Sertraline [Zoloft] 100 mg PO DAILY 30 Days tab 07/11/22 traZODone HCL [Desyrel] 50 mg PO HS PRN 30 Days tab 07/11/22 Dicyclomine [Bentyl] 20 mg PO QID #24 tablet 08/02/22 Omeprazole [PriLOSEC] 20 mg PO DAILY #30 cap 08/02/22 Ondansetron Odt [Zofran Odt] 4 mg PO Q8H PRN #12 tab 08/02/22 Allergies Allergy/AdvReac Type Severity Reaction Status Date / Time niacin [From Simcor] Allergy Severe "JUDGE UP" Verified 08/01/22 23:16 tree nut [Nut] Allergy Severe Unknown Verified 08/01/22 23:16 peanut AdvReac Severe Rash/Hives Verified 08/01/22 23:16 simvastatin [From Simcor] AdvReac Severe "JUDGE UP" Verified 08/01/22 23:16 ibuprofen AdvReac Hallucinati Verified 08/01/22 23:16 ons Review of Systems ROS Statement: Those systems with pertinent positive or pertinent negative responses have been documented in the HPI. ROS Other: All systems not noted in ROS Statement are negative. Past Medical History Past Medical History: Asthma, Diabetes Mellitus, Hypertension, Memory Impairment, Seizure Disorder Additional Past Medical History / Comment(s): mood disorder, IBS, TBI History of Any Multi-Drug Resistant Organisms: None Reported Past Surgical History: Section, Cholecystectomy, Orthopedic Surgery, Tubal Ligation Additional Past Surgical History / Comment(s): knee, RIGHT FOOT SURGERY 15+ YEARS AGO Past Anesthesia/Blood Transfusion Reactions: No Reported Reaction Past Psychological History: ADD/ADHD, Bipolar, Depression, PTSD Smoking Status: Never smoker Past Alcohol Use History: None Reported Past Drug Use History: None Reported - Past Family History Mother History Unknown: Yes Additional Family Medical History / Comment(s): Patient states that her mother is from cancer. Father Family Medical History: Coronary Artery Disease (CAD), Diabetes Mellitus Daughter(s) Family Medical History: No Reported History General Exam - General Exam Comments Initial Comments: Patient does not appear to be ill or toxic. Vital signs reviewed. Minimally tachycardic. No fever Limitations: no limitations General appearance: alert, in no apparent distress Head exam: Present: atraumatic, normocephalic, normal inspection Eye exam: Present: normal appearance, PERRL, EOMI. Absent: scleral icterus, conjunctival injection, periorbital swelling ENT exam: Present: normal exam, mucous membranes moist Neck exam: Present: normal inspection. Absent: tenderness, meningismus, lymphadenopathy Respiratory exam: Present: normal lung sounds bilaterally. Absent: respiratory distress, wheezes, rales, rhonchi, stridor Cardiovascular Exam: Present: regular rate, normal rhythm, normal heart sounds. Absent: systolic murmur, diastolic murmur, rubs, gallop, clicks GI/Abdominal exam: Present: soft, tenderness (Minimal tenderness across the upper abdomen. No definitive hepatosplenomegaly.), normal bowel sounds. Absent: distended, guarding, rebound, rigid, diminished bowel sounds, hyperactive bowel sounds, hypoactive bowel sounds, organomegaly, pulsatile mass, hernia Extremities exam: Present: normal inspection, full ROM, normal capillary refill, other (No mottling). Absent: tenderness, pedal edema, joint swelling, calf tenderness Back exam: Present: normal inspection. Absent: rash noted Neurological exam: Present: alert, oriented X3, CN II-XII intact Psychiatric exam: Present: normal affect, normal mood Skin exam: Present: warm, dry, intact, normal color. Absent: rash, cyanosis, diaphoretic, erythema, urticaria, vesicles, petechiae, pallor, mottled, abrasion Course Vital Signs 08/01/22 08/02/22 23:13 01:40 Temperature 98.1 F Pulse Rate 108 H 90 Respiratory 20 16 Rate Blood Pressure 156/90 166/95 O2 Sat by Pulse 97 99 Oximetry - Reevaluation(s) Reevaluation #1: 08/02/22 02:03 Medical record is reviewed Symptoms are improved here in the emergency department Patient is informed of results and questions answered Patient in no distress Medical Decision Making - Medical Decision Making Patient rechecked and is in no distress. Patient's computed tomography scan is nondiagnostic. Patient did have some leukocytosis likely related to vomiting. I believe the patient needs to see the precision lens centerer and edger again. We'll have the patient follow-up with precision lens centerer and edger most for symptomology is chronic in nature. We'll try the patient on omeprazole and Bentyl. I also gave a short course of Zofran ODT. Patient concurs with this treatment plan. Patient was told to return to the ER for any signs or symptoms worsen. Told to return immediately if any other problems arise. All questions answered. Treatment plan discussed. Patient in agreement Every effort has been made to ensure accuracy of this dictation. However, due to the limitations of electronic medical records and dictation devices, errors in charting still occur. Patient has a new primary care physician that she will make an appointment with. [employer] Dr. De Paz - Lab Data Result diagrams: 08/02/22 00:43 08/02/22 00:43 Lab Results 08/01/22 08/01/22 08/02/22 Range/Units 23:17 23:17 00:43 WBC 14.6 H (3.8-10.6) k/uL RBC 3.96 (3.80-5.40) m/uL Hgb 11.8 (11.4-16.0) gm/dL Hct 35.7 (34.0-46.0) % MCV 90.1 (80.0-100.0) fL MCH 29.9 (25.0-35.0) pg MCHC 33.1 (31.0-37.0) g/dL RDW 13.3 (11.5-15.5) % Plt Count 308 (150-450) k/uL MPV 8.0 Neutrophils % 78 % Lymphocytes % 16 % Monocytes % 3 % Eosinophils % 2 % Basophils % 0 % Neutrophils # 11.4 H (1.3-7.7) k/uL Lymphocytes # 2.3 (1.0-4.8) k/uL Monocytes # 0.4 (0-1.0) k/uL Eosinophils # 0.3 (0-0.7) k/uL Basophils # 0.0 (0-0.2) k/uL Sodium (137-145) mmol/L Potassium (3.5-5.1) mmol/L Chloride (98-107) mmol/L Carbon Dioxide (22-30) mmol/L Anion Gap mmol/L BUN (7-17) mg/dL Creatinine (0.52-1.04) mg/dL Est GFR (CKD-EPI)AfAm (>60 ml/min/1.73 sqM) Est GFR (CKD-EPI)NonAf (>60 ml/min/1.73 sqM) Glucose (74-99) mg/dL Plasma Lactic Acid Eduardo (0.7-2.0) mmol/L Calcium (8.4-10.2) mg/dL Total Bilirubin (0.2-1.3) mg/dL AST (14-36) U/L ALT (4-34) U/L Alkaline Phosphatase (38-126) U/L Total Protein (6.3-8.2) g/dL Albumin (3.5-5.0) g/dL Amylase (30-110) U/L Lipase (23-300) U/L Urine Color Yellow Urine Appearance Cloudy H (Clear) Urine pH 6.0 (5.0-8.0) Ur Specific [place] 1.025 (1.001-1.035) Urine Protein Trace H (Negative) Urine Glucose (UA) Negative (Negative) Urine Ketones Negative (Negative) Urine Blood Negative (Negative) Urine Nitrite Negative (Negative) Urine Bilirubin Negative (Negative) Urine Urobilinogen <2.0 (<2.0) mg/dL Ur Leukocyte Esterase Small H (Negative) Urine RBC 1 (0-5) /hpf Urine WBC 6 H (0-5) /hpf Ur Squamous Epith Cells 13 H (0-4) /hpf Urine Bacteria Occasional H (None) /hpf Hyaline Casts 1 (0-2) /lpf Urine Mucus Occasional H (None) /hpf Urine HCG, Qual Not Detected (Not Detectd) 08/02/22 08/02/22 Range/Units 00:43 01:00 WBC (3.8-10.6) k/uL RBC (3.80-5.40) m/uL Hgb (11.4-16.0) gm/dL Hct (34.0-46.0) % MCV (80.0-100.0) fL MCH (25.0-35.0) pg MCHC (31.0-37.0) g/dL RDW (11.5-15.5) % Plt Count (150-450) k/uL MPV Neutrophils % % Lymphocytes % % Monocytes % % Eosinophils % % Basophils % % Neutrophils # (1.3-7.7) k/uL Lymphocytes # (1.0-4.8) k/uL Monocytes # (0-1.0) k/uL Eosinophils # (0-0.7) k/uL Basophils # (0-0.2) k/uL Sodium 140 (137-145) mmol/L Potassium 3.9 (3.5-5.1) mmol/L Chloride 105 (98-107) mmol/L Carbon Dioxide 23 (22-30) mmol/L Anion Gap 12 mmol/L BUN 16 (7-17) mg/dL Creatinine 0.71 (0.52-1.04) mg/dL Est GFR (CKD-EPI)AfAm >90 (>60 ml/min/1.73 sqM) Est GFR (CKD-EPI)NonAf >90 (>60 ml/min/1.73 sqM) Glucose 102 H (74-99) mg/dL Plasma Lactic Acid Eduardo <0.5 L (0.7-2.0) mmol/L Calcium 8.8 (8.4-10.2) mg/dL Total Bilirubin 0.5 (0.2-1.3) mg/dL AST 30 (14-36) U/L ALT 33 (4-34) U/L Alkaline Phosphatase 76 (38-126) U/L Total Protein 6.8 (6.3-8.2) g/dL Albumin 4.2 (3.5-5.0) g/dL Amylase 55 (30-110) U/L Lipase 106 (23-300) U/L Urine Color Urine Appearance (Clear) Urine pH (5.0-8.0) Ur Specific [place] (1.001-1.035) Urine Protein (Negative) Urine Glucose (UA) (Negative) Urine Ketones (Negative) Urine Blood (Negative) Urine Nitrite (Negative) Urine Bilirubin (Negative) Urine Urobilinogen (<2.0) mg/dL Ur Leukocyte Esterase (Negative) Urine RBC (0-5) /hpf Urine WBC (0-5) /hpf Ur Squamous Epith Cells (0-4) /hpf Urine Bacteria (None) /hpf Hyaline Casts (0-2) /lpf Urine Mucus (None) /hpf Urine HCG, Qual (Not Detectd) - Radiology Data Radiology results: report reviewed, image reviewed Disposition Clinical Impression: Acute gastritis, Abdominal pain, Chronic diarrhea Narrative: Gastritis, generalized and chronic abdominal pain with chronic diarrhea. Disposition: HOME SELF-CARE Condition: Good Instructions (If sedation given, give patient instructions): Abdominal Pain (ED), Gastritis (ED), Chronic Diarrhea (ED) Additional Instructions: Make an appointment with the precision lens centerer and edger and your regular physician as discussed. Follow-up with your regular physician as directed. Return to the ER immediately if any symptoms worsen, new symptoms arise, or any other problems develop. Is patient prescribed a controlled substance at d/c from ED?: No Referrals: None,Stated [REFERRING] - 1-2 days Bridget Villaseñor MD [STAFF PHYSICIAN] - 08/07/22 Time of Disposition: 02:05
[2022-08-02] MEDS: METOCLOPRAMIDE 5 MG/ML 2 ML VIAL IVP STA ×2 (01:19→02:14)
[2022-08-02 01:42] VITALS: BP 166/95; PULSE 90; RESP 16
[2022-08-02] MEDS ORDERED: ONDANSETRON 4 MG ODT STARTER PACK 2 TAB BTL PO STA (02:02)
[2022-08-02 02:08] VITALS: TEMP 98
== END 2022-08-02 02:14 | disposition home or self-care (01) ==
LOC: EC 22:57
DX: K29.00 Acute gastritis without bleeding (principal); J45.909 Unspecified asthma, uncomplicated; I10 Essential (primary) hypertension; E11.9 Type 2 diabetes mellitus without complications; Z79.899 Other long term (current) drug therapy; Z91.010 Allergy to peanuts; Z88.2 Allergy status to sulfonamides; Z88.8 Allergy status to other drugs, medicaments and biological substances
CPT/HCPCS: 36415; 74018; 80053; 81001; 81025; 82150; 83605; 83690; 85025; 96361; 96374; 99284

== ENCOUNTER 2023-12-29 09:02 | Emergency (ER) | payer OTHER ==
[2023-12-29 09:37] LABS: Glucose,Whole Blood 138 mg/dL (70-110)
[2023-12-29 09:55] LABS: Basophils # (A) 0.1 k/uL (0-0.2); Basophils % (A) 0 %; Eosinophils # (A) 0.2 k/uL (0-0.7); Eosinophils % (A) 2 %; HCT 41.7 % (34.0-46.0); HGB 13.9 gm/dL (11.4-16.0); Lymphocytes # (A) 2.2 k/uL (1.0-4.8); Lymphocytes % (A) 15 %; MCH 30.8 pg (25.0-35.0); MCHC 33.4 g/dL (31.0-37.0); MCV 92.2 fL (80.0-100.0); Mean Platelet Volume 7.9; Monocytes # (A) 0.5 k/uL (0-1.0); Monocytes % (A) 3 %; Neutrophils # (A) 11.3 k/uL (1.3-7.7); Neutrophils % (A) 78 %; Platelet Count 312 k/uL (150-450); RBC 4.53 m/uL (3.80-5.40); RDW 12.6 % (11.5-15.5); WBC 14.4 k/uL (3.8-10.6)
[2023-12-29 10:17] LABS: ALT 30 U/L (4-34); AST 27 U/L (14-36); African American GFR (CKD) >90 (>60 ml/min/1.73 sqM); Albumin 4.4 g/dL (3.5-5.0); Alkaline Phosphatase 81 U/L (38-126); Anion Gap 12 mmol/L; Blood Urea Nitrogen 14 mg/dL (7-17); Calcium 9.1 mg/dL (8.4-10.2); Carbon Dioxide 22 mmol/L (22-30); Chloride 104 mmol/L (98-107); Glucose 141 mg/dL (74-99); Non-African American GFR(CKD) >90 (>60 ml/min/1.73 sqM); Potassium 4.2 mmol/L (3.5-5.1); Sodium 138 mmol/L (137-145); Total Protein 7.4 g/dL (6.3-8.2)
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
[2023-12-29] MEDS: ACETAMINOPHEN TAB 325 MG TAB PO STA (13:20)
[2023-12-29 17:06] LABS: Appearance,Urine Turbid (Clear); Bilirubin,Urine Negative (Negative); Blood,Urine Negative (Negative); Color,Urine Yellow; Glucose,Urine (UA) Negative (Negative); Ketones,Urine Trace (Negative); Leukocyte Esterase,Urine Negative (Negative); Mucus,Urine Occasional /hpf; Nitrite,Urine Negative (Negative); Protein,Urine Trace (Negative); Specific Gravity,Urine 1.033 (1.001-1.035); Squamous Epithelial Cell,Urine 10 /hpf (0-4); Urobilinogen,Urine <2.0 mg/dL (<2.0)
[2023-12-29 17:07] LABS: Amphetamine Screen,Urine Not Detected (NotDetected); Barbiturate Screen,Urine Not Detected (NotDetected); Benzodiazepines Screen,Urine Not Detected (NotDetected); Cocaine Screen,Urine Not Detected (NotDetected); Methadone Screen, Urine Not Detected (NotDetected); Opiate Screen,Urine Not Detected (NotDetected); Oxycodone Screen, Urine Not Detected (NotDetected); Phencyclidine Screen,Urine Not Detected (NotDetected); Tricyclic Antidepressant,Urine Not Detected (NotDetected); Urn Cannabinoid Scrn Not Detected (NotDetected)
[2023-12-29] MEDS: LOPERAMIDE 2 MG CAP PO STA (19:44)
[2023-12-30 15:31] LABS: Glucose,Whole Blood 127 mg/dL (70-110)
[2023-12-30 15:41] VITALS: TEMP 97.9
[2023-12-30 18:59] VITALS: BP 123/76; PULSE 98; RESP 18
== END 2023-12-30 19:12 ==
LOC: EC 09:02
DX: R45.851 Suicidal ideations (principal); F32.A Depression, unspecified; R00.0 Tachycardia, unspecified; J45.909 Unspecified asthma, uncomplicated; E11.9 Type 2 diabetes mellitus without complications; I10 Essential (primary) hypertension; Z91.010 Allergy to peanuts; Z88.6 Allergy status to analgesic agent; Z88.8 Allergy status to other drugs, medicaments and biological substances; Z20.822 Contact with and (suspected) exposure to COVID-19
CPT/HCPCS: 36415; 80053; 80306; 81001; 82075; 85025; 87635; 93005; 99285

== ENCOUNTER 2024-02-16 20:48 | Emergency (ER) | payer OTHER ==
--- NOTE | 2024-02-16 20:51 | ED ---
Psych HPI - General Stated Complaint: Suicidal ideations Time Seen by Provider: 02/16/24 20:49 Source: RN notes reviewed, old records reviewed Mode of arrival: ambulatory Limitations: no limitations - History of Present Illness Initial Comments: This is a 48-year-old female to the ER for evaluation today. Patient presents today for evaluation regards to psychiatric illness. Patient states she wanted to kill herself today her thoughts were that she may jump [place] the [place]. Patient has been having suicidal thoughts for years upwards of 9 to 10 years but symptoms of getting worse lately with recent homelessness. Patient feels hopeless. No drugs or alcohol and she is on multiple medications underlying medical history is significant for diabetes MD Complaint: suicidal ideation, feels depressed -: year(s) Associated Psychiatric Symptoms: depression, suicidal ideation, racing thoughts History of same: Yes Quality: constant, intermittent Improves With: medication Context: not taking psychiatric medications Associated Symptoms: denies other symptoms Treatments Prior to Arrival: placed on mental health hold If Self Harm: admits thoughts of self harm - Related Data Home Medications Medication Instructions Recorded Confirmed No Known Home Medications 12/29/23 12/29/23 Allergies Allergy/AdvReac Type Severity Reaction Status Date / Time niacin [From Simcor] Allergy Severe "JUDGE UP" Verified 12/29/23 21:53 tree nut [Nut] Allergy Severe Rash/Hives Verified 12/29/23 21:53 peanut AdvReac Severe Rash/Hives Verified 12/29/23 21:53 simvastatin [From Simcor] AdvReac Severe "JUDGE UP" Verified 12/29/23 21:53 ibuprofen AdvReac Does not Verified 12/29/23 21:53 work Review of Systems ROS Statement: Those systems with pertinent positive or pertinent negative responses have been documented in the HPI. ROS Other: All systems not noted in ROS Statement are negative. Past Medical History Past Medical History: Asthma, Diabetes Mellitus, Hypertension, Memory Impairment, Seizure Disorder Additional Past Medical History / Comment(s): mood disorder, IBS, TBI History of Any Multi-Drug Resistant Organisms: None Reported Past Surgical History: Section, Cholecystectomy, Orthopedic Surgery, Tubal Ligation Additional Past Surgical History / Comment(s): knee, RIGHT FOOT SURGERY 15+ YEARS AGO Past Anesthesia/Blood Transfusion Reactions: No Reported Reaction Past Psychological History: ADD/ADHD, Bipolar, Depression, PTSD Smoking Status: Never smoker Past Alcohol Use History: None Reported Past Drug Use History: None Reported - Past Family History Mother History Unknown: Yes Additional Family Medical History / Comment(s): Patient states that her mother is from cancer. Father Family Medical History: Coronary Artery Disease (CAD), Diabetes Mellitus Daughter(s) Family Medical History: No Reported History General Exam Limitations: altered mental status General appearance: alert, in no apparent distress Head exam: Present: atraumatic, normocephalic, normal inspection Eye exam: Present: normal appearance, PERRL, EOMI. Absent: scleral icterus, conjunctival injection, periorbital swelling ENT exam: Present: normal exam, mucous membranes moist Neck exam: Present: normal inspection. Absent: tenderness, meningismus, lymphadenopathy Respiratory exam: Present: normal lung sounds bilaterally. Absent: respiratory distress, wheezes, rales, rhonchi, stridor Cardiovascular Exam: Present: regular rate, normal rhythm, normal heart sounds. Absent: systolic murmur, diastolic murmur, rubs, gallop, clicks GI/Abdominal exam: Present: soft, normal bowel sounds. Absent: distended, tenderness, guarding, rebound, rigid Extremities exam: Present: normal inspection, full ROM, normal capillary refill. Absent: tenderness, pedal edema, joint swelling, calf tenderness Back exam: Present: normal inspection Neurological exam: Present: alert, oriented X3, CN II-XII intact Psychiatric exam: Present: normal affect, normal mood Skin exam: Present: warm, dry, intact, normal color. Absent: rash Course Vital Signs 02/16/24 02/17/24 20:56 07:54 Temperature 98.4 F Pulse Rate 113 H 81 Respiratory 18 18 Rate Blood Pressure 127/95 115/75 O2 Sat by Pulse 97 96 Oximetry - Reevaluation(s) Reevaluation #1: 02/16/24 21:25 Medical records reviewed Reevaluation #2: 02/16/24 21:25 Patient symptoms patient medically cleared for psychiatric evaluation Medical Decision Making - Medical Decision Making 48 female to the ER for psychiatric evaluation today. Patient is de needed to be transferred for inpatient psychiatric evaluation and treatment - Lab Data Result diagrams: 02/17/24 00:25 02/17/24 00:25 Lab Results 02/17/24 02/17/24 02/17/24 Range/Units 00:25 00:25 00:25 WBC 12.2 H (3.8-10.6) k/uL RBC 4.30 (3.80-5.40) m/uL Hgb 13.8 (11.4-16.0) gm/dL Hct 40.1 (34.0-46.0) % MCV 93.3 (80.0-100.0) fL MCH 32.1 (25.0-35.0) pg MCHC 34.4 (31.0-37.0) g/dL RDW 13.1 (11.5-15.5) % Plt Count 280 (150-450) k/uL MPV 7.9 Neutrophils % 71 % Lymphocytes % 21 % Monocytes % 5 % Eosinophils % 1 % Basophils % 0 % Neutrophils # 8.7 H (1.3-7.7) k/uL Lymphocytes # 2.6 (1.0-4.8) k/uL Monocytes # 0.7 (0-1.0) k/uL Eosinophils # 0.2 (0-0.7) k/uL Basophils # 0.0 (0-0.2) k/uL Sodium 138 (137-145) mmol/L Potassium 4.3 (3.5-5.1) mmol/L Chloride 103 (98-107) mmol/L Carbon Dioxide 29 (22-30) mmol/L Anion Gap 6 mmol/L BUN 17 (7-17) mg/dL Creatinine 0.72 (0.52-1.04) mg/dL Est GFR (CKD-EPI)AfAm >90 (>60 ml/min/1.73 sqM) Est GFR (CKD-EPI)NonAf >90 (>60 ml/min/1.73 sqM) Glucose 93 (74-99) mg/dL Calcium 9.0 (8.4-10.2) mg/dL Total Bilirubin 0.8 (0.2-1.3) mg/dL AST 29 (14-36) U/L ALT 26 (4-34) U/L Alkaline Phosphatase 57 (38-126) U/L Total Protein 7.6 (6.3-8.2) g/dL Albumin 4.4 (3.5-5.0) g/dL Urine Opiates Screen Not Detected (NotDetected) Ur Oxycodone Screen Not Detected (NotDetected) Urine Methadone Screen Not Detected (NotDetected) Ur Barbiturates Screen Not Detected (NotDetected) U Tricyclic Antidepress Not Detected (NotDetected) Ur Phencyclidine Scrn Not Detected (NotDetected) Ur Amphetamines Screen Not Detected (NotDetected) U Methamphetamines Scrn Not Detected (NotDetected) U Benzodiazepines Scrn Detected H (NotDetected) Urine Cocaine Screen Not Detected (NotDetected) U Marijuana (THC) Screen Not Detected (NotDetected) Influenza Type A (PCR) (Not Detectd) Influenza Type B (PCR) (Not Detectd) RSV (PCR) (Not Detectd) SARS-CoV-2 (PCR) (Not Detectd) 02/17/24 Range/Units 00:25 WBC (3.8-10.6) k/uL RBC (3.80-5.40) m/uL Hgb (11.4-16.0) gm/dL Hct (34.0-46.0) % MCV (80.0-100.0) fL MCH (25.0-35.0) pg MCHC (31.0-37.0) g/dL RDW (11.5-15.5) % Plt Count (150-450) k/uL MPV Neutrophils % % Lymphocytes % % Monocytes % % Eosinophils % % Basophils % % Neutrophils # (1.3-7.7) k/uL Lymphocytes # (1.0-4.8) k/uL Monocytes # (0-1.0) k/uL Eosinophils # (0-0.7) k/uL Basophils # (0-0.2) k/uL Sodium (137-145) mmol/L Potassium (3.5-5.1) mmol/L Chloride (98-107) mmol/L Carbon Dioxide (22-30) mmol/L Anion Gap mmol/L BUN (7-17) mg/dL Creatinine (0.52-1.04) mg/dL Est GFR (CKD-EPI)AfAm (>60 ml/min/1.73 sqM) Est GFR (CKD-EPI)NonAf (>60 ml/min/1.73 sqM) Glucose (74-99) mg/dL Calcium (8.4-10.2) mg/dL Total Bilirubin (0.2-1.3) mg/dL AST (14-36) U/L ALT (4-34) U/L Alkaline Phosphatase (38-126) U/L Total Protein (6.3-8.2) g/dL Albumin (3.5-5.0) g/dL Urine Opiates Screen (NotDetected) Ur Oxycodone Screen (NotDetected) Urine Methadone Screen (NotDetected) Ur Barbiturates Screen (NotDetected) U Tricyclic Antidepress (NotDetected) Ur Phencyclidine Scrn (NotDetected) Ur Amphetamines Screen (NotDetected) U Methamphetamines Scrn (NotDetected) U Benzodiazepines Scrn (NotDetected) Urine Cocaine Screen (NotDetected) U Marijuana (THC) Screen (NotDetected) Influenza Type A (PCR) Not Detected (Not Detectd) Influenza Type B (PCR) Not Detected (Not Detectd) RSV (PCR) Not Detected (Not Detectd) SARS-CoV-2 (PCR) Not Detected (Not Detectd) Disposition Clinical Impression: Bipolar 1 disorder, depressed, Depression, Developmental disability Disposition: TRANSFER TO PSYCH HOSP/UNIT Condition: Fair Is patient prescribed a controlled substance at d/c from ED?: No Referrals: Tiny Cornell MD [Primary Care Provider] - 1-2 days
[2024-02-16 21:23] VITALS: RESP 18; TEMP 98.4
[2024-02-16] MEDS: LORazepam 1 MG TAB PO STA (22:10)
[2024-02-17 00:48] LABS: ALT 26 U/L (4-34); African American GFR (CKD) >90 (>60 ml/min/1.73 sqM); Albumin 4.4 g/dL (3.5-5.0); Anion Gap 6 mmol/L; Blood Urea Nitrogen 17 mg/dL (7-17); Carbon Dioxide 29 mmol/L (22-30); Chloride 103 mmol/L (98-107); Glucose 93 mg/dL (74-99); Non-African American GFR(CKD) >90 (>60 ml/min/1.73 sqM); Sodium 138 mmol/L (137-145); Total Bilirubin 0.8 mg/dL (0.2-1.3); Total Protein 7.6 g/dL (6.3-8.2)
[2024-02-17 00:55] LABS: Amphetamine Screen,Urine Not Detected (NotDetected); Barbiturate Screen,Urine Not Detected (NotDetected); Benzodiazepines Screen,Urine Detected (NotDetected); Cocaine Screen,Urine Not Detected (NotDetected); Methadone Screen, Urine Not Detected (NotDetected); Opiate Screen,Urine Not Detected (NotDetected); Oxycodone Screen, Urine Not Detected (NotDetected); Phencyclidine Screen,Urine Not Detected (NotDetected); Tricyclic Antidepressant,Urine Not Detected (NotDetected); Urn Cannabinoid Scrn Not Detected (NotDetected)
[2024-02-17 01:35] LABS: Potassium 4.3 mmol/L (3.5-5.1)
[2024-02-17 01:36] LABS: AST 29 U/L (14-36); Alkaline Phosphatase 57 U/L (38-126)
[2024-02-17 01:41] LABS: Basophils % (A) 0 %; Eosinophils # (A) 0.2 k/uL (0-0.7); Eosinophils % (A) 1 %; HCT 40.1 % (34.0-46.0); HGB 13.8 gm/dL (11.4-16.0); Lymphocytes # (A) 2.6 k/uL (1.0-4.8); Lymphocytes % (A) 21 %; MCH 32.1 pg (25.0-35.0); MCHC 34.4 g/dL (31.0-37.0); MCV 93.3 fL (80.0-100.0); Mean Platelet Volume 7.9; Monocytes # (A) 0.7 k/uL (0-1.0); Monocytes % (A) 5 %; Neutrophils # (A) 8.7 k/uL (1.3-7.7); Neutrophils % (A) 71 %; Platelet Count 280 k/uL (150-450); RDW 13.1 % (11.5-15.5); WBC 12.2 k/uL (3.8-10.6)
[2024-02-17 08:01] VITALS: BP 115/75; PULSE 81
== END 2024-02-17 09:32 ==
LOC: EC 20:48
DX: F31.9 Bipolar disorder, unspecified (principal); F89 Unspecified disorder of psychological development; Z11.52 Encounter for screening for COVID-19; Z88.6 Allergy status to analgesic agent; Z91.010 Allergy to peanuts; Z88.8 Allergy status to other drugs, medicaments and biological substances; Z91.018 Allergy to other foods
CPT/HCPCS: 36415; 80053; 80306; 82075; 85025; 87636; 99285